=== PATIENT | male | born 1935 | race Caucasian/White ===

== ENCOUNTER 2016-12-28 08:48 | Inpatient (IN) | payer OTHER, BC ==
[~2016-12-28] VITALS: Ht 188 cm; Wt 90.0 kg
[2016-12-28] VITALS (26 sets, daily range): BP systolic 66–132; BP diastolic 42–80; PULSE 50–128; TEMP 36.5–37.8; O2SAT 80–100; Ht 188 cm; Wt 90.0 kg
[~2016-12-28 08:48] MED LIST: ATV/1 PO; LOSA1TAB PO; TRAM-10 PO
[2016-12-28] MEDS ORDERED: SODIUM CHLORIDE 0.9% 1000ML 1,000 ML IV STA (08:55)
[2016-12-28] MEDS ORDERED: SODIUM CHLORIDE 0.9% 500ML 500 ML IV STA (09:03)
[2016-12-28] MEDS ORDERED: DILTIAZEM HCL 5 MG/ML 5 ML VIAL IV STA (09:03)
[2016-12-28] MEDS ORDERED: DILTIAZEM BOLUS / DRIP IV STA (09:03)
[2016-12-28] MEDS ORDERED: DILTIAZEM HCL INJ 125 MG in DEXTROSE 5% 100ML IV PRN ×2 (09:15→15:15)
[2016-12-28 09:18] LABS: BASO % 0.1 %; BASO ABS # 0.01 K/uL (0-0.2); COMPLETE YES; EOS % 0.1 %; HEMATOCRIT 37.1 % (42-52); IG% 0.1 %; LYMPH % 10.5 %; LYMPH ABS # 0.92 K/uL (1.2-3.4); MEAN CELL VOLUME 95.4 fL (80-100); MEAN CORPUSCULAR HEMOGLOBIN 33.2 pg (25-34); MEAN CORPUSCULAR HGB CONC 34.8 g/dl (32-36); MEAN PLATELET VOLUME 9.3 fL (7.4-10.4); MONO % 9.1 %; NEUT % 80.1 %; PLATELET COUNT 207 K/uL (130-400); RED BLOOD COUNT 3.89 M/uL (4.7-6.1); WHITE BLOOD COUNT 8.76 K/uL (4.8-10.8)
[2016-12-28 09:25] LABS: PROTHROMBIN TIME (PATIENT) 10.9 SECONDS (9.0-12.0)
--- NOTE | 2016-12-28 09:26 | DIAGNOSTIC IMAGING REPORT ---
CHEST ONE VIEW PORTABLE CLINICAL HISTORY: EVALUATE WEAKNESS dyspnea COMPARISON STUDY: None FINDINGS: Moderate cardiomegaly. Infiltrate left base. Slight fullness pulmonary vasculature. Prior left shoulder replacement. IMPRESSION: 1. Moderate cardiomegaly. 2. Infiltrate left base. Electronically signed by: Jerome Rodrigez M.D. 12/28/2016 9:25 AM Dictated Date/Time: 12/28/2016 9:24 AM
[2016-12-28 09:30] LABS: ISTAT CREATININE 0.8 mg/dl (0.6-1.3); ISTAT HEMOGLOBIN 12.9 g/dl (14.0-18.0); ISTAT IONIZED CALCIUM 1.14 mmol/l (1.12-1.32)
[2016-12-28 09:36] LABS: BUN/CREATININE RATIO 20.1 (10-20); CALCIUM 8.8 mg/dl (8.5-10.1); CREATININE 0.82 mg/dl (0.60-1.40); MAGNESIUM 1.8 mg/dl (1.8-2.4); POTASSIUM 4.5 mmol/L (3.5-5.1)
[2016-12-28] MEDS ORDERED: LEVAQUIN 750MG / 150ML D5W IV STA (09:39)
[2016-12-28 09:47] LABS: CKMB/CK RATIO 3.5 (0-3.0); THYROID STIMULATING HORMONE 0.13 uIu/ml (0.300-4.500)
[2016-12-28] MEDS ORDERED: CZR50 PO (10:38)
[2016-12-28] MEDS ORDERED: NITROGLYCERIN 0.4 MG SL PER TAB CHARGE SL PRN (10:45)
[2016-12-28] MEDS ORDERED: HEPARIN IV BOLUS 7,000 UNIT in SYRINGE 0 ML IV ONE (14:00)
[2016-12-28] MEDS: HEPARIN 25000 UNIT/ D5W 500 ML (PHARMACY PREPARED) IV PRN ×2 (14:18)
[2016-12-28] MEDS ORDERED: NURSING VERBAL MED ORDER ONE (15:15)
[2016-12-28] MEDS ORDERED: METOPROLOL TARTRATE 25 MG TAB PO ONE (15:30)
--- NOTE | 2016-12-28 15:30 | EMERGENCY ROOM VISIT NOTE ---
History Report prepared by Jonelle: Joe Espinal Under the Supervision of: Dr. Truong Crowder M.D. First contact with patient: 08:52 Stated Complaint: CHEST PAIN/ AFIB History of Present Illness The patient is a 81 year old male who presents to the Emergency Room with complaints of resolving chest pain that started this morning. He rates his pain as a 2/10 in severity currently and states that it was more severe earlier today. The patient states that he woke up in the middle of the night last night and could not move and was weak. He reports that later this morning he started to experience mild dull chest pain with inspiration. The patient was brought into the ED via EMS who report that when they arrived he was pale and diaphoretic. They report that they checked his vitals and he was experiencing atrial fibrillation with a rate of 130-150 and his blood pressure was 103 systolic. EMS states that they gave him Aspirin and Nitroglycerin and liang his blood. The patient reports that he currently feels a relief of symptoms after taking the medication EMS administered. He states that he has a history of atrial fibrillation and experiences shortness of breath upon exertion. The patient states that he went to visit his Tubing Supervisor at [facility] yesterday where they gave him monitoring strips to monitor his atrial fibrillation. He also reports that he has a history of edema, which he wears compression socks for, varicose veins, and venous insufficiency. He denies wearing his socks yesterday and states that his legs started to swell last night. The patient admits that he takes Losartan for his hypertension but denies any medication for his atrial fibrillations. The patient denies any previous heart attack, catheterization, LOC, headache, fevers, chills, visual changes, neck pain, breathing difficulties, nausea, vomiting, abdominal pain, back pain, melena, hematochezia, urinary symptoms, numbness, lymphadenopathy, rash, or other complaints Source of History: patient, EMS Onset: this morning Position: chest Symptom Intensity: 2/10 Quality: dull Timing: other (resolving) Modifying Factors (Worsening): breathing Modifying Factors (Relieving): other (aspirin and nitroglycerin) Associated Symptoms: + diaphoresis, + weakness Review of Systems See HPI for pertinent positives and negatives. A total of ten systems were reviewed and were otherwise negative. Past Medical & Surgical Medical Problems: (1) Atrial fibrillation (2) Chest pain (3) Varicose vein of leg (4) Venous insufficiency Family History Patient reports no known family medical history. Social History Smoking Status: Never Smoker Smokeless Tobacco Use: No Drug Use: none Marital Status: Housing Status: lives with significant other Occupation Status: retired Current/Historical Medications Scheduled Lorazepam (Ativan), 1 MG PO HS Losartan Potassium (Losartan Potassium), 1 TAB PO DAILY Allergies Coded Allergies: No Known Allergies (Unverified , 12/28/16) Physical Exam Vital Signs Date Time Temp Pulse Resp B/P (MAP) Pulse Ox O2 Delivery O2 Flow Rate FiO2 12/28/16 10:24 118 20 107/77 99 Nasal Cannula 2.0 12/28/16 10:16 121 20 111/75 99 Nasal Cannula 2.0 12/28/16 10:13 37.8 109 20 113/80 95 Nasal Cannula 2.0 12/28/16 10:04 112 20 113/68 98 Nasal Cannula 2.0 12/28/16 10:00 118 20 105/71 98 Nasal Cannula 2.0 12/28/16 09:56 107 20 113/80 98 Nasal Cannula 2.0 12/28/16 09:49 122 20 109/79 98 Nasal Cannula 2.0 12/28/16 09:42 106 20 108/80 98 Nasal Cannula 2.0 12/28/16 09:34 112 20 112/75 98 Nasal Cannula 2.0 12/28/16 09:32 110 20 123/78 97 Nasal Cannula 2.0 12/28/16 09:30 110 20 116/84 98 Nasal Cannula 2.0 12/28/16 09:28 105 20 110/80 98 Nasal Cannula 2.0 12/28/16 09:26 109 20 111/81 97 Nasal Cannula 2.0 12/28/16 09:23 105 21 107/76 98 Nasal Cannula 2.0 12/28/16 09:21 106 12/28/16 09:18 116 22 113/81 99 Nasal Cannula 2.0 12/28/16 09:14 110 20 125/77 98 Nasal Cannula 2.0 12/28/16 09:08 136 20 133/77 98 Nasal Cannula 2.0 12/28/16 09:02 98 Nasal Cannula 2.0 12/28/16 09:02 98 Nasal Cannula 2.0 12/28/16 09:02 98 Nasal Cannula 2.0 12/28/16 09:02 37.8 146 20 105/75 98 Nasal Cannula 2.0 12/28/16 08:59 155 Physical Exam GENERAL: Awake, alert, well-appearing, in no acute distress HENT: Normocephalic, atraumatic. Oropharynx unremarkable. EYES: Normal conjunctiva. Sclera non-icteric. NECK: Supple. No nuchal rigidity. FROM. No JVD. RESPIRATORY: Clear to auscultation. CARDIAC: Tachycardic, irregular rhythm. Extremities warm and well perfused. Pulses equal. ABDOMEN: Soft, non-distended. No tenderness to palpation. No rebound or guarding. No masses. RECTAL: Deferred. MUSCULOSKELETAL: Chest examination reveals no tenderness. The back is symmetrical on inspection without obvious abnormality. There is no CVA tenderness to palpation. No joint edema. LOWER EXTREMITIES: Calves are equal size bilaterally and non-tender. 1+ bilateral edema. No discoloration. NEURO: Normal sensorium. No sensory or motor deficits noted. SKIN: No rash or jaundice noted. Medical Decision & Procedures ER Provider Diagnostic Interpretation: X-ray: Per my interpretation, radiologist review. CHEST ONE VIEW PORTABLE CLINICAL HISTORY: EVALUATE WEAKNESS dyspnea COMPARISON STUDY: None FINDINGS: Moderate cardiomegaly. Infiltrate left base. Slight fullness pulmonary vasculature. Prior left shoulder replacement. IMPRESSION: 1. Moderate cardiomegaly. 2. Infiltrate left base. Electronically signed by: Jerome Rodrigez M.D. 12/28/2016 9:25 AM Dictated Date/Time: 12/28/2016 9:24 AM Laboratory Results 12/28/16 08:10 Red Blood Count 3.89, Mean Corpuscular Volume 95.4, Mean Corpuscular Hemoglobin 33.2, Mean Corpuscular Hemoglobin Concent 34.8, Mean Platelet Volume 9.3, Neutrophils (%) (Auto) 80.1, Lymphocytes (%) (Auto) 10.5, Monocytes (%) (Auto) 9.1, Eosinophils (%) (Auto) 0.1, Basophils (%) (Auto) 0.1, Neutrophils # (Auto) 7.01, Lymphocytes # (Auto) 0.92, Monocytes # (Auto) 0.80, Eosinophils # (Auto) 0.01, Basophils # (Auto) 0.01 12/28/16 08:10 Test 12/28/16 08:10 12/28/16 09:03 12/28/16 09:05 White Blood Count 8.76 K/uL (4.8-10.8) Red Blood Count 3.89 M/uL (4.7-6.1) Hemoglobin 12.9 g/dL (14.0-18.0) Hematocrit 37.1 % (42-52) Mean Corpuscular Volume 95.4 fL (80-100) Mean Corpuscular Hemoglobin 33.2 pg (25-34) Mean Corpuscular Hemoglobin Concent 34.8 g/dl (32-36) Platelet Count 207 K/uL (130-400) Mean Platelet Volume 9.3 fL (7.4-10.4) Neutrophils (%) (Auto) 80.1 % Lymphocytes (%) (Auto) 10.5 % Monocytes (%) (Auto) 9.1 % Eosinophils (%) (Auto) 0.1 % Basophils (%) (Auto) 0.1 % Neutrophils # (Auto) 7.01 K/uL (1.4-6.5) Lymphocytes # (Auto) 0.92 K/uL (1.2-3.4) Monocytes # (Auto) 0.80 K/uL (0.11-0.59) Eosinophils # (Auto) 0.01 K/uL (0-0.5) Basophils # (Auto) 0.01 K/uL (0-0.2) RDW Standard Deviation 47.6 fL (36.4-46.3) RDW Coefficient of Variation 13.8 % (11.5-14.5) Immature Granulocyte % (Auto) 0.1 % Immature Granulocyte # (Auto) 0.01 K/uL (0.00-0.02) Prothrombin Time 10.9 SECONDS (9.0-12.0) Prothromb Time International Ratio 1.0 (0.9-1.1) Activated Partial Thromboplast Time 26.6 SECONDS (21.0-31.0) Partial Thromboplastin Ratio 1.0 Est Creatinine Clear Calc Drug Dose 79.7 ml/min Estimated GFR () 96.8 Estimated GFR (Non- 83.5 BUN/Creatinine Ratio 20.1 (10-20) Calcium Level 8.8 mg/dl (8.5-10.1) Magnesium Level 1.8 mg/dl (1.8-2.4) Total Bilirubin 1.4 mg/dl (0.2-1) Direct Bilirubin 0.3 mg/dl (0-0.2) Aspartate Amino Transf (AST/SGOT) 34 U/L (15-37) Alanine Aminotransferase (ALT/SGPT) 54 U/L (12-78) Alkaline Phosphatase 69 U/L (45-117) Total Creatine Kinase 115 U/L (39-308) Total Protein 7.3 gm/dl (6.4-8.2) Albumin 3.6 gm/dl (3.4-5.0) Thyroid Stimulating Hormone (TSH) 0.130 uIu/ml (0.300-4.500) Bedside Troponin I < 0.030 ng/ml (0-0.045) Bedside Hemoglobin 12.9 g/dl (14.0-18.0) Bedside Hematocrit 38 % (42-52) Bedside Sodium 135 mEq/L (135-144) Bedside Potassium 4.7 mEq/L (3.3-5.0) Bedside Chloride 97 mEq/L (101-112) Bedside Total CO2 27 mEq/l (24-31) Anion Gap 17.0 mmol/L (16-25) Bedside Blood Urea Nitrogen 17 mg/dl (7-18) Bedside Creatinine 0.8 mg/dl (0.6-1.3) Bedside Glucose (other) 131 mg/dl (70-99) Bedside Ionized Calcium (Grace) 1.14 mmol/l (1.12-1.32) Laboratory results reviewed by me Medications Administered Medications (Trade) Dose Ordered Sig/Randolph Route Start Time Stop Time Status Last Admin Dose Admin Sodium Chloride 500 ml @ 999 mls/hr Q31M STAT IV 12/28/16 09:03 12/28/16 09:33 DC 12/28/16 09:03 999 MLS/HR Diltiazem HCl (Cardizem Bolus / Drip) 1 ea NOW STAT IV 12/28/16 09:03 12/28/16 09:05 DC 12/28/16 09:22 1 EA Diltiazem HCl (Cardizem Inj) 10 mg NOW STAT IV 12/28/16 09:03 12/28/16 09:05 DC 12/28/16 09:10 10 MG Diltiazem HCl 125 mg/Dextrose 125 ml @ 0 mls/hr Q0M PRN IV 12/28/16 09:15 12/28/16 13:53 DC 12/28/16 09:21 5 MLS/HR Levofloxacin (Levaquin / D5W) 750 mg NOW STAT IV 12/28/16 09:39 12/28/16 09:41 DC 12/28/16 10:25 750 MG ECG Indication: chest pain Rate (beats per minute): 139 Rhythm: atrial fibrillation Findings: no acute ischemic change, other (RVR) Comparison ECG Date: pre hospital Change: Atrial fibrillation with RVR and questionable ST elevation in the lateral leads. ED Course 0850: The patient was evaluated in room A11B. A complete history and physical exam was performed. 0855: Sodium Chloride 1000 ml @ 125 mls/hr IV. 0903: Cardizem Injection 10 mg IV, Diltiazem HCl 1 each IV, Sodium Chloride 500 ml @ 999 mls/hr IV. 0915: diltiazem HCl 125 mg/Dextrose 125 ml @ 0 mls/hr IV. 0939: Levofloxacin 750 mg IV. 0944: I reevaluated the patient and he is resting comfortably I updated him on his results and treatment plan. He agrees to admission. 1014: I discussed the patient's case with [facility] He understands the patient's condition and agrees to accept the patient. The patient will be further evaluated. Medical Decision Medication Reconciliation: I attest that I have personally reviewed the patient' s current medication list Blood pressure screening: Patient was found to have normal blood pressure on screening and does not require follow-up. Triage Nursing notes reviewed. The patient's presentation and history were concerning for weakness, chest pain , and rapid afib. Etiologies such as cardiac dysrhythmia, ACS, electrolyte abnormality, thyroid dysfunction, pulmonary embolism, infection, gastrointestinal, as well as others were entertained. The patient was evaluated. Clinically he is doing better than initially reported by EMS. The patient was placed on a Cardizem drip. He was hydrated. His CBC revealed a mild anemia. His coags, LFTs, chemistries, cardiac markers were unremarkable. TSH was minimally low. Imaging was concerning for left lower lobe pneumonia. The states that he has been coughing. He was given a dose of IV Levaquin. He will need admission to the hospital. Consultation was made with internal medicine. The patient was evaluated in the Emergency Room for further management. Consults Time Called: 1013 Consulting Physician: Harpal Nassar Returned Call: 1014 I discussed the patient's case with Harpal Nassar. He understands the patient's condition and agrees to accept the patient. The patient will be further evaluated. Impression Primary Impression: Rapid atrial fibrillation Additional Impression: Pneumonia Critical Care I have personally spent greater than 30 minutes of critical care time in the direct management of this patient. This includes bedside care, interpretation of diagnostic studies, and testing, discussion with consultants, patient, and family members, and other required patient management activities. This 30 minutes is in excess of all separately billable procedures. Scribe Attestation The scribe's documentation has been prepared under my direction and personally reviewed by me in its entirety. I confirm that the note above accurately reflects all work, treatment, procedures, and medical decision making performed by me. Departure Information Dispostion Being Evaluated By Hospitalist (Dr. Michelle) Referrals Reji Martínez M.D. (PCP) Problem Qualifiers
--- NOTE | 2016-12-28 15:43 | Cardiology Consultation ---
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 The patient's recent history dates back to November 2016 when he underwent endovenous radiofrequency ablation of the bilateral small saphenous veins to treat venous hypertension symptoms. The procedure was performed at [facility]. EKG performed 10/16/16 revealed sinus rhythm with right bundle branch block and PVCs. However on the day of his procedure it was noted that he had an irregular heart rhythm and an EKG documented the presence of newly diagnosed atrial fibrillation with PVCs. A right bundle branch block was still present. Ventricular rate was 95 bpm. On 12/08/16 the patient therefore saw Dr Lux of [facility] at [facility]. At that time he was found to be every controlled atrial fibrillation of 95-100 bpm. He was asymptomatic and was eager to go on a cruise to [place] and [place]. It was recommended that he start metoprolol succinate 25 mg by mouth daily and Xarelto. The patient however was concerned about starting new medications supposed history perhaps at that he did not take these. Yesterday he presented to the [facility] office and had a 24-hour Holter monitor placed as had been previously ordered before he went away. Overnight last night he stated that he slept more soundly than usual but felt unusual when he woke up in the middle the night and then this point. Today he explained to his family that he felt a chest discomfort when he took a deep breath in. He is apparently had a nonproductive cough for 3 weeks without fever. His spouse is at the bedside describes that during the recent trip he had significant decreased exercise tolerance and shortness of breath with minimal exertion such as walking in a museum or trying to walk up stairs. He had to take frequent breaks and this is not his typical active baseline from even comparison to one month ago. Emergency department today EKG revealed atrial fibrillation with rapid ventricular rate of 139 bpm. The patient was seen by the emergency room physician as well as hospitalist and was placed on a diltiazem infusion. When I had seen him on the telemetry floor he was comfortable. His ventricular rate remained elevated in the 125 bpm range despite high dose IV diltiazem 15 mg per hour. The patient has no long-standing past cardiac history. Prior to his recent appointment on 12/08/16 he had not previously followed with cardiology. History Past Medical History: 1. Recently diagnosed atrial fibrillation 2. Chronic right bundle branch block 3. Previous EKG evidence of frequent PVCs 4. Hypertension 5. Insomnia 6. Osteoporosis 7. 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 Varicose veins with recent endovenous radiofrequency ablation 9. History of TIA 10. Mild pulmonary hypertension echocardiogram 2006 11. Obstructive sleep apnea, not tolerating CPAP Past Surgical History: 1. Colonoscopy 2013 2. Meniscus repair the knee 3. Remote tonsillectomy 4. Vein ablation 12/05/16 Social History: Patient is . 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 A total of 10 systems reviewed and were otherwise negative. Allergies Coded Allergies: No Known Allergies (Unverified , 12/28/16) Medications Reported Home Medications Medications Dose Route/Sig Max Daily Dose Days Date Category Losartan Potassium 50 Mg Tab 1 Tab PO DAILY 12/28/16 Reported Ativan (Lorazepam) 1 Mg Tab 1 Mg PO HS 02/01/15 Reported Physical Exam Vital Signs (Last 8hrs): Last 8 Hrs Date Time Temp Pulse Resp B/P (MAP) Pulse Ox O2 Delivery O2 Flow Rate FiO2 12/28/16 13:00 37.0 128 18 112/71 (85) 99 Nasal Cannula 2.0 12/28/16 12:23 126 22 126/77 99 12/28/16 12:06 126 22 126/77 99 Nasal Cannula 2.0 12/28/16 10:24 118 20 107/77 99 Nasal Cannula 2.0 12/28/16 10:16 121 20 111/75 99 Nasal Cannula 2.0 12/28/16 10:13 37.8 109 20 113/80 95 Nasal Cannula 2.0 12/28/16 10:04 112 20 113/68 98 Nasal Cannula 2.0 12/28/16 10:00 118 20 105/71 98 Nasal Cannula 2.0 12/28/16 09:56 107 20 113/80 98 Nasal Cannula 2.0 12/28/16 09:49 122 20 109/79 98 Nasal Cannula 2.0 12/28/16 09:42 106 20 108/80 98 Nasal Cannula 2.0 12/28/16 09:34 112 20 112/75 98 Nasal Cannula 2.0 12/28/16 09:32 110 20 123/78 97 Nasal Cannula 2.0 12/28/16 09:30 110 20 116/84 98 Nasal Cannula 2.0 12/28/16 09:28 105 20 110/80 98 Nasal Cannula 2.0 12/28/16 09:26 109 20 111/81 97 Nasal Cannula 2.0 12/28/16 09:23 105 21 107/76 98 Nasal Cannula 2.0 12/28/16 09:21 106 12/28/16 09:18 116 22 113/81 99 Nasal Cannula 2.0 12/28/16 09:14 110 20 125/77 98 Nasal Cannula 2.0 12/28/16 09:08 136 20 133/77 98 Nasal Cannula 2.0 12/28/16 09:02 98 Nasal Cannula 2.0 12/28/16 09:02 98 Nasal Cannula 2.0 12/28/16 09:02 98 Nasal Cannula 2.0 12/28/16 09:02 37.8 146 20 105/75 98 Nasal Cannula 2.0 12/28/16 08:59 155 General Appearance: Alert and Oriented x3. NAD. Head: Normocephalic Atraumatic. Eyes: PERRLA, EOMI, conjunctiva and sclera clear Neck: Supple. No carotid bruits noted. No JVD. No HJD. Respiratory: Breath sounds clear to auscultation bilaterally. No w/r/r. Cardiovascular: Reg rate and rhythm. S1 and S2 noted. No murmurs, rubs, gallops. PMI non displace. Abdomen: Normal bowel sounds, soft nontender. no abdominal bruits. Extremities: No edema, no clubbing or cyanosis. distal pulses 2/4 bilaterally. Neuro: No focal deficits. Psychiatric: Normal affect. Data Last Resulted 12/28/16 08:10 Red Blood Count 3.89, Mean Corpuscular Volume 95.4, Mean Corpuscular Hemoglobin 33.2, Mean Corpuscular Hemoglobin Concent 34.8, Mean Platelet Volume 9.3, Neutrophils (%) (Auto) 80.1, Lymphocytes (%) (Auto) 10.5, Monocytes (%) (Auto) 9.1, Eosinophils (%) (Auto) 0.1, Basophils (%) (Auto) 0.1, Neutrophils # (Auto) 7.01, Lymphocytes # (Auto) 0.92, Monocytes # (Auto) 0.80, Eosinophils # (Auto) 0.01, Basophils # (Auto) 0.01 Last Resulted 12/28/16 08:10 Past 24 Hours Test 12/28/16 08:10 12/28/16 15:00 12/28/16 15:11 Range/Units Creatine Kinase MB 4.0 H 0.5-3.6 ng/ml Creatine Kinase MB Ratio 3.5 H 0-3.0 Prothromb Time International Ratio 1.0 0.9-1.1 Prothrombin Time 10.9 9.0-12.0 SECONDS Total Creatine Kinase 115 39-308 U/L CXR: Reported as per radiology moderate cardiomegaly, infiltrate left base EKG: As per history of present illness Telemetry reviewed: Atrial fibrillation, right bundle branch block, rapid ventricular rate in the 125 bpm range on telemetry floor Assessment & Plan Impression: 81-year-old male 1. Newly recognized atrial fibrillation with rapid ventricular rate, first diagnosed on 12/05/16 2. Chronic right bundle branch block 3. Frequent PVCs on outpatient EKG tracings 4. History of obstructive sleep apnea, intolerant of CPAP 5. 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 He could be having angina just on the basis of chronic coronary disease with a rate-induced supply demand mismatch however his symptoms describing pleuritic chest discomfort. He has had a cough for about 3 weeks per his spouse no michelle fever. His chest x-ray does suggest possible pneumonia. He received a single dose of levofloxacin in the emergency room thus far. He has no symptoms when he is sitting still and not taking deep breaths. At this point recommend unfractionated heparin for stroke prophylaxis as he did not start the Xarelto was recommended as an outpatient and overall I would speculate that this medicine may be cost prohibitive. Metoprolol tartrate 25 mg every 6 hours will be added to diltiazem for rate control. We'll plan to try to wean his diltiazem tomorrow. I'm going to hold his losartan for now in favor using medications to help with both heart rate and blood pressure in the interim. An echocardiogram has been completed and I will review this when available. Aly Adams DO, FACC, FACOI Associate [employer] [facility] [place], [facility]
[2016-12-28] MEDS ORDERED: COUGH DROP (SUGAR FREE) LOZ 24 LOZ/1 BOX ONE (16:10)
[2016-12-28] MEDS ORDERED: COLCHICINE 0.6 MG TAB PO ONE (16:19)
--- NOTE | 2016-12-28 16:21 | Cardiology Progress Note ---
Cardiology Progress Note Date of Service Dec 28, 2016. Cardiology Progress Note Echo reveals small circumferential pericardial effusion without tamponade. Given symptoms of pleuritic chest pain, this suggests pericarditis. Plan: solumedrol 40 mg IV x 1 now. Colchicine 0.6 mg BID.
--- NOTE | 2016-12-28 16:23 | ECHOCARDIOGRAM REPORT ---
*NOTICE TO RECEIVING REPUBLICAN AGENCY This information is strictly Confidential and protected under [place] law. [place] law prohibits you from making any further disclosure of this information unless further disclosure is expressly permitted by the written consent of the person to whom it pertains or is authorized by law. A general authorization for the release of medical or other information is not sufficient for this purpose. Hospital accepts no responsibility if the information is made available to any other person, INCLUDING THE PATIENT. Interpretation Summary * Name: AISLINN LOPEZ Study Date: 12/28/2016 01:31 PM BP: 71/128 mmHg * Patient Location: [facility] HR: 112 * : 1935 (M/d/yyyy) Gender: Male Height: 74 in * Age: 81 yrs Ethnicity: [place] Weight: 172 lb * Ordering Physician: Yunior Michelle * Referring Physician: Self, Referred * Performed By: Maggie Quinonez RDCS * * Reason For Study: Atrial fibrillation * BSA: 2.0 m2 * The study was technically adequate. * -- Conclusions -- * Atrial fibrillation with rapid ventricular rate was present during the echocardiogram examination. * There is mild concentric left ventricular hypertrophy. * No regional wall motion abnormalities noted. * The LV Ejection Fraction = 55-60%. * The right ventricle is mildly dilated. * The right ventricular systolic function is normal. * The left atrium is mildly dilated. * There is moderate tricuspid regurgitation. * Doppler findings do not suggest pulmonary hypertension. * The inferior vena cava is mildly dilated and collapeses < 50% with inspiration consistent with a right atrial pressure of 8 mm Hg. * There is a small circumferential pericardial effusion. * There are no echocardiographic indications of cardiac tamponade. * Mild aortic root dilatation with diameter of 4 cm. * The proximal ascending thoracic aorta is mildly dilated with diameter of 3.9 cm. Procedure Details * A complete two-dimensional transthoracic echocardiogram was performed (2D, M-mode, Doppler and color flow Doppler). Left Ventricle * The left ventricle is normal in size. * There is mild concentric left ventricular hypertrophy. * Left ventricular systolic function is normal. * Ejection Fraction = 55-60%. * The left ventricular wall motion is normal. * No regional wall motion abnormalities noted. Right Ventricle * The right ventricle is mildly dilated. * The right ventricular systolic function is normal. Atria * The left atrium is mildly dilated. * Right atrial size is normal. * There is no evidence of atrial septal defect, but resolution does not allow assessment for a patent foramen ovale. Mitral Valve * The mitral valve is normal. * Calcified mitral apparatus. * There is no mitral valve stenosis. * Significant mitral regurgitation is absent. Tricuspid Valve * The tricuspid valve is normal. * There is no tricuspid stenosis. * There is moderate tricuspid regurgitation. * Doppler findings do not suggest pulmonary hypertension. Aortic Valve * The aortic valve is trileaflet. * Aortic stenosis is absent. * There is no significant aortic regurgitation. Pulmonic Valve * The pulmonary valve is not well seen, but the Doppler examination is normal without significant regurgitation or stenosis. Great Vessels * Mild aortic root dilatation. * The proximal ascending thoracic aorta is mildly dilated. Pericardium/Pleural * There is a small circumferential pericardial effusion. * There are no echocardiographic indications of cardiac tamponade. Great Vessels * The inferior vena cava is mildly dilated and collapeses < 50% with inspiration consistent with a right atrial pressure of 8 mm Hg. MMode 2D Measurements and Calculations IVSd 1.5 cm LVIDd 2.9 cm LVIDs 2.0 cm LVPWd 1.2 cm IVS/LVPW 1.2 FS 28.7 % EDV(Teich) 31.1 ml ESV(Teich) 13.4 ml EF(Teich) 57.0 % EDV(cubed) 23.3 ml ESV(cubed) 8.5 ml EF(cubed) 63.7 % LV mass(C)d 124.1 grams LV mass(C)dI 60.9 grams/m\S\2 CO(Teich) 1.7 l/min CI(Teich) 0.82 l/min/m\S\2 SV(Teich) 17.7 ml SI(Teich) 8.7 ml/m\S\2 CO(cubed) 1.4 l/min CI(cubed) 0.69 l/min/m\S\2 SV(cubed) 14.9 ml SI(cubed) 7.3 ml/m\S\2 Ao root diam 4.0 cm Ao root area 12.5 cm\S\2 ACS 2.3 cm LA dimension 3.2 cm asc Aorta Diam 3.9 cm LA/Ao 0.79 LVOT diam 2.0 cm LVOT area 3.3 cm\S\2 LVAd ap4 26.9 cm\S\2 LVLd ap4 7.5 cm EDV(MOD-sp4) 81.1 ml LVAs ap4 16.7 cm\S\2 LVLs ap4 6.6 cm ESV(MOD-sp4) 36.7 ml EF(MOD-sp4) 54.7 % LVAd ap2 19.6 cm\S\2 LVLd ap2 6.3 cm EDV(MOD-sp2) 52.7 ml LVAs ap2 12.3 cm\S\2 LVLs ap2 5.3 cm ESV(MOD-sp2) 23.8 ml EF(MOD-sp2) 54.8 % CO(MOD-sp4) 4.2 l/min CI(MOD-sp4) 2.0 l/min/m\S\2 SV(MOD-sp4) 44.4 ml SI(MOD-sp4) 21.8 ml/m\S\2 CO(MOD-sp2) 2.7 l/min CI(MOD-sp2) 1.3 l/min/m\S\2 SV(MOD-sp2) 28.9 ml SI(MOD-sp2) 14.2 ml/m\S\2 Doppler Measurements and Calculations MV E max hema 86.8 cm/sec MV dec time 0.21 sec Ao V2 max 89.5 cm/sec Ao max PG 3.2 mmHg Ao max PG (full) 0.61 mmHg SUSANA(V,A) 3.0 cm\S\2 SUSANA(V,D) 3.0 cm\S\2 LV V1 max PG 2.6 mmHg LV V1 max 80.5 cm/sec PA V2 max 88.0 cm/sec PA max PG 3.1 mmHg PA acc slope 454.6 cm/sec\S\2 PA acc time 0.14 sec PI max hema 132.5 cm/sec PI max PG 7.0 mmHg PI dec slope 180.7 cm/sec\S\2 PI P1/2t 214.8 msec TR max hema 207.9 cm/sec PA pr(Accel) 15.6 mmHg
[2016-12-28] MEDS ORDERED: METOPROLOL TARTRATE 25 MG TAB PO SCH (17:00)
[2016-12-28] MEDS ORDERED: METHYLPREDNISOLONE IV 40 MG in SYRINGE 0 ML IV SCH (17:00)
[2016-12-28] MEDS ORDERED: ATROPINE SULFATE 0.1 MG/ML 5ML SYR ONE (17:47)
[2016-12-28] MEDS ORDERED: DOPamine 400MG / 250ML D5W ONE (18:04)
--- NOTE | 2016-12-28 18:07 | Cardiology Progress Note ---
Cardiology Progress Note Date of Service Dec 28, 2016. Cardiology Progress Note Note recorded via remote connection from my home: I was notified by nursing that a code purple protocol was activated for this patient. He stood up with assistance from his nurse and became lightheaded and confused. Telemetry revealed bradycardia down to 30 bpm range. Diltiazem 15 mg/hr was therefore stopped. Patient had recently received two doses of metoprolol tartrate 25 mg PO at 1553 , 1722. A state EKG was reviewed by remote connection, AF 72 bpm, RBBB (chronic) no significant ST changes. Telemetry was reviewed remotely: after 0.5 mg atropine patient's HR in the 50- 60 bpm with AF. I recommended another dose of atropine 0.5 mg IV x 1. I would suspect the high doses of AV betsy blocking medications diltiazem and metoprolol have taken effect and with holding these medications HR will stablize. I discontinued diltiazem and metoprolol in the computer orders. I discussed case with Dr Michelle by phone, and I agree with tx to SICU for closer monitoring. No indication for temporary transvenous Pacemaker at present. Aletha Adams DO
[2016-12-28] MEDS ORDERED: ONDANSETRON INJ 2 MG/ML 2 ML VIAL ONE (18:14)
[2016-12-28] MEDS ORDERED: GLUCAGON FOR INJ 1 MG VIAL ONE (18:21)
[2016-12-28] MEDS ORDERED: CALCIUM CHLORIDE 10% 10 ML SYR ONE (18:21)
--- NOTE | 2016-12-28 19:03 | Critical Care Consultation ---
Critical Care Consultation Date of Consultation: Dec 28, 2016. Attending Physician: Yunior Michelle M.D. Reason for Consultation: Bradycardia and Hypotension History of Present Illness He was admitted to the hospital with atrial fib and chest pain. Left LL pneumonia also noted. Recent return from cruise and prior to that had vein surgery on the LE. He was noted to have pulmonary HTN and a small pericardial effusion. Evaluation also noted a RBBB. He was treated with a heparin drip and IV Cardizem. I came to the bedside to assist with a code purple secondary to profound bradycardia and hypotension. The drip stopped and appropriate ACLS measures instituted. He was moved to the ICU for additional care. Family History Patient reports no known family medical history. Social History Smoking Status: Never Smoker Smokeless Tobacco Use: No Drug Use: none Marital Status: Housing Status: lives with significant other Occupation Status: retired Allergies Coded Allergies: No Known Allergies (Unverified , 12/28/16) Home Medications Scheduled Lorazepam (Ativan), 1 MG PO HS Losartan Potassium (Losartan Potassium), 1 TAB PO DAILY Current Inpatient Medications Current Inpatient Medications Medications (Trade) Dose Ordered Sig/Randolph Route Start Time Stop Time Status Last Admin Dose Admin Nitroglycerin (Nitrostat Tab) 0.4 mg UD PRN SL 12/28/16 10:45 01/27/17 10:44 Lorazepam (Ativan Tab) 1 mg HS PRN PO 12/28/16 12:30 01/27/17 12:29 Heparin Sodium (Porcine) 57692 unit/Dextrose 500 ml @ 30 mls/hr [id number] PRN IV 12/28/16 14:00 01/27/17 13:59 12/28/16 14:18 30 MLS/HR Colchicine (Colchicine Tab) 0.6 mg BID PO 12/29/16 09:00 01/28/17 08:59 Review of Systems Unresponsive initially. Noted some nausea and some chest discomfort. Both resolved with return to more appropriate HR and B/P. Remaining ROS negative. Physical Exam Date Time Temp Pulse Resp B/P (MAP) Pulse Ox O2 Delivery O2 Flow Rate FiO2 12/28/16 15:53 37.3 98 20 97/65 (76) 98 Nasal Cannula 2.0 12/28/16 13:00 37.0 128 18 112/71 (85) 99 Nasal Cannula 2.0 12/28/16 12:23 126 22 126/77 99 12/28/16 12:06 126 22 126/77 99 Nasal Cannula 2.0 12/28/16 10:24 118 20 107/77 99 Nasal Cannula 2.0 12/28/16 10:16 121 20 111/75 99 Nasal Cannula 2.0 12/28/16 10:13 37.8 109 20 113/80 95 Nasal Cannula 2.0 12/28/16 10:04 112 20 113/68 98 Nasal Cannula 2.0 12/28/16 10:00 118 20 105/71 98 Nasal Cannula 2.0 12/28/16 09:56 107 20 113/80 98 Nasal Cannula 2.0 12/28/16 09:49 122 20 109/79 98 Nasal Cannula 2.0 12/28/16 09:42 106 20 108/80 98 Nasal Cannula 2.0 12/28/16 09:34 112 20 112/75 98 Nasal Cannula 2.0 12/28/16 09:32 110 20 123/78 97 Nasal Cannula 2.0 12/28/16 09:30 110 20 116/84 98 Nasal Cannula 2.0 12/28/16 09:28 105 20 110/80 98 Nasal Cannula 2.0 12/28/16 09:26 109 20 111/81 97 Nasal Cannula 2.0 12/28/16 09:23 105 21 107/76 98 Nasal Cannula 2.0 12/28/16 09:21 106 12/28/16 09:18 116 22 113/81 99 Nasal Cannula 2.0 12/28/16 09:14 110 20 125/77 98 Nasal Cannula 2.0 12/28/16 09:08 136 20 133/77 98 Nasal Cannula 2.0 12/28/16 09:02 98 Nasal Cannula 2.0 12/28/16 09:02 98 Nasal Cannula 2.0 12/28/16 09:02 98 Nasal Cannula 2.0 12/28/16 09:02 37.8 146 20 105/75 98 Nasal Cannula 2.0 12/28/16 08:59 155 Trendelenburg Neck veins distended even with return to normal status HEENT--as noted. No new focal changes. Respiratory--exchange is adequate Cardio--rate slow initially and B/P in the 50-50 Range--responded to Volume, Dopamine,Calcium Chloride, Glucagon. GI--BS ok -negative Musculo--no edema-- Neuro--upon return of B/P LOC returned to baseline Psych--neg Derm--neg Laboratory Results Last 24 Hours Test 12/28/16 08:10 12/28/16 09:03 12/28/16 09:05 12/28/16 15:00 White Blood Count 8.76 K/uL Red Blood Count 3.89 M/uL Hemoglobin 12.9 g/dL Hematocrit 37.1 % Mean Corpuscular Volume 95.4 fL Mean Corpuscular Hemoglobin 33.2 pg Mean Corpuscular Hemoglobin Concent 34.8 g/dl Platelet Count 207 K/uL Mean Platelet Volume 9.3 fL Neutrophils (%) (Auto) 80.1 % Lymphocytes (%) (Auto) 10.5 % Monocytes (%) (Auto) 9.1 % Eosinophils (%) (Auto) 0.1 % Basophils (%) (Auto) 0.1 % Neutrophils # (Auto) 7.01 K/uL Lymphocytes # (Auto) 0.92 K/uL Monocytes # (Auto) 0.80 K/uL Eosinophils # (Auto) 0.01 K/uL Basophils # (Auto) 0.01 K/uL RDW Standard Deviation 47.6 fL RDW Coefficient of Variation 13.8 % Immature Granulocyte % (Auto) 0.1 % Immature Granulocyte # (Auto) 0.01 K/uL Prothrombin Time 10.9 SECONDS Prothromb Time International Ratio 1.0 Activated Partial Thromboplast Time 26.6 SECONDS Partial Thromboplastin Ratio 1.0 Sodium Level 134 mmol/L Potassium Level 4.5 mmol/L Chloride Level 101 mmol/L Carbon Dioxide Level 25 mmol/L Anion Gap 8.0 mmol/L 17.0 mmol/L Blood Urea Nitrogen 17 mg/dl Creatinine 0.82 mg/dl Est Creatinine Clear Calc Drug Dose 79.7 ml/min Estimated GFR () 96.8 Estimated GFR (Non- 83.5 BUN/Creatinine Ratio 20.1 Random Glucose 133 mg/dl Calcium Level 8.8 mg/dl Magnesium Level 1.8 mg/dl Total Bilirubin 1.4 mg/dl Direct Bilirubin 0.3 mg/dl Aspartate Amino Transf (AST/SGOT) 34 U/L Alanine Aminotransferase (ALT/SGPT) 54 U/L Alkaline Phosphatase 69 U/L Total Creatine Kinase 115 U/L Creatine Kinase MB 4.0 ng/ml Creatine Kinase MB Ratio 3.5 Total Protein 7.3 gm/dl Albumin 3.6 gm/dl Thyroid Stimulating Hormone (TSH) 0.130 uIu/ml Bedside Troponin I < 0.030 ng/ml Bedside Hemoglobin 12.9 g/dl Bedside Hematocrit 38 % Bedside Sodium 135 mEq/L Bedside Potassium 4.7 mEq/L Bedside Chloride 97 mEq/L Bedside Total CO2 27 mEq/l Bedside Blood Urea Nitrogen 17 mg/dl Bedside Creatinine 0.8 mg/dl Bedside Glucose (other) 131 mg/dl Bedside Ionized Calcium (Grace) 1.14 mmol/l Test 12/28/16 15:11 12/28/16 17:50 Creatine Kinase MB 2.3 ng/ml Troponin I < 0.015 ng/ml Bedside Glucose 151 mg/dl Assessment & Plan Bradycardia/Hypotension/Atrial Fib/Pulmonary HTN 1. Cardio--Cardiology at bedside to assist. As per recommendations--stopping the Cardizem and continuation of Dopamine with slow wean 2. Pulmonary--antibiotics in place--may require CPAP 3. GI--nausea--probably secondary to episode--will track 4. Neuro--appears at baseline--will track Additional plans pending his clinical response
--- NOTE | 2016-12-28 19:26 | History and Physical ---
History & Physical Date & Time of Service: Dec 28, 2016 at 12:25 Chief Complaint: Chest Pain/ Afib Primary Care Physician: Reji Martínez M.D. History of Present Illness Source: patient, spouse, clinic records, hospital records 81 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 Pt recently had endovenous radiofrequency ablation of B/L small saphenous vein on 12/05/16 at [place]. He was found to be on AFib the day of the procedure. He had an appointment the next day after discharging on 12/06 with his PCP. On 12/[address] Lux that started him on metoprolol and xarelto before patient left for his trip. Pt said that he did not fill the script because he did not want to take the xarelto because of the black box waning and it was very expensive ($400). He wanted to start on coumadin but because he was going away for vacation, Dr. Lux feels the coumadin was not the best option since pt will need to get blood work for the INR. He has at the cardiology yesterday that gave him a 24hr monitor to wear. Pt was brought to the ER with c/o chest pain. Pt said that this morning he was unable to get up. said that he was very confused and did not make sense at all. He then complaint of chest discomfort this morning whenever he takes a deep breath. said that pt was very active about 3 weeks ago. Denies any cardiac history, palpitation, fevers, chills, SOB, Dizziness. In the ER he was found to be in Afib with RVR. He was started on Cardizem drip. Currently pt lying in bed with no distress with his at bedside. Past Medical/Surgical History HTN Venous insufficiency EMIL Afib Family History Patient reports no known family medical history. Social History Smoking Status: Never Smoker Alcohol Use: drink one glass every night to sleep Drug Use: none Marital Status: Occupational Status: retired Allergies Coded Allergies: No Known Allergies (Unverified , 12/28/16) Home Medications Scheduled Lorazepam (Ativan), 1 MG PO HS Losartan Potassium (Losartan Potassium), 1 TAB PO DAILY Review of Systems Constitutional: No fever, No chills Eyes: No redness ENT: No hearing loss, No nasal symptoms, No sore throat Respiratory: No sputum, No wheezing, No shortness of breath Cardiovascular: + chest pain, No palpitations Abdomen: No pain, No nausea Musculoskeletal: No calf pain Genitourinary - Male: No hematuria, No dysuria Neurologic: No paralysis Psychiatric: No anxiety Endocrine: No fatigue Hematologic / Lymphatic: No night sweats Integumentary: No rash, No itch Physical Exam Vital Signs Date Time Temp Pulse Resp B/P (MAP) Pulse Ox O2 Delivery O2 Flow Rate FiO2 12/28/16 10:24 118 20 107/77 99 Nasal Cannula 2.0 12/28/16 10:16 121 20 111/75 99 Nasal Cannula 2.0 12/28/16 10:13 37.8 109 20 113/80 95 Nasal Cannula 2.0 12/28/16 10:04 112 20 113/68 98 Nasal Cannula 2.0 12/28/16 10:00 118 20 105/71 98 Nasal Cannula 2.0 12/28/16 09:56 107 20 113/80 98 Nasal Cannula 2.0 12/28/16 09:49 122 20 109/79 98 Nasal Cannula 2.0 12/28/16 09:42 106 20 108/80 98 Nasal Cannula 2.0 12/28/16 09:34 112 20 112/75 98 Nasal Cannula 2.0 12/28/16 09:32 110 20 123/78 97 Nasal Cannula 2.0 12/28/16 09:30 110 20 116/84 98 Nasal Cannula 2.0 12/28/16 09:28 105 20 110/80 98 Nasal Cannula 2.0 12/28/16 09:26 109 20 111/81 97 Nasal Cannula 2.0 12/28/16 09:23 105 21 107/76 98 Nasal Cannula 2.0 12/28/16 09:21 106 12/28/16 09:18 116 22 113/81 99 Nasal Cannula 2.0 12/28/16 09:14 110 20 125/77 98 Nasal Cannula 2.0 12/28/16 09:08 136 20 133/77 98 Nasal Cannula 2.0 12/28/16 09:02 98 Nasal Cannula 2.0 12/28/16 09:02 98 Nasal Cannula 2.0 12/28/16 09:02 98 Nasal Cannula 2.0 12/28/16 09:02 37.8 146 20 105/75 98 Nasal Cannula 2.0 12/28/16 08:59 155 General Appearance: WD/WN, no apparent distress Head: normocephalic, atraumatic Eyes: PERRL, EOMI ENT: hearing grossly normal Neck: supple, no JVD Respiratory/Chest: normal breath sounds, no respiratory distress, no accessory muscle use Cardiovascular: no JVD, no murmur, + irregularly irregular Abdomen/GI: non tender, soft Back: no CVA tenderness Extremities/Musculoskelatal: no calf tenderness, + swelling Neurologic/Psych: sodium chlorite operator II-XII nml as tested, no motor/sensory deficits, alert, oriented x 3 Skin: normal color, warm/dry Diagnostics Laboratory Results Results Past 24 Hours Test 12/28/16 08:10 12/28/16 09:03 12/28/16 09:05 Range/Units White Blood Count 8.76 4.8-10.8 K/uL Red Blood Count 3.89 4.7-6.1 M/uL Hemoglobin 12.9 14.0-18.0 g/dL Hematocrit 37.1 42-52 % Mean Corpuscular Volume 95.4 80-100 fL Mean Corpuscular Hemoglobin 33.2 25-34 pg Mean Corpuscular Hemoglobin Concent 34.8 32-36 g/dl Platelet Count 207 130-400 K/uL Mean Platelet Volume 9.3 7.4-10.4 fL Neutrophils (%) (Auto) 80.1 % Lymphocytes (%) (Auto) 10.5 % Monocytes (%) (Auto) 9.1 % Eosinophils (%) (Auto) 0.1 % Basophils (%) (Auto) 0.1 % Neutrophils # (Auto) 7.01 1.4-6.5 K/uL Lymphocytes # (Auto) 0.92 1.2-3.4 K/uL Monocytes # (Auto) 0.80 0.11-0.59 K/uL Eosinophils # (Auto) 0.01 0-0.5 K/uL Basophils # (Auto) 0.01 0-0.2 K/uL RDW Standard Deviation 47.6 36.4-46.3 fL RDW Coefficient of Variation 13.8 11.5-14.5 % Immature Granulocyte % (Auto) 0.1 % Immature Granulocyte # (Auto) 0.01 0.00-0.02 K/uL Prothrombin Time 10.9 9.0-12.0 SECONDS Prothromb Time International Ratio 1.0 0.9-1.1 Activated Partial Thromboplast Time 26.6 21.0-31.0 SECONDS Partial Thromboplastin Ratio 1.0 Sodium Level 134 136-145 mmol/L Potassium Level 4.5 3.5-5.1 mmol/L Chloride Level 101 98-107 mmol/L Carbon Dioxide Level 25 21-32 mmol/L Anion Gap 8.0 17.0 16-25 mmol/L Blood Urea Nitrogen 17 7-18 mg/dl Creatinine 0.82 0.60-1.40 mg/dl Est Creatinine Clear Calc Drug Dose 79.7 ml/min Estimated GFR () 96.8 Estimated GFR (Non- 83.5 BUN/Creatinine Ratio 20.1 10-20 Random Glucose 133 70-99 mg/dl Calcium Level 8.8 8.5-10.1 mg/dl Magnesium Level 1.8 1.8-2.4 mg/dl Total Bilirubin 1.4 0.2-1 mg/dl Direct Bilirubin 0.3 0-0.2 mg/dl Aspartate Amino Transf (AST/SGOT) 34 15-37 U/L Alanine Aminotransferase (ALT/SGPT) 54 12-78 U/L Alkaline Phosphatase 69 45-117 U/L Total Creatine Kinase 115 39-308 U/L Creatine Kinase MB 4.0 0.5-3.6 ng/ml Creatine Kinase MB Ratio 3.5 0-3.0 Total Protein 7.3 6.4-8.2 gm/dl Albumin 3.6 3.4-5.0 gm/dl Thyroid Stimulating Hormone (TSH) 0.130 0.300-4.500 uIu/ml Bedside Troponin I < 0.030 0-0.045 ng/ml Bedside Hemoglobin 12.9 14.0-18.0 g/dl Bedside Hematocrit 38 42-52 % Bedside Sodium 135 135-144 mEq/L Bedside Potassium 4.7 3.3-5.0 mEq/L Bedside Chloride 97 101-112 mEq/L Bedside Total CO2 27 24-31 mEq/l Bedside Blood Urea Nitrogen 17 7-18 mg/dl Bedside Creatinine 0.8 0.6-1.3 mg/dl Bedside Glucose (other) 131 70-99 mg/dl Bedside Ionized Calcium (Grace) 1.14 1.12-1.32 mmol/l Microbiology Results 12/28/16 Blood Culture, Received Pending 12/28/16 Blood Culture, Received Pending Diagnostic Radiology CHEST ONE VIEW PORTABLE CLINICAL HISTORY: EVALUATE WEAKNESS dyspnea COMPARISON STUDY: None FINDINGS: Moderate cardiomegaly. Infiltrate left base. Slight fullness pulmonary vasculature. Prior left shoulder replacement. IMPRESSION: 1. Moderate cardiomegaly. 2. Infiltrate left base. Electronically signed by: Jerome Rodrigez M.D. 12/28/2016 9:25 AM Dictated Date/Time: 12/28/2016 9:24 AM Impression Assessment and Plan Afib with RVR Rate uncontrolled between 110 to 130 Started on Cardizem drip in the ER continue Cardizem drip [id number] 5 Initial troponin negative Follow up 2 more sets CM Follow echo will get a doppler of LE since pt just came from a trip Will start on heparin drip will monitor in telemetry Cardiology consult Chest pain complaint of chest pain with deep breathing Seems more like pleuritic Troponin negative follow troponin Pneumonia CXR showed left base infiltrate Received levaquin in the ER Continue levaquin IV check blood cx will monitor cbc Abnormal TSH TSH is low Check free T4 and Total T3 HTN BP stable EMIL Non complaint with CPap DVT px on heparin drip Code Status Full no mech ventilation Level of Care Telemetry Advanced Directives Existing Living Will: Yes Existing Power of Tax Revenue Officer: Yes Resuscitation Status FULL NO MECH VENTILATION VTE Prophylaxis VTE Risk Assessment Done? Y/N: Yes Risk Level: Moderate Given or contraindicated: Unfractionated heparin SQ
--- NOTE | 2016-12-28 19:42 | Progress Note ---
Progress Note Date of Service Dec 28, 2016. Progress Note Code bhavana was called after pt went to the bathroom he became lightheadedness, diaphoresis and lethargy. He became hypoxia in the 80's and HR dropped in the 30 to 40's with BP as low as in the 60's systolic. Significant jugular venous distention. Stat EKG done showed RBBB with no ischemic changes, IVF bolus was administered. Cardizem drip was discontinued Case discussed with Dr. Adams that recommended Atropin 0.5mg; after 0.5 mg atropine patient's HR in the 50-60 bpm with AF. Repeat another dose of atropine 0.5 mg IV x [address] Adams recommendation, HR continue to stay btw 50-60. Discussed the case with Dr. Berg the retort fireman who came at bedside to evaluate pt. Dopamine drip was started and pt was transferred to the ICU. In the ICU calcium chloride and glucagon were given to reverse the diltiazem and metoprolol effect. Dr. Adams did a bedside echo that showed no cardiac tamponade. He vomited a couple times. Now, His vital sign improved with BP 106/61 ahd HR 74 Will continue monitor pt in the ICU. was notified
[2016-12-28] MEDS: SODIUM CHLORIDE 0.9% 1000ML 1,000 ML IV SCH (19:47)
[2016-12-28 21:32] LABS: PARTIAL THROMBOPLASTIN RATIO 2.4
[2016-12-28 22:13] LABS: URINE APPEARANCE CLEAR (CLEAR); URINE BILIRUBIN NEG (NEG); URINE COLOR DK YELLOW; URINE NITRITE NEG (NEG); UROBILINOGEN NEG (NEG)
[2016-12-28 22:14] LABS: MANUAL MICROSCOPIC REQUIRED? NO; REVIEW REQ? YES
[2016-12-28 22:21] LABS: URINE MUCUS PRESENT (NONE PRSENT)
[2016-12-28] MEDS: LORAZEPAM 1 MG TAB PO PRN (22:34)
[2016-12-29] VITALS (17 sets, daily range): BP systolic 95–137; BP diastolic 60–84; PULSE 18–110; TEMP 36.6–36.8; O2SAT 93–97
[2016-12-29] MEDS: SODIUM CHLORIDE 0.9% 1000ML 1,000 ML IV SCH ×2 (05:51→12:00)
[2016-12-29] MEDS: HEPARIN 25000 UNIT/ D5W 500 ML (PHARMACY PREPARED) IV PRN ×4 (05:52→23:08)
[2016-12-29 06:16] LABS: HEMATOCRIT 33.1 % (42-52); MEAN CELL VOLUME 95.7 fL (80-100); MEAN CORPUSCULAR HEMOGLOBIN 33.5 pg (25-34); MEAN PLATELET VOLUME 9.1 fL (7.4-10.4); PLATELET COUNT 196 K/uL (130-400); RED BLOOD COUNT 3.46 M/uL (4.7-6.1); WHITE BLOOD COUNT 7.52 K/uL (4.8-10.8)
[2016-12-29 06:44] LABS: PARTIAL THROMBOPLASTIN RATIO 2.3
[2016-12-29 06:48] LABS: BUN/CREATININE RATIO 25.4 (10-20); CALCIUM 8.6 mg/dl (8.5-10.1); CREATININE 0.97 mg/dl (0.60-1.40); POTASSIUM 5.1 mmol/L (3.5-5.1)
--- NOTE | 2016-12-29 07:30 | DIAGNOSTIC IMAGING REPORT ---
ULTRASOUND VENOUS DOPPLER LWR EXT BILA CLINICAL HISTORY: Leg swelling COMPARISON STUDY: No previous studies for comparison. FINDINGS: Real-time and color flow Doppler imaging were performed. Flow was seen within the femoral, popliteal and calf veins with no intraluminal thrombus demonstrated. The saphenous vein is patent. There is a nonspecific 21 x 16 x 9 mm left inguinal lymph node containing a prominent hypoechoic focus within the hilum. IMPRESSION: 1. No evidence of lower extremity DVT 2. 21 x 16 x 9 mm left inguinal lymph node with a possibly replaced hilum Electronically signed by: aDkota Hines M.D. 12/29/2016 7:29 AM Dictated Date/Time: 12/29/2016 7:27 AM
[2016-12-29] MEDS ORDERED: COLCHICINE 0.6 MG TAB PO SCH (09:00)
[2016-12-29] MEDS ORDERED: LOSARTAN POTASSIUM 50 MG TAB PO SCH (09:00)
[2016-12-29] MEDS: LEVOFLOXACIN / D5W 750 MG in PREMIXED IN D5W 150 ML IV SCH (09:22)
--- NOTE | 2016-12-29 09:26 | Critical Care Progress Note ---
Critical Care Progress Note Date of Service Dec 29, 2016. ICU Day ICU Day Number: [address] Berg Subjective He is feeling better. No dyspnea. No chest pain. No orthostatic symptoms. He is awake and alert. Vitals appropriate. He appears clinically improved and stable for return to stepdown unit. Current SOFA Score SOFA Score Response (Comments) Value PaO2/FiO2 (mmHg) < 300 2 SaO2 / FIO2 221 - 301 1 Platelets (x10) > 150 0 Bilirubin (mg/dL) < 1.2 0 Manuel Coma Score 15 0 Level of Hypotension No Hypotension 0 Creatinine (mg/dL) 1.2 - 1.9 1 Total 4 Assessment & Plan Atrial Fib/Episode of Bradycardia and Hypotension-- 1. Cardio--volume looking good. Rx tolerated. Rate ok. 2. Pulmonary--minimal A-a gradient--? underlying EMIL--evaluation in the future- 3. Anticoagulation--tolerating Heparin--Therapeutic. Dispo--clinically appropriate for transfer out of the ICU. Consults & Procedures Consultants: see orders Procedures: none Data Medications: Current Inpatient Medications Medications (Trade) Dose Ordered Sig/Randolph Route Start Time Stop Time Status Last Admin Dose Admin Nitroglycerin (Nitrostat Tab) 0.4 mg UD PRN SL 12/28/16 10:45 01/27/17 10:44 Lorazepam (Ativan Tab) 1 mg HS PRN PO 12/28/16 12:30 01/27/17 12:29 12/28/16 22:34 1 MG Heparin Sodium (Porcine) 62039 unit/Dextrose 500 ml @ 30 mls/hr [id number] PRN IV 12/28/16 14:00 01/27/17 13:59 12/29/16 05:52 30 MLS/HR Colchicine (Colchicine Tab) 0.6 mg BID PO 12/29/16 09:00 01/28/17 08:59 Sodium Chloride 1,000 ml @ 125 mls/hr Q8H IV 12/28/16 19:30 01/27/17 19:29 12/29/16 05:51 125 MLS/HR Levofloxacin 750 mg/Prmx 150 ml @ 100 mls/hr Q24H IV 12/29/16 09:00 01/05/17 08:59 Vital Signs: Date Time Temp Pulse Resp B/P (MAP) Pulse Ox O2 Delivery O2 Flow Rate FiO2 12/29/16 07:44 36.6 90 18 103/71 (82) 97 Nasal Cannula 2.0 90 12/29/16 07:25 97 Nasal Cannula 2.0 12/29/16 06:00 78 20 120/71 (87) 96 Nasal Cannula 2.0 12/29/16 05:00 82 16 108/74 (85) 95 Nasal Cannula 2.0 12/29/16 04:00 36.7 84 18 95/66 (76) 97 Nasal Cannula 2.0 12/29/16 04:00 Nasal Cannula 2.0 12/29/16 03:00 74 97/63 (74) 94 2.0 12/29/16 02:00 79 16 108/76 (87) 96 Nasal Cannula 2.0 12/29/16 01:00 83 18 97/66 (76) 96 Nasal Cannula 2.0 12/29/16 00:00 95 Nasal Cannula 2.0 12/29/16 00:00 74 18 102/60 (74) 96 Nasal Cannula 2.0 12/28/16 23:00 36.6 85 18 113/65 (81) 91 Room Air 12/28/16 23:00 87 88 12/28/16 22:20 92 Room Air 12/28/16 22:15 83 95 Nasal Cannula 2.0 12/28/16 22:01 76 107/75 (86) 12/28/16 22:00 86 95 Oxymask 4.0 12/28/16 20:15 96 Oxymask 8.0 12/28/16 20:01 36.5 78 105/59 (74) 94 12/28/16 20:00 98 Oxymask 15.0 12/28/16 19:21 71 18 94/53 (67) 97 Oxymask 15.0 12/28/16 19:16 72 18 104/56 (72) 97 12/28/16 19:06 74 16 101/61 (74) 96 12/28/16 19:01 72 18 104/56 (72) 95 12/28/16 18:56 77 16 107/42 (63) 84 Oxymask 15.0 12/28/16 18:46 73 18 105/57 (73) 94 12/28/16 18:41 66 18 106/59 (75) 94 12/28/16 18:31 81 18 127/62 (83) 93 12/28/16 18:27 82 18 132/71 (91) 90 12/28/16 18:18 80 18 95/49 (64) 80 Oxymask 15.0 12/28/16 17:58 52 68/44 (52) 100 Oxymask 6.0 12/28/16 17:57 81/43 (56) 100 Oxymask 6.0 12/28/16 17:53 56 66/49 (55) 100 Oxymask 6.0 12/28/16 17:49 50 78/53 (61) 88 Nasal Cannula 4.0 12/28/16 17:15 112 104/67 (79) 12/28/16 16:00 Nasal Cannula 2.0 12/28/16 15:53 37.3 98 20 97/65 (76) 98 Nasal Cannula 2.0 12/28/16 13:00 37.0 128 18 112/71 (85) 99 Nasal Cannula 2.0 12/28/16 12:23 126 22 126/77 99 12/28/16 12:06 126 22 126/77 99 Nasal Cannula 2.0 12/28/16 10:24 118 20 107/77 99 Nasal Cannula 2.0 12/28/16 10:16 121 20 111/75 99 Nasal Cannula 2.0 12/28/16 10:13 37.8 109 20 113/80 95 Nasal Cannula 2.0 12/28/16 10:04 112 20 113/68 98 Nasal Cannula 2.0 12/28/16 10:00 118 20 105/71 98 Nasal Cannula 2.0 12/28/16 09:56 107 20 113/80 98 Nasal Cannula 2.0 12/28/16 09:49 122 20 109/79 98 Nasal Cannula 2.0 12/28/16 09:42 106 20 108/80 98 Nasal Cannula 2.0 12/28/16 09:34 112 20 112/75 98 Nasal Cannula 2.0 12/28/16 09:32 110 20 123/78 97 Nasal Cannula 2.0 12/28/16 09:30 110 20 116/84 98 Nasal Cannula 2.0 12/28/16 09:28 105 20 110/80 98 Nasal Cannula 2.0 12/28/16 09:26 109 20 111/81 97 Nasal Cannula 2.0 Laboratory Results: Last 24 Hours Test 12/28/16 15:00 12/28/16 15:11 12/28/16 17:50 12/28/16 21:02 Creatine Kinase MB Ratio Creatine Kinase MB 2.3 ng/ml Troponin I < 0.015 ng/ml Bedside Glucose 151 mg/dl 127 mg/dl Test 12/28/16 21:03 12/29/16 05:44 Activated Partial Thromboplast Time 61.2 SECONDS 60.6 SECONDS Partial Thromboplastin Ratio 2.4 2.3 Creatine Kinase MB 1.7 ng/ml Creatine Kinase MB Ratio Troponin I < 0.015 ng/ml White Blood Count 7.52 K/uL Red Blood Count 3.46 M/uL Hemoglobin 11.6 g/dL Hematocrit 33.1 % Mean Corpuscular Volume 95.7 fL Mean Corpuscular Hemoglobin 33.5 pg Mean Corpuscular Hemoglobin Concent 35.0 g/dl RDW Standard Deviation 48.9 fL RDW Coefficient of Variation 14.1 % Platelet Count 196 K/uL Mean Platelet Volume 9.1 fL Sodium Level 135 mmol/L Potassium Level 5.1 mmol/L Chloride Level 104 mmol/L Carbon Dioxide Level 24 mmol/L Anion Gap 7.0 mmol/L Blood Urea Nitrogen 25 mg/dl Creatinine 0.97 mg/dl Est Creatinine Clear Calc Drug Dose 70.6 ml/min Estimated GFR () 85.1 Estimated GFR (Non- 73.4 BUN/Creatinine Ratio 25.4 Random Glucose 143 mg/dl Calcium Level 8.6 mg/dl Magnesium Level 2.0 mg/dl Free Thyroxine 1.43 ng/dl Total Triiodothyronine 0.50 ng/ml
--- NOTE | 2016-12-29 09:37 | Progress Note ---
Internal Med Progress Note Date of Service: Dec 29, 2016. Provider Documentation: SUBJECTIVE: Seen and examined at bedside. Has developed upper body erythema today. Has dry cough. States chest pain resolved. Denies SOB, fever, chills. Family at bedside. Offers no other complaints. OBJECTIVE: Vital Signs-as noted below Physical Exam: General Appearance:Moderately built and nourished, no apparent distress Head: normocephalic, Atraumatic Eyes: normal inspection, EOMI, PERRL Neck: supple, +JVD, Trachea midline Respiratory/Chest: Normal breath sounds, CTA Cardiovascular:Irregularly Irregular, No murmur Abdomen/GI:Soft, Non tender, Bowel sounds present Extremities/Musculoskelatal:normal inspection, no edema Neurologic/Psych:AAOX3, grossly no focal neurological deficits Skin: Erythema upper chest, back and neck. Lab data as noted below. ASSESSMENT & PLAN: Afib with RVR Initially on Cardizem drip which was discontinued secondary to Hypotension, bradycardia Code purple on 12/28: Bradycardia, Hypotension: calcium chloride and glucagon were given to reverse the diltiazem and metoprolol effect. Avoid AV betsy blockers [id number] 5 Troponin negative ECHO: as below Venous Doppler: No DVT on heparin drip Appreciate Cardiology and Berry Picker help Pleuritic Chest pain:Likely pericarditis S/P solumedrol 40 mg IV: one time On Colchicine 0.6 mg BID. Troponin negative Pneumonia CXR showed left base infiltrate Continue Levaquin Blood cultures:pending Erythema: On upper chest, neck Denies pain, itching Unclear etiology Will give a dose of Benadryl Monitor Abnormal TSH TSH is low, Normal free T4 and low T3 Needs repeat thyroid function test as outpatient HTN stable Monitor EMIL Non complaint with CPAP DVT px: on heparin drip Code [facility]: [facility] Disposition: PROCEDURES: ECHO: Atrial fibrillation with rapid ventricular rate was present during the echocardiogram examination. * There is mild concentric left ventricular hypertrophy. * No regional wall motion abnormalities noted. * The LVEjection Fraction = 55-60%. * The right ventricle is mildly dilated. * The right ventricular systolic function is normal. * The left atrium is mildly dilated. * There is moderate tricuspid regurgitation. * Doppler findings do not suggest pulmonary hypertension. * The inferior vena cava is mildly dilated and collapeses < 50% with inspiration consistent with a right atrial pressure of 8 mm Hg. * There is a small circumferential pericardial effusion. * There are no echocardiographic indications of cardiac tamponade. * Mild aortic root dilatation with diameter of 4 cm. * The proximal ascending thoracic aorta is mildly dilated with diameter of 3.9 cm. Vital Signs: Date Time Temp Pulse Resp B/P (MAP) Pulse Ox O2 Delivery O2 Flow Rate FiO2 12/29/16 09:00 85 16 97/70 (79) 97 Nasal Cannula 2.0 85 12/29/16 07:44 36.6 90 18 103/71 (82) 97 Nasal Cannula 2.0 90 12/29/16 07:25 97 Nasal Cannula 2.0 12/29/16 06:00 78 20 120/71 (87) 96 Nasal Cannula 2.0 12/29/16 05:00 82 16 108/74 (85) 95 Nasal Cannula 2.0 12/29/16 04:00 36.7 84 18 95/66 (76) 97 Nasal Cannula 2.0 12/29/16 04:00 Nasal Cannula 2.0 12/29/16 03:00 74 97/63 (74) 94 2.0 12/29/16 02:00 79 16 108/76 (87) 96 Nasal Cannula 2.0 12/29/16 01:00 83 18 97/66 (76) 96 Nasal Cannula 2.0 12/29/16 00:00 95 Nasal Cannula 2.0 12/29/16 00:00 74 18 102/60 (74) 96 Nasal Cannula 2.0 12/28/16 23:00 36.6 85 18 113/65 (81) 91 Room Air 12/28/16 23:00 87 88 12/28/16 22:20 92 Room Air 12/28/16 22:15 83 95 Nasal Cannula 2.0 12/28/16 22:01 76 107/75 (86) 12/28/16 22:00 86 95 Oxymask 4.0 12/28/16 20:15 96 Oxymask 8.0 12/28/16 20:01 36.5 78 105/59 (74) 94 12/28/16 20:00 98 Oxymask 15.0 12/28/16 19:21 71 18 94/53 (67) 97 Oxymask 15.0 12/28/16 19:16 72 18 104/56 (72) 97 12/28/16 19:06 74 16 101/61 (74) 96 12/28/16 19:01 72 18 104/56 (72) 95 12/28/16 18:56 77 16 107/42 (63) 84 Oxymask 15.0 12/28/16 18:46 73 18 105/57 (73) 94 12/28/16 18:41 66 18 106/59 (75) 94 12/28/16 18:31 81 18 127/62 (83) 93 12/28/16 18:27 82 18 132/71 (91) 90 12/28/16 18:18 80 18 95/49 (64) 80 Oxymask 15.0 12/28/16 17:58 52 68/44 (52) 100 Oxymask 6.0 12/28/16 17:57 81/43 (56) 100 Oxymask 6.0 12/28/16 17:53 56 66/49 (55) 100 Oxymask 6.0 12/28/16 17:49 50 78/53 (61) 88 Nasal Cannula 4.0 12/28/16 17:15 112 104/67 (79) 12/28/16 16:00 Nasal Cannula 2.0 12/28/16 15:53 37.3 98 20 97/65 (76) 98 Nasal Cannula 2.0 12/28/16 13:00 37.0 128 18 112/71 (85) 99 Nasal Cannula 2.0 12/28/16 12:23 126 22 126/77 99 12/28/16 12:06 126 22 126/77 99 Nasal Cannula 2.0 12/28/16 10:24 118 20 107/77 99 Nasal Cannula 2.0 12/28/16 10:16 121 20 111/75 99 Nasal Cannula 2.0 12/28/16 10:13 37.8 109 20 113/80 95 Nasal Cannula 2.0 12/28/16 10:04 112 20 113/68 98 Nasal Cannula 2.0 12/28/16 10:00 118 20 105/71 98 Nasal Cannula 2.0 12/28/16 09:56 107 20 113/80 98 Nasal Cannula 2.0 Lab Results: Results Past 24 Hours Test 12/28/16 15:00 12/28/16 15:11 12/28/16 17:50 12/28/16 21:02 Range/Units Creatine Kinase MB Ratio 0-3.0 Creatine Kinase MB 2.3 0.5-3.6 ng/ml Troponin I < 0.015 0-0.045 ng/ml Bedside Glucose 151 127 70-99 mg/dl Test 12/28/16 21:03 12/29/16 05:44 Range/Units Activated Partial Thromboplast Time 61.2 60.6 21.0-31.0 SECONDS Partial Thromboplastin Ratio 2.4 2.3 Creatine Kinase MB 1.7 0.5-3.6 ng/ml Creatine Kinase MB Ratio 0-3.0 Troponin I < 0.015 0-0.045 ng/ml White Blood Count 7.52 4.8-10.8 K/uL Red Blood Count 3.46 4.7-6.1 M/uL Hemoglobin 11.6 14.0-18.0 g/dL Hematocrit 33.1 42-52 % Mean Corpuscular Volume 95.7 80-100 fL Mean Corpuscular Hemoglobin 33.5 25-34 pg Mean Corpuscular Hemoglobin Concent 35.0 32-36 g/dl RDW Standard Deviation 48.9 36.4-46.3 fL RDW Coefficient of Variation 14.1 11.5-14.5 % Platelet Count 196 130-400 K/uL Mean Platelet Volume 9.1 7.4-10.4 fL Sodium Level 135 136-145 mmol/L Potassium Level 5.1 3.5-5.1 mmol/L Chloride Level 104 98-107 mmol/L Carbon Dioxide Level 24 21-32 mmol/L Anion Gap 7.0 3-11 mmol/L Blood Urea Nitrogen 25 7-18 mg/dl Creatinine 0.97 0.60-1.40 mg/dl Est Creatinine Clear Calc Drug Dose 70.6 ml/min Estimated GFR () 85.1 Estimated GFR (Non- 73.4 BUN/Creatinine Ratio 25.4 10-20 Random Glucose 143 70-99 mg/dl Calcium Level 8.6 8.5-10.1 mg/dl Magnesium Level 2.0 1.8-2.4 mg/dl Free Thyroxine 1.43 0.80-1.60 ng/dl Total Triiodothyronine 0.50 0.60-1.81 ng/ml Microbiology Results 12/28/16 Blood Culture, Received Pending 12/28/16 Blood Culture, Received Pending
--- NOTE | 2016-12-29 11:36 | Cardiology Follow-Up ---
Subjective General Date of Service: Dec 29, 2016. Chief Complaint: follow-up AF, RBBB, transient bradycardia, hypotension Pt evaluation today including: conversation w/ patient, conversation w/ family , physical exam, conversation w/ professional benefits sales consultant History of Present Illness The patient is a 81 year old male seen in follow-up. Patient remained in the intensive care unit from 105 over night. His dopamine infusion at 5 mcg/kg/m was weaned to 2.5 mg/kg/m last evening and then discontinued just after 11 PM and his blood pressures remained stable overnight. Currently systolic blood pressure is just over 100 mmHg, and telemetry reveals continued atrial fibrillation in the 70-85 bpm range. Just before I had seen the patient he received his a.m. dose of levofloxacin as well as colchicine and after that he had an erythematous rash on his body without hives. He notes his pleuritic chest pain is slightly improved. He is mentating well. Labs are stable with the exception of mild hyperkalemia at 5.1 mmol per liter. Lower extremity venous duplex excluded the presence of DVT. Mild inguinal adenopathy was noted however the patient did recently have an endovenous radiofrequency ablation of the saphenous veins in his legs which may explain this. Allergies Coded Allergies: No Known Allergies (Unverified , 12/28/16) Social History Smoking Status: Never Smoker Hx Tobacco Use In Past Year?: No Hx Alcohol Use - Type And Amou: Yes (1 a day) Hx Substance Use - Type And Am: No Problem List Medical Problems: (1) Pneumonia Status: Acute (2) Rapid atrial fibrillation Status: Acute Physical Exam Vital Signs Last Vital Signs Documentation Date Time Temp Pulse Resp B/P (MAP) Pulse Ox O2 Delivery O2 Flow Rate FiO2 12/29/16 10:00 82 16 122/72 (89) 97 Nasal Cannula 2.0 82 12/29/16 07:44 36.6 Physical Exam Constitutional: Level of Distress: NAD Head: normocephalic Neck: supple, pertinent finding (jugular venous distention noted at 35.) Lungs: Auscultation: no wheezing, no rales/crackles, no rhonchi Cardiovascular: Heart Auscultation: no murmurs, irregular rate rhythm Abdomen: Inspection & Palpation: non-distended, no tenderness, guarding & rebound Extremities: no edema Neurologic: Gait & Station: pertinent finding (no focal deficits) Additional Comments: Skin: Erythema noted over his trunk, no hives Assessment and Plan Assessment and Plan Impression: 81-year-old male admitted for complaints of generalized weakness shortness of breath with exertion, pleuritic chest discomfort and was therefore treated thus far for atrial fibrillation with rapid ventricular rate, idiopathic versus infection related pericarditis, he required pneumonia 1. Developed transient severe hypotension and last evening bradycardia, evening of 12/28/16 while on high-dose diltiazem infusion and having received 50 milligrams of oral metoprolol just before the event 2. Persistent atrial fibrillation, diagnosed as outpatient on 12/05/16 3. Chronic right bundle branch block 4. Right ventricular dilatation, seemingly chronic, perhaps related to untreated sleep apnea underlying lung disease, is consistent with chronic right bundle branch block 5. Suspected underlying pneumonia 6. Pleuritic chest discomfort, small circumferential pericardial effusion noted on echocardiogram with normal LVEF, at least moderate dilatation of the right ventricle 6. Rash, perhaps colchicine Recommendations: Regarding his bradycardia, I think this was likely the medications catching up with him. He is an 81-year-old male and he was completely mary to these medications. Symptoms resolved after discontinuation of diltiazem and receiving glucagon and calcium chloride for reversible, need to transient support dopamine which was subsequently weaned. He seemingly back to his baseline blood pressure and heart rate noted as an outpatient in late November 2016. At this point proceed without AV betsy blockers. As his hospitalization develops, consider adding metoprolol succinate 25 mg daily if needed for rate control. Regarding the pericarditis, given his age and the potential for complications of voiding nonsteroidal anti-inflammatory medications such as ibuprofen. Given need for anticoagulation with heparin, avoid high-dose aspirin. He has developed a rash shortly after his first and second doses of colchicine for colchicine will be discontinued. Favor low dose long slow taper of prednisone starting at 20 mg daily and working our way down to 2.5 mg daily over a 3 week interval. For stroke prophylaxis, continue unfractionated heparin. Start Coumadin today. Hold losartan given relative low blood pressure and mild high potassium. Moving forward, perhaps he'll do well on single agent of metoprolol for both heart rate control and blood pressure rather than continuing his prior to hospital losartan. Continue levofloxacin for Coumadin required pneumonia. DVT prophylaxis: He is on full dose anticoagulation with heparin infusion and is to start Coumadin for stroke prophylaxis regarding atrial fibrillation. He is stable from my perspective to be transferred back to telemetry. Dr. Proctor will be assuming rounding for us on 12/30/16. Disposition: Patient to follow-up with me as an outpatient. Case discussed with Dr. Berg. Aly Adams, DO, FACC, FACOI Associate Geophysical Prospecting Surveyor [facility], [facility] Laboratory Results Last 24 Hours Test 12/28/16 15:00 12/28/16 15:11 12/28/16 17:50 12/28/16 21:02 Creatine Kinase MB Ratio Creatine Kinase MB 2.3 ng/ml Troponin I < 0.015 ng/ml Bedside Glucose 151 mg/dl 127 mg/dl Test 12/28/16 21:03 12/29/16 05:44 Activated Partial Thromboplast Time 61.2 SECONDS 60.6 SECONDS Partial Thromboplastin Ratio 2.4 2.3 Creatine Kinase MB 1.7 ng/ml Creatine Kinase MB Ratio Troponin I < 0.015 ng/ml White Blood Count 7.52 K/uL Red Blood Count 3.46 M/uL Hemoglobin 11.6 g/dL Hematocrit 33.1 % Mean Corpuscular Volume 95.7 fL Mean Corpuscular Hemoglobin 33.5 pg Mean Corpuscular Hemoglobin Concent 35.0 g/dl RDW Standard Deviation 48.9 fL RDW Coefficient of Variation 14.1 % Platelet Count 196 K/uL Mean Platelet Volume 9.1 fL Sodium Level 135 mmol/L Potassium Level 5.1 mmol/L Chloride Level 104 mmol/L Carbon Dioxide Level 24 mmol/L Anion Gap 7.0 mmol/L Blood Urea Nitrogen 25 mg/dl Creatinine 0.97 mg/dl Est Creatinine Clear Calc Drug Dose 70.6 ml/min Estimated GFR () 85.1 Estimated GFR (Non- 73.4 BUN/Creatinine Ratio 25.4 Random Glucose 143 mg/dl Calcium Level 8.6 mg/dl Magnesium Level 2.0 mg/dl Free Thyroxine 1.43 ng/dl Total Triiodothyronine 0.50 ng/ml
[2016-12-29] MEDS ORDERED: FAMOTIDINE 20 MG TAB PO ONE (11:37)
[2016-12-29] MEDS ORDERED: WARFARIN SOD 5 MG TAB PO ONE (11:45)
[2016-12-29] MEDS: FAMOTIDINE 20 MG TAB PO SCH (20:55)
[2016-12-30] VITALS (9 sets, daily range): BP systolic 113–151; BP diastolic 71–97; PULSE 74–106; TEMP 36.3–36.6; O2SAT 92–95
[2016-12-30] MEDS: LORAZEPAM 1 MG TAB PO PRN ×2 (00:13→20:42)
[2016-12-30 06:53] LABS: HEMATOCRIT 30.7 % (42-52); MEAN CELL VOLUME 95.3 fL (80-100); MEAN CORPUSCULAR HEMOGLOBIN 32.9 pg (25-34); MEAN CORPUSCULAR HGB CONC 34.5 g/dl (32-36); PLATELET COUNT 170 K/uL (130-400); RED BLOOD COUNT 3.22 M/uL (4.7-6.1); WHITE BLOOD COUNT 7.67 K/uL (4.8-10.8)
[2016-12-30 07:15] LABS: INR 1.1 (0.9-1.1); PARTIAL THROMBOPLASTIN RATIO 2.2; PROTHROMBIN TIME (PATIENT) 11.6 SECONDS (9.0-12.0)
[2016-12-30 07:28] LABS: BUN/CREATININE RATIO 20.3 (10-20); CALCIUM 8.1 mg/dl (8.5-10.1); CREATININE 0.73 mg/dl (0.60-1.40)
[2016-12-30] MEDS: FAMOTIDINE 20 MG TAB PO SCH ×2 (09:30→20:40)
[2016-12-30] MEDS: LEVOFLOXACIN / D5W 750 MG in PREMIXED IN D5W 150 ML IV SCH (09:30)
--- NOTE | 2016-12-30 12:17 | Progress Note ---
Internal Med Progress Note Date of Service: Dec 30, 2016. Provider Documentation: SUBJECTIVE: Seen and examined at bedside. erythema resolved. Feels well today Cough is improving. Denies chest pain, SOB, fever, chills. Family at bedside. Offers no other complaints. OBJECTIVE: Vital Signs-as noted below Physical Exam: General Appearance:Moderately built and nourished, no apparent distress Head: normocephalic, Atraumatic Eyes: normal inspection, EOMI, PERRL Neck: supple, +JVD, Trachea midline Respiratory/Chest: Normal breath sounds, CTA Cardiovascular:Irregularly Irregular, No murmur Abdomen/GI:Soft, Non tender, Bowel sounds present Extremities/Musculoskelatal:normal inspection, no edema Neurologic/Psych:AAOX3, grossly no focal neurological deficits Skin: Erythema upper chest, back and neck. Lab data as noted below. ASSESSMENT & PLAN: Afib with RVR Initially on Cardizem drip which was discontinued secondary to Hypotension, bradycardia Code purple on 12/28: Bradycardia, Hypotension: calcium chloride and glucagon were given to reverse the diltiazem and metoprolol effect. [id number] 5 Troponin negative ECHO: as below Venous Doppler: No DVT Continue heparin drip, coumadin Appreciate Cardiology and Child Monitor help Monitor INR:1.1. today Will defer to cardiology for starting on Low dose metoprolol if necessary for rate control Pleuritic Chest pain:Likely pericarditis S/P solumedrol 40 mg IV: one time S/P Colchicine 0.6 mg developed rash, discontinued Continue low dose prednisone taper 20 mg daily and plan to taper down to 2.5 mg daily over a 3 week interval. Pneumonia CXR showed left base infiltrate Continue Levaquin Blood cultures:No growth Abnormal TSH TSH is low, Normal free T4 and low T3 Needs repeat thyroid function test as outpatient HTN stable Monitor No plan to restart losartan given relative low BP EMIL Non complaint with CPAP DVT px: on heparin drip and coumadin Code [facility]: [facility] Disposition: Continue to monitor in Tele PROCEDURES: ECHO: Atrial fibrillation with rapid ventricular rate was present during the echocardiogram examination. * There is mild concentric left ventricular hypertrophy. * No regional wall motion abnormalities noted. * The LVEjection Fraction = 55-60%. * The right ventricle is mildly dilated. * The right ventricular systolic function is normal. * The left atrium is mildly dilated. * There is moderate tricuspid regurgitation. * Doppler findings do not suggest pulmonary hypertension. * The inferior vena cava is mildly dilated and collapeses < 50% with inspiration consistent with a right atrial pressure of 8 mm Hg. * There is a small circumferential pericardial effusion. * There are no echocardiographic indications of cardiac tamponade. * Mild aortic root dilatation with diameter of 4 cm. * The proximal ascending thoracic aorta is mildly dilated with diameter of 3.9 cm. Vital Signs: Date Time Temp Pulse Resp B/P (MAP) Pulse Ox O2 Delivery O2 Flow Rate FiO2 12/30/16 11:20 36.4 89 20 129/86 (100) 95 Room Air 12/30/16 07:25 36.5 83 20 117/78 (91) 94 Room Air 12/30/16 04:00 Nasal Cannula 2.0 12/30/16 03:59 36.4 74 18 113/71 (85) 95 12/30/16 00:01 36.6 100 20 121/81 (94) 93 Room Air 12/30/16 00:01 Nasal Cannula 2.0 12/29/16 20:00 Nasal Cannula 2.0 12/29/16 19:58 36.6 94 20 118/77 (91) 94 Room Air 12/29/16 17:17 36.7 110 20 135/81 (99) 93 Room Air 18 12/29/16 16:00 96 Nasal Cannula 2.0 12/29/16 15:49 36.8 76 20 137/82 (100) 96 12/29/16 13:34 90 18 131/84 (100) 97 Room Air 90 Lab Results: Results Past 24 Hours Test 12/30/16 06:35 Range/Units White Blood Count 7.67 4.8-10.8 K/uL Red Blood Count 3.22 4.7-6.1 M/uL Hemoglobin 10.6 14.0-18.0 g/dL Hematocrit 30.7 42-52 % Mean Corpuscular Volume 95.3 80-100 fL Mean Corpuscular Hemoglobin 32.9 25-34 pg Mean Corpuscular Hemoglobin Concent 34.5 32-36 g/dl RDW Standard Deviation 49.0 36.4-46.3 fL RDW Coefficient of Variation 14.0 11.5-14.5 % Platelet Count 170 130-400 K/uL Mean Platelet Volume 9.0 7.4-10.4 fL Prothrombin Time 11.6 9.0-12.0 SECONDS Prothromb Time International Ratio 1.1 0.9-1.1 Activated Partial Thromboplast Time 58.1 21.0-31.0 SECONDS Partial Thromboplastin Ratio 2.2 Sodium Level 134 136-145 mmol/L Potassium Level 4.0 3.5-5.1 mmol/L Chloride Level 102 98-107 mmol/L Carbon Dioxide Level 27 21-32 mmol/L Anion Gap 5.0 3-11 mmol/L Blood Urea Nitrogen 15 7-18 mg/dl Creatinine 0.73 0.60-1.40 mg/dl Est Creatinine Clear Calc Drug Dose 93.9 ml/min Estimated GFR () 101.5 Estimated GFR (Non- 87.6 BUN/Creatinine Ratio 20.3 10-20 Random Glucose 106 70-99 mg/dl Calcium Level 8.1 8.5-10.1 mg/dl
[2016-12-30] MEDS ORDERED: DOCUSATE SODIUM/SENNA 50/8.6MG TAB PO PRN (13:00)
[2016-12-30] MEDS ORDERED: METOPROLOL TARTRATE 25 MG TAB PO ONE (14:27)
--- NOTE | 2016-12-30 14:35 | Cardiology Follow-Up ---
Subjective General Date of Service: Dec 30, 2016. Chief Complaint: follow-up AF, RBBB, transient bradycardia, hypotension Pt evaluation today including: conversation w/ patient, conversation w/ family , physical exam, chart review, lab review, review of studies, review of inpatient medication list History of Present Illness The patient is a 81 year old male seen in follow-up. Heart rate elevated with minimal exertion. No recurrent bradycardia on telemetry. Denies chest pain or shortness of breath. Offers no other complaints this time. Allergies Coded Allergies: No Known Allergies (Unverified , 12/28/16) Social History Smoking Status: Never Smoker Hx Tobacco Use In Past Year?: No Hx Alcohol Use - Type And Amou: Yes (1 a day) Hx Substance Use - Type And Am: No Problem List Medical Problems: (1) Pneumonia Status: Acute (2) Rapid atrial fibrillation Status: Acute Review of Systems Respiratory: No cough, No sputum, No wheezing, No shortness of breath, No dyspnea at rest, No hemoptysis Cardiac: No chest pain, No orthopnea, No PND, No edema, No palpitations Physical Exam Vital Signs Last Vital Signs Documentation Date Time Temp Pulse Resp B/P (MAP) Pulse Ox O2 Delivery O2 Flow Rate FiO2 12/30/16 11:20 36.4 89 20 129/86 (100) 95 Room Air 12/30/16 04:00 2.0 Physical Exam Constitutional: Level of Distress: NAD Head: normocephalic Neck: supple, pertinent finding (jugular venous distention noted at 35.) Lungs: Auscultation: no wheezing, no rales/crackles, no rhonchi Cardiovascular: Heart Auscultation: no murmurs, irregular rate rhythm Abdomen: Inspection & Palpation: non-distended, no tenderness, guarding & rebound Extremities: no edema Neurologic: Gait & Station: pertinent finding (no focal deficits) Assessment and Plan Assessment and Plan Imp: 1. Persistent atrial fibrillation with borderline rate control at rest and mildly elevated heart rates with minimal exertion. Patient became significantly bradycardic after intravenous Cardizem and high-dose metoprolol on 12/28/16. Dopamine infusion has been discontinued and appears hemodynamically stable. 2. Pericarditis with adverse reaction to colchicine 3. Pneumonia Plan/Recommendations: I long discussion with the patient and significant other regarding his atrial fibrillation and current hospital course including transient symptomatic bradycardia requiring dopamine infusion. Heart rates are trending upward. I will begin low-dose metoprolol 12.5 mg twice daily. He'll receive one dose now. We also had an extensive conversation regarding Coumadin vs. DOAC. Patient prefers Coumadin at this time. He'll receive a dose today. Intravenous heparin infusion will be continued. He will likely require Lovenox bridging at the time of discharge. Plan for taper of prednisone over the next 3 weeks for treatment of pericarditis. Continue to monitor telemetry closely. Repeat INR in the a.m. Laboratory Results Last 24 Hours Test 12/30/16 06:35 White Blood Count 7.67 K/uL Red Blood Count 3.22 M/uL Hemoglobin 10.6 g/dL Hematocrit 30.7 % Mean Corpuscular Volume 95.3 fL Mean Corpuscular Hemoglobin 32.9 pg Mean Corpuscular Hemoglobin Concent 34.5 g/dl RDW Standard Deviation 49.0 fL RDW Coefficient of Variation 14.0 % Platelet Count 170 K/uL Mean Platelet Volume 9.0 fL Prothrombin Time 11.6 SECONDS Prothromb Time International Ratio 1.1 Activated Partial Thromboplast Time 58.1 SECONDS Partial Thromboplastin Ratio 2.2 Sodium Level 134 mmol/L Potassium Level 4.0 mmol/L Chloride Level 102 mmol/L Carbon Dioxide Level 27 mmol/L Anion Gap 5.0 mmol/L Blood Urea Nitrogen 15 mg/dl Creatinine 0.73 mg/dl Est Creatinine Clear Calc Drug Dose 93.9 ml/min Estimated GFR () 101.5 Estimated GFR (Non- 87.6 BUN/Creatinine Ratio 20.3 Random Glucose 106 mg/dl Calcium Level 8.1 mg/dl
[2016-12-30] MEDS: WARFARIN SOD 5 MG TAB PO SCH (15:47)
[2016-12-30] MEDS: HEPARIN 25000 UNIT/ D5W 500 ML (PHARMACY PREPARED) IV PRN ×2 (16:41)
[2016-12-30] MEDS: METOPROLOL TARTRATE 25 MG TAB PO SCH (20:40)
[2016-12-31] VITALS (7 sets, daily range): BP systolic 144–152; BP diastolic 82–91; PULSE 72–92; TEMP 36.6–37.2; O2SAT 93–100
[2016-12-31] MEDS: LEVOFLOXACIN / D5W 750 MG in PREMIXED IN D5W 150 ML IV SCH (08:13)
[2016-12-31] MEDS: FAMOTIDINE 20 MG TAB PO SCH (08:13)
[2016-12-31] MEDS: METOPROLOL TARTRATE 25 MG TAB PO SCH (08:14)
[2016-12-31 08:19] LABS: INR 1.1 (0.9-1.1); PROTHROMBIN TIME (PATIENT) 11.4 SECONDS (9.0-12.0)
[2016-12-31 08:26] LABS: BUN/CREATININE RATIO 13.9 (10-20); CALCIUM 8.7 mg/dl (8.5-10.1); CREATININE 0.82 mg/dl (0.60-1.40); POTASSIUM 4.2 mmol/L (3.5-5.1)
[2016-12-31] MEDS: HEPARIN 25000 UNIT/ D5W 500 ML (PHARMACY PREPARED) IV PRN ×2 (09:22)
--- NOTE | 2016-12-31 09:55 | Progress Note ---
Internal Med Progress Note Date of Service: Dec 31, 2016. Provider Documentation: SUBJECTIVE: Seen and examined at bedside. Doing well today. Denies chest pain, palpitations, SOB, fever, chills. Family at bedside. Offers no other complaints. OBJECTIVE: Vital Signs-as noted below Physical Exam: General Appearance:Moderately built and nourished, no apparent distress Head: normocephalic, Atraumatic Eyes: normal inspection, EOMI, PERRL Neck: supple, +JVD, Trachea midline Respiratory/Chest: Normal breath sounds, CTA Cardiovascular:Irregularly Irregular, No murmur Abdomen/GI:Soft, Non tender, Bowel sounds present Extremities/Musculoskelatal:normal inspection, no edema Neurologic/Psych:AAOX3, grossly no focal neurological deficits Skin: Erythema upper chest, back and neck. Lab data as noted below. ASSESSMENT & PLAN: Afib with RVR Initially on Cardizem drip which was discontinued secondary to Hypotension, bradycardia Code purple on 12/28: Bradycardia, Hypotension: calcium chloride and glucagon were given to reverse the diltiazem and metoprolol effect. [id number] 5 Troponin negative ECHO: as below Venous Doppler: No DVT DC Heparin ggt Will switch to Lovenox Continue coumadin Appreciate Cardiology and Brown Stock Washer help Monitor INR:1.1. today Continue metoprolol for rate control Pleuritic Chest pain:Likely pericarditis S/P solumedrol 40 mg IV: one time S/P Colchicine 0.6 mg developed rash, discontinued Continue low dose prednisone taper 20 mg daily and plan to taper down to 2.5 mg daily over a 3 week interval. Pneumonia CXR showed left base infiltrate Continue Levaquin Blood cultures:No growth Abnormal TSH TSH is low, Normal free T4 and low T3 Needs repeat thyroid function test as outpatient HTN stable Monitor No plan to restart losartan given relative low BP EMIL Non complaint with CPAP DVT px: on Lovenox and coumadin Code Status: Full no mech ventilation Disposition: Plan to discharge home today Follow up with Dr. Martínez on January 03 at 2:15pm Follow up with your leasing sales consultant on January 12 at 11:40AM Complete the antibiotic and prednisone course as advised Continue lovenox and coumadin as advised. Your Target INR is between 2.0 to 3.0 Get PT/INR check tomorrow (01/01/17) and follow up with with results for adjustment of your coumadin dosage. Seek immediate medical attention if your symptoms reoccur or worsen PROCEDURES: ECHO: Atrial fibrillation with rapid ventricular rate was present during the echocardiogram examination. * There is mild concentric left ventricular hypertrophy. * No regional wall motion abnormalities noted. * The LVEjection Fraction = 55-60%. * The right ventricle is mildly dilated. * The right ventricular systolic function is normal. * The left atrium is mildly dilated. * There is moderate tricuspid regurgitation. * Doppler findings do not suggest pulmonary hypertension. * The inferior vena cava is mildly dilated and collapeses < 50% with inspiration consistent with a right atrial pressure of 8 mm Hg. * There is a small circumferential pericardial effusion. * There are no echocardiographic indications of cardiac tamponade. * Mild aortic root dilatation with diameter of 4 cm. * The proximal ascending thoracic aorta is mildly dilated with diameter of 3.9 cm. Vital Signs: Date Time Temp Pulse Resp B/P (MAP) Pulse Ox O2 Delivery O2 Flow Rate FiO2 12/31/16 11:02 36.6 72 16 152/87 (108) 98 Room Air 12/31/16 10:03 92 94 12/31/16 07:49 36.8 89 18 145/82 (103) 93 Room Air 12/31/16 04:00 Room Air 12/31/16 03:55 37.2 85 16 144/91 (108) 93 Room Air 12/30/16 23:59 Room Air 12/30/16 23:05 36.3 89 16 151/84 (106) 92 Room Air 12/30/16 20:00 Room Air 12/30/16 19:17 36.5 106 16 146/97 (113) 94 Room Air 12/30/16 16:00 Room Air 12/30/16 15:29 36.6 100 16 142/84 (103) 93 Room Air Lab Results: Results Past 24 Hours Test 12/31/16 07:26 Range/Units Prothrombin Time 11.4 9.0-12.0 SECONDS Prothromb Time International Ratio 1.1 0.9-1.1 Activated Partial Thromboplast Time 51.3 21.0-31.0 SECONDS Partial Thromboplastin Ratio 2.0 Sodium Level 136 136-145 mmol/L Potassium Level 4.2 3.5-5.1 mmol/L Chloride Level 102 98-107 mmol/L Carbon Dioxide Level 31 21-32 mmol/L Anion Gap 3.0 3-11 mmol/L Blood Urea Nitrogen 11 7-18 mg/dl Creatinine 0.82 0.60-1.40 mg/dl Est Creatinine Clear Calc Drug Dose 83.6 ml/min Estimated GFR () 96.8 Estimated GFR (Non- 83.5 BUN/Creatinine Ratio 13.9 10-20 Random Glucose 102 70-99 mg/dl Calcium Level 8.7 8.5-10.1 mg/dl
--- NOTE | 2016-12-31 10:03 | Cardiology Follow-Up ---
Subjective General Date of Service: Dec 31, 2016. Chief Complaint: follow-up AF, RBBB, transient bradycardia, hypotension Pt evaluation today including: conversation w/ patient, conversation w/ family , physical exam, chart review, lab review, review of studies, conversation w/ sales operations consultant, review of inpatient medication list History of Present Illness The patient is a 81 year old male seen in follow-up. Heart rate is well controlled at rest. Mildly elevated ventricular response with exertion. Patient reports dyspnea on exertion as well. No chest discomfort. No recurrent bradycardia. Tolerating low-dose metoprolol. Allergies Coded Allergies: No Known Allergies (Unverified , 12/28/16) Social History Smoking Status: Never Smoker Hx Tobacco Use In Past Year?: No Hx Alcohol Use - Type And Amou: Yes (1 a day) Hx Substance Use - Type And Am: No Problem List Medical Problems: (1) Pneumonia Status: Acute (2) Rapid atrial fibrillation Status: Acute Review of Systems Respiratory: + dyspnea on exertion, No cough, No sputum, No wheezing, No shortness of breath, No dyspnea at rest, No hemoptysis Cardiac: No chest pain, No orthopnea, No PND, No edema, No claudication, No palpitations Physical Exam Vital Signs Last Vital Signs Documentation Date Time Temp Pulse Resp B/P (MAP) Pulse Ox O2 Delivery O2 Flow Rate FiO2 12/31/16 07:49 36.8 89 18 145/82 (103) 93 Room Air 12/30/16 04:00 2.0 Physical Exam Constitutional: Level of Distress: NAD Head: normocephalic Neck: supple, pertinent finding (jugular venous distention noted at 35.) Lungs: Auscultation: no wheezing, no rales/crackles, no rhonchi Cardiovascular: Heart Auscultation: no murmurs, irregular rate rhythm Abdomen: Inspection & Palpation: non-distended, no tenderness, guarding & rebound Extremities: no edema Neurologic: Gait & Station: pertinent finding (no focal deficits) Assessment and Plan Assessment and Plan Imp: 1. Persistent atrial fibrillation with borderline tachybradycardia syndrome and episode of significant bradycardia after intravenous Cardizem and oral beta marshall during this hospitalization requiring addition of dopamine infusion. Low-dose metoprolol restarted yesterday. Rate controlled at rest and mildly elevated heart rates with exertion. 2. Pericarditis with adverse reaction to colchicine 3. Pneumonia Plan/Recommendations: Again, I had long discussion with the patient and family member regarding his atrial fibrillation and current hospital course including transient symptomatic bradycardia requiring dopamine infusion. Patient tolerating low-dose oral metoprolol and resting heart rate has improved. He will transitioned to Toprol- XL 25 mg daily. He will continue Coumadin for oral anticoagulation. Lovenox bridging recommended. He has declined DOAC. Recommend prednisone taper over the next 3 weeks. We also briefly discussed the potential need for pacemaker in the future given borderline tachybradycardia syndrome during this admission. We'll arrange for cardiology follow-up with Dr. Oreilly. Laboratory Results Last 24 Hours Test 12/31/16 07:26 Prothrombin Time 11.4 SECONDS Prothromb Time International Ratio 1.1 Activated Partial Thromboplast Time 51.3 SECONDS Partial Thromboplastin Ratio 2.0 Sodium Level 136 mmol/L Potassium Level 4.2 mmol/L Chloride Level 102 mmol/L Carbon Dioxide Level 31 mmol/L Anion Gap 3.0 mmol/L Blood Urea Nitrogen 11 mg/dl Creatinine 0.82 mg/dl Est Creatinine Clear Calc Drug Dose 83.6 ml/min Estimated GFR () 96.8 Estimated GFR (Non- 83.5 BUN/Creatinine Ratio 13.9 Random Glucose 102 mg/dl Calcium Level 8.7 mg/dl
[2016-12-31] MEDS ORDERED: ENOXAPARIN 100 MG/1ML SYR SQ SCH ×2 (12:00→14:00)
[2016-12-31] MEDS ORDERED: METOPROLOL SUCC 25MG EXT REL TAB PO SCH (14:00)
[2016-12-31] MEDS ORDERED: PRED10TA PO ×2 (14:53→15:08)
[2016-12-31] MEDS ORDERED: CMD5 PO (14:53)
[2016-12-31] MEDS ORDERED: PRED-301 PO ×2 (14:53→15:07)
[2016-12-31] MEDS ORDERED: CMD25 PO (14:53)
[2016-12-31] MEDS ORDERED: LVQ750 PO (14:53)
[2016-12-31] MEDS ORDERED: LVNIS100 SQ (14:53)
[2016-12-31] MEDS ORDERED: METO1TAB31 PO (14:53)
--- NOTE | 2016-12-31 14:57 | Discharge Summary ---
Discharge Summary Date of Service Dec 31, 2016. Discharge Summary Admission Date: Dec 28, 2016 at 10:46 Discharge Date: Dec 31, 2016 Discharge Disposition: Home Principal Diagnosis: Atrial fibrillation, Pneumonia, Pericarditis Procedures: Venous Doppler: 1. No evidence of lower extremity DVT 2. 21 x 16 x 9 mm left inguinal lymph node with a possibly replaced hilum CXR: 1. Moderate cardiomegaly. 2. Infiltrate left base. ECHO: Atrial fibrillation with rapid ventricular rate was present during the echocardiogram examination. * There is mild concentric left ventricular hypertrophy. * No regional wall motion abnormalities noted. * The LVEjection Fraction = 55-60%. * The right ventricle is mildly dilated. * The right ventricular systolic function is normal. * The left atrium is mildly dilated. * There is moderate tricuspid regurgitation. * Doppler findings do not suggest pulmonary hypertension. * The inferior vena cava is mildly dilated and collapeses < 50% with inspiration consistent with a right atrial pressure of 8 mm Hg. * There is a small circumferential pericardial effusion. * There are no echocardiographic indications of cardiac tamponade. * Mild aortic root dilatation with diameter of 4 cm. * The proximal ascending thoracic aorta is mildly dilated with diameter of 3.9 cm. Consultations: Cardiology, Electronic Systems Security Assessment Pending Studies/Follow-Up: Follow up with Dr. Martínez on January 03 at 2:15pm Follow up with your blocklayer on January 12 at 11:40AM Complete the antibiotic and prednisone course as advised Continue Lovenox and Coumadin as advised. Your Target INR is between 2.0 to 3.0 Get PT/INR check tomorrow (01/01/17) and follow up with with results for adjustment of your coumadin dosage. Seek immediate medical attention if your symptoms reoccur or worsen or if your notice any bleeding Medication Reconciliation New Medications: Levofloxacin (Levofloxacin) 750 Mg Tab 750 MG PO DAILY for 3 Days, #3 Metoprolol Succinate (Toprol Xl) 25 Mg Tab 1 TAB PO DAILY for 30 Days, #30 TAB 1 Refill Prednisone (Prednisone) 5 Mg Tab 5 MG PO UD for 10 Days, #8 TAB Start taking 20mg daily for 2 days then 10mg for 5 days then 5mg for 5 days then 2.5 mg for 5 days and stop Prednisone Tab (Prednisone) 10 Mg Tab 10 MG PO UD for 7 Days, #9 TAB Start taking 20mg daily for 2 days then 10mg for 5 days then 5mg for 5 days then 2.5 mg for 5 days and stop Warfarin Sod (Coumadin) 2.5 Mg Tab 2.5 MG PO UD for 30 Days, #30 EA 1 Refill Enoxaparin (Enoxaparin Sodium) 100 Mg/Ml Inj 90 MG SQ Q12@1000,2200 for 4 Days, #8 EA Stop taking lovenox when your PT/INR reading is between 2.0 and 3.0 on two consecutive days as advised Warfarin Sod (Coumadin) 5 Mg Tab 5 MG PO UD for 30 Days, #30 TAB 1 Refill Continued Medications: Lorazepam (Ativan) 1 Mg Tab 1 MG PO HS, TAB Discontinued Medications: Losartan Potassium (Losartan Potassium) 50 Mg Tab 1 TAB PO DAILY, #30 Admission Information HPI (per Admitting provider): 81 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 Pt recently had endovenous radiofrequency ablation of B/L small saphenous vein on 12/05/16 at [facility]. He was found to be on AFib the day of the procedure. He had an appointment the next day after discharging on 12/06 with his PCP. On 12/[address] Lux that started him on metoprolol and xarelto before patient left for his trip. Pt said that he did not fill the script because he did not want to take the xarelto because of the black box waning and it was very expensive ($400). He wanted to start on coumadin but because he was going away for vacation, Dr. Lux feels the coumadin was not the best option since pt will need to get blood work for the INR. He has at the cardiology yesterday that gave him a 24hr monitor to wear. Pt was brought to the ER with c/o chest pain. Pt said that this morning he was unable to get up. said that he was very confused and did not make sense at all. He then complaint of chest discomfort this morning whenever he takes a deep breath. said that pt was very active about 3 weeks ago. Denies any cardiac history, palpitation, fevers, chills, SOB, Dizziness. In the ER he was found to be in Afib with RVR. He was started on Cardizem drip. Currently pt lying in bed with no distress with his at bedside. Physical Exam (per Admitting): General Appearance: WD/WN, no apparent distress Head: normocephalic, atraumatic Eyes: PERRL, EOMI ENT: hearing grossly normal Neck: supple, no JVD Respiratory/Chest: normal breath sounds, no respiratory distress, no accessory muscle use Cardiovascular: no JVD, no murmur, + irregularly irregular Abdomen/GI: non tender, soft Back: no CVA tenderness Extremities/Musculoskelatal: no calf tenderness, + swelling Neurologic/Psych: pharmacometrician II-XII nml as tested, no motor/sensory deficits, alert , oriented x 3 Skin: normal color, warm/dry Hospital Course Afib with RVR Initially on Cardizem drip which was discontinued secondary to Hypotension, bradycardia Code purple on 12/28: Bradycardia, Hypotension: calcium chloride and glucagon were given to reverse the diltiazem and metoprolol effect. [id number] 5 Troponin negative ECHO: as below Venous Doppler: No DVT DC Heparin ggt Will switch to Lovenox Continue coumadin Appreciate Cardiology and Electronic Systems Security Assessment help Monitor INR:1.1. today Continue metoprolol for rate control Pleuritic Chest pain:Likely pericarditis S/P solumedrol 40 mg IV: one time S/P Colchicine 0.6 mg developed rash, discontinued Continue low dose prednisone taper 20 mg daily and plan to taper down to 2.5 mg daily over a 3 week interval. Pneumonia CXR showed left base infiltrate Continue Levaquin Blood cultures:No growth Abnormal TSH TSH is low, Normal free T4 and low T3 Needs repeat thyroid function test as outpatient HTN stable Monitor No plan to restart losartan given relative low BP EMIL Non complaint with CPAP DVT px: on Lovenox and coumadin Code [facility]: [facility] Disposition: Plan to discharge home today Follow up with Dr. Martínez on January 03 at 2:15pm Follow up with your blocklayer on January 12 at 11:40AM Complete the antibiotic and prednisone course as advised Continue lovenox and coumadin as advised. Your Target INR is between 2.0 to 3.0 Get PT/INR check tomorrow (01/01/17) and follow up with with results for adjustment of your coumadin dosage. Seek immediate medical attention if your symptoms reoccur or worsen PROCEDURES: ECHO: Atrial fibrillation with rapid ventricular rate was present during the echocardiogram examination. * There is mild concentric left ventricular hypertrophy. * No regional wall motion abnormalities noted. * The LVEjection Fraction = 55-60%. * The right ventricle is mildly dilated. * The right ventricular systolic function is normal. * The left atrium is mildly dilated. * There is moderate tricuspid regurgitation. * Doppler findings do not suggest pulmonary hypertension. * The inferior vena cava is mildly dilated and collapeses < 50% with inspiration consistent with a right atrial pressure of 8 mm Hg. * There is a small circumferential pericardial effusion. * There are no echocardiographic indications of cardiac tamponade. * Mild aortic root dilatation with diameter of 4 cm. * The proximal ascending thoracic aorta is mildly dilated with diameter of 3.9 cm. Total time spent on discharge =40 minutes This includes examination of the patient, discharge planning, medication reconciliation, and communication with other providers. Discharge Instructions Discharge Instructions Date of Service Dec 31, 2016. Admission Reason for Admission: Atrial Fibrillation, Chest Pain Discharge Discharge Diagnosis / Problem: Atrial fibrillation, Pneumonia, Pericarditis Discharge Goals Goal(s): Decrease discomfort, Improve function Activity Recommendations Activity Limitations: resume your previous activity Exercise/Sports Limitations: as tolerated . Instructions / Follow-Up Instructions / Follow-Up Follow up with Dr. Martínez on January 03 at 2:15pm Follow up with your blocklayer on January 12 at 11:40AM Complete the antibiotic and prednisone course as advised Continue Lovenox and Coumadin as advised. Your Target INR is between 2.0 to 3.0 Get PT/INR check tomorrow (01/01/17) and follow up with with results for adjustment of your coumadin dosage. Seek immediate medical attention if your symptoms reoccur or worsen or if your notice any bleeding Current Hospital Diet Patient's current hospital diet: AHA Diet (Heart Healthy) Discharge Diet Recommended Diet: AHA Diet (Heart Healthy) Pending Studies Studies pending at discharge: no Medical Emergencies . Who to Call and When: Medical Emergencies: If at any time you feel your situation is an emergency, please call 911 immediately. . Non-Emergent Contact Non-Emergency issues call your: Primary Care Provider, Membership Correspondent Call Non-Emergent contact if: you have a fever, your pain is not controlled, your pain is worsening, your pain is unusual for you, you have any medication questions If your symptoms reoccur or worsen . . "Provider Documentation" section prepared by Tyson Perez. . VTE Core Measure Inpt VTE Proph given/why not?: Unfractionated heparin SQ, Warfarin (Coumadin)
[2016-12-31] MEDS: WARFARIN SOD 5 MG TAB PO SCH (15:19)
[2017-01-01] MEDS ORDERED: METOPROLOL SUCC 25MG EXT REL TAB PO SCH (09:00)
== END 2016-12-31 16:36 | disposition home or self-care (01) | DRG 308 ==
LOC: EDBD 08:48 → C.EDA 08:49 → C.2T 10:46 → ENRESERV 11:03 → C.MSICU 18:11 → EDBEDREQ 12-29 14:20 → ENRESERV 12-29 14:21 → C.2T 12-29 14:46
PROVIDERS: ADMIT Internal Medicine; ATTEND Internal Medicine
DX: I48.1 Persistent atrial fibrillation (principal); J18.9 Pneumonia, unspecified organism; I31.9 Disease of pericardium, unspecified; I83.90 Asymptomatic varicose veins of unspecified lower extremity; T46.1X5A Adverse effect of calcium-channel blockers, initial encounter; G47.33 Obstructive sleep apnea (adult) (pediatric); I10 Essential (primary) hypertension; I95.2 Hypotension due to drugs; I45.10 Unspecified right bundle-branch block; M81.0 Age-related osteoporosis without current pathological fracture; R00.1 Bradycardia, unspecified; I27.2 Other secondary pulmonary hypertension; Z91.19 Patient's noncompliance with other medical treatment and regimen; Z98.890 Other specified postprocedural states; Y92.239 Unspecified place in hospital as the place of occurrence of the external cause

== ENCOUNTER 2017-01-11 15:14 | Emergency (ER) | payer OTHER, BC ==
[~2017-01-11] VITALS: Ht 188 cm; Wt 84.5 kg
[~2017-01-11 15:14] MED LIST changes: +CMD25 PO; +CMD5 PO; -LOSA1TAB PO; +LVNIS100 SQ; +LVQ750 PO; +METO1TAB31 PO; +PRED-301 PO; +PRED10TA PO; -TRAM-10 PO
[2017-01-11 15:18] VITALS: TEMP 36.7; Ht 188 cm; Wt 84.5 kg
[2017-01-11] MEDS ORDERED: SODIUM CHLORIDE 0.9% 1000ML 1,000 ML IV STA (15:55)
[2017-01-11] MEDS ORDERED: METO25TA3 PO (16:26)
--- NOTE | 2017-01-11 16:29 | EMERGENCY ROOM VISIT NOTE ---
History Report prepared by Jonelle: Kaleigh Danielle Under the Supervision of: Dr. Pedro Pablo Ivan M.D. First contact with patient: 15:21 Chief Complaint: RESPIRATORY PROBLEMS Stated Complaint: PNEUMONIA-SENT BY 'S OFFICE History of Present Illness The patient is a 81 year old male who presents to the Emergency Room with complaints of worsening respiratory symptoms beginning BLOCK SORTER. Per , the patient was diagnosed with left-sided pneumonia and pericarditis about 3 weeks ago. He was admitted to the hospital at that time. Last night the patient developed similar symptoms. He felt feverish but states that they do not have a thermometer to check his temperature. He had shortness of breath and was also feeling very tired. He felt that he could not stay awake. The patient states that he suffers from insomnia, "So when I get sleepy I know there is something wrong with me." He states that this is exactly how he felt three weeks ago when he was admitted to the hospital. also notes a rash across his back that was also there with his previous pneumonia and pericarditis. The patient does a lot of work outside and states that it could be bug bites. The patient denies chest pain, cough, abdominal pain, nausea, vomiting, diarrhea, and urinary symptoms. He was diagnosed with atrial fibrillation about 2 months ago and was started on Coumadin when he was in the hospital 3 weeks ago. His INR has not yet reached a therapeutic level - it was 1.3 yesterday. He was getting Lovenox shots, but was told to stop about a week ago after he was bleeding significantly at the injection site. The patient went to his PCP's office today for evaluation of his symptoms. states that his PCP was uncomfortable continuing his care and wanted the patient to come to the ED for further evaluation. Source of History: patient, spouse/significant other Onset: BLOCK SORTER Position: chest (respiratory) Timing: worsening Associated Symptoms: + fevers (subjective), + SOB, + fatigue, + rash, No cough, No chest pain, No nausea, No vomiting, No abdominal pain, No diarrhea, No urinary symptoms Review of Systems See HPI for pertinent positives and negatives. A total of ten systems were reviewed and were otherwise negative. Past Medical & Surgical Medical Problems: (1) Atrial fibrillation (2) Chest pain (3) Varicose vein of leg (4) Venous insufficiency Family History Patient reports no known family medical history. Social History Smoking Status: Never Smoker Drug Use: none Marital Status: Housing Status: lives with significant other Occupation Status: retired Current/Historical Medications Scheduled Lorazepam (Ativan), 1 MG PO HS Metoprolol Succ (Toprol Xl) (Toprol-Xl), 37.5 MG PO DAILY Prednisone (Prednisone), 5 MG PO UD Prednisone Tab (Prednisone), 10 MG PO UD Warfarin Sod (Coumadin), 5 MG PO UD Allergies Coded Allergies: No Known Allergies (Unverified , 01/11/17) Physical Exam Vital Signs Date Time Temp Pulse Resp B/P (MAP) Pulse Ox O2 Delivery O2 Flow Rate FiO2 01/11/17 18:44 100 18 144/94 95 Room Air 01/11/17 17:19 85 18 134/106 92 Room Air 01/11/17 16:16 97 Room Air 01/11/17 15:18 36.7 105 20 125/79 94 Room Air Physical Exam GENERAL: Awake, alert, fatigued-appearing, in no acute distress HENT: Normocephalic, atraumatic. Oropharynx unremarkable. Dry mucous membranes EYES: Normal conjunctiva. Sclera non-icteric. NECK: Supple. No nuchal rigidity. FROM. No JVD. RESPIRATORY: Lung sounds a bit diminished on the right base. . CARDIAC: Regular rate, normal rhythm. Extremities warm and well perfused. Pulses equal. ABDOMEN: Soft, non-distended. No tenderness to palpation. No rebound or guarding. No masses. RECTAL: Deferred. MUSCULOSKELETAL: Chest examination reveals no tenderness. The back is symmetrical on inspection without obvious abnormality. There is no CVA tenderness to palpation. No joint edema. LOWER EXTREMITIES: Calves are equal size bilaterally and non-tender. No edema. No discoloration. NEURO: Normal sensorium. No sensory or motor deficits noted. SKIN: He has scattered half centimeter circular areas of mild erythema that are blanchable. No jaundice noted. Medical Decision & Procedures ER Provider Diagnostic Interpretation: I performed a bedside cardiac ultrasound. He has a very minimal pericardial effusion likely unchanged from prior. No tamponade. Grossly normal RV and LV function. Radiology results as stated below per my review and radiologist interpretation: CHEST 2 VIEWS ROUTINE HISTORY: 81 years-old Male shortness of breath COMPARISON: Chest radiograph 12/28/2016 TECHNIQUE: Frontal and lateral views of the chest FINDINGS: Cardiac silhouette is again enlarged. There has been interval development of a small left and trace right pleural effusions. Subsegmental left basilar consolidation is also noted. Lungs are mildly hyperinflated. There is no pneumothorax. Cardiac silhouette is again mildly enlarged. There is atherosclerosis of the aorta. 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 Upper abdominal structures are within normal limits. IMPRESSION: 1. Interval development of small left and trace right pleural effusions with similar appearance of the subsegmental left basilar consolidation. 2. Moderate cardiomegaly without overt pulmonary edema. The above report was generated using voice recognition software. It may contain grammatical, syntax or spelling errors. Electronically signed by: Augustin Hussein M.D. 01/11/2017 4:45 PM Dictated Date/Time: 01/11/2017 4:43 PM Laboratory Results 01/11/17 16:10 Red Blood Count 3.75, Mean Corpuscular Volume 96.0, Mean Corpuscular Hemoglobin 32.5, Mean Corpuscular Hemoglobin Concent 33.9, Mean Platelet Volume 9.2, Neutrophils (%) (Auto) 76.8, Lymphocytes (%) (Auto) 12.7, Monocytes (%) (Auto) 10.1, Eosinophils (%) (Auto) 0.1, Basophils (%) (Auto) 0.1, Neutrophils # (Auto ) 7.19, Lymphocytes # (Auto) 1.19, Monocytes # (Auto) 0.95, Eosinophils # (Auto ) 0.01, Basophils # (Auto) 0.01 01/11/17 16:10 Test 01/11/17 16:10 White Blood Count 9.37 K/uL (4.8-10.8) Red Blood Count 3.75 M/uL (4.7-6.1) Hemoglobin 12.2 g/dL (14.0-18.0) Hematocrit 36.0 % (42-52) Mean Corpuscular Volume 96.0 fL (80-100) Mean Corpuscular Hemoglobin 32.5 pg (25-34) Mean Corpuscular Hemoglobin Concent 33.9 g/dl (32-36) Platelet Count 222 K/uL (130-400) Mean Platelet Volume 9.2 fL (7.4-10.4) Neutrophils (%) (Auto) 76.8 % Lymphocytes (%) (Auto) 12.7 % Monocytes (%) (Auto) 10.1 % Eosinophils (%) (Auto) 0.1 % Basophils (%) (Auto) 0.1 % Neutrophils # (Auto) 7.19 K/uL (1.4-6.5) Lymphocytes # (Auto) 1.19 K/uL (1.2-3.4) Monocytes # (Auto) 0.95 K/uL (0.11-0.59) Eosinophils # (Auto) 0.01 K/uL (0-0.5) Basophils # (Auto) 0.01 K/uL (0-0.2) RDW Standard Deviation 50.9 fL (36.4-46.3) RDW Coefficient of Variation 14.5 % (11.5-14.5) Immature Granulocyte % (Auto) 0.2 % Immature Granulocyte # (Auto) 0.02 K/uL (0.00-0.02) Prothrombin Time 15.4 SECONDS (9.0-12.0) Prothromb Time International Ratio 1.4 (0.9-1.1) Anion Gap 6.0 mmol/L (3-11) Est Creatinine Clear Calc Drug Dose 89.0 ml/min Estimated GFR () 99.3 Estimated GFR (Non- 85.7 BUN/Creatinine Ratio 20.8 (10-20) Calcium Level 8.8 mg/dl (8.5-10.1) Troponin I < 0.015 ng/ml (0-0.045) Pro-B-Type Natriuretic Peptide 983 pg/ml (0-1800) Laboratory results reviewed by me. Medications Administered Medications (Trade) Dose Ordered Sig/[facility] Route Start Time Stop Time Status Last Admin Dose Admin Sodium Chloride 1,000 ml @ 999 mls/hr Q1H1M STAT IV 01/11/17 15:55 01/11/17 16:55 DC 01/11/17 16:19 999 MLS/HR ECG Indication: SOB/dyspnea Rate (beats per minute): 102 Rhythm: atrial fibrillation (RVR) Findings: RBBB, no acute ischemic change Comparison ECG Date: 12/30/2016 Change: no significant change ED Course 1521: The patient was evaluated in room C8. A complete history and physical exam was performed. 1555: NSS 1000 ml @ 999 mls/hr IV 1641: At this time I performed a bedside cardiac ultrasound. He has a very minimal pericardial effusion likely unchanged from prior. No tamponade. Grossly normal RV and LV function. 1650: The patient is feeling better and resting comfortably. I discussed the results and treatment plan with the patient and his . I answered all pertaining questions that they had. They expressed understanding and verbalized agreement. The patient will be discharged home. He will follow-up with his PCP and likely pulmonology and cardiology if necessary. Medical Decision I reviewed the patient's past medical history, medications, and the nursing notes as described above. Differential diagnoses includes pneumonia, pericarditis, dehydration, electrolyte abnormalities, failure to thrive. Patient is an 81-year-old gentleman with a complicated recent past medical history of A. fib on Coumadin and admission for pericarditis and pneumonia presents to the emergency department with generalized fatigue and shortness of breath per history of present illness. On arrival the patient is afebrile vital signs stable in no acute distress. On exam appears clinically dry. Lungs diminished at the bases bilaterally but otherwise clear. EKG with A. fib and baseline right bundle branch block unchanged from prior. Chest x-ray shows stable left lower lobe infiltrate however appearance of this new small/trace bilateral pleural effusions. WBC is within normal limits. Otherwise patient's troponin is negative. BNP within normal limits. Bedside limited echo demonstrates grossly normal RV and LV function. Small pericardial effusion present with likely unchanged per her previous descriptions. No tympany on physiology present. Findings discussed with patient and options for hospital observation versus discharge with close follow-up with his primary care doctor in arranging for pulmonary follow-up for pleural effusions, as well as follow- up with cardiology as scheduled within upcoming formal echo. Considering patient feeling well at this time preferred plan for outpatient follow-up. Discharged per [facility]. Medication Reconcilliation Current Medication List: was personally reviewed by me Blood Pressure Screening Patient's blood pressure: Elevated blood pressure Blood pressure disposition: Elevated BP felt to be situational Impression Primary Impression: Pleural effusion Scribe Attestation The scribe's documentation has been prepared under my direction and personally reviewed by me in its entirety. I confirm that the note above accurately reflects all work, treatment, procedures, and medical decision making performed by me. Departure Information Dispostion Home / Self-Care Referrals Reji Martínez M.D. (PCP) Patient Instructions ED Effusion Pleural, My [facility] Additional Instructions Please follow up with your primary care physician in the next 1-3 days for follow up and to arrange pulmonology evaluation for your pleural effusions. Your chest xray showed a stable infiltrate from prior with small new pleural effusions. Otherwise, your exam, lab results, and bedside ultrasound did not show signs of an emergent condition. Continue your current medications and make sure to stay hydrated. Return to the emergency department for worsening symptoms as described in the accompanying instructions.
--- NOTE | 2017-01-11 16:47 | DIAGNOSTIC IMAGING REPORT ---
CHEST 2 VIEWS ROUTINE HISTORY: 81 years-old Male shortness of breath COMPARISON: Chest radiograph 12/28/2016 TECHNIQUE: Frontal and lateral views of the chest FINDINGS: Cardiac silhouette is again enlarged. There has been interval development of a small left and trace right pleural effusions. Subsegmental left basilar consolidation is also noted. Lungs are mildly hyperinflated. There is no pneumothorax. Cardiac silhouette is again mildly enlarged. There is atherosclerosis of the aorta. 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 Upper abdominal structures are within normal limits. IMPRESSION: 1. Interval development of small left and trace right pleural effusions with similar appearance of the subsegmental left basilar consolidation. 2. Moderate cardiomegaly without overt pulmonary edema. The above report was generated using voice recognition software. It may contain grammatical, syntax or spelling errors. Electronically signed by: Augustin Hussein M.D. 01/11/2017 4:45 PM Dictated Date/Time: 01/11/2017 4:43 PM
[2017-01-11 16:54] LABS: BLOOD UREA NITROGEN 16 mg/dl (7-18); BUN/CREATININE RATIO 20.8 (10-20); CALCIUM 8.8 mg/dl (8.5-10.1); CARBON DIOXIDE 29 mmol/L (21-32); CHLORIDE 100 mmol/L (98-107); CREATININE 0.77 mg/dl (0.60-1.40); GLUCOSE 110 mg/dl (70-99); POTASSIUM 4.7 mmol/L (3.5-5.1); SODIUM 135 mmol/L (136-145)
[2017-01-11 17:25] LABS: INR 1.4 (0.9-1.1); PROTHROMBIN TIME (PATIENT) 15.4 SECONDS (9.0-12.0)
[2017-01-11 17:26] LABS: BASO % 0.1 %; BASO ABS # 0.01 K/uL (0-0.2); COMPLETE YES; EOS % 0.1 %; IG% 0.2 %; LYMPH % 12.7 %; LYMPH ABS # 1.19 K/uL (1.2-3.4); MEAN CORPUSCULAR HEMOGLOBIN 32.5 pg (25-34); MEAN CORPUSCULAR HGB CONC 33.9 g/dl (32-36); MEAN PLATELET VOLUME 9.2 fL (7.4-10.4); MONO % 10.1 %; NEUT % 76.8 %; PLATELET COUNT 222 K/uL (130-400); RED BLOOD COUNT 3.75 M/uL (4.7-6.1); WHITE BLOOD COUNT 9.37 K/uL (4.8-10.8)
[2017-01-11 18:44] VITALS: BP 144/94; PULSE 100; O2SAT 95
[2017-01-18] MEDS ORDERED: LSX40 PO (13:39)
[2017-01-18] MEDS ORDERED: CMD5 PO (13:39)
[2017-01-18] MEDS ORDERED: TPRSR50 PO (13:39)
[2017-01-18] MEDS ORDERED: DOXY-300 PO (14:26)
[2017-01-18] MEDS ORDERED: LVNIS80 SC (14:28)
== END 2017-01-11 19:24 | disposition home or self-care (01) ==
LOC: C.EDB 15:16 → C.EDC 19:24
DX: J90 Pleural effusion, not elsewhere classified (principal); I48.91 Unspecified atrial fibrillation; Z79.01 Long term (current) use of anticoagulants

== ENCOUNTER 2017-01-13 09:37 | Inpatient (IN) | payer OTHER, BC ==
[~2017-01-13] VITALS: Ht 188 cm; Wt 82.0 kg
[~2017-01-13 09:37] MED LIST changes: -CMD25 PO; -LVNIS100 SQ; -LVQ750 PO; -METO1TAB31 PO; +METO25TA3 PO
[2017-01-13] MEDS ORDERED: SODIUM CHLORIDE 0.9% 1000ML 1,000 ML IV STA (10:12)
[2017-01-13] MEDS ORDERED: WARF5TAB7 PO (10:15)
--- NOTE | 2017-01-13 10:19 | EMERGENCY ROOM VISIT NOTE ---
History Report prepared by Jonelle: Munira Benson Under the Supervision of: Dr. Martha Veras M.D. First contact with patient: 10:09 Chief Complaint: RESPIRATORY PROBLEMS Stated Complaint: PLUERAL EFFUSION,DIFFICULTY BREATHING Nursing Triage Summary: Pt state pt has pleural effusions diagnosed and a fever of 99.7, he hasn't had a fever since but "he can't stay awake". Pt c/o shortness of breath and lack of energy. History of Present Illness The patient is an 81 year old male who presents to the Emergency Room with complaints of worsened respiratory difficulties that began several days ago. The patient states that he was evaluated in the emergency department on December 28 for pneumonia, atrial fibrillation an pericarditis. The patient's states that the patient was additionally evaluated in the emergency department on January 11 for pleural effusions. She states that the patient has been worsening since then. The patient reports a low-grade fever. He states that he has been experiencing shortness of breath, has been weak, and has had a lack of energy. The patient's states that the patient is scheduled for an echocardiogram for . The patient notes that he has difficulty taking a deep breath. He denies any recent travel. The patient's states that the patient had bilateral venous ablations in his lower extremities. She states that the patient had an ultrasound of his lower extremities on the . The patient states that he cannot feel when he is in atrial fibrillation. Source of History: patient, spouse/significant other () Onset: several days ago Position: other (global) Quality: other (respiratory difficulties) Timing: worsening Associated Symptoms: + fevers (low-grade), + SOB, + weakness Note: Associated Symptoms: lack of energy Review of Systems See HPI for pertinent positives & negatives. A total of 10 systems reviewed and were otherwise negative. Past Medical & Surgical Medical Problems: (1) Atrial fibrillation (2) Chest pain (3) SOB (shortness of breath) on exertion (4) Varicose vein of leg (5) Venous insufficiency Family History Patient reports no known family medical history. Social History Smoking Status: Never Smoker Drug Use: none Marital Status: Housing Status: lives with significant other Occupation Status: retired Current/Historical Medications Scheduled Lorazepam (Ativan), 1 MG PO HS Metoprolol Succ (Toprol Xl) (Toprol-Xl), 37.5 MG PO DAILY Prednisone (Prednisone), 5 MG PO UD Warfarin Sod (Jantoven), 5 MG PO UD Allergies Coded Allergies: No Known Allergies (Unverified , 01/11/17) Physical Exam Vital Signs Date Time Temp Pulse Resp B/P (MAP) Pulse Ox O2 Delivery O2 Flow Rate FiO2 01/13/17 14:33 96 Room Air 01/13/17 13:55 74 22 125/61 95 Room Air 01/13/17 12:48 88 01/13/17 11:58 106 15 140/86 100 Room Air 01/13/17 10:38 101 18 125/88 93 Room Air 01/13/17 10:22 106 01/13/17 09:54 95 01/13/17 09:49 36.8 103 20 122/85 95 Room Air Physical Exam Vital signs reviewed. General: Weak, somewhat pale-appearing male, in no significant distress. HEENT: No scleral icterus, PERRLA, neck supple. Atraumatic. Cardiovascular: Regular rate and rhythm, no extra sounds. Pulmonary: Clear to auscultation bilaterally, normal work of breathing. Abdomen: Soft, nontender, nondistended, positive bowel sounds. Musculoskeletal: Atraumatic, no peripheral edema. Neurologic: Patient awake alert and oriented x 3, full strength in all 4 extremities. Cranial nerves 2 through 12 grossly intact. Skin: Warm, dry, no rash Medical Decision & Procedures ER Provider Diagnostic Interpretation: CT results as stated below per my review and radiologist interpretation: CT ANGIOGRAPHY OF THE CHEST, PULMONARY EMBOLUS PROTOCOL CLINICAL HISTORY: Shortness of breath, pleural effusion. Pericardial effusion. COMPARISON STUDY: Chest radiograph January 11, 2017. TECHNIQUE: Following IV administration of 113 mL of Optiray-320, helical axial images of the chest were obtained utilizing the pulmonary embolus protocol. Maximal intensity projections and sagittal and coronal reformats were viewed on an independent 3D workstation. IV contrast was administered without complication. A dose lowering technique was utilized adhering to the principles of ALARA. CT DOSE: 492.31 mGy.cm FINDINGS: No central or lobar pulmonary emboli are identified. The segmental and subsegmental pulmonary arteries are suboptimally assessed due to suboptimal opacification and respiratory motion artifact. The heart is moderately enlarged. There is a small pericardial effusion. There is mild dilatation of the ascending aorta which measures 4.2 cm in caliber. Small to moderate left and small right pleural effusions are present. Associated airspace opacities favor atelectasis. There is left lower lobe volume loss. Interlobular septal thickening indicates pulmonary edema. There are mild groundglass opacities within the lungs. No pneumothorax is present. Bony thorax and upper abdomen are unremarkable. IMPRESSION: 1. No pulmonary emboli identified although segmental and subsegmental pulmonary arteries suboptimally assessed on the exam. 2. Moderate cardiomegaly with small pericardial effusion. 3. Small to moderate left and small right pleural effusions with associated airspace opacities which favor atelectasis. Left lower lobe volume loss. 4. Interlobular septal thickening indicative of mild pulmonary edema. Mild ground glass opacities within lungs also likely reflect pulmonary edema. Electronically signed by: Brandin Brooks M.D. 01/13/2017 12:15 PM Dictated Date/Time: 01/13/2017 12:09 PM Laboratory Results Test 01/13/17 10:45 01/13/17 10:50 01/13/17 10:52 Immature Granulocyte % (Auto) 0.1 % White Blood Count 8.26 K/uL (4.8-10.8) Red Blood Count 3.55 M/uL (4.7-6.1) Hemoglobin 11.5 g/dL (14.0-18.0) Hematocrit 34.0 % (42-52) Mean Corpuscular Volume 95.8 fL (80-100) Mean Corpuscular Hemoglobin 32.4 pg (25-34) Mean Corpuscular Hemoglobin Concent 33.8 g/dl (32-36) Platelet Count 172 K/uL (130-400) Mean Platelet Volume 8.6 fL (7.4-10.4) Neutrophils (%) (Auto) 80.3 % Lymphocytes (%) (Auto) 9.7 % Monocytes (%) (Auto) 9.8 % Eosinophils (%) (Auto) 0.0 % Basophils (%) (Auto) 0.1 % Neutrophils # (Auto) 6.63 K/uL (1.4-6.5) Lymphocytes # (Auto) 0.80 K/uL (1.2-3.4) Monocytes # (Auto) 0.81 K/uL (0.11-0.59) Eosinophils # (Auto) 0.00 K/uL (0-0.5) Basophils # (Auto) 0.01 K/uL (0-0.2) Immature Granulocyte # (Auto) 0.01 K/uL (0.00-0.02) Prothrombin Time 16.8 SECONDS (9.0-12.0) Prothromb Time International Ratio 1.5 (0.9-1.1) Magnesium Level 1.9 mg/dl (1.8-2.4) Total Bilirubin 1.8 mg/dl (0.2-1) Direct Bilirubin 0.4 mg/dl (0-0.2) Aspartate Amino Transf (AST/SGOT) 56 U/L (15-37) Alanine Aminotransferase (ALT/SGPT) 96 U/L (12-78) Alkaline Phosphatase 80 U/L (45-117) Total Protein 6.9 gm/dl (6.4-8.2) Albumin 3.2 gm/dl (3.4-5.0) Bedside Troponin I < 0.030 ng/ml (0-0.045) Bedside Hemoglobin 11.6 g/dl (14.0-18.0) Bedside Hematocrit 34 % (42-52) Bedside Sodium 133 mEq/L (135-144) Bedside Potassium 4.1 mEq/L (3.3-5.0) Bedside Chloride 95 mEq/L (101-112) Bedside Total CO2 26 mEq/l (24-31) Bedside Blood Urea Nitrogen 12 mg/dl (7-18) Bedside Creatinine 0.6 mg/dl (0.6-1.3) Bedside Glucose (other) 124 mg/dl (70-99) Bedside Ionized Calcium (Grace) 1.14 mmol/l (1.12-1.32) Laboratory results per my review. Medications Administered Medications (Trade) Dose Ordered Sig/[facility] Route Start Time Stop Time Status Last Admin Dose Admin Sodium Chloride 1,000 ml @ 125 mls/hr Q8H STAT IV 01/13/17 10:12 01/13/17 16:05 DC 01/13/17 10:45 125 MLS/HR ECG Indication: weakness Rate (beats per minute): 105 Rhythm: atrial fibrillation (with RVR) Findings: RBBB, no acute ischemic change ED Course 1009: Past medical records reviewed. The patient was evaluated in room B4B. A complete history and physical examination was performed. 1012: Ordered Sodium Chloride 1000 ml @ 125 mls/hr IV. 1250: I reevaluated the patient and he is resting comfortably. I discussed the exam findings with him and I discussed the treatment plan. He verbalized complete understanding and agreement. He is going to be evaluated for further treatment. 1254: I discussed the patients case with Harpal Chavez. She is going to evaluate the patient for further treatment. Medical Decision Differential diagnosis: Etiologies such as metabolic, infection, hypo/hyperglycemia, electrolyte abnormalities, cardiac sources, intracerebral event, toxicologic, neurologic, as well as others were entertained. This patient was evaluated and appeared to be in no significant distress. IV access was obtained and laboratory work was drawn. The patient is stable on room air at rest. Patient's records were reviewed. CT scan of the chest was performed to rule out pulmonary embolus. This study reveals small bilateral pleural effusions and a small pericardial effusion. Laboratory work is fairly unrevealing. Enzymes are negative. Patient's INR is 1.5. Vital signs have remained stable. The excessive fatigue and shortness of breath with exertion is of unclear etiology. Patient's states they are due to visit pulmonary medicine at [facility] for thoracentesis. The patient will be reevaluated by the hospitalist service at this time for further management. Medication Reconcilliation Current Medication List: was personally reviewed by me Blood Pressure Screening Patient's blood pressure: Elevated blood pressure Blood pressure disposition: Elevated BP felt to be situational, Did not require urgent referral Consults Time Called: 1240 Consulting Physician: Harpal Chavez Returned Call: 1254 I discussed the patients case with Harpal Chavez. She is going to evaluate the patient for further treatment. Impression Primary Impression: Dyspnea on exertion Additional Impression: Pericardial effusion Scribe Attestation The scribe's documentation has been prepared under my direction and personally reviewed by me in its entirety. I confirm that the note above accurately reflects all work, treatment, procedures, and medical decision making performed by me. Departure Information Dispostion Being Evaluated By Hospitalist Referrals Reji Martínez M.D. (PCP) Problem Qualifiers
[2017-01-13] MEDS ORDERED: OPTIRAY 320 IV PRN (10:30)
[2017-01-13 10:57] LABS: BASO % 0.1 %; BASO ABS # 0.01 K/uL (0-0.2); COMPLETE YES; IG% 0.1 %; LYMPH % 9.7 %; MEAN CELL VOLUME 95.8 fL (80-100); MEAN CORPUSCULAR HEMOGLOBIN 32.4 pg (25-34); MEAN CORPUSCULAR HGB CONC 33.8 g/dl (32-36); MEAN PLATELET VOLUME 8.6 fL (7.4-10.4); MONO % 9.8 %; NEUT % 80.3 %; PLATELET COUNT 172 K/uL (130-400); RED BLOOD COUNT 3.55 M/uL (4.7-6.1); WHITE BLOOD COUNT 8.26 K/uL (4.8-10.8)
[2017-01-13 11:05] LABS: ISTAT CREATININE 0.6 mg/dl (0.6-1.3); ISTAT HEMOGLOBIN 11.6 g/dl (14.0-18.0); ISTAT IONIZED CALCIUM 1.14 mmol/l (1.12-1.32)
[2017-01-13 11:19] LABS: CALCIUM 8.4 mg/dl (8.5-10.1); CREATININE 0.62 mg/dl (0.60-1.40); MAGNESIUM 1.9 mg/dl (1.8-2.4); POTASSIUM 4.2 mmol/L (3.5-5.1)
[2017-01-13 11:24] LABS: CKMB/CK RATIO 2.5 (0-3.0)
[2017-01-13 11:27] LABS: INR 1.5 (0.9-1.1); PARTIAL THROMBOPLASTIN RATIO 1.3; PROTHROMBIN TIME (PATIENT) 16.8 SECONDS (9.0-12.0)
--- NOTE | 2017-01-13 12:16 | DIAGNOSTIC IMAGING REPORT ---
CT ANGIOGRAPHY OF THE CHEST, PULMONARY EMBOLUS PROTOCOL CLINICAL HISTORY: Shortness of breath, pleural effusion. Pericardial effusion. COMPARISON STUDY: Chest radiograph January 11, 2017. TECHNIQUE: Following IV administration of 113 mL of Optiray-320, helical axial images of the chest were obtained utilizing the pulmonary embolus protocol. Maximal intensity projections and sagittal and coronal reformats were viewed on an independent 3D workstation. IV contrast was administered without complication. A dose lowering technique was utilized adhering to the principles of ALARA. CT DOSE: 492.31 mGy.cm FINDINGS: No central or lobar pulmonary emboli are identified. The segmental and subsegmental pulmonary arteries are suboptimally assessed due to suboptimal opacification and respiratory motion artifact. The heart is moderately enlarged. There is a small pericardial effusion. There is mild dilatation of the ascending aorta which measures 4.2 cm in caliber. Small to moderate left and small right pleural effusions are present. Associated airspace opacities favor atelectasis. There is left lower lobe volume loss. Interlobular septal thickening indicates pulmonary edema. There are mild groundglass opacities within the lungs. No pneumothorax is present. Bony thorax and upper abdomen are unremarkable. IMPRESSION: 1. No pulmonary emboli identified although segmental and subsegmental pulmonary arteries suboptimally assessed on the exam. 2. Moderate cardiomegaly with small pericardial effusion. 3. Small to moderate left and small right pleural effusions with associated airspace opacities which favor atelectasis. Left lower lobe volume loss. 4. Interlobular septal thickening indicative of mild pulmonary edema. Mild ground glass opacities within lungs also likely reflect pulmonary edema. Electronically signed by: Brandin Brooks M.D. 01/13/2017 12:15 PM Dictated Date/Time: 01/13/2017 12:09 PM
--- NOTE | 2017-01-13 14:43 | History and Physical ---
History & Physical Date & Time of Service: Jan 13, 2017 at 14:43 Chief Complaint: Plueral Effusion,Difficulty Breathing Primary Care Physician: Reji Martínez M.D. History of Present Illness Source: patient, family ( ) This is a 81 yo Male with hx of newly diagnosed Afib ,pericarditis , persisted pleural effusion , recent Dx of pneumonia LLL had a complicated Hospital Admission at [facility] form December 28 to December 31 pt was discharged home with Beta marshall -Toprol XL , dose recently increased to 37.5 mg daily /Coumadin anticoagulation completed Abx course of Levaquin , on taper dose of PO prednisone for Pericarditis pt continued to have SOB /RONDON , very weak and fatigued , has persisted non productive cough , noted confusion , increased somnolence was sent to ER by the PCP on 01/11/17 , ER work up was essentially negative for pneumonia , significant effusion , pt was sent home mentions -pt continues to have progressive SOB , very lethargic and groggy was very active prior to 4 weeks , no minimally active pt been had a referral to [facility] [place] Valerio and scheduled to have evaluation on 01/18 for possible thoracentesis his Coumadin is asked to keep on hold till then in the ER , pt is awake and alert , able to answer question appropriately HR in remains in Afib with variable rate between 80-110 CT chest negative for PE ; trace amount of pericardial and pleural effusion noted Family History Patient reports no known family medical history. Social History Smoking Status: Never Smoker Drug Use: none Marital Status: Occupational Status: retired Allergies Coded Allergies: No Known Allergies (Unverified , 01/11/17) Home Medications Scheduled Lorazepam (Ativan), 1 MG PO HS Metoprolol Succ (Toprol Xl) (Toprol-Xl), 37.5 MG PO DAILY Prednisone (Prednisone), 5 MG PO UD Warfarin Sod (Jantoven), 5 MG PO UD Review of Systems Constitutional: + fever, + chills, + weight loss, + weakness, + fatigue ENT: + sore throat Respiratory: + cough (no productive ), + shortness of breath, + dyspnea on exertion Cardiovascular: + orthopnea Abdomen: No pain, No nausea, No vomiting, No diarrhea, No constipation, No GI bleeding, No problem reported Genitourinary - Male: No hematuria, No dysuria, No urinary frequency, No urinary urgency, No urinary hesitancy, No urinary retention, No urinary incontinence, No penile discharge, No lesions, No impotence, No problem reported Neurologic: + weakness, + problem reported (confusion ) Psychiatric: + insomnia Physical Exam Vital Signs Date Time Temp Pulse Resp B/P (MAP) Pulse Ox O2 Delivery O2 Flow Rate FiO2 01/13/17 13:55 74 22 125/61 95 Room Air 01/13/17 12:48 88 01/13/17 11:58 106 15 140/86 100 Room Air 01/13/17 10:38 101 18 125/88 93 Room Air 01/13/17 10:22 106 01/13/17 09:54 95 01/13/17 09:49 36.8 103 20 122/85 95 Room Air General Appearance: no apparent distress Head: normocephalic, atraumatic Eyes: sclerae normal Neck: supple, + JVD Respiratory/Chest: chest non-tender, lungs clear, normal breath sounds, no respiratory distress Cardiovascular: + JVD, + irregularly irregular Abdomen/GI: normal bowel sounds, non tender, soft Extremities/Musculoskelatal: no calf tenderness, normal capillary refill, no pedal edema, normal range of motion Neurologic/Psych: alert, normal mood/affect, oriented x 3 Skin: normal color, warm/dry, no rash Diagnostics Laboratory Results Results Past 24 Hours Test 01/13/17 10:45 01/13/17 10:50 01/13/17 10:52 01/13/17 14:39 Range/Units White Blood Count 8.26 4.8-10.8 K/uL Red Blood Count 3.55 4.7-6.1 M/uL Hemoglobin 11.5 14.0-18.0 g/dL Hematocrit 34.0 42-52 % Mean Corpuscular Volume 95.8 80-100 fL Mean Corpuscular Hemoglobin 32.4 25-34 pg Mean Corpuscular Hemoglobin Concent 33.8 32-36 g/dl Platelet Count 172 130-400 K/uL Mean Platelet Volume 8.6 7.4-10.4 fL Neutrophils (%) (Auto) 80.3 % Lymphocytes (%) (Auto) 9.7 % Monocytes (%) (Auto) 9.8 % Eosinophils (%) (Auto) 0.0 % Basophils (%) (Auto) 0.1 % Neutrophils # (Auto) 6.63 1.4-6.5 K/uL Lymphocytes # (Auto) 0.80 1.2-3.4 K/uL Monocytes # (Auto) 0.81 0.11-0.59 K/uL Eosinophils # (Auto) 0.00 0-0.5 K/uL Basophils # (Auto) 0.01 0-0.2 K/uL RDW Standard Deviation 51.6 36.4-46.3 fL RDW Coefficient of Variation 14.5 11.5-14.5 % Immature Granulocyte % (Auto) 0.1 % Immature Granulocyte # (Auto) 0.01 0.00-0.02 K/uL Prothrombin Time 16.8 9.0-12.0 SECONDS Prothromb Time International Ratio 1.5 0.9-1.1 Activated Partial Thromboplast Time 33.4 21.0-31.0 SECONDS Partial Thromboplastin Ratio 1.3 Sodium Level 134 136-145 mmol/L Potassium Level 4.2 3.5-5.1 mmol/L Chloride Level 101 98-107 mmol/L Carbon Dioxide Level 26 21-32 mmol/L Anion Gap 7.0 17.0 16-25 mmol/L Blood Urea Nitrogen 12 7-18 mg/dl Creatinine 0.62 0.60-1.40 mg/dl Est Creatinine Clear Calc Drug Dose 110.5 ml/min Estimated GFR () 108.6 Estimated GFR (Non- 93.7 BUN/Creatinine Ratio 20.0 10-20 Random Glucose 119 70-99 mg/dl Calcium Level 8.4 8.5-10.1 mg/dl Magnesium Level 1.9 1.8-2.4 mg/dl Total Bilirubin 1.8 0.2-1 mg/dl Direct Bilirubin 0.4 0-0.2 mg/dl Aspartate Amino Transf (AST/SGOT) 56 15-37 U/L Alanine Aminotransferase (ALT/SGPT) 96 12-78 U/L Alkaline Phosphatase 80 45-117 U/L Total Creatine Kinase 97 39-308 U/L Creatine Kinase MB 2.4 0.5-3.6 ng/ml Creatine Kinase MB Ratio 2.5 0-3.0 Total Protein 6.9 6.4-8.2 gm/dl Albumin 3.2 3.4-5.0 gm/dl Bedside Troponin I < 0.030 0-0.045 ng/ml Bedside Hemoglobin 11.6 14.0-18.0 g/dl Bedside Hematocrit 34 42-52 % Bedside Sodium 133 135-144 mEq/L Bedside Potassium 4.1 3.3-5.0 mEq/L Bedside Chloride 95 101-112 mEq/L Bedside Total CO2 26 24-31 mEq/l Bedside Blood Urea Nitrogen 12 7-18 mg/dl Bedside Creatinine 0.6 0.6-1.3 mg/dl Bedside Glucose (other) 124 70-99 mg/dl Bedside Ionized Calcium (Grace) 1.14 1.12-1.32 mmol/l Diagnostic Radiology CT CHEST WITH CONTRAST : 1. No pulmonary emboli identified although segmental and subsegmental pulmonary arteries suboptimally assessed on the exam. 2. Moderate cardiomegaly with small pericardial effusion. 3. Small to moderate left and small right pleural effusions with associated airspace opacities which favor atelectasis. Left lower lobe volume loss. 4. Interlobular septal thickening indicative of mild pulmonary edema. Mild ground glass opacities within lungs also likely reflect pulmonary edema. Impression Assessment and Plan SHORTNESS OF BREATH /RONDON : presents with few days of progressive SOB , minimum orthopnea gets SOB while climbing stairs and going up hill denies of any chest heaviness , no complain of palpitation or dizzy spell CT CHEST WITH CONTRAST : 1. No pulmonary emboli identified although segmental and subsegmental pulmonary arteries suboptimally assessed on the exam. 2. Moderate cardiomegaly with small pericardial effusion. 3. Small to moderate left and small right pleural effusions with associated airspace opacities which favor atelectasis. Left lower lobe volume loss. 4. Interlobular septal thickening indicative of mild pulmonary edema. Mild ground glass opacities within lungs also likely reflect pulmonary edema. pt been evaluated by Pulmonology at [place] Dr Valerio for possible thoracentesis Next week ordered for chest USG pt will be observed in Telemetry repeat Cxray ordered in AM incentive spirometry AFIB RVR : recently diagnosed ; last admission at [facility] on Toprol XL 37.5 mg daily HR remains in Afib with 80-100 range possible cause of fatigue /RONDON ? monitor in Tele cardiology eval requested Coumadin been on hold for planned thoracentesis in [place] IV heparin ordered ( pt had significant abdominal bleeding with sub q Lovenox ) PERICARDITIS /SMALL PERICARDIAL EFFUSION : known in past admission thought to be due to pericardial effusion , on PO Prednisone taper dose - continued no evidence of Tamponade in recent ECHO was scheduled to have repeat ECHO on 01/31/17 and out pt CARDIOLOGY follow up : @ 1:[address] Aly Adams, DO Cardiology, [facility] will repeat ECHO this Admission Cardiology eval requested PLEURAL EFFUSION : scheduled for thoracentesis on 01/18/2017 @9:[address] Kaleb Valerio MD Pulmonary Medicine, [place] CT chest and xray does not show significant amount effusion -contributing to pt' s RONDON and SOB pulmonology eval requested Coumadin will be kept on hold , IV heparin bridge ordered for chest USG NON PRODUCTIVE COUGH : completed abx dose ( Levaquin 750 mg daily X 7 days ) no evidence of pneumonia noted possible post pneumonia symptom /viral bronchitis ordered for antitussive monitor HYPONATREMIA : due to poor PO intake IVF with NSS ordered repeat BMP in AM GENERALIZED WEAKNESS /DECONDITIONING : due to Afib RVR ? no evidence of infection noted , UA ordered ( no urinary symptom reported ) recent thyroid function was abnormal 12/28/16 low TSH 0.13 /normal free T4 /Low T3 repeat thyroid panel ordered PT.OT kristina EXCESSIVE SOMNOLENCE /EPISODES OF CONFUSION : pt takes Ativan 1 mg HS /Ambien 10 mg HS for insomnia medication list shows -Flexeril 10 mg daily ( reports pt not been taking it ) mentions dose not take Ambien on daily basis counselled increased sedative effect with combination of above will d/c Ambien , Flexeril pt prefers to keep Ativan on board -has been taking for years , severe insomnia watch for [facility] , excessive sedative Meds on board FULL CODE : DVT PROPHYLAXIS : IV heparin DISPOSITION : expected to be discharged home when medically stable PT/OT eval prior to discharge home Medicine follow up with Dr Sun Level of Care Telemetry Resuscitation Status FULL RESUSCITATION VTE Prophylaxis VTE Risk Assessment Done? Y/N: Yes Risk Level: Moderate Given or contraindicated: Other Anticoagulation (IV heparin ) Additional Copies To Reji Martínez M.D., James J.,D.O.
[2017-01-13] MEDS ORDERED: MAGNESIUM HYDROXIDE SUSP 30 ML UDC PO PRN (14:45)
[2017-01-13] MEDS ORDERED: METOPROLOL TARTRATE 1 MG/ML VIAL IV PRN (14:45)
[2017-01-13] MEDS ORDERED: POLYETHYLENE (MIRALAX) 17 GM PACK PO PRN (14:45)
[2017-01-13] MEDS ORDERED: NITROGLYCERIN 0.4 MG SL PER TAB CHARGE SL PRN (14:45)
[2017-01-13] MEDS ORDERED: ALUMINUM/MAGNESIUM/SIMETH (MAALOX MAX) 30 ML UDC PO PRN (14:45)
[2017-01-13] MEDS ORDERED: ONDANSETRON INJ 2 MG/ML 2 ML VIAL IV PRN (14:45)
[2017-01-13] MEDS ORDERED: HEPARIN IV LOW DOSE NO BOLUS SCH (15:01)
[2017-01-13] MEDS ORDERED: GUAIFENESIN SUGAR FREE 100 MG/5 ML UDC PO PRN (15:15)
[2017-01-13] MEDS ORDERED: IV FLUIDS COMPLETED PRN (15:15)
[2017-01-13] MEDS ORDERED: LEVALBUTEROL/IPRATROPIUM NEB INH PRN (15:15)
[2017-01-13] MEDS ORDERED: COUGH DROP (SUGAR FREE) LOZ 24 LOZ/1 BOX PO PRN (15:15)
[2017-01-13 15:45] VITALS: BP 146/81; PULSE 103; TEMP 36.6; O2SAT 100; Ht 188 cm; Wt 82.0 kg
[2017-01-13 15:50] VITALS: BP 146/81; PULSE 103; TEMP 36.6; O2SAT 100
[2017-01-13] MEDS ORDERED: IPRATROPIUM BROMIDE NEB SOLN 0.02% 2.5 ML VIAL INH PRN (16:15)
[2017-01-13] MEDS ORDERED: LEVALBUTEROL 1.25MG/0.5ML NEB INH PRN (16:15)
[2017-01-13] MEDS ORDERED: SODIUM CHLORIDE 0.9% 1000ML 1,000 ML IV SCH (16:15)
[2017-01-13 16:24] LABS: HEMATOCRIT 34.4 % (42-52); MEAN CELL VOLUME 97.2 fL (80-100); MEAN CORPUSCULAR HEMOGLOBIN 32.8 pg (25-34); MEAN CORPUSCULAR HGB CONC 33.7 g/dl (32-36); MEAN PLATELET VOLUME 9.2 fL (7.4-10.4); PLATELET COUNT 176 K/uL (130-400); RED BLOOD COUNT 3.54 M/uL (4.7-6.1); WHITE BLOOD COUNT 7.11 K/uL (4.8-10.8)
[2017-01-13] MEDS: HEPARIN 25,000 UNIT/500ML D5W 500 ML IV PRN (16:33)
[2017-01-13] MEDS: GUAIFENESIN 600 MG TABCR PO SCH (19:21)
[2017-01-13 19:30] LABS: URINE APPEARANCE CLEAR (CLEAR); URINE BILIRUBIN NEG (NEG); URINE COLOR YELLOW; URINE EPITHELIAL CELL AUTO 0-5 /lpf (0-5); URINE NITRITE NEG (NEG); URINE PH 6.5 (4.5-7.5); URINE SPECIFIC GRAVITY 1.026 (1.000-1.030); UROBILINOGEN NEG (NEG); ZZUR CULT IF INDIC CLEAN CATCH NO
[2017-01-13 19:46] VITALS: BP 141/77; PULSE 111; TEMP 37.7; O2SAT 94
[2017-01-13 19:56] LABS: MANUAL MICROSCOPIC REQUIRED? NO; REVIEW REQ? NO
[2017-01-13 21:03] LABS: CKMB/CK RATIO 1.7 (0-3.0)
--- NOTE | 2017-01-13 21:43 | DIAGNOSTIC IMAGING REPORT ---
BILATERAL CHEST ULTRASOUND TO ASSESS FOR PLEURAL EFFUSIONS CLINICAL HISTORY: Pleural effusion. COMPARISON STUDY: Chest CT performed earlier today. FINDINGS: Sonography of the right hemithorax demonstrated a small right pleural effusion. A suitable window for thoracentesis could not be identified due to underlying lung. Sonography of the left hemithorax revealed a small to moderate left pleural effusion. No suitable window was identified due to underlying lung. IMPRESSION: 1. Small to moderate left pleural effusion. No chest wall natalio placed given insufficient window for thoracentesis due to underlying lung. 2. Small right pleural effusion. No right chest wall natalio placed. Electronically signed by: Brandin Brooks M.D. 01/13/2017 9:42 PM Dictated Date/Time: 01/13/2017 9:39 PM
[2017-01-13] MEDS: LORAZEPAM 1 MG TAB PO PRN (21:52)
[2017-01-13 22:54] LABS: PARTIAL THROMBOPLASTIN RATIO 1.5
[2017-01-13 23:31] VITALS: BP 118/80; PULSE 99; TEMP 37.4; O2SAT 94
[2017-01-14] VITALS (9 sets, daily range): BP systolic 122–149; BP diastolic 75–101; PULSE 98–106; TEMP 36.4–38.3; O2SAT 93–98
[2017-01-14] MEDS ORDERED: HEPARIN IV BOLUS 4,500 UNIT in SYRINGE 0 ML IV ONE (00:30)
[2017-01-14] MEDS: ACETAMINOPHEN 325 MG TAB PO PRN ×2 (03:41→20:12)
[2017-01-14 05:00] LABS: HEMATOCRIT 33.9 % (42-52); MEAN CELL VOLUME 96.9 fL (80-100); MEAN PLATELET VOLUME 9.1 fL (7.4-10.4); PLATELET COUNT 159 K/uL (130-400); WHITE BLOOD COUNT 6.52 K/uL (4.8-10.8)
[2017-01-14 05:14] LABS: PARTIAL THROMBOPLASTIN RATIO 1.9
[2017-01-14 05:23] LABS: BLOOD UREA NITROGEN 12 mg/dl (7-18); BUN/CREATININE RATIO 17.7 (10-20); CARBON DIOXIDE 31 mmol/L (21-32); CHLORIDE 103 mmol/L (98-107); CREATININE 0.69 mg/dl (0.60-1.40); GLUCOSE 117 mg/dl (70-99); POTASSIUM 4.2 mmol/L (3.5-5.1); SODIUM 135 mmol/L (136-145)
[2017-01-14 05:34] LABS: CKMB/CK RATIO 1.7 (0-3.0); THYROID STIMULATING HORMONE 0.127 uIu/ml (0.300-4.500)
--- NOTE | 2017-01-14 06:49 | DIAGNOSTIC IMAGING REPORT ---
CHEST ONE VIEW PORTABLE CLINICAL HISTORY: sob /PLEURAL EFFUSION dyspnea COMPARISON STUDY: 01/11/2017 FINDINGS: Moderate stable cardiomegaly. Small bilateral pleural effusions. Moderate increase in pulmonary vasculature. Stable shoulder arthroplasties. IMPRESSION: Developing congestive failure. The above report was generated using voice recognition software. It may contain grammatical, syntax or spelling errors. Electronically signed by: Jerome Rodrigez M.D. 01/14/2017 6:48 AM Dictated Date/Time: 01/14/2017 6:47 AM
[2017-01-14] MEDS: GUAIFENESIN 600 MG TABCR PO SCH ×2 (08:45→20:12)
[2017-01-14] MEDS: METOPROLOL SUCC 25MG EXT REL TAB PO SCH (08:45)
[2017-01-14] MEDS ORDERED: FUROSEMIDE INJ 40 MG in SYRINGE 0 ML IV ONE (09:00)
[2017-01-14] MEDS: AZITHROMYCIN 250 MG TAB PO SCH (10:34)
[2017-01-14] MEDS: CEFTRIAXONE SOD INJ 1 GM in DEXTROSE 5% ADD-VANTAGE 50ML 50 ML IV SCH (10:34)
--- NOTE | 2017-01-14 10:42 | Procedure Note ---
Procedure Note Date of Service Jan 14, 2017. Procedure Note Procedures: Left sided Thoracentesis Consent: obtained via the patient and placed into the chart Pre-Procedural Dx: Pleural effusion Post-Procedural Dx: Pleural effusion Analgesia: 5cc of 1% Liquid Lidocaine Procedure: The patient was placed in an upright position and thoracic US was used to select a spot for the procedure. A spot along the posterior axillary line was marked in the 7th intercostal space. The patient was then draped and prepped in a sterile fashion. A modified Seldinger technique was then used for catheter placement. Flowing this approximately 800 cc of free-flowing yellow pleural fluid was removed. The patient was then cleaned and placed at a 60 degree angle in the bed were the US was used to evaluate for possible pneumothorax. The US showed good lung sliding and [place] signs. EBL: None Complications: The On the back of the thoracentesis catheter did not self- close after removal of the needle.
--- NOTE | 2017-01-14 10:53 | Pulmonary Consultation ---
History General Date of Service: Jan 14, 2017. Stated Complaint: Bilateral pleural effusions left greater than right HPI The patient is a 81 year old male who presents to [facility] with complaints of Atrial Fibrillation, Sob. The patient's primary care provider is Reji Martínez M.D.. CC: Pleural Effusion HPI: The patient is an 81y/o with recent over decompensation and recent admission to the [facility] from 12/28- for: A-fib with RVR, pneumonia, pericarditis with associated pericardial effusion andpleural effusion. He has been treated with Toprol-XL, Coumadin, prednisone and Levaquin. His notes continued/ progressive fatigue, RONDON, non-productive cough with associated increased somnolence and confusion. The patient notes increasing dyspnea on exertion which started within the last 3 months. Prior to that he was able to perform all his ADLs with no shortness of breath/dyspnea on exertion. He currently denies: Fever, chills, pleurisy, classic cardiac chest pain, palpitations, unintentional weight loss, night sweats or hemoptysis. Current Work-Up EKG: atrial fibrillation, rate: 102, RBBB WBC: 8K7K (elevated Neutro & [place]#) PLT: [id number] PT: 16.8 aPTT: 50.4 INR: 1.9 BUN/Cr: 12/0.62 T Bili: 1.8H D Bili: 0.4H AST: 56H ALT: 96H AO: 80 Troponin: <0.015 ALB: 3.2 TSH: 0.127L Free T4: 1.60 Total T3: 0.50L Anion Gap Correct for albumin: 1.5 Blood Cx: Pending Radiology: CXR: bilateral pleural effusions L>R, hilar fullness, nora-bronchial cuffing CTA Chest: No proximal PEs Moderate cardiomegaly with small nora-cardial effusion Bilateral Pleural effusions L>R Inter-Lobular septal thickening with some GGO Previous Work-Up BNP (01/11/17) 983 CXR (12/28/16) moderate cardiomegaly with left base infiltrate CXR (01/11/17) small bilateral pleural effusions, left basilar consolidation, mod -cardiomegaly Bilateral Lower Ext Venous Doppler (12/28/16) 1. No evidence of lower extremity DVT 2. 21 x 16 x 9 mm left inguinal lymph node with a possibly replaced hilum Cardiac Echo (12/28/16) LV: EF=55-60%, systolic function wnl, LVH RV: mildly dilated, systolic function wnl Atria: Left: mildly dilated Right: wnl, pressure estimated to be 8mmHg (2-6mmHg) Valves: MV: Function WNL, calcification TV: Mod-Regurgitation AV: WNL PV: WNL Vessels: Mild Aortic root dilation IVC: mildly dilated with <50% inspiratory collapse Percardium/Pleura Small circumferential pericardial effusion, no tamponade physiology Medications: 1) Prednisone 5mg QD 2) Cetriaxone 1g QD 3) Azithromycin 500mg 4) Heparin gtt 5) Xopenex/Atrovent Neb Historian: patient, EMS Review of Systems Constitutional: reports: as stated in HPI Eyes: reports: no symptoms ENT: reports: no symptoms Cardiovascular: reports: as stated in HPI Respiratory: reports: as stated in HPI Gastrointestinal: reports: no symptoms Genitourinary - Male: reports: no symptoms Musculoskeletal: reports: no symptoms Integumentary: reports: no symptoms Neurologic: reports: no symptoms Psychiatric: reports: no symptoms Endocrine: no symptoms Hematologic / Lymphatic: no symptoms Allergic / Immunologic: no symptoms Past Medical History Past Medical History: 1) HTN 2) Atrial Fibrillation-RVR Coumadin 3) RBBB 4) Venous HTN Symptoms 5) PVC 6) Hypertension 7) Insomnia 8) Osteoporosis 9) Thoracic aorta aneurysm-4 cm per outpatient chart 11) TIA 12) Mild pulmonary hypertension echocardiogram 2006 13) Obstructive sleep apnea, not tolerating CPAP 14) 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 [employer] Tobacco: former smoker having quit in 1970 Hx Tobacco Use In Past Year?: No Smoking Status: Never Smoker Marital status: Occupational Status: retired Allergies Coded Allergies: Colchicine (Verified Allergy, rash, 7/30/17) Current Medications Reported Home Medications Medications Dose Route/Sig Max Daily Dose Days Date Category Dose Instructions Jantoven (Warfarin Sodium) 5 Mg Tab 5 Mg PO UD 01/13/17 Reported PER MD PT IS TO STOP TAKING THIS MED OF 01/13/17 UNTIL Sunday01/18/17 Toprol-Xl (Metoprolol Succinate) 25 Mg Tabcr 37.5 Mg PO DAILY 01/11/17 Reported Prednisone 5 Mg Tab 5 Mg PO UD 10 12/31/16 Rx Start taking 20mg daily for 2 days then 10mg for 5 days then 5mg for 5 days then 2.5 mg for 5 days and stop Ativan (Lorazepam) 1 Mg Tab 1 Mg PO HS 02/01/15 Reported Physical Physical Exam Vital Signs: Date Time Temp Pulse Resp B/P (MAP) Pulse Ox O2 Delivery O2 Flow Rate FiO2 01/14/17 07:50 37.7 98 20 149/101 (117) 95 Room Air 01/14/17 07:50 149/96 (113) 01/14/17 05:20 37.2 01/14/17 04:00 Room Air 01/14/17 03:47 38.3 101 22 141/88 (105) 96 Room Air 01/14/17 00:09 Room Air 01/13/17 23:31 37.4 99 22 118/80 (93) 94 Room Air 01/13/17 20:00 Room Air 01/13/17 19:46 37.7 111 19 141/77 (98) 94 Room Air 01/13/17 15:50 36.6 103 21 146/81 (102) 100 Room Air 01/13/17 15:45 36.6 103 21 146/81 100 Room Air 01/13/17 15:08 74 22 125/61 96 01/13/17 14:33 96 Room Air 01/13/17 13:55 74 22 125/61 95 Room Air 01/13/17 12:48 88 01/13/17 11:58 106 15 140/86 100 Room Air General Appearance: WELL-APPEARING, NO APPARENT DISTRESS Head: NORMOCEPHALIC, ATRAUMATIC Eyes: PERRLA, NO DISCHARGE, EOMI, SCLERAE NORMAL ENT: NORMAL EAR EXAM, NORMAL NASAL EXAM, NORMAL MOUTH EXAM, NORMAL THROAT EXAM , NORMAL DENTAL EXAM Neck: NORMAL RANGE OF MOTION, NO TENDERNESS, TRACHEA MIDLINE, NO STRIDOR Respiratory: other (decreased breath sounds with dullness to percussion left greater than right/ultrasound evaluation of the hemithorax show B-lines consistent ) Cardiovasular: other (regular rate and rhythm, no murmurs rubs or gallops noted ) Abdomen: NON TENDER, NORMAL BOWEL SOUNDS, NO REBOUND, NO MASSES, NO GUARDING, NO ORGANOMEGALY Genitourinary - Male: EXTERNAL GENITALIA NORMAL Back: NORMAL INSPECTION, NO MIDLINE TENDERNESS, NO CVA TENDERNESS, NO PARAVERTEBRAL TTP Upper Extremities: NO EDEMA, NO DEFORMITY, NORMAL ROM Lower Extremities: NO EDEMA, NO DEFORMITY, NORMAL ROM Pulses: carotid (R) (2+), carotid (L) (2+), posterior tibial (R) (2+), posterior tibial (L) (2+) Neuro: ALERT, ORIENTED x 3, NORMAL MOTOR EXAM, NORMAL SENSATION, NORMAL CEREBELLAR EXAM Reflexes: biceps (R) (2+), bicpes (L) (2+), patellar (R) (2+), patellar (L) (2+ ) Babinski Testing: right (downgoing), left (downgoing) Psychiatric: NORMAL AFFECT, NO SUICIDAL IDEATION, CONTRACTS FOR SAFETY Diagnostics Labs Results Past 24 Hours Test 01/13/17 10:45 01/13/17 10:50 01/13/17 10:52 01/13/17 15:56 Range/Units White Blood Count 8.26 7.11 4.8-10.8 K/uL Red Blood Count 3.55 3.54 4.7-6.1 M/uL Hemoglobin 11.5 11.6 14.0-18.0 g/dL Hematocrit 34.0 34.4 42-52 % Mean Corpuscular Volume 95.8 97.2 80-100 fL Mean Corpuscular Hemoglobin 32.4 32.8 25-34 pg Mean Corpuscular Hemoglobin Concent 33.8 33.7 32-36 g/dl Platelet Count 172 176 130-400 K/uL Mean Platelet Volume 8.6 9.2 7.4-10.4 fL Neutrophils (%) (Auto) 80.3 % Lymphocytes (%) (Auto) 9.7 % Monocytes (%) (Auto) 9.8 % Eosinophils (%) (Auto) 0.0 % Basophils (%) (Auto) 0.1 % Neutrophils # (Auto) 6.63 1.4-6.5 K/uL Lymphocytes # (Auto) 0.80 1.2-3.4 K/uL Monocytes # (Auto) 0.81 0.11-0.59 K/uL Eosinophils # (Auto) 0.00 0-0.5 K/uL Basophils # (Auto) 0.01 0-0.2 K/uL RDW Standard Deviation 51.6 52.7 36.4-46.3 fL RDW Coefficient of Variation 14.5 14.7 11.5-14.5 % Immature Granulocyte % (Auto) 0.1 % Immature Granulocyte # (Auto) 0.01 0.00-0.02 K/uL Prothrombin Time 16.8 9.0-12.0 SECONDS Prothromb Time International Ratio 1.5 0.9-1.1 Activated Partial Thromboplast Time 33.4 21.0-31.0 SECONDS Partial Thromboplastin Ratio 1.3 Sodium Level 134 136-145 mmol/L Potassium Level 4.2 3.5-5.1 mmol/L Chloride Level 101 98-107 mmol/L Carbon Dioxide Level 26 21-32 mmol/L Anion Gap 7.0 17.0 16-25 mmol/L Blood Urea Nitrogen 12 7-18 mg/dl Creatinine 0.62 0.60-1.40 mg/dl Est Creatinine Clear Calc Drug Dose 110.5 ml/min Estimated GFR () 108.6 Estimated GFR (Non- 93.7 BUN/Creatinine Ratio 20.0 10-20 Random Glucose 119 70-99 mg/dl Calcium Level 8.4 8.5-10.1 mg/dl Magnesium Level 1.9 1.8-2.4 mg/dl Total Bilirubin 1.8 0.2-1 mg/dl Direct Bilirubin 0.4 0-0.2 mg/dl Aspartate Amino Transf (AST/SGOT) 56 15-37 U/L Alanine Aminotransferase (ALT/SGPT) 96 12-78 U/L Alkaline Phosphatase 80 45-117 U/L Total Creatine Kinase 97 39-308 U/L Creatine Kinase MB 2.4 0.5-3.6 ng/ml Creatine Kinase MB Ratio 2.5 0-3.0 Total Protein 6.9 6.4-8.2 gm/dl Albumin 3.2 3.4-5.0 gm/dl Bedside Troponin I < 0.030 0-0.045 ng/ml Bedside Hemoglobin 11.6 14.0-18.0 g/dl Bedside Hematocrit 34 42-52 % Bedside Sodium 133 135-144 mEq/L Bedside Potassium 4.1 3.3-5.0 mEq/L Bedside Chloride 95 101-112 mEq/L Bedside Total CO2 26 24-31 mEq/l Bedside Blood Urea Nitrogen 12 7-18 mg/dl Bedside Creatinine 0.6 0.6-1.3 mg/dl Bedside Glucose (other) 124 70-99 mg/dl Bedside Ionized Calcium (Grace) 1.14 1.12-1.32 mmol/l Test 01/13/17 19:05 01/13/17 20:21 01/13/17 22:33 01/14/17 04:46 Range/Units Urine Color YELLOW Urine Appearance CLEAR CLEAR Urine pH 6.5 4.5-7.5 Urine Specific [place] 1.026 1.000-1.030 Urine Protein TRACE NEG Urine Glucose (UA) NEG NEG Urine Ketones NEG NEG Urine Occult Blood 1+ NEG Urine Nitrite NEG NEG Urine Bilirubin NEG NEG Urine Urobilinogen NEG NEG Urine Leukocyte Esterase NEG NEG Urine WBC (Auto) 0 0-5 /hpf Urine RBC (Auto) 5-10 0-4 /hpf Urine Hyaline Casts (Auto) 0 0-5 /lpf Urine Epithelial Cells (Auto) 0-5 0-5 /lpf Urine Bacteria (Auto) NEG NEG Total Creatine Kinase 93 48 39-308 U/L Creatine Kinase MB 1.6 0.8 0.5-3.6 ng/ml Creatine Kinase MB Ratio 1.7 1.7 0-3.0 Troponin I < 0.015 < 0.015 0-0.045 ng/ml Activated Partial Thromboplast Time 39.3 50.4 21.0-31.0 SECONDS Partial Thromboplastin Ratio 1.5 1.9 White Blood Count 6.52 4.8-10.8 K/uL Red Blood Count 3.50 4.7-6.1 M/uL Hemoglobin 11.2 14.0-18.0 g/dL Hematocrit 33.9 42-52 % Mean Corpuscular Volume 96.9 80-100 fL Mean Corpuscular Hemoglobin 32.0 25-34 pg Mean Corpuscular Hemoglobin Concent 33.0 32-36 g/dl RDW Standard Deviation 52.0 36.4-46.3 fL RDW Coefficient of Variation 14.8 11.5-14.5 % Platelet Count 159 130-400 K/uL Mean Platelet Volume 9.1 7.4-10.4 fL Sodium Level 135 136-145 mmol/L Potassium Level 4.2 3.5-5.1 mmol/L Chloride Level 103 98-107 mmol/L Carbon Dioxide Level 31 21-32 mmol/L Anion Gap 1.0 3-11 mmol/L Blood Urea Nitrogen 12 7-18 mg/dl Creatinine 0.69 0.60-1.40 mg/dl Est Creatinine Clear Calc Drug Dose 99.3 ml/min Estimated GFR () 103.9 Estimated GFR (Non- 89.7 BUN/Creatinine Ratio 17.7 10-20 Random Glucose 117 70-99 mg/dl Calcium Level 8.0 8.5-10.1 mg/dl Thyroid Stimulating Hormone (TSH) 0.127 0.300-4.500 uIu/ml Free Thyroxine 1.60 0.80-1.60 ng/dl Free Triiodothyronine 2.66 2.30-4.20 pg/ml Test 01/14/17 10:37 Range/Units Microbiology Results 01/14/17 Blood Culture, Received Pending 01/14/17 Blood Culture, Received Pending Diagnostic Radiology CXR: bilateral pleural effusions L>R, hilar fullness, nora-bronchial cuffing CTA Chest: No proximal PEs Moderate cardiomegaly with small nora-cardial effusion Bilateral Pleural effusions L>R Inter-Lobular septal thickening with some GGO EKG atrial fibrillation, rate: 102, RBBB Impression Assessment and Plan -year-old gentleman with bilateral pleural effusions: #1 Pleural Effusion's: The etiology of her patient's pleural effusion is most likely cardiac in nature/CHF. The patient does have a clinical as well as medical history suggestive of other possible etiologies such as a previous pericardial effusion, relatively sudden onset and signs of chronic pleural effusion on the left side greater than right which appears to have rounded atelectasis. At this time I have spoken to the patient length and we will move forward with a thoracentesis for initial evaluation. After the thoracentesis I will order a repeat noncontrast CT of the lung for further evaluation of the pleura. The patient did have some discomfort as I was reexpanding the lung/ performing the thoracentesis suggestive of possibly trapped versus entrapped lung. As well as do believe that the CT of the thorax performed on this admission shows signs of rounded atelectasis or pleural thickening and notable intralobular septal thickening..
--- NOTE | 2017-01-14 11:13 | DIAGNOSTIC IMAGING REPORT ---
(CHEST) THORAX WITHOUT CT DOSE: 470.35 mGy.cm HISTORY: Dyspnea status post left-sided thoracentesis: Evaluation of pleura TECHNIQUE: Multiaxial CT images of the chest were performed without contrast. A dose lowering technique was utilized adhering to the principles of ALARA. COMPARISON: 01/13/2017 FINDINGS: Interval left-sided thoracentesis. No postprocedural pneumothorax. Atelectatic change left lung base. Stable right effusion. Stable atelectatic change right lung base. Moderate stable cardiomegaly. Small pericardial effusion unchanged. Maximum thickness 5 mm. Pulmonary apices are considered clear with only minimal chronic apical fibrotic change. IMPRESSION: 1. No pneumothorax status post left thoracentesis. 2. Small residual left basilar effusion with left basilar bronchiectasis/atelectasis. 3. Stable right effusion with minimal right basilar consolidative change. 4. Small pericardial effusion unaltered from the prior study. The above report was generated using voice recognition software. It may contain grammatical, syntax or spelling errors. Electronically signed by: Jerome Rodrigez M.D. 01/14/2017 11:11 AM Dictated Date/Time: 01/14/2017 11:06 AM
[2017-01-14 11:25] LABS: PLEURAL FLUID TOTAL PROTEIN 2.9 g/dl
[2017-01-14 11:39] LABS: PLEURAL FLUID APPEARANCE CLEAR; PLEURAL FLUID COLOR YELLOW; PLEURAL FLUID MONONUC RELAT 95.7 %; PLEURAL FLUID POLYNUC 4.3 %; PLEURAL FLUID SOURCE LEFT LUNG; PLEURAL FLUID WBC (A) 310 /uL
--- NOTE | 2017-01-14 12:01 | CARDIOLOGY CONSULTATION ---
DATE OF CONSULTATION: 01/14/2017 CONSULTATION REQUESTED BY: Dr. Jason. REASON FOR CONSULTATION: Atrial fibrillation and shortness of breath. HISTORY OF PRESENT ILLNESS: Mr. Crum is a very pleasant 81-year-old gentleman who was just recently established care with Dr. Adams. He presented to [facility] on 01/13/2017 at the direction of his PCP's office for continued shortness of breath. The patient was originally admitted to [facility] on December 28 with chest discomfort and shortness of breath. At that time, he was seen by Dr. Aadms. He was found to have pericardial effusion and was treated for pericarditis. Unfortunately, he had a rash with colchicine and he has been treating with long slow taper of prednisone. At the same time, he was found to have pneumonia and was started on a course of antibiotics. He was then discharged home. He was seen in followup on the of this month, at which point he was still complaining of dyspnea with exertion; however, overall stated that his shortness of breath had improved. He was able to do yard work and other activities with his spouse, which was his baseline at that point and his metoprolol was up titrated at that point as well. The patient's cardiac history started on December 08 of this year when he presented to [facility] in [place] for elective radiofrequency ablation of saphenous veins with vascular surgery. At that time, he was found to be in atrial fibrillation, rate controlled and he was referred to Dr. Lux of our electrophysiology department. At that point, he was placed on beta marshall and anticoagulation and he then went on an overseas trip with his family. Upon returning that when he came into [facility] in December for the shortness of breath, that hospitalization was complicated due to a bradycardic event. The patient was on significant medications for attempted rate control. He was on Cardizem 15 mg IV per hour as well as significant amounts of p.o. metoprolol. He then stood up and had a bradycardic event, which required him to be transferred to the intensive care unit and a short duration of dopamine for chronotropic support and he responded very favorably and was out of the ICU very shortly. Currently, the patient just underwent left thoracentesis with 800 mL of fluid being removed by Dr. Harper and flu is currently being sent for laboratory studies. Currently, he states he is feeling okay at rest. His only complaint is that when he exerts himself and again he states he has not had any chest pain since being started on the prednisone. PAST SURGICAL HISTORY: 1. Endovascular vein stripping. 2. Arthroscopic knee surgery. 3. Colonoscopy with polypectomy in 2013. 4. Shoulder surgery. 5. Transurethral prostatectomy. 6. Tonsil and adenoidectomy. MEDICAL ILLNESSES: 1. History of reduced RV systolic function dating back to 2006. 2. Obstructive sleep apnea, noncompliant with CPAP. 3. Newly discovered atrial fibrillation with rapid ventricular response with a CHADS-VASc score of 5. 4. History of TIA. 5. Hypertension. FAMILY HISTORY: Noncontributory. SOCIAL HISTORY: The patient has a very remote tobacco use history, quit in 1969. Denies any alcohol or recreational drug use. He is and lives at home with his . 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 REVIEW OF SYSTEMS: As per HPI. All other review of systems reviewed and negative at this time. MEDICATIONS AN OUTPATIENT: 1. Toprol-XL 37.5 mg daily. 2. Prednisone 5 mg daily. 3. Coumadin as directed by the Coumadin clinic. 4. Testosterone gel. 5. Flexeril as needed. 6. Ativan as needed. PHYSICAL EXAMINATION: VITALS: Temperature T-max of 38.3, pulse 112, respiratory rate 12, and blood pressure 149/101. GENERAL: Awake, alert, and oriented x3, in no acute distress, seated in bed. HEENT: Normocephalic and atraumatic. Pupils equal, round, and reactive to light and accommodation. Extraocular muscles intact. Anicteric sclerae. Moist mucous membranes. NECK: No JVD and no bruit. CARDIOVASCULAR: Irregularly irregular, unable to appreciate any murmurs, rubs or gallops. PULMONARY: Poor air movement at the bilateral bases. Otherwise clear. ABDOMEN: Bowel sounds x4, soft. No rebound, guarding, or tenderness. No organomegaly. EXTREMITIES: No clubbing, cyanosis or edema. +2 pedal pulses bilaterally. SKIN: Warm and dry. TEST RESULTS: CTA of the chest was read as no pulmonary emboli identified. Moderate cardiomegaly with small pericardial effusion, small to moderate left and small right pleural effusions with associated airspace opacities, which favor atelectasis, left lower lobe volume loss, interlobular septal thickening indicative of mild pulmonary edema, mild ground-glass opacities within the lungs and also reflective of pulmonary edema. A 2D echocardiogram performed on 12/28/2016 was read as atrial fibrillation with rapid ventricular response, mild concentric LVH, normal LV systolic function, EF 55%-60% without regional wall motion abnormality. The right ventricle is mildly dilated with normal systolic function, mild left atrial enlargement, moderate right atrial enlargement, moderate tricuspid regurgitation, dilated IVC with no pulmonary hypertension. IMPRESSION: 1. Atrial fibrillation with rapid ventricular response. 2. Significant dyspnea with exertion. 3. Bilateral pleural effusion, status post thoracentesis on the left. 4. History of transient ischemic attack. 5. Hypertension. RECOMMENDATIONS: It was my pleasure to see Mr. Crum in consultation today. From a cardiac standpoint, the patient obviously has multiple issues that may be contributing to his shortness of breath. So, first in terms of his atrial fibrillation, we will try to slowly increase his metoprolol for better rate control does not have any significant improvements. Obviously, we will do very cautiously given his previous response to higher doses of rate controlling agents. At the same time, we will proceed with an ischemic evaluation as well and he will undergo a Lexiscan nuclear stress test to evaluate for any significant ischemic burden. Otherwise, he is being followed by pulmonary medicine. His Coumadin was held and he has been restarted on heparin drip, which will be continued. I have also given a dose of Lasix this morning and if he does have any significant output or any improvement of his shortness of breath, this will not be continued. Thank you very much for allowing me to participate in the care of your patient. GILDA
[2017-01-14] MEDS ORDERED: FUROSEMIDE INJ 40 MG in SYRINGE 0 ML IV SCH (14:00)
--- NOTE | 2017-01-14 14:21 | Progress Note ---
Internal Med Progress Note Date of Service: Jan 14, 2017. Provider Documentation: SUBJECTIVE: s/p bedside thoracentesis done by Dr Harper today symptom of Orthopnea /SOB has improved feels much better today had low grade fever this AM , at present afebrile feels no productive cough improved after Thoracentesis OBJECTIVE: Vital Signs-as noted below Exam: General-no sign of distress Eyes-regular ENT-NAD Neck-+ JVD ( mild improvement form yesterday ) Lungs-diminished , no rales or wheeze Heart-regular S1/S2 Abdomen-soft, non tender Extremities-no edema in lower ext Neuro-AAO x3, no focal deficit Lab data as noted below. ASSESSMENT & PLAN: SHORTNESS OF BREATH /RONDON : possible due to plural effusion presents with few days of progressive SOB , minimum orthopnea getting SOB while climbing stairs and going up hill denies of any chest heaviness , no complain of palpitation or dizzy spell CT CHEST WITH CONTRAST : 1. No pulmonary emboli identified although segmental and subsegmental pulmonary arteries suboptimally assessed on the exam. 2. Moderate cardiomegaly with small pericardial effusion. 3. Small to moderate left and small right pleural effusions with associated airspace opacities which favor atelectasis. Left lower lobe volume loss. 4. Interlobular septal thickening indicative of mild pulmonary edema. Mild ground glass opacities within lungs also likely reflect pulmonary edema. appreciate input form Pulmonology s/p bedside thoracenteses with drainage of approx 800 ml of pleural effusion appropriate studies sent repeat CT chest without contrast ordered for AM by Pulmonology will follow AFIB RVR : recently diagnosed ; last admission at [facility] on Toprol XL 37.5 mg daily HR remains in Afib with 80-100 range possible cause of fatigue /RONDON ? monitor in Tele cardiology eval requested -appreciate input Coumadin been on hold for thoracentesis IV heparin ordered ( pt had significant abdominal bleeding with sub q Lovenox ) scheduled for [place] cardiac stress test in AM PERICARDITIS /SMALL PERICARDIAL EFFUSION : known in past admission thought to be due to pericardial effusion , on PO Prednisone taper dose - continued no evidence of Tamponade in recent ECHO Cardiology following NON PRODUCTIVE COUGH /FEVER ; completed recent abx dose ( Levaquin 750 mg daily X 7 days ) ordered for blood culture empiric Abx with Rocephin /Zithromax ordered for antitussive monitor GENERALIZED WEAKNESS /DECONDITIONING : due to SOB /RONDON no evidence of infection noted , UA ordered ( no urinary symptom reported ) recent thyroid function was abnormal 12/28/16 low TSH 0.13 /normal free T4 /Low T3 repeat thyroid panel shows low TSH /normal T3/T4 possible sick euthyroid syndrome no treatment indicated PT.OT eval EXCESSIVE SOMNOLENCE /EPISODES OF CONFUSION : awake and alert today pt takes Ativan 1 mg HS /Ambien 10 mg HS for insomnia medication list shows -Flexeril 10 mg daily ( reports pt not been taking it ) mentions dose not take Ambien on daily basis counselled increased sedative effect with combination of above will d/c Ambien , Flexeril pt prefers to keep Ativan on board -has been taking for years , severe insomnia watch for poly pharmacy , excessive sedative Meds on board FULL CODE : DVT PROPHYLAXIS : IV heparin DISPOSITION : expected to be discharged home when medically stable PT/OT eval prior to discharge home Medicine follow up with Dr Sun Vital Signs: Date Time Temp Pulse Resp B/P (MAP) Pulse Ox O2 Delivery O2 Flow Rate FiO2 01/14/17 16:00 Room Air 01/14/17 15:57 36.5 106 22 147/97 (114) 98 Room Air 01/14/17 15:03 102 96 01/14/17 12:00 Room Air 01/14/17 11:40 36.4 102 18 129/85 (100) 96 Room Air 01/14/17 08:00 Room Air 01/14/17 07:50 37.7 98 20 149/101 (117) 95 Room Air 01/14/17 07:50 149/96 (113) 01/14/17 05:20 37.2 01/14/17 04:00 Room Air 01/14/17 03:47 38.3 101 22 141/88 (105) 96 Room Air 01/14/17 00:09 Room Air 01/13/17 23:31 37.4 99 22 118/80 (93) 94 Room Air 01/13/17 20:00 Room Air 01/13/17 19:46 37.7 111 19 141/77 (98) 94 Room Air Lab Results: Results Past 24 Hours Test 01/13/17 19:05 01/13/17 20:21 01/13/17 22:33 01/14/17 00:00 Range/Units Urine Color YELLOW Urine Appearance CLEAR CLEAR Urine pH 6.5 4.5-7.5 Urine Specific [place] 1.026 1.000-1.030 Urine Protein TRACE NEG Urine Glucose (UA) NEG NEG Urine Ketones NEG NEG Urine Occult Blood 1+ NEG Urine Nitrite NEG NEG Urine Bilirubin NEG NEG Urine Urobilinogen NEG NEG Urine Leukocyte Esterase NEG NEG Urine WBC (Auto) 0 0-5 /hpf Urine RBC (Auto) 5-10 0-4 /hpf Urine Hyaline Casts (Auto) 0 0-5 /lpf Urine Epithelial Cells (Auto) 0-5 0-5 /lpf Urine Bacteria (Auto) NEG NEG Total Creatine Kinase 93 39-308 U/L Creatine Kinase MB 1.6 0.5-3.6 ng/ml Creatine Kinase MB Ratio 1.7 0-3.0 Troponin I < 0.015 0-0.045 ng/ml Activated Partial Thromboplast Time 39.3 21.0-31.0 SECONDS Partial Thromboplastin Ratio 1.5 Pleural Fluid Source LEFT LUNG Pleural Fluid Color YELLOW Pleural Fluid Appearance CLEAR Pleural Fluid WBC 310 /uL Pleural Fluid RBC < 3000 /uL Pleural Fluid pH 7.43 7.3-7.4 Pleural Fluid Polynuclear WBCs % 4.3 % Pleural Fluid Mononuclear WBCs % 95.7 % Pleural Fluid Total Protein 2.9 g/dl Pleural Fluid LDH 78 IU Pleural Fluid Glucose 128 mg/dl Pleural Fluid Amylase 16 U/L Test 01/14/17 04:46 Range/Units White Blood Count 6.52 4.8-10.8 K/uL Red Blood Count 3.50 4.7-6.1 M/uL Hemoglobin 11.2 14.0-18.0 g/dL Hematocrit 33.9 42-52 % Mean Corpuscular Volume 96.9 80-100 fL Mean Corpuscular Hemoglobin 32.0 25-34 pg Mean Corpuscular Hemoglobin Concent 33.0 32-36 g/dl RDW Standard Deviation 52.0 36.4-46.3 fL RDW Coefficient of Variation 14.8 11.5-14.5 % Platelet Count 159 130-400 K/uL Mean Platelet Volume 9.1 7.4-10.4 fL Activated Partial Thromboplast Time 50.4 21.0-31.0 SECONDS Partial Thromboplastin Ratio 1.9 Sodium Level 135 136-145 mmol/L Potassium Level 4.2 3.5-5.1 mmol/L Chloride Level 103 98-107 mmol/L Carbon Dioxide Level 31 21-32 mmol/L Anion Gap 1.0 3-11 mmol/L Blood Urea Nitrogen 12 7-18 mg/dl Creatinine 0.69 0.60-1.40 mg/dl Est Creatinine Clear Calc Drug Dose 99.3 ml/min Estimated GFR () 103.9 Estimated GFR (Non- 89.7 BUN/Creatinine Ratio 17.7 10-20 Random Glucose 117 70-99 mg/dl Calcium Level 8.0 8.5-10.1 mg/dl Total Bilirubin 1.3 0.2-1 mg/dl Lactate Dehydrogenase 192 87-241 U/L Total Creatine Kinase 48 39-308 U/L Creatine Kinase MB 0.8 0.5-3.6 ng/ml Creatine Kinase MB Ratio 1.7 0-3.0 Troponin I < 0.015 0-0.045 ng/ml Albumin 2.9 3.4-5.0 gm/dl Thyroid Stimulating Hormone (TSH) 0.127 0.300-4.500 uIu/ml Free Thyroxine 1.60 0.80-1.60 ng/dl Free Triiodothyronine 2.66 2.30-4.20 pg/ml Microbiology Results 01/14/17 Blood Culture, Received Pending 01/14/17 Blood Culture, Received Pending 01/14/17 Acid Fast Stain, Received Pending 01/14/17 Mycobacterial Culture, Received Pending 01/14/17 Gram Stain - Final, Resulted 01/14/17 Bacterial Culture, Resulted Pending
[2017-01-14] MEDS: HEPARIN 25,000 UNIT/500ML D5W 500 ML IV PRN (15:10)
[2017-01-14] MEDS ORDERED: METOPROLOL SUCC 25MG EXT REL TAB PO STA (16:34)
[2017-01-14] MEDS ORDERED: FUROSEMIDE INJ 40 MG in SYRINGE 0 ML IV STA (16:35)
[2017-01-14] MEDS ORDERED: NURSING VERBAL MED ORDER ONE (16:45)
[2017-01-14] MEDS: LORAZEPAM 1 MG TAB PO PRN (22:01)
[2017-01-15 04:39] VITALS: BP 132/97; PULSE 100; TEMP 36.7; O2SAT 92
[2017-01-15 06:42] LABS: PARTIAL THROMBOPLASTIN RATIO 1.5
[2017-01-15 07:05] LABS: BUN/CREATININE RATIO 14.7 (10-20); CALCIUM 8.6 mg/dl (8.5-10.1); CREATININE 0.76 mg/dl (0.60-1.40); POTASSIUM 3.7 mmol/L (3.5-5.1)
[2017-01-15] MEDS: HEPARIN 25,000 UNIT/500ML D5W 500 ML IV PRN ×2 (07:43→14:04)
[2017-01-15] MEDS ORDERED: HEPARIN IV BOLUS 4,500 UNIT in SYRINGE 0 ML IV SCH (07:45)
[2017-01-15 08:08] VITALS: BP 131/96; PULSE 107; TEMP 37.4; O2SAT 94
[2017-01-15] MEDS: GUAIFENESIN 600 MG TABCR PO SCH ×2 (08:21→20:22)
[2017-01-15] MEDS: CEFTRIAXONE SOD INJ 1 GM in DEXTROSE 5% ADD-VANTAGE 50ML 50 ML IV SCH (08:21)
[2017-01-15] MEDS: AZITHROMYCIN 250 MG TAB PO SCH (08:22)
[2017-01-15] MEDS: METOPROLOL SUCC 25MG EXT REL TAB PO SCH (08:52)
--- NOTE | 2017-01-15 09:18 | Progress Note ---
Subjective Date of Service: Jan 15, 2017. Subjective Pt evaluation today including: conversation w/ patient, physical exam, lab review, review of studies, review of inpatient medication list Saw/examined the patient in room 238-2 He is laying in bed comfortably No chest pain/palpitations Denies shortness of breath today subjective fevers, no other symptoms Problem List Medical Problems: (1) Dyspnea on exertion Status: Acute (2) Pericardial effusion Status: Acute (3) Pleural effusion Status: Acute (4) Pneumonia Status: Acute (5) Rapid atrial fibrillation Status: Acute Review of Systems Constitutional: + fever, No chills Respiratory: No cough, No sputum, No shortness of breath Cardiac: No chest pain, No edema, No palpitations Abdomen: No pain, No nausea, No vomiting, No diarrhea Heme: No abnormal bleeding/bruising Medications Current Inpatient Medications Medications (Trade) Dose Ordered Sig/Randolph Route Start Time Stop Time Status Last Admin Dose Admin Ioversol (Optiray 320) 111 ml UD PRN IV 01/13/17 10:30 01/17/17 10:29 Acetaminophen (Tylenol Tab) 650 mg Q4H PRN PO 01/13/17 14:45 02/12/17 14:44 01/14/17 20:12 650 MG Al Hydrox/Mg Hydrox/Simethicone (Maalox Max Susp) 15 ml Q4H PRN PO 01/13/17 14:45 02/12/17 14:44 Magnesium Hydroxide (Milk Of Magnesia Susp) 30 ml Q12H PRN PO 01/13/17 14:45 02/12/17 14:44 Ondansetron HCl (Zofran Inj) 4 mg Q6H PRN IV 01/13/17 14:45 02/12/17 14:44 Nitroglycerin (Nitrostat Tab) 0.4 mg UD PRN SL 01/13/17 14:45 02/12/17 14:44 Polyethylene (Miralax Powder Packet) 17 gm DAILY PRN PO 01/13/17 14:45 02/12/17 14:44 Lorazepam (Ativan Tab) 1 mg HSZ PRN PO 01/13/17 14:45 02/12/17 14:44 01/14/17 22:01 1 MG Metoprolol Succinate (Toprol Xl Tab) 37.5 mg DAILY PO 01/14/17 09:00 02/13/17 08:59 01/14/17 08:45 37.5 MG Prednisone (PredniSONE TAB) 5 mg DAILY PO 01/14/17 09:00 02/13/17 08:59 01/15/17 08:21 5 MG Metoprolol Tartrate (Lopressor Iv) 5 mg Q6 PRN IV 01/13/17 14:45 02/12/17 14:44 Miscellaneous (Iv Fluids Completed) 1 ea PRN PRN N/A 01/13/17 15:15 01/13/18 15:14 Guaifenesin (Robitussin Sugar Free Syrup) 100 mg Q6H PRN PO 01/13/17 15:15 02/12/17 15:14 Menthol (Nice Brooke) 1 brooke Q2HWA PRN PO 01/13/17 15:15 02/12/17 15:14 Guaifenesin (Mucinex Contr Rel Tab) 600 mg Q12 PO 01/13/17 21:00 02/12/17 20:59 01/15/17 08:21 600 MG Heparin Sodium/ Dextrose 500 ml @ 26 mls/hr [id number] PRN IV 01/13/17 16:15 02/12/17 16:14 01/15/17 07:43 26 MLS/HR Ipratropium [place] (Atrovent 0.02% 0.5MG/2.5ML Neb) 0.5 mg Q6R PRN INH 01/13/17 16:15 02/12/17 16:14 Levalbuterol (Xopenex 1.25MG/ 0.5ML Neb) 1.25 mg Q6R PRN INH 01/13/17 16:15 02/12/17 16:14 Ceftriaxone Sodium 1 gm/ Dextrose 50 ml @ 100 mls/hr Q24H IV 01/14/17 09:00 01/21/17 08:59 01/15/17 08:21 100 MLS/HR Azithromycin (Zithromax Tab) 500 mg QAM PO 01/14/17 09:00 01/21/17 08:59 01/15/17 08:22 500 MG Objective Vital Signs Date Time Temp Pulse Resp B/P (MAP) Pulse Ox O2 Delivery O2 Flow Rate FiO2 01/15/17 08:08 37.4 107 16 131/96 (108) 94 Room Air 01/15/17 04:39 36.7 100 18 132/97 (109) 92 Room Air 01/15/17 04:00 Room Air 01/15/17 00:01 Room Air 01/14/17 23:50 36.6 98 17 122/80 (94) 93 Room Air 01/14/17 21:15 37.0 01/14/17 20:00 Room Air 01/14/17 19:27 38.0 101 22 136/75 (95) 96 Room Air 01/14/17 16:00 Room Air 01/14/17 15:57 36.5 106 22 147/97 (114) 98 Room Air 01/14/17 15:03 102 96 01/14/17 12:00 Room Air 01/14/17 11:40 36.4 102 18 129/85 (100) 96 Room Air Physical Exam General Appearance: no apparent distress, + thin Respiratory/Chest: lungs clear, no respiratory distress, no accessory muscle use, + decreased breath sounds Cardiovascular: no edema, no murmur, + irregularly irregular Abdomen: normal bowel sounds, non tender, soft Extremities: normal inspection, no pedal edema Neurologic/Psychiatric: no motor/sensory deficits, alert, normal mood/affect Laboratory Results Last 24 Hours Test 01/15/17 05:58 Activated Partial Thromboplast Time 38.3 SECONDS Partial Thromboplastin Ratio 1.5 Sodium Level 137 mmol/L Potassium Level 3.7 mmol/L Chloride Level 100 mmol/L Carbon Dioxide Level 32 mmol/L Anion Gap 5.0 mmol/L Blood Urea Nitrogen 11 mg/dl Creatinine 0.76 mg/dl Est Creatinine Clear Calc Drug Dose 90.2 ml/min Estimated GFR () 99.9 Estimated GFR (Non- 86.2 BUN/Creatinine Ratio 14.7 Random Glucose 122 mg/dl Calcium Level 8.6 mg/dl Assessment and Plan This is an 81 year old male with a PMH of atrial fibrillation, HTN, pericarditis /pericardial effusion, recent hospital admission for pneumonia presents with worsening shortness of breath Large L Pleural Effusion 01/14 patient presented with L sided pleural effusion s/p thoracentesis 800 cc removal of fluid possibly secondary to CHF repeat chest CT on 01/14 suggests No pneumothorax status post left thoracentesis with small residual Pericarditis/Small Pericardial Effusion 01/14 known during previous admission had been discharged on PO prednisone no evidence of tamponade on previous echo Cardio following; ischemic work-up pending; plan for nuclear stress today (01/15) Fevers/Cough, Recent LLL Pneumonia currently on empiric Rocephin + Azithro blood cultures and pleural fluid studies pending A. Fib with RVR - improved diagnosed earlier in December, during previous admission started on Toprol, 37.5mg daily HRs are in the upper 90s, lower 100s currently no symptoms for nuclear stress on 01/15 IV heparin - transition to Coumadin when okay with pulm and cardio Deconditioning/Weakness Somnolence/Confusion generalized weakness will need continued PT/OT polypharmacy may be an issue; home meds include Ativan, Ambien, Flexeril monitor for now; he is doing better than during admission Subclinical Hyperthyroidism TSH is low normal Free T3 and Free T4 if HRs remain elevated, may be beneficial to start therapy for now, no treatment necessary DVT ppx IV heparin FULL CODE may need rehab/SNF on discharge
[2017-01-15 09:26] VITALS: BP 131/96; PULSE 107; TEMP 37.4; O2SAT 94
--- NOTE | 2017-01-15 09:42 | ECHOCARDIOGRAM REPORT ---
*NOTICE TO RECEIVING REPUBL[employer] AGENCY This information is strictly Confidential and protected under [place] law. [place] law prohibits you from making any further disclosure of this information unless further disclosure is expressly permitted by the written consent of the person to whom it pertains or is authorized by law. A general authorization for the release of medical or other information is not sufficient for this purpose. Hospital accepts no responsibility if the information is made available to any other person, INCLUDING THE PATIENT. Interpretation Summary * Name: AISLINN LOPEZ Study Date: 01/15/2017 07:33 AM BP: 132/97 mmHg * Patient Location: C.EDB HR: 118 * : 1935 (M/d/yyyy) Gender: Male Height: 74 in * Age: 81 yrs Ethnicity: [place] Weight: 188 lb * Ordering Physician: Rakel Jason * Referring Physician: Self, Referred * Performed By: Mady Perez RCS * * Reason For Study: Dyspnea * BSA: 2.1 m2 * -- Conclusions -- * Compared to previous study of 12/28/16: RV systolic function mildly reduced. * Normal LV chamber size with mild concentric LVH. * Normal LV systolic function, EF 55-60%. * No segmental left ventricular wall motion abnormalities are noted. * The right ventricular cavity size is normal (basal dimension <4.2 cm in right ventricular apical 4-chamber view). * The right ventricular systolic function is borderline reduced. * Mild tricuspid regurgitation. * Mild biatrial enlargement. * Small to medium sized left pleural effusion. * Dilated inferior vena cava with reduced collapsability with sniff indicates an elevated right atrial pressure of 15 mmHg. * Pulmonary hypertension is present. Procedure Details * Left Ventricle The left ventricle is normal in size. There is mild concentric left ventricular hypertrophy. Ejection Fraction = 55-60%. Left ventricular systolic function is normal. No segmental left ventricular wall motion abnormalities are noted. The left ventricular wall motion is normal. * Right Ventricle The right ventricular cavity size is normal (basal dimension <4.2 cm in right ventricular apical 4-chamber view). The right ventricular systolic function is borderline reduced. * Atria The left atrium is mildly dilated. The right atrium is mildly dilated. No ASD detected; PFO is not assessed. * Mitral Valve The mitral valve anatomy is normal. There is no mitral valve stenosis. There is mild mitral regurgitation. * Tricuspid Valve The tricuspid valve anatomy is normal. There is no tricuspid stenosis. There is mild tricuspid regurgitation. * Aortic Valve The aortic valve is normal in structure and function. * Pulmonic Valve The pulmonary valve is not well seen, but the Doppler examination is normal without significant regurgitation or stenosis. * Great Vessels The aortic root is normal size. * Pericardium/Pleural Small pericardial effusion. A circumferential pericardial effusion is noted. Small to medium sized left pleural effusion. * Great Vessels Dilated inferior vena cava with reduced collapsability with sniff indicates an elevated right atrial pressure of 15 mmHg * * MMode 2D Measurements and Calculations * IVSd 1.3 cm * * LVIDd 4.0 cm * LVIDs 3.1 cm * LVPWd 1.3 cm * * IVS/LVPW 1.0 * FS 22.4 % * EDV(Teich) 68.9 ml * ESV(Teich) 37.4 ml * EF(Teich) 45.7 % * * EDV(cubed) 62.8 ml * ESV(cubed) 29.3 ml * EF(cubed) 53.3 % * * LV mass(C)d 181.7 grams * LV mass(C)dI 85.8 grams/m\S\2 * * SV(Teich) 31.5 ml * SI(Teich) 14.9 ml/m\S\2 * SV(cubed) 33.5 ml * SI(cubed) 15.8 ml/m\S\2 * * Ao root diam 3.5 cm * Ao root area 9.6 cm\S\2 * * LVOT diam 2.2 cm * LVOT area 3.8 cm\S\2 * * LVAd ap4 29.8 cm\S\2 * LVLd ap4 8.7 cm * EDV(MOD-sp4) 82.0 ml * EDV(sp4-el) 86.6 ml * LVAs ap4 21.4 cm\S\2 * LVLs ap4 7.7 cm * ESV(MOD-sp4) 50.7 ml * ESV(sp4-el) 51.0 ml * EF(MOD-sp4) 38.2 % * EF(sp4-el) 41.1 % * * LVAd ap2 28.9 cm\S\2 * LVLd ap2 7.5 cm * EDV(MOD-sp2) 92.2 ml * EDV(sp2-el) 94.7 ml * LVAs ap2 16.6 cm\S\2 * LVLs ap2 6.5 cm * ESV(MOD-sp2) 37.2 ml * ESV(sp2-el) 36.4 ml * EF(MOD-sp2) 59.7 % * EF(sp2-el) 61.6 % * * LVLd %diff -16.28 % * EDV(MOD-bp) 92.9 ml * LVLs %diff -18.48 % * ESV(MOD-bp) 46.8 ml * EF(MOD-bp) 49.6 % * * SV(MOD-sp4) 31.3 ml * SI(MOD-sp4) 14.8 ml/m\S\2 * * SV(MOD-sp2) 55.0 ml * SI(MOD-sp2) 26.0 ml/m\S\2 * * SV(MOD-bp) 46.0 ml * SI(MOD-bp) 21.8 ml/m\S\2 * * SV(sp4-el) 35.6 ml * SI(sp4-el) 16.8 ml/m\S\2 * * SV(sp2-el) 58.3 ml * SI(sp2-el) 27.5 ml/m\S\2 * * * Doppler Measurements and Calculations * Ao V2 max 77.7 cm/sec * Ao max PG 2.4 mmHg * Ao max PG (full) 0.78 mmHg * SUSANA(V,A) 3.1 cm\S\2 * SUSANA(V,D) 3.1 cm\S\2 * * LV V1 max PG 1.6 mmHg * * LV V1 max 63.6 cm/sec * * *
[2017-01-15] MEDS ORDERED: REGADENOSON 0.4 MG/5 ML SYR ONE (10:32)
--- NOTE | 2017-01-15 11:57 | Cardiology Follow-Up ---
Subjective Subjective Date of Service: Jan 15, 2017. Pt evaluation today including: conversation w/ patient, physical exam, chart review, lab review, review of studies, review of inpatient medication list Additional Details: Pt seen and examined in nuclear medicine, states that he feels well. Nursing reports that patient has been ambulating much more with no complaints, however, when I asked the patient he states that he's not sure if there's been any improvement since admission. Diuresed well overnight, almost 3L of fluid negative including thoracentesis. Denies cp, sob at rest, palpitations, lightheadedness or dizziness. Tele reviewed: atrial fibrillation in 90's-110's. Problem List Medical Problems: (1) Dyspnea on exertion Status: Acute (2) Pericardial effusion Status: Acute (3) Pleural effusion Status: Acute (4) Pneumonia Status: Acute (5) Rapid atrial fibrillation Status: Acute Review of Systems Constitutional: + fever, No chills Respiratory: + dyspnea on exertion, No see HPI, No cough, No sputum, No wheezing, No shortness of breath, No dyspnea at rest, No hemoptysis, No problem reported Cardiac: No see HPI, No chest pain, No orthopnea, No PND, No edema, No claudication, No palpitations, No problem reported Abdomen: No pain, No nausea, No vomiting, No diarrhea Heme: No abnormal bleeding/bruising Objective Vital Signs Last Vital Signs Documentation Date Time Temp Pulse Resp B/P (MAP) Pulse Ox O2 Delivery O2 Flow Rate FiO2 01/15/17 09:26 37.4 107 16 131/96 94 Room Air Physical Exam: General Appearance: WD/WN, no apparent distress, + thin Eyes: bilateral eyes normal inspection, bilateral eyes PERRL, bilateral eyes EOMI ENT: normal ENT inspection, hearing grossly normal, pharynx normal Neck: supple, no adenopathy, thyroid normal, no JVD Respiratory/Chest: chest non-tender, lungs clear, no respiratory distress, no accessory muscle use, + decreased breath sounds (b/l bases) Cardiovascular: no edema, no murmur, + tachycardia, + irregularly irregular Abdomen: normal bowel sounds, non tender, soft, no organomegaly, no pulsatile mass Extremities: normal inspection, no pedal edema, no calf tenderness Neurologic/Psychiatric: inspector set up and lay out II-XII nml as tested, no motor/sensory deficits, alert, oriented x 3, + pertinent finding (flattened affect) Skin: normal color, warm/dry, no rash Lymphatic: no adenopathy Assessment and Plan 1. dyspnea on exertion unclear etiology multiple possible contributing factors s/p thoracentesis- 800mls further diuresis with lasix of over 2L does not examine as volume overloaded nuclear stress performed, images pending 2. afib rates remain elevated given history of bradycardic event will titrate gingerly may consider attempt at MARY guided cardioversion but doubt that would completely resolve symptoms given pulmonary issues would also be a low likelihood to remain in sinus will follow will cont to increase metoprolol succinate dosage for now heparin until INR therapeutic cont to monitor on tele
[2017-01-15] MEDS ORDERED: NURSING VERBAL MED ORDER ONE ×3 (13:45→16:45)
[2017-01-15] MEDS ORDERED: METOPROLOL TARTRATE 1 MG/ML VIAL IV ONE (13:45)
--- NOTE | 2017-01-15 14:07 | MYOCARDIAL PERFUSION SCAN ---
INDICATION: Dyspnea with exertion. Baseline EKG shows atrial fibrillation at 114 beats per minute. Underwent a right bundle branch block. Stress study showed no ischemic changes. No inducible arrhythmias. No episodes of sinus rhythm. The patient remains in atrial fibrillation. SYMPTOMS: The patient did develop some shortness of breath with injection of Lexiscan and was given a total of 100 mg of aminophylline with resolution of symptoms. TECHNIQUE: For the stress portion of the study 32.4 mCi of Tc-99m Cardiolite IV was injected at 11:40 a.m. on 01/15/2017. Thirty minutes following the injection imaging of the heart was performed in multiple projections. For the resting portion of the study 10.8 mCi of Tc-99m Cardiolite was injected IV at 10:00 a.m. One hour following the injections imaging of the heart was performed in the same projections. FINDINGS: Homogeneous uptake throughout the entire myocardium, normal LV wall motion without regional wall motion abnormalities. EF calculated to be 58%. SUMMARY: Normal Lexiscan Cardiolite nuclear stress test. Normal LV systolic function, EF 58%.
[2017-01-15 14:15] LABS: PARTIAL THROMBOPLASTIN RATIO 1.6
[2017-01-15] MEDS ORDERED: FUROSEMIDE 40 MG TAB PO ONE (14:30)
[2017-01-15] MEDS ORDERED: HEPARIN IV BOLUS 3,000 UNIT in SYRINGE 0 ML IV ONE ×2 (14:45→22:30)
[2017-01-15] MEDS: WARFARIN SOD 5 MG TAB PO SCH (15:14)
[2017-01-15] MEDS: LIDODERM (LIDOCAINE) PATCH 5% TD SCH (15:57)
[2017-01-15 16:00] VITALS: BP 135/89; PULSE 102; TEMP 37.1; O2SAT 93
--- NOTE | 2017-01-15 18:08 | Pulmonology Progress Note ---
Pulmonary Progress Note Date of Service Jan 15, 2017. Attending Dr. Alexis Subjective Patient seen and examined today. He denies any chest pain, shortness of breath , orthopnea, lower extremity swelling or edema. He status post thoracentesis of left pleural effusion on 01/14/2017. Objective Vital signs reviewed Temperature 37.4, blood pressure 131/96 to 146/96, pulse 100-113, respiratory rate 16-22, 92-94% on room air. General Appearance: WD/WN, no apparent distress, + thin Eyes: bilateral eyes normal inspection, bilateral eyes PERRL, bilateral eyes EOMI ENT: normal ENT inspection, hearing grossly normal, pharynx normal Neck: supple, no adenopathy, thyroid normal, no JVD Respiratory/Chest: chest non-tender, lungs clear, no respiratory distress, no accessory muscle use, + decreased breath sounds (b/l bases) Cardiovascular: no edema, no murmur, + tachycardia, + irregularly irregular Abdomen: normal bowel sounds, non tender, soft, no organomegaly, no pulsatile mass Extremities: normal inspection, no pedal edema, no calf tenderness Neurologic/Psychiatric: hourly sign language interpreter II-XII nml as tested, no motor/sensory deficits, alert, oriented x 3, Skin: normal color, warm/dry, no rash, varicose veins bilateral lower extremities Lymphatic: no adenopathy Cytology of pleural fluid from 01/14/2017 PLEURAL FLUID, NOT OTHERWISE SPECIFIED, THORACENTESIS: 1. NO MALIGNANT CELLS SEEN. 2. THE SPECIMEN IS VERY PAUCICELLULAR WITH ONLY VERY RARE MESOTHELIAL CELLS AND HISTIOCYTES NOTED. Microbiology Pleural fluid shows no growth to date Pleural fluid AFB pending Blood cultures 01/14/2017 pending Myocardial perfusion scan 01/15/2017 FINDINGS: Homogeneous uptake throughout the entire myocardium, normal LV wall motion without regional wall motion abnormalities. EF calculated to be 58%. SUMMARY: Normal Lexiscan Cardiolite nuclear stress test. Normal LV systolic function, EF 58%. TTE 01/15/2017 * -- Conclusions -- * Compared to previous study of 12/28/16: RV systolic function mildly reduced. * Normal LV chamber size with mild concentric LVH. * Normal LV systolic function, EF 55-60%. * No segmental left ventricular wall motion abnormalities are noted. * The right ventricular cavity size is normal (basal dimension <4.2 cm in right ventricular apical 4-chamber view). * The right ventricular systolic function is borderline reduced. * Mild tricuspid regurgitation. * Mild biatrial enlargement. * Small to medium sized left pleural effusion. * Dilated inferior vena cava with reduced collapsability with sniff indicates an elevated right atrial pressure of 15 mmHg. * Pulmonary hypertension is present. CT chest 01/14/2017 IMPRESSION: 1. No pneumothorax status post left thoracentesis. 2. Small residual left basilar effusion with left basilar bronchiectasis/atelectasis. 3. Stable right effusion with minimal right basilar consolidative change. 4. Small pericardial effusion unaltered from the prior study. Assessment & Plan Bilateral pleural effusions Diastolic dysfunction Atrial fibrillation Patient is status post left thoracentesis done on 01/14/2017. Pleural fluid studies are suggestive of transudative process which is most likely secondary to underlying CHF or cardiac process. Echo today shows that he does have preserved ejection fraction however he does have diastolic dysfunction as well as decreased right ventricular function. Cytology is negative for malignancy. AFB is also pending however due to the mesothelial cells seen in the cytology tuberculosis like unlikely. Patient is not in any respiratory distress distress at the current time. He is no longer using any oxygen and is ambulating well without assistance. At the present time I would continue with ceftriaxone and azithromycin and continue ipratropium/albuterol nebulizers. Patient appears to be benefiting from diuresis as he is a mostly 3 L negative including thoracentesis. Taper steroids as tolerated as this can also contribute to fluid retention. Continue diuresis as creatinine allows. Continue to optimize cardiac function per cardiology. Would recommend for PFT as outpatient. Data Medications: Current Inpatient Medications Medications (Trade) Dose Ordered Sig/Randolph Route Start Time Stop Time Status Last Admin Dose Admin Ioversol (Optiray 320) 111 ml UD PRN IV 01/13/17 10:30 01/17/17 10:29 Acetaminophen (Tylenol Tab) 650 mg Q4H PRN PO 01/13/17 14:45 02/12/17 14:44 01/14/17 20:12 650 MG Al Hydrox/Mg Hydrox/Simethicone (Maalox Max Susp) 15 ml Q4H PRN PO 01/13/17 14:45 02/12/17 14:44 Magnesium Hydroxide (Milk Of Magnesia Susp) 30 ml Q12H PRN PO 01/13/17 14:45 02/12/17 14:44 Ondansetron HCl (Zofran Inj) 4 mg Q6H PRN IV 01/13/17 14:45 02/12/17 14:44 Nitroglycerin (Nitrostat Tab) 0.4 mg UD PRN SL 01/13/17 14:45 02/12/17 14:44 Polyethylene (Miralax Powder Packet) 17 gm DAILY PRN PO 01/13/17 14:45 02/12/17 14:44 Lorazepam (Ativan Tab) 1 mg HSZ PRN PO 01/13/17 14:45 02/12/17 14:44 01/14/17 22:01 1 MG Prednisone (PredniSONE TAB) 5 mg DAILY PO 01/14/17 09:00 02/13/17 08:59 01/15/17 08:21 5 MG Metoprolol Tartrate (Lopressor Iv) 5 mg Q6 PRN IV 01/13/17 14:45 02/12/17 14:44 Miscellaneous (Iv Fluids Completed) 1 ea PRN PRN N/A 01/13/17 15:15 01/13/18 15:14 Guaifenesin (Robitussin Sugar Free Syrup) 100 mg Q6H PRN PO 01/13/17 15:15 02/12/17 15:14 Menthol (Nice Brooke) 1 brooke Q2HWA PRN PO 01/13/17 15:15 02/12/17 15:14 Guaifenesin (Mucinex Contr Rel Tab) 600 mg Q12 PO 01/13/17 21:00 02/12/17 20:59 01/15/17 08:21 600 MG Heparin Sodium/ Dextrose 500 ml @ 28 mls/hr [id number] PRN IV 01/13/17 16:15 02/12/17 16:14 01/15/17 14:04 26 MLS/HR Ipratropium Conrad (Atrovent 0.02% 0.5MG/2.5ML Neb) 0.5 mg Q6R PRN INH 01/13/17 16:15 02/12/17 16:14 Levalbuterol (Xopenex 1.25MG/ 0.5ML Neb) 1.25 mg Q6R PRN INH 01/13/17 16:15 02/12/17 16:14 Ceftriaxone Sodium 1 gm/ Dextrose 50 ml @ 100 mls/hr Q24H IV 01/14/17 09:00 01/21/17 08:59 01/15/17 08:21 100 MLS/HR Azithromycin (Zithromax Tab) 500 mg QAM PO 01/14/17 09:00 01/21/17 08:59 01/15/17 08:22 500 MG Warfarin Sodium (Coumadin Tab) 5 mg DAILY@16 PO 01/15/17 16:00 02/14/17 15:59 01/15/17 15:14 5 MG Furosemide (Lasix Tab) 40 mg QAM PO 01/16/17 09:00 02/15/17 08:59 Lidocaine (Lidoderm Patch 5%) 1 patch DAILY TD 01/15/17 16:00 02/14/17 15:59 01/15/17 15:57 1 PATCH Miscellaneous (Remove Lidoderm Patch) 1 ea DAILY@21 N/A 01/15/17 21:00 02/14/17 20:59 Metoprolol Succinate (Toprol Xl Tab) 50 mg BID PO 01/15/17 21:00 02/14/17 20:59 Vital Signs: Date Time Temp Pulse Resp B/P (MAP) Pulse Ox O2 Delivery O2 Flow Rate FiO2 01/15/17 16:00 Room Air 01/15/17 16:00 37.1 102 22 135/89 (104) 93 Room Air 01/15/17 13:52 113 146/96 01/15/17 12:40 Room Air 01/15/17 09:26 37.4 107 16 131/96 94 Room Air 01/15/17 08:08 37.4 107 16 131/96 (108) 94 Room Air 01/15/17 08:00 Room Air 01/15/17 04:39 36.7 100 18 132/97 (109) 92 Room Air 01/15/17 04:00 Room Air 01/15/17 00:01 Room Air 01/14/17 23:50 36.6 98 17 122/80 (94) 93 Room Air 01/14/17 21:15 37.0 01/14/17 20:00 Room Air 01/14/17 19:27 38.0 101 22 136/75 (95) 96 Room Air Laboratory Results: Last 24 Hours Test 01/15/17 05:58 01/15/17 13:51 Activated Partial Thromboplast Time 38.3 SECONDS 42.3 SECONDS Partial Thromboplastin Ratio 1.5 1.6 Sodium Level 137 mmol/L Potassium Level 3.7 mmol/L Chloride Level 100 mmol/L Carbon Dioxide Level 32 mmol/L Anion Gap 5.0 mmol/L Blood Urea Nitrogen 11 mg/dl Creatinine 0.76 mg/dl Est Creatinine Clear Calc Drug Dose 90.2 ml/min Estimated GFR () 99.9 Estimated GFR (Non- 86.2 BUN/Creatinine Ratio 14.7 Random Glucose 122 mg/dl Calcium Level 8.6 mg/dl
[2017-01-15 19:25] VITALS: BP 126/85; PULSE 127; TEMP 37.7; O2SAT 93
[2017-01-15] MEDS: METOPROLOL SUCC 50MG EXT REL TAB PO SCH (20:22)
[2017-01-15 22:03] LABS: PARTIAL THROMBOPLASTIN RATIO 1.7
[2017-01-15] MEDS: LORAZEPAM 1 MG TAB PO PRN (22:23)
[2017-01-16] VITALS (7 sets, daily range): BP systolic 109–126; BP diastolic 74–89; PULSE 88–115; TEMP 36.3–38.4; O2SAT 93–98
[2017-01-16] MEDS: ACETAMINOPHEN 325 MG TAB PO PRN (04:09)
[2017-01-16 04:58] LABS: HEMATOCRIT 36.7 % (42-52); MEAN CELL VOLUME 94.8 fL (80-100); MEAN CORPUSCULAR HEMOGLOBIN 32.3 pg (25-34); MEAN CORPUSCULAR HGB CONC 34.1 g/dl (32-36); MEAN PLATELET VOLUME 9.4 fL (7.4-10.4); PLATELET COUNT 177 K/uL (130-400); RED BLOOD COUNT 3.87 M/uL (4.7-6.1); WHITE BLOOD COUNT 7.33 K/uL (4.8-10.8)
[2017-01-16 05:13] LABS: PARTIAL THROMBOPLASTIN RATIO 1.9
[2017-01-16 05:15] LABS: BUN/CREATININE RATIO 14.1 (10-20); CALCIUM 8.5 mg/dl (8.5-10.1); CREATININE 0.78 mg/dl (0.60-1.40); POTASSIUM 4.1 mmol/L (3.5-5.1)
--- NOTE | 2017-01-16 07:01 | Clinical Documentation Query ---
CLINICAL DOCUMENTATION QUERY 81 year old male who presents to the Emergency Room with complaints of worsened respiratory difficulties, fever, & lethargy. Current documentation from pulmonology includes; "Pleural fluid studies are suggestive of transudative process which is most likely secondary to underlying CHF or cardiac process. Echo today shows that he does have preserved ejection fraction however he does have diastolic dysfunction as well as decreased right ventricular function. Patient appears to be benefiting from diuresis as he is a mostly 3 L negative including thoracentesis. Taper steroids as tolerated as this can also contribute to fluid retention. Continue diuresis as creatinine allows." The medical record documentation is now expected to include definitive and explicit description of the patient's heart failure; vague terms such as "heart failure," ventricular dysfunction," and "CHF" may not fully capture the physician's intended level of severity. In your clinical opinion is this patient being managed for: ( ) Acute RV systolic CHF treated with IV Lasix and Thoracentesis. ( X ) Acute diastolic CHF ( ) Other explanation of clinical findings (Please Explain) ( ) Unable to determine (Please Define) ( ) Need to Discuss ( ) Not Agree The medical record reflects the following clinical findings, treatment, and risk factors. Clinical Indicators: As above. Echo shows mildly reduced RV systolic dysfunction, normal LVEF 55-60%, mild tricuspid regurgitation, & pulmonary HTN. Treatment: Thoracentesis, IV Lasix, telemetry, I/O's, daily wieghts Risk Factors: Age, Afib, pneumonia, Please clarify and document your clinical opinion in the progress notes and discharge summary. Terms such as "probable", "suspected", "likely", "questionable", "possible", or "still to be ruled out" are acceptable. IF IN AGREEMENT, YOU MUST DOCUMENT ABOVE DIAGNOSTIC STATEMENT IN DAILY PROGRESS NOTES AND DISCHARGE SUMMARY. This document is not part of the patient's record. Thank You, Bravo Gurrola, GIANNA [phone]
[2017-01-16] MEDS ORDERED: AMINOPHYLLINE 25 MG/ML 20ML VIAL IV ONE (07:21)
[2017-01-16] MEDS: CEFTRIAXONE SOD INJ 1 GM in DEXTROSE 5% ADD-VANTAGE 50ML 50 ML IV SCH (08:01)
[2017-01-16] MEDS: HEPARIN 25,000 UNIT/500ML D5W 500 ML IV PRN (08:02)
[2017-01-16] MEDS: GUAIFENESIN 600 MG TABCR PO SCH ×2 (08:03→21:11)
[2017-01-16] MEDS: METOPROLOL SUCC 50MG EXT REL TAB PO SCH ×2 (08:03→21:12)
[2017-01-16] MEDS: AZITHROMYCIN 250 MG TAB PO SCH (08:03)
[2017-01-16] MEDS: FUROSEMIDE 40 MG TAB PO SCH (08:04)
[2017-01-16] MEDS: LIDODERM (LIDOCAINE) PATCH 5% TD SCH ×2 (08:04→08:11)
--- NOTE | 2017-01-16 10:26 | Progress Note ---
Subjective Date of Service: Jan 16, 2017. Subjective Pt evaluation today including: conversation w/ patient, physical exam, lab review, review of studies, review of inpatient medication list Saw/examined the patient in room 238 No problems/issues to note today, he is seated in a chair and eating breakfast Denies chest pain or shortness of breath Spiked a fever earlier this morning Also c/o weakness Problem List Medical Problems: (1) Dyspnea on exertion Status: Acute (2) Pericardial effusion Status: Acute (3) Pleural effusion Status: Acute (4) Pneumonia Status: Acute (5) Rapid atrial fibrillation Status: Acute Review of Systems Constitutional: + fever, + weakness, No chills Respiratory: No cough, No sputum, No shortness of breath Cardiac: No chest pain Abdomen: No pain, No nausea, No vomiting, No diarrhea Male : No dysuria, No urinary frequency Heme: No abnormal bleeding/bruising Medications Current Inpatient Medications Medications (Trade) Dose Ordered Sig/Randolph Route Start Time Stop Time Status Last Admin Dose Admin Ioversol (Optiray 320) 111 ml UD PRN IV 01/13/17 10:30 01/17/17 10:29 Acetaminophen (Tylenol Tab) 650 mg Q4H PRN PO 01/13/17 14:45 02/12/17 14:44 01/16/17 04:09 650 MG Al Hydrox/Mg Hydrox/Simethicone (Maalox Max Susp) 15 ml Q4H PRN PO 01/13/17 14:45 02/12/17 14:44 Magnesium Hydroxide (Milk Of Magnesia Susp) 30 ml Q12H PRN PO 01/13/17 14:45 02/12/17 14:44 Ondansetron HCl (Zofran Inj) 4 mg Q6H PRN IV 01/13/17 14:45 02/12/17 14:44 Nitroglycerin (Nitrostat Tab) 0.4 mg UD PRN SL 01/13/17 14:45 02/12/17 14:44 Polyethylene (Miralax Powder Packet) 17 gm DAILY PRN PO 01/13/17 14:45 02/12/17 14:44 Lorazepam (Ativan Tab) 1 mg HSZ PRN PO 01/13/17 14:45 02/12/17 14:44 01/15/17 22:23 1 MG Prednisone (PredniSONE TAB) 5 mg DAILY PO 01/14/17 09:00 02/13/17 08:59 01/16/17 08:03 5 MG Metoprolol Tartrate (Lopressor Iv) 5 mg Q6 PRN IV 01/13/17 14:45 02/12/17 14:44 01/15/17 22:21 5 MG Miscellaneous (Iv Fluids Completed) 1 ea PRN PRN N/A 01/13/17 15:15 01/13/18 15:14 Guaifenesin (Robitussin Sugar Free Syrup) 100 mg Q6H PRN PO 01/13/17 15:15 02/12/17 15:14 Menthol (Nice Brooke) 1 brooke Q2HWA PRN PO 01/13/17 15:15 02/12/17 15:14 Guaifenesin (Mucinex Contr Rel Tab) 600 mg Q12 PO 01/13/17 21:00 02/12/17 20:59 01/16/17 08:03 600 MG Heparin Sodium/ Dextrose 500 ml @ 30 mls/hr [id number] PRN IV 01/13/17 16:15 02/12/17 16:14 01/16/17 08:02 30 MLS/HR Ipratropium Vancleave (Atrovent 0.02% 0.5MG/2.5ML Neb) 0.5 mg Q6R PRN INH 01/13/17 16:15 02/12/17 16:14 Levalbuterol (Xopenex 1.25MG/ 0.5ML Neb) 1.25 mg Q6R PRN INH 01/13/17 16:15 02/12/17 16:14 Ceftriaxone Sodium 1 gm/ Dextrose 50 ml @ 100 mls/hr Q24H IV 01/14/17 09:00 01/21/17 08:59 01/16/17 08:01 100 MLS/HR Azithromycin (Zithromax Tab) 500 mg QAM PO 01/14/17 09:00 01/21/17 08:59 01/16/17 08:03 500 MG Warfarin Sodium (Coumadin Tab) 5 mg DAILY@16 PO 01/15/17 16:00 02/14/17 15:59 01/15/17 15:14 5 MG Furosemide (Lasix Tab) 40 mg QAM PO 01/16/17 09:00 8/31/17 08:59 01/16/17 08:04 40 MG Lidocaine (Lidoderm Patch 5%) 1 patch DAILY TD 01/15/17 16:00 02/14/17 15:59 01/15/17 15:57 1 PATCH Miscellaneous (Remove Lidoderm Patch) 1 ea DAILY@21 N/A 01/15/17 21:00 02/14/17 20:59 01/15/17 20:23 1 EA Metoprolol Succinate (Toprol Xl Tab) 50 mg BID PO 01/15/17 21:00 02/14/17 20:59 01/16/17 08:03 50 MG Objective Vital Signs Date Time Temp Pulse Resp B/P (MAP) Pulse Ox O2 Delivery O2 Flow Rate FiO2 01/16/17 07:10 36.7 88 18 119/74 (89) 93 Room Air 01/16/17 04:00 93 Room Air 01/16/17 03:46 38.4 115 21 118/83 (95) 93 01/16/17 00:00 37.3 112 18 115/79 (91) 93 Room Air 01/16/17 00:00 93 Room Air 01/15/17 22:21 136 126/85 01/15/17 20:00 Room Air 01/15/17 19:25 37.7 127 22 126/85 (99) 93 Room Air 01/15/17 16:00 Room Air 01/15/17 16:00 37.1 102 22 135/89 (104) 93 Room Air 01/15/17 13:52 113 146/96 01/15/17 12:40 Room Air Physical Exam General Appearance: no apparent distress, + thin Respiratory/Chest: no respiratory distress, no accessory muscle use, + decreased breath sounds Cardiovascular: regular rate, rhythm, no edema, no murmur Abdomen: normal bowel sounds, non tender, soft Extremities: normal inspection, no pedal edema Neurologic/Psychiatric: no motor/sensory deficits, alert, normal mood/affect Laboratory Results Last 24 Hours Test 01/15/17 13:51 01/15/17 21:29 01/16/17 04:45 01/16/17 04:46 Activated Partial Thromboplast Time 42.3 SECONDS 44.3 SECONDS 50.5 SECONDS Partial Thromboplastin Ratio 1.6 1.7 1.9 White Blood Count 7.33 K/uL Red Blood Count 3.87 M/uL Hemoglobin 12.5 g/dL Hematocrit 36.7 % Mean Corpuscular Volume 94.8 fL Mean Corpuscular Hemoglobin 32.3 pg Mean Corpuscular Hemoglobin Concent 34.1 g/dl RDW Standard Deviation 50.7 fL RDW Coefficient of Variation 14.7 % Platelet Count 177 K/uL Mean Platelet Volume 9.4 fL Sodium Level 135 mmol/L Potassium Level 4.1 mmol/L Chloride Level 99 mmol/L Carbon Dioxide Level 30 mmol/L Anion Gap 6.0 mmol/L Blood Urea Nitrogen 11 mg/dl Creatinine 0.78 mg/dl Est Creatinine Clear Calc Drug Dose 86.0 ml/min Estimated GFR () 98.8 Estimated GFR (Non- 85.3 BUN/Creatinine Ratio 14.1 Random Glucose 120 mg/dl Calcium Level 8.5 mg/dl Assessment and Plan This is an 81 year old male with a PMH of atrial fibrillation, HTN, pericarditis /pericardial effusion, recent hospital admission for pneumonia presents with worsening shortness of breath Large L Pleural Effusion Possibly secondary to Diastolic CHF 01/16 L sided pleural effusion s/p thoracentesis with 800cc removal continue Lasix daily for now 01/14 patient presented with L sided pleural effusion s/p thoracentesis 800 cc removal of fluid possibly secondary to CHF repeat chest CT on 01/14 suggests No pneumothorax status post left thoracentesis with small residual Pericarditis/Small Pericardial Effusion 01/16 continue Lasix as per cardiology nuclear stress test negative low dose prednisone 01/14 known during previous admission had been discharged on PO prednisone no evidence of tamponade on previous echo Cardio following; ischemic work-up pending; plan for nuclear stress today (01/15) Fevers/Cough, Recent LLL Pneumonia currently on empiric Rocephin + Azithro blood cultures and pleural fluid studies pending A. Fib with RVR - improved 01/16 b-marshall dose increased as per cardiology to 50mg BID continue Coumadin, check INR in AM currently on IV heparin until INR therapeutic 01/15 diagnosed earlier in December, during previous admission started on Toprol, 37.5mg daily HRs are in the upper 90s, lower 100s currently no symptoms for nuclear stress on 01/15 IV heparin - transition to Coumadin when okay with pulm and cardio Deconditioning/Weakness Somnolence/Confusion generalized weakness will need continued PT/OT polypharmacy may be an issue; home meds include Ativan, Ambien, Flexeril monitor for now; he is doing better than during admission Subclinical Hyperthyroidism TSH is low normal Free T3 and Free T4 if HRs remain elevated, may be beneficial to start therapy for now, no treatment necessary DVT ppx IV heparin FULL CODE may need rehab/SNF on discharge
--- NOTE | 2017-01-16 13:59 | Cardiology Follow-Up ---
Subjective Subjective Date of Service: Jan 16, 2017. Pt evaluation today including: conversation w/ patient, physical exam, chart review, lab review, review of studies, conversation w/ business analysis consultant, review of inpatient medication list Additional Details: Pt seen and examined, states that his sob has improved if not resolved. Questioning about the cause of fever/abnormal sleep. Denies cp, sob, palpitations, lightheadedness or dizziness. Tele reviewed: afib, rates improved 80's-100's Problem List Medical Problems: (1) Dyspnea on exertion Status: Acute (2) Pericardial effusion Status: Acute (3) Pleural effusion Status: Acute (4) Pneumonia Status: Acute (5) Rapid atrial fibrillation Status: Acute Review of Systems Constitutional: + fever, + weakness, No chills Respiratory: No cough, No sputum, No shortness of breath Cardiac: No chest pain Abdomen: No pain, No nausea, No vomiting, No diarrhea Male : No dysuria, No urinary frequency Heme: No abnormal bleeding/bruising Objective Vital Signs Last Vital Signs Documentation Date Time Temp Pulse Resp B/P (MAP) Pulse Ox O2 Delivery O2 Flow Rate FiO2 01/16/17 12:00 Room Air 01/16/17 11:36 36.3 97 18 115/74 (88) 98 Physical Exam: General Appearance: no apparent distress, + thin Eyes: bilateral eyes normal inspection, bilateral eyes PERRL, bilateral eyes EOMI ENT: normal ENT inspection, hearing grossly normal, pharynx normal Neck: supple, no adenopathy, thyroid normal, no JVD, no carotid bruits, trachea midline Respiratory/Chest: no respiratory distress, no accessory muscle use, + decreased breath sounds Cardiovascular: no edema, no JVD, no murmur, + irregularly irregular Abdomen: normal bowel sounds, non tender, soft Extremities: normal inspection, no pedal edema, no calf tenderness Neurologic/Psychiatric: plant engineer II-XII nml as tested, no motor/sensory deficits, alert, oriented x 3, + depressed affect Skin: normal color, warm/dry, no rash Lymphatic: no adenopathy Assessment and Plan 1. dyspnea on exertion likely secondary to pleural effusions and diastolic dysfunction diuresed very well with symptoms improval will cont daily lasix follow bmp 2. afib rates improved with uptitration of toprol heparin bridge for coumadin, could also use home lovenox given clinical improvement will hold off on burak/cv cont metoprolol succinate 50mg bid coag clinic as outpatient f/u with cardiology as outpatient in 2-4 weeks ok to d/c tele or to home from cardiac standpoint
[2017-01-16 14:17] LABS: INR 1.2 (0.9-1.1); PROTHROMBIN TIME (PATIENT) 12.7 SECONDS (9.0-12.0)
--- NOTE | 2017-01-16 14:57 | Pulmonology Progress Note ---
Pulmonary Progress Note Date of Service Jan 16, 2017. Attending Dr. Alexis Subjective Patient seen and examined at bedside. He denies any shortness of breath, chest pain, palpitations or coughing, abdominal pain or lower extremity swelling or edema. He states that he is almost back at his baseline despite having fever overnight. Objective Vital signs reviewed MAXIMUM TEMPERATURE 38.4, blood pressure between 115/74-119/74, pulse 88 to 115 , respiratory rate between 18-21 and saturating 93-98% on room air. His cumulative balance is approximately 1.9 L negative General Appearance: WD/WN, no apparent distress, + thin Eyes: bilateral eyes normal inspection, bilateral eyes PERRL, bilateral eyes EOMI ENT: normal ENT inspection, hearing grossly normal, pharynx normal Neck: supple, no adenopathy, thyroid normal, no JVD Respiratory/Chest: chest non-tender, lungs clear, no respiratory distress, no accessory muscle use, + decreased breath sounds (b/l bases) Cardiovascular: no edema, no murmur, + tachycardia, + irregularly irregular Abdomen: normal bowel sounds, non tender, soft, no organomegaly, no pulsatile mass Extremities: normal inspection, no pedal edema, no calf tenderness 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 NO MALIGNANT CELLS SEEN. 2. THE SPECIMEN IS VERY PAUCICELLULAR WITH ONLY VERY RARE MESOTHELIAL CELLS AND HISTIOCYTES NOTED. Microbiology Pleural fluid shows no growth to date Pleural fluid AFB pending Blood cultures 01/14/2017 no growth to date Myocardial perfusion scan 01/15/2017 FINDINGS: Homogeneous uptake throughout the entire myocardium, normal LV wall motion without regional wall motion abnormalities. EF calculated to be 58%. SUMMARY: Normal Lexiscan Cardiolite nuclear stress test. Normal LV systolic function, EF 58%. TTE 01/15/2017 * -- Conclusions -- * Compared to previous study of 12/28/16: RV systolic function mildly reduced. * Normal LV chamber size with mild concentric LVH. * Normal LV systolic function, EF 55-60%. * No segmental left ventricular wall motion abnormalities are noted. * The right ventricular cavity size is normal (basal dimension <4.2 cm in right ventricular apical 4-chamber view). * The right ventricular systolic function is borderline reduced. * Mild tricuspid regurgitation. * Mild biatrial enlargement. * Small to medium sized left pleural effusion. * Dilated inferior vena cava with reduced collapsability with sniff indicates an elevated right atrial pressure of 15 mmHg. * Pulmonary hypertension is present. CT chest 01/14/2017 IMPRESSION: 1. No pneumothorax status post left thoracentesis. 2. Small residual left basilar effusion with left basilar bronchiectasis/atelectasis. 3. Stable right effusion with minimal right basilar consolidative change. 4. Small pericardial effusion unaltered from the prior study. Assessment & Plan Bilateral pleural effusions Diastolic dysfunction Atrial fibrillation Pleural effusion is suggestive of transudative process. Cytology is negative for malignancy and AFB is still pending. Mr. Crum is not in any respiratory distress at this time. He is not using oxygen and is ambulating well without assistance. He does have history of sleep apnea is noncompliant with its use at home. He does have some diastolic dysfunction and continue optimize his cardiac function per cardiology's recommendations He does still continue to be febrile overnight. Would continue with empiric antibiotics with ceftriaxone and azithromycin. Continue with bronchodilators and taper steroids as tolerated. Patient appears to be benefiting from diuresis and will continue this as his kidney function tolerates. I have ordered a speech and swallow evaluation as patient may be silently aspirating. I recommend the patient follow pulmonary as an outpatient for full PFT. I will sign off of case at this point. Please feel free to reconsult if you have any other questions or concerns. Data Medications: Current Inpatient Medications Medications (Trade) Dose Ordered Sig/Randolph Route Start Time Stop Time Status Last Admin Dose Admin Ioversol (Optiray 320) 111 ml UD PRN IV 01/13/17 10:30 01/17/17 10:29 Acetaminophen (Tylenol Tab) 650 mg Q4H PRN PO 01/13/17 14:45 02/12/17 14:44 01/16/17 04:09 650 MG Al Hydrox/Mg Hydrox/Simethicone (Maalox Max Susp) 15 ml Q4H PRN PO 01/13/17 14:45 02/12/17 14:44 Magnesium Hydroxide (Milk Of Magnesia Susp) 30 ml Q12H PRN PO 01/13/17 14:45 02/12/17 14:44 Ondansetron HCl (Zofran Inj) 4 mg Q6H PRN IV 01/13/17 14:45 02/12/17 14:44 Nitroglycerin (Nitrostat Tab) 0.4 mg UD PRN SL 01/13/17 14:45 02/12/17 14:44 Polyethylene (Miralax Powder Packet) 17 gm DAILY PRN PO 01/13/17 14:45 02/12/17 14:44 Lorazepam (Ativan Tab) 1 mg HSZ PRN PO 01/13/17 14:45 02/12/17 14:44 01/15/17 22:23 1 MG Prednisone (PredniSONE TAB) 5 mg DAILY PO 01/14/17 09:00 02/13/17 08:59 01/16/17 08:03 5 MG Metoprolol Tartrate (Lopressor Iv) 5 mg Q6 PRN IV 01/13/17 14:45 02/12/17 14:44 01/15/17 22:21 5 MG Miscellaneous (Iv Fluids Completed) 1 ea PRN PRN N/A 01/13/17 15:15 01/13/18 15:14 Guaifenesin (Robitussin Sugar Free Syrup) 100 mg Q6H PRN PO 01/13/17 15:15 02/12/17 15:14 Menthol (Nice Brooke) 1 brooke Q2HWA PRN PO 01/13/17 15:15 02/12/17 15:14 Guaifenesin (Mucinex Contr Rel Tab) 600 mg Q12 PO 01/13/17 21:00 02/12/17 20:59 01/16/17 08:03 600 MG Heparin Sodium/ Dextrose 500 ml @ 30 mls/hr [id number] PRN IV 01/13/17 16:15 02/12/17 16:14 01/16/17 08:02 30 MLS/HR Ipratropium [place] (Atrovent 0.02% 0.5MG/2.5ML Neb) 0.5 mg Q6R PRN INH 01/13/17 16:15 02/12/17 16:14 Levalbuterol (Xopenex 1.25MG/ 0.5ML Neb) 1.25 mg Q6R PRN INH 01/13/17 16:15 02/12/17 16:14 Ceftriaxone Sodium 1 gm/ Dextrose 50 ml @ 100 mls/hr Q24H IV 01/14/17 09:00 01/21/17 08:59 01/16/17 08:01 100 MLS/HR Azithromycin (Zithromax Tab) 500 mg QAM PO 01/14/17 09:00 01/21/17 08:59 01/16/17 08:03 500 MG Warfarin Sodium (Coumadin Tab) 5 mg DAILY@16 PO 01/15/17 16:00 02/14/17 15:59 01/15/17 15:14 5 MG Furosemide (Lasix Tab) 40 mg QAM PO 01/16/17 09:00 02/15/17 08:59 01/16/17 08:04 40 MG Lidocaine (Lidoderm Patch 5%) 1 patch DAILY TD 01/15/17 16:00 02/14/17 15:59 01/15/17 15:57 1 PATCH Miscellaneous (Remove Lidoderm Patch) 1 ea DAILY@21 N/A 01/15/17 21:00 02/14/17 20:59 01/15/17 20:23 1 EA Metoprolol Succinate (Toprol Xl Tab) 50 mg BID PO 01/15/17 21:00 02/14/17 20:59 01/16/17 08:03 50 MG I & O: 24-Hour Column 01/17/17 08:00 Intake Total 738 ml Output Total 300 ml Balance 438 ml Vital Signs: Date Time Temp Pulse Resp B/P (MAP) Pulse Ox O2 Delivery O2 Flow Rate FiO2 01/16/17 12:00 Room Air 01/16/17 11:36 36.3 97 18 115/74 (88) 98 Room Air 01/16/17 08:00 Room Air 01/16/17 07:10 36.7 88 18 119/74 (89) 93 Room Air 01/16/17 04:00 93 Room Air 01/16/17 03:46 38.4 115 21 118/83 (95) 93 01/16/17 00:00 37.3 112 18 115/79 (91) 93 Room Air 01/16/17 00:00 93 Room Air 01/15/17 22:21 136 126/85 01/15/17 20:00 Room Air 01/15/17 19:25 37.7 127 22 126/85 (99) 93 Room Air 01/15/17 16:00 Room Air 01/15/17 16:00 37.1 102 22 135/89 (104) 93 Room Air Laboratory Results: Last 24 Hours Test 01/15/17 21:29 01/16/17 04:45 01/16/17 04:46 01/16/17 14:01 Activated Partial Thromboplast Time 44.3 SECONDS 50.5 SECONDS Partial Thromboplastin Ratio 1.7 1.9 White Blood Count 7.33 K/uL Red Blood Count 3.87 M/uL Hemoglobin 12.5 g/dL Hematocrit 36.7 % Mean Corpuscular Volume 94.8 fL Mean Corpuscular Hemoglobin 32.3 pg Mean Corpuscular Hemoglobin Concent 34.1 g/dl RDW Standard Deviation 50.7 fL RDW Coefficient of Variation 14.7 % Platelet Count 177 K/uL Mean Platelet Volume 9.4 fL Sodium Level 135 mmol/L Potassium Level 4.1 mmol/L Chloride Level 99 mmol/L Carbon Dioxide Level 30 mmol/L Anion Gap 6.0 mmol/L Blood Urea Nitrogen 11 mg/dl Creatinine 0.78 mg/dl Est Creatinine Clear Calc Drug Dose 86.0 ml/min Estimated GFR () 98.8 Estimated GFR (Non- 85.3 BUN/Creatinine Ratio 14.1 Random Glucose 120 mg/dl Calcium Level 8.5 mg/dl Prothrombin Time 12.7 SECONDS Prothromb Time International Ratio 1.2
[2017-01-16] MEDS: WARFARIN SOD 5 MG TAB PO SCH (16:49)
[2017-01-16] MEDS: LORAZEPAM 1 MG TAB PO PRN (21:13)
[2017-01-17] VITALS (8 sets, daily range): BP systolic 114–163; BP diastolic 76–85; PULSE 79–105; TEMP 36.5–37.1; O2SAT 93–98
[2017-01-17] MEDS: HEPARIN 25,000 UNIT/500ML D5W 500 ML IV PRN ×2 (00:42→21:15)
[2017-01-17 07:08] LABS: INR 1.1 (0.9-1.1); PARTIAL THROMBOPLASTIN RATIO 1.9; PROTHROMBIN TIME (PATIENT) 12.1 SECONDS (9.0-12.0)
[2017-01-17 07:25] LABS: BUN/CREATININE RATIO 15.5 (10-20); CALCIUM 8.6 mg/dl (8.5-10.1); CREATININE 0.78 mg/dl (0.60-1.40); POTASSIUM 3.8 mmol/L (3.5-5.1)
[2017-01-17] MEDS: FUROSEMIDE 40 MG TAB PO SCH (08:42)
[2017-01-17] MEDS: CEFTRIAXONE SOD INJ 1 GM in DEXTROSE 5% ADD-VANTAGE 50ML 50 ML IV SCH (08:42)
[2017-01-17] MEDS: AZITHROMYCIN 250 MG TAB PO SCH (08:43)
[2017-01-17] MEDS: LIDODERM (LIDOCAINE) PATCH 5% TD SCH (08:43)
[2017-01-17] MEDS: METOPROLOL SUCC 50MG EXT REL TAB PO SCH ×2 (08:43→20:14)
[2017-01-17] MEDS: GUAIFENESIN 600 MG TABCR PO SCH ×2 (08:43→20:14)
--- NOTE | 2017-01-17 10:37 | DIAGNOSTIC IMAGING REPORT ---
VIDEO SWALLOW STUDY CLINICAL HISTORY: Aspiration. Dyspnea. COMPARISON STUDY: No priors. FLUOROSCOPY TIME: 4.4 minutes. FINDINGS: Fluoroscopic guidance was provided to the Department of Speech Pathology in performing a video swallow study. The patient consumed barium-impregnated pudding, cracker with paste, nectar-thick liquids, and thin barium while the swallowing mechanism was observed in real-time. Pharyngeal penetration and aspiration were seen with thin barium. There was pharyngeal penetration without evidence of michelle aspiration seen on the nectar-thick liquid textures. The pudding and cracker with paste swallows were normal. IMPRESSION: 1. Aspiration was seen with thin barium. 2. Pharyngeal penetration without aspiration was seen with nectar-thick liquid textures. 3. See dedicated speech pathology report for detailed findings and recommendations. Dictated: 01/17/2017 10:25 AM Transcribed: 01/17/2017 10:36 AM [email or web address] Electronically signed by: Enrique Cortes M.D. 01/17/2017 10:48 AM Dictated Date/Time: 01/17/2017 10:25 AM
[2017-01-17 12:06] LABS: LYME DISEASE AB IGG NEG (NEG); LYME DISEASE AB IGM NEG (NEG)
--- NOTE | 2017-01-17 12:38 | Progress Note ---
Subjective Date of Service: Jan 17, 2017. Subjective Pt evaluation today including: conversation w/ patient, physical exam, lab review, review of studies, review of inpatient medication list Saw/examined the patient in room 238 He is seated in a chair, eating lunch at bedside Had swallow evaluation this morning Denies shortness of breath or chest pain c/o weakness Problem List Medical Problems: (1) Dyspnea on exertion Status: Acute (2) Pericardial effusion Status: Acute (3) Pleural effusion Status: Acute (4) Pneumonia Status: Acute (5) Rapid atrial fibrillation Status: Acute Review of Systems Constitutional: + weakness, No fever, No chills Respiratory: No cough, No sputum, No shortness of breath Cardiac: No chest pain Abdomen: No pain, No nausea, No vomiting, No diarrhea Heme: No abnormal bleeding/bruising Medications Current Inpatient Medications Medications (Trade) Dose Ordered Sig/Randolph Route Start Time Stop Time Status Last Admin Dose Admin Acetaminophen (Tylenol Tab) 650 mg Q4H PRN PO 01/13/17 14:45 02/12/17 14:44 01/16/17 04:09 650 MG Al Hydrox/Mg Hydrox/Simethicone (Maalox Max Susp) 15 ml Q4H PRN PO 01/13/17 14:45 02/12/17 14:44 Magnesium Hydroxide (Milk Of Magnesia Susp) 30 ml Q12H PRN PO 01/13/17 14:45 02/12/17 14:44 Ondansetron HCl (Zofran Inj) 4 mg Q6H PRN IV 01/13/17 14:45 02/12/17 14:44 Nitroglycerin (Nitrostat Tab) 0.4 mg UD PRN SL 01/13/17 14:45 02/12/17 14:44 Polyethylene (Miralax Powder Packet) 17 gm DAILY PRN PO 01/13/17 14:45 02/12/17 14:44 Lorazepam (Ativan Tab) 1 mg HSZ PRN PO 01/13/17 14:45 02/12/17 14:44 01/16/17 21:13 1 MG Prednisone (PredniSONE TAB) 5 mg DAILY PO 01/14/17 09:00 02/13/17 08:59 01/17/17 08:43 5 MG Metoprolol Tartrate (Lopressor Iv) 5 mg Q6 PRN IV 01/13/17 14:45 02/12/17 14:44 01/15/17 22:21 5 MG Miscellaneous (Iv Fluids Completed) 1 ea PRN PRN N/A 01/13/17 15:15 01/13/18 15:14 Guaifenesin (Robitussin Sugar Free Syrup) 100 mg Q6H PRN PO 01/13/17 15:15 02/12/17 15:14 Menthol (Nice Brooke) 1 brooke Q2HWA PRN PO 01/13/17 15:15 02/12/17 15:14 Guaifenesin (Mucinex Contr Rel Tab) 600 mg Q12 PO 01/13/17 21:00 02/12/17 20:59 01/17/17 08:43 600 MG Heparin Sodium/ Dextrose 500 ml @ 30 mls/hr [id number] PRN IV 01/13/17 16:15 02/12/17 16:14 01/17/17 00:42 30 MLS/HR Ipratropium [place] (Atrovent 0.02% 0.5MG/2.5ML Neb) 0.5 mg Q6R PRN INH 01/13/17 16:15 02/12/17 16:14 Levalbuterol (Xopenex 1.25MG/ 0.5ML Neb) 1.25 mg Q6R PRN INH 01/13/17 16:15 02/12/17 16:14 Ceftriaxone Sodium 1 gm/ Dextrose 50 ml @ 100 mls/hr Q24H IV 01/14/17 09:00 01/21/17 08:59 01/17/17 08:42 100 MLS/HR Azithromycin (Zithromax Tab) 500 mg QAM PO 01/14/17 09:00 01/21/17 08:59 01/17/17 08:43 500 MG Warfarin Sodium (Coumadin Tab) 5 mg DAILY@16 PO 01/15/17 16:00 02/14/17 15:59 01/16/17 16:49 5 MG Furosemide (Lasix Tab) 40 mg QAM PO 01/16/17 09:00 02/15/17 08:59 01/17/17 08:42 40 MG Lidocaine (Lidoderm Patch 5%) 1 patch DAILY TD 01/15/17 16:00 02/14/17 15:59 01/17/17 08:43 1 PATCH Miscellaneous (Remove Lidoderm Patch) 1 ea DAILY@21 N/A 01/15/17 21:00 02/14/17 20:59 01/15/17 20:23 1 EA Metoprolol Succinate (Toprol Xl Tab) 50 mg BID PO 01/15/17 21:00 02/14/17 20:59 01/17/17 08:43 50 MG Objective Vital Signs Date Time Temp Pulse Resp B/P (MAP) Pulse Ox O2 Delivery O2 Flow Rate FiO2 01/17/17 12:00 Room Air 01/17/17 11:03 36.9 92 18 117/85 (96) 97 Room Air 01/17/17 08:00 Room Air 01/17/17 07:24 36.6 99 18 126/84 (98) 95 Room Air 01/17/17 07:23 36.5 79 18 163/78 (106) 93 Room Air 01/17/17 04:00 Room Air 01/17/17 04:00 37.0 79 17 119/81 (94) 97 Room Air 01/17/17 00:05 Room Air 01/17/17 00:00 37.1 93 17 114/81 (92) 93 Room Air 01/16/17 20:00 Room Air 01/16/17 18:54 37.0 101 20 109/74 (86) 93 Room Air 01/16/17 16:00 Room Air 01/16/17 15:51 36.9 103 20 126/89 (101) 98 Room Air Physical Exam General Appearance: no apparent distress, + cachetic, + thin Respiratory/Chest: chest non-tender, lungs clear, normal breath sounds, no respiratory distress, no accessory muscle use Cardiovascular: no edema, no murmur, + irregularly irregular Abdomen: normal bowel sounds, non tender, soft Extremities: normal inspection, no pedal edema Neurologic/Psychiatric: no motor/sensory deficits, alert, normal mood/affect Skin: normal color Laboratory Results Last 24 Hours Test 01/16/17 14:01 01/17/17 06:17 01/17/17 10:41 Prothrombin Time 12.7 SECONDS 12.1 SECONDS Prothromb Time International Ratio 1.2 1.1 Activated Partial Thromboplast Time 50.2 SECONDS Partial Thromboplastin Ratio 1.9 Sodium Level 131 mmol/L Potassium Level 3.8 mmol/L Chloride Level 96 mmol/L Carbon Dioxide Level 31 mmol/L Anion Gap 4.0 mmol/L Blood Urea Nitrogen 12 mg/dl Creatinine 0.78 mg/dl Est Creatinine Clear Calc Drug Dose 60.8 ml/min Estimated GFR () 98.8 Estimated GFR (Non- 85.3 BUN/Creatinine Ratio 15.5 Random Glucose 109 mg/dl Calcium Level 8.6 mg/dl Lyme Disease IgG Antibody NEG Lyme Disease IgM Antibody NEG Assessment and Plan This is an 81 year old male with a PMH of atrial fibrillation, HTN, pericarditis /pericardial effusion, recent hospital admission for pneumonia presents with worsening shortness of breath Large L Pleural Effusion Possibly secondary to Acute Diastolic CHF 01/17 plan is to continue Lasix daily for now 01/16 L sided pleural effusion s/p thoracentesis with 800cc removal continue Lasix daily for now 01/14 patient presented with L sided pleural effusion s/p thoracentesis 800 cc removal of fluid possibly secondary to CHF repeat chest CT on 01/14 suggests No pneumothorax status post left thoracentesis with small residual Pericarditis/Small Pericardial Effusion 01/17 check Lyme continue Lasix negative nuclear stress taper prednisone 01/16 continue Lasix as per cardiology nuclear stress test negative low dose prednisone 01/14 known during previous admission had been discharged on PO prednisone no evidence of tamponade on previous echo Cardio following; ischemic work-up pending; plan for nuclear stress today (01/15) Fevers/Cough, Recent LLL Pneumonia currently on empiric Rocephin + Azithro blood cultures pending may switch to doxy on discharge Aspiration patient had a video swallow this AM silent aspiration noted plan for nectar thick liquid, dental soft diet - appreciate speech therapy input A. Fib with RVR - improved 01/17 continue b-marshall, rates controlled INR is still 1.1; considering NOAC (Xarelto) 01/16 b-marshall dose increased as per cardiology to 50mg BID continue Coumadin, check INR in AM currently on IV heparin until INR therapeutic 01/15 diagnosed earlier in December, during previous admission started on Toprol, 37.5mg daily HRs are in the upper 90s, lower 100s currently no symptoms for nuclear stress on 01/15 IV heparin - transition to Coumadin when okay with pulm and cardio Deconditioning/Weakness Somnolence/Confusion generalized weakness will need continued PT/OT polypharmacy may be an issue; home meds include Ativan, Ambien, Flexeril monitor for now; he is doing better than during admission Subclinical Hyperthyroidism TSH is low normal Free T3 and Free T4 if HRs remain elevated, may be beneficial to start therapy for now, no treatment necessary DVT ppx IV heparin FULL CODE refusing rehab/SNF discharge - wants to go home, will need home health
[2017-01-17] MEDS: WARFARIN SOD 5 MG TAB PO SCH (16:03)
[2017-01-17] MEDS: LORAZEPAM 1 MG TAB PO PRN (20:14)
[2017-01-18 03:00] VITALS: BP 130/90; PULSE 88; TEMP 37; O2SAT 94
[2017-01-18 06:32] LABS: HEMATOCRIT 33.1 % (42-52); MEAN CELL VOLUME 93.8 fL (80-100); MEAN CORPUSCULAR HEMOGLOBIN 32.6 pg (25-34); MEAN CORPUSCULAR HGB CONC 34.7 g/dl (32-36); MEAN PLATELET VOLUME 9.1 fL (7.4-10.4); PLATELET COUNT 177 K/uL (130-400); RED BLOOD COUNT 3.53 M/uL (4.7-6.1)
[2017-01-18 06:47] LABS: PARTIAL THROMBOPLASTIN RATIO 1.8
[2017-01-18 07:12] LABS: BUN/CREATININE RATIO 12.6 (10-20); CALCIUM 8.4 mg/dl (8.5-10.1); CREATININE 0.83 mg/dl (0.60-1.40); POTASSIUM 3.9 mmol/L (3.5-5.1)
[2017-01-18] MEDS: GUAIFENESIN 600 MG TABCR PO SCH (07:16)
[2017-01-18] MEDS: FUROSEMIDE 40 MG TAB PO SCH (07:16)
[2017-01-18] MEDS: LIDODERM (LIDOCAINE) PATCH 5% TD SCH (07:16)
[2017-01-18] MEDS: AZITHROMYCIN 250 MG TAB PO SCH (07:16)
[2017-01-18] MEDS: METOPROLOL SUCC 50MG EXT REL TAB PO SCH (07:17)
[2017-01-18] MEDS: CEFTRIAXONE SOD INJ 1 GM in DEXTROSE 5% ADD-VANTAGE 50ML 50 ML IV SCH (07:24)
[2017-01-18 07:41] VITALS: BP 129/87; PULSE 92; TEMP 36.4; O2SAT 95
[2017-01-18 08:00] VITALS: O2SAT 95
[2017-01-18 11:06] VITALS: BP 117/84; PULSE 97; TEMP 36.6; O2SAT 97
[2017-01-18] MEDS: HEPARIN 25,000 UNIT/500ML D5W 500 ML IV PRN (11:27)
[2017-01-18 12:00] VITALS: O2SAT 95
[2017-01-18] MEDS ORDERED: CMD5 PO (13:39)
[2017-01-18] MEDS ORDERED: TPRSR50 PO (13:39)
[2017-01-18] MEDS ORDERED: LSX40 PO (13:39)
--- NOTE | 2017-01-18 13:41 | Discharge Instructions ---
Discharge Instructions Date of Service Jan 18, 2017. Admission Reason for Admission: Atrial Fibrillation, Sob Discharge Discharge Diagnosis / Problem: PLEURAL EFFUSION /ACUTE DIASTOLIC CHF /AFIB Discharge Goals Goal(s): Decrease discomfort, Improve function, Improve disease control, Diagnostic testing, Therapeutic intervention Activity Recommendations Activity Limitations: as noted below ( TOLERATED ) . Instructions / Follow-Up Instructions / Follow-Up HOSPITAL FOLLOW UP : 01/22/2017 10:00 AM Kirby Pfeiffer III, MD [facility] ANTICOAGULATION CLINIC FOLLOW UP : 01/23/2017 2:00 [facility] DI[facility] /ASPIRATION PRECAUTION : 1. Dental soft diet, nectar-thick liquids. 2. Aspiration precautions: patient should be seated fully upright during meals. NO straws. Small bites and small sips. 3. Aggressive oral care to include brushing of the teeth and all surfaces of the tongue prior to and after meals, as well as before bed. This will minimize oral bacteria that can be aspirated in saliva. 3. Will require continued SPEECH /SWALLOWING THERAPY services upon discharge for dysphagia/DIFFICULTY IN SWALLOWING PULMONOLOGY FOLLOW UP WITH DR GONZALEZ , WILL NEED PULMONARY FUNCTION TEST CARDIOLOGY FOLLOW UP WITH DR POLANCO IN 2-3 WEEKS , PLEASE CALL OFFICE FOR APPOINTMENT Call your Primary Care doctor if any of the following symptoms or problems start or get worse: * Shortness of breath or difficulty breathing * Wake up at night short of breath * Chest pain * Cough * Swelling of your hands, feet, or legs * More fatigued or tired with your normal activity * Palpitations - sudden fast heart beats WEIGHT * Weigh yourself every morning after using the bathroom. * Use the same scale. * Wear the same amount of clothing. * Write your weight down on a chart. * Call your Primary Care doctor if you gain more than 2-3 pounds in 1-2 days. MEDICATIONS * Use this discharge instruction sheet for medication instructions. * Take your medications at the time your doctor ordered. * Do not skip a dose of your medicines. * If you miss a dose of medicine, take it as soon as possible, but DO NOT DOUBLE A DOSE. * Read your medicine information when you get home. * Know all of the side effects of your medicine. If in doubt, ask your pharmacist * Call your Primary Care doctor's office if you have any side effects. * Be sure all of your doctors know what medicine and herbs you take (including cold, flu, and herbal medicine). Take the following with you to your follow-up doctor appointments: * Weight Chart * Medication List * List of questions Do not drink excessive alcohol, beer or wine. Current Hospital Diet Patient's current hospital diet: AHA Diet (Heart Healthy) Discharge Diet Recommended Diet: AHA Diet (Heart Healthy) Diet Texture: Dental Soft (bite-sized) Pending Studies Studies pending at discharge: no Medical Emergencies . Who to Call and When: Call 911 or go to the Emergency Room if: * If at any time you feel your situation is an emergency * You have tightness or pain in your chest that does not go away with rest or Nitroglycerin * You are very short of breath even with rest . Non-Emergent Contact Non-Emergency issues call your: Primary Care Provider . . "Provider Documentation" section prepared by Rakel Jason. . VTE Core Measure Inpt VTE Proph given/why not?: Other Anticoagulation (IV heparin )
[2017-01-18] MEDS ORDERED: DOXY-300 PO (14:26)
[2017-01-18] MEDS ORDERED: LVNIS80 SC (14:28)
[2017-01-18 14:30] VITALS: BP 117/84; PULSE 97; TEMP 36.6; O2SAT 95
--- NOTE | 2017-01-18 14:32 | Progress Note ---
Internal Med Progress Note Date of Service: Jan 18, 2017. Provider Documentation: SUBJECTIVE: feels much better , no complain of SOB , minimum cough no R[place]ON , or orthopnea afebrile present at bedside stable to be discharged home today OBJECTIVE: Vital Signs-as noted below Exam: General-no sign of distress Eyes-regular ENT-NAD Neck-no JVD Lungs-faint crackles on rt base , no wheeze Heart-regular S1/S2 Abdomen-soft, non tender Extremities-no edema in lower ext Neuro-AAO x3, no focal deficit Lab data as noted below. ASSESSMENT & PLAN: Large L Pleural Effusion Possibly secondary to Acute Diastolic CHF s/p thoracentesis 800 cc removal of fluid pleural fluid analysis -transudative appreciate input form pulmonology and Cardiology plan is to continue Lasix daily for now pt breathing continues to improve , no SOB or orthopnea stable to be discharged home today out pt follow up with Pulmonology follow up with Cardiology in 2-3 weeks Pericarditis/Small Pericardial Effusion lyme titer negative continue Lasix negative nuclear stress completed taper prednisone dose ASPIRATION PNEUMONIA : appreciate speech eval patient had a video swallow -silent aspiration noted recommend nectar thick liquid, dental soft diet - out pt speech follow up complete ABx course with Doxycycline Fib with RVR - b-marshall dose increased as per cardiology to 50mg BID HR improved on iV heparin /Coumadin NOAC can be not be started as Co pay is too expensive pt will be discharged home with Coumadin and Lovenox bridge ( INR sub therapeutic ) out pt follow up with [facility] cardiac stress test non ischemic DVT ppx IV heparin./Coumadin FULL CODE DISCHARGE HOME TODAY Pt and not interested in home health visiting nurse Vital Signs: Date Time Temp Pulse Resp B/P (MAP) Pulse Ox O2 Delivery O2 Flow Rate FiO2 01/18/17 12:00 95 Room Air 01/18/17 11:06 36.6 97 18 117/84 (95) 97 Room Air 01/18/17 08:00 95 Room Air 01/18/17 07:41 36.4 92 18 129/87 (101) 95 Room Air 01/18/17 04:00 Room Air 01/18/17 03:00 37.0 88 18 130/90 (103) 94 Room Air 01/18/17 00:00 Room Air 01/17/17 23:00 36.6 88 18 116/81 (93) 95 Room Air 01/17/17 20:00 Room Air 01/17/17 19:27 37.0 105 22 119/77 (91) 94 Room Air 01/17/17 16:00 Room Air 01/17/17 15:13 37.0 93 20 125/76 (92) 98 Room Air Lab Results: Results Past 24 Hours Test 01/18/17 06:00 01/18/17 14:26 Range/Units White Blood Count 4.60 4.8-10.8 K/uL Red Blood Count 3.53 4.7-6.1 M/uL Hemoglobin 11.5 14.0-18.0 g/dL Hematocrit 33.1 42-52 % Mean Corpuscular Volume 93.8 80-100 fL Mean Corpuscular Hemoglobin 32.6 25-34 pg Mean Corpuscular Hemoglobin Concent 34.7 32-36 g/dl RDW Standard Deviation 50.3 36.4-46.3 fL RDW Coefficient of Variation 14.7 11.5-14.5 % Platelet Count 177 130-400 K/uL Mean Platelet Volume 9.1 7.4-10.4 fL Activated Partial Thromboplast Time 47.3 21.0-31.0 SECONDS Partial Thromboplastin Ratio 1.8 Sodium Level 132 136-145 mmol/L Potassium Level 3.9 3.5-5.1 mmol/L Chloride Level 97 98-107 mmol/L Carbon Dioxide Level 31 21-32 mmol/L Anion Gap 4.0 3-11 mmol/L Blood Urea Nitrogen 10 7-18 mg/dl Creatinine 0.83 0.60-1.40 mg/dl Est Creatinine Clear Calc Drug Dose 82.3 ml/min Estimated GFR () 96.3 Estimated GFR (Non- 83.1 BUN/Creatinine Ratio 12.6 10-20 Random Glucose 109 70-99 mg/dl Calcium Level 8.4 8.5-10.1 mg/dl
--- NOTE | 2017-01-18 14:43 | Discharge Summary ---
Discharge Summary Date of Service Jan 18, 2017. Discharge Summary Admission Date: Jan 14, 2017 at 14:16 Discharge Date: Jan 18, 2017 Discharge Disposition: Home Principal Diagnosis: PLEURAL EFFUSION /ACUTE DIASTOLIC CHF /AFIB Procedures: Myocardial perfusion scan 01/15/2017 FINDINGS: Homogeneous uptake throughout the entire myocardium, normal LV wall motion without regional wall motion abnormalities. EF calculated to be 58%. SUMMARY: Normal Lexiscan Cardiolite nuclear stress test. Normal LV systolic function, EF 58%. TTE 01/15/2017 * -- Conclusions -- * Compared to previous study of 12/28/16: RV systolic function mildly reduced. * Normal LV chamber size with mild concentric LVH. * Normal LV systolic function, EF 55-60%. * No segmental left ventricular wall motion abnormalities are noted. * The right ventricular cavity size is normal (basal dimension <4.2 cm in right ventricular apical 4-chamber view). * The right ventricular systolic function is borderline reduced. * Mild tricuspid regurgitation. * Mild biatrial enlargement. * Small to medium sized left pleural effusion. * Dilated inferior vena cava with reduced collapsability with sniff indicates an elevated right atrial pressure of 15 mmHg. * Pulmonary hypertension is present. CT chest 01/14/2017 IMPRESSION: 1. No pneumothorax status post left thoracentesis. 2. Small residual left basilar effusion with left basilar bronchiectasis/atelectasis. 3. Stable right effusion with minimal right basilar consolidative change. 4. Small pericardial effusion unaltered from the prior study. Consultations: [facility] PULMONOLOGY SPEECH THERAPY Medication Reconciliation New Medications: Doxycycline (Monohydrate) (Doxycycline) 100 Mg Cap 1 CAP PO BID for 5 Days, #10 CAP Enoxaparin (Lovenox) 80 Mg/0.8 Ml Inj 80 MG SC BID for 5 Days, #10 EA Furosemide (Furosemide) 40 Mg Tab 40 MG PO QAM for 30 Days, #30 TAB 3 Refills Metoprolol Succinate (Metoprolol Succinate ER) 50 Mg Tabcr 50 MG PO BID for 30 Days, #60 TABS 3 Refills Warfarin Sod (Coumadin) 5 Mg Tab 5 MG PO DAILY@16 for 30 Days, #30 TAB 3 Refills Continued Medications: Lorazepam (Ativan) 1 Mg Tab 1 MG PO HS, TAB Discontinued Medications: Metoprolol Succ (Toprol Xl) (Toprol-Xl) 25 Mg Tabcr 37.5 MG PO DAILY, #30 TAB Prednisone (Prednisone) 5 Mg Tab 5 MG PO UD for 10 Days, #8 TAB Start taking 20mg daily for 2 days then 10mg for 5 days then 5mg for 5 days then 2.5 mg for 5 days and stop Warfarin Sod (Jantoven) 5 Mg Tab 5 MG PO UD, TAB PER PT IS TO STOP TAKING THIS MED OF 01/13/17 UNTIL Sunday01/18/17 Admission Information HPI (per Admitting provider): This is a 81 yo Male with hx of newly diagnosed Afib ,pericarditis , persisted pleural effusion , recent Dx of pneumonia LLL had a complicated Hospital Admission at [facility] form December 28 to December 31 pt was discharged home with Beta marshall -Toprol XL , dose recently increased to 37.5 mg daily /Coumadin anticoagulation completed Abx course of Levaquin , on taper dose of PO prednisone for Pericarditis pt continued to have SOB /RONDON , very weak and fatigued , has persisted non productive cough , noted confusion , increased somnolence was sent to ER by the PCP on 01/11/17 , ER work up was essentially negative for pneumonia , significant effusion , pt was sent home mentions -pt continues to have progressive SOB , very lethargic and groggy was very active prior to 4 weeks , no minimally active pt been had a referral to [facility] Pulmonology Dr Valerio and scheduled to have evaluation on 01/18 for possible thoracentesis his Coumadin is asked to keep on hold till then in the ER , pt is awake and alert , able to answer question appropriately HR in remains in Afib with variable rate between 80-110 CT chest negative for PE ; trace amount of pericardial and pleural effusion noted Physical Exam (per Admitting): General Appearance: no apparent distress Head: normocephalic, atraumatic Eyes: sclerae normal Neck: supple, + JVD Respiratory/Chest: chest non-tender, lungs clear, normal breath sounds, no respiratory distress Cardiovascular: + JVD, + irregularly irregular Abdomen/GI: normal bowel sounds, non tender, soft Extremities/Musculoskelatal: no calf tenderness, normal capillary refill, no pedal edema, normal range of motion Neurologic/Psych: alert, normal mood/affect, oriented x 3 Skin: normal color, warm/dry, no rash Hospital Course Large L Pleural Effusion Possibly secondary to Acute Diastolic CHF s/p thoracentesis 800 cc removal of fluid pleural fluid analysis -transudative appreciate input form pulmonology and Cardiology plan is to continue Lasix daily for now pt breathing continues to improve , no SOB or orthopnea stable to be discharged home today out pt follow up with Pulmonology follow up with Cardiology in 2-3 weeks Pericarditis/Small Pericardial Effusion lyme titer negative continue Lasix negative nuclear stress completed taper prednisone dose ASPIRATION PNEUMONIA : appreciate speech eval patient had a video swallow -silent aspiration noted recommend nectar thick liquid, dental soft diet - out pt speech follow up complete ABx course with Doxycycline Fib with RVR - b-marshlal dose increased as per cardiology to 50mg BID HR improved on iV heparin /Coumadin NOAC can be not be started as Co pay is too expensive pt will be discharged home with Coumadin and Lovenox bridge ( INR sub therapeutic ) out pt follow up with [facility] cardiac stress test non ischemic DVT ppx IV heparin./Coumadin FULL CODE DISCHARGE HOME TODAY Pt and not interested in home health visiting nurse Total time spent on discharge = 40 MINS This includes examination of the patient, discharge planning, medication reconciliation, and communication with other providers. Discharge Instructions DI: CHF v4 Discharge Instructions Date of Service Jan 18, 2017. Admission Reason for Admission: Atrial Fibrillation, Sob Discharge Discharge Diagnosis / Problem: PLEURAL EFFUSION /ACUTE DIASTOLIC CHF /AFIB Discharge Goals Goal(s): Decrease discomfort, Improve function, Improve disease control, Diagnostic testing, Therapeutic intervention Activity Recommendations Activity Limitations: as noted below ( TOLERATED ) . Instructions / Follow-Up Instructions / Follow-Up HOSPITAL FOLLOW UP : 01/22/2017 10:00 AM Kirby Pfeiffer III, MD [facility] ANTICOAGULATION CLINIC FOLLOW UP : 01/23/2017 2:00 PM [facility] [place] FOLLOW UP WITH DR GONZALEZ , WILL NEED PULMONARY FUNCTION TEST CARDIOLOGY FOLLOW UP WITH DR POLANCO IN 2-3 WEEKS , PLEASE CALL OFFICE FOR APPOINTMENT DIET /ASPIRATION PRECAUTION : 1. Dental soft diet, nectar-thick liquids. 2. Aspiration precautions: patient should be seated fully upright during meals. NO straws. Small bites and small sips. 3. Aggressive oral care to include brushing of the teeth and all surfaces of the tongue prior to and after meals, as well as before bed. This will minimize oral bacteria that can be aspirated in saliva. 3. Will require continued SPEECH /SWALLOWING THERAPY services upon discharge for dysphagia/DIFFICULTY IN SWALLOWING Call your Primary Care doctor if any of the following symptoms or problems start or get worse: * Shortness of breath or difficulty breathing * Wake up at night short of breath * Chest pain * Cough * Swelling of your hands, feet, or legs * More fatigued or tired with your normal activity * Palpitations - sudden fast heart beats WEIGHT * Weigh yourself every morning after using the bathroom. * Use the same scale. * Wear the same amount of clothing. * Write your weight down on a chart. * Call your Primary Care doctor if you gain more than 2-3 pounds in 1-2 days. MEDICATIONS * Use this discharge instruction sheet for medication instructions. * Take your medications at the time your doctor ordered. * Do not skip a dose of your medicines. * If you miss a dose of medicine, take it as soon as possible, but DO NOT DOUBLE A DOSE. * Read your medicine information when you get home. * Know all of the side effects of your medicine. If in doubt, ask your pharmacist * Call your Primary Care doctor's office if you have any side effects. * Be sure all of your doctors know what medicine and herbs you take (including cold, flu, and herbal medicine). Take the following with you to your follow-up doctor appointments: * Weight Chart * Medication List * List of questions Do not drink excessive alcohol, beer or wine. Current Hospital Diet Patient's current hospital diet: AHA Diet (Heart Healthy) Discharge Diet Recommended Diet: AHA Diet (Heart Healthy) Diet Texture: Dental Soft (bite-sized) Pending Studies Studies pending at discharge: no Medical Emergencies . Who to Call and When: Call 911 or go to the Emergency Room if: * If at any time you feel your situation is an emergency * You have tightness or pain in your chest that does not go away with rest or Nitroglycerin * You are very short of breath even with rest . Non-Emergent Contact Non-Emergency issues call your: Primary Care Provider . . "Provider Documentation" section prepared by Rakel Jason. . VTE Core Measure Inpt VTE Proph given/why not?: Other Anticoagulation (IV heparin ) Additional Copies To Bakari Sinder James J., D.O.
[2017-01-18 15:16] LABS: INR 1.1 (0.9-1.1); PROTHROMBIN TIME (PATIENT) 11.4 SECONDS (9.0-12.0)
== END 2017-01-18 15:38 | disposition home or self-care (01) | DRG 291 ==
LOC: C.EDB 09:40 → C.2T 14:33 → ENRESERV 15:00 → OBSVTOIN 01-14 14:16
PROVIDERS: ADMIT Hospitalist; ATTEND Hospitalist
PROC: 0W9B3ZZ Drainage of Left Pleural Cavity, Percutaneous Approach (ICD-10-PCS; principal; 2017-01-14)
DX: I11.0 Hypertensive heart disease with heart failure (principal); J69.0 Pneumonitis due to inhalation of food and vomit; E87.1 Hypo-osmolality and hyponatremia; J91.8 Pleural effusion in other conditions classified elsewhere; I31.3 Pericardial effusion (noninflammatory); I50.31 Acute diastolic (congestive) heart failure; I48.91 Unspecified atrial fibrillation; R94.6 Abnormal results of thyroid function studies; R53.1 Weakness; R53.81 Other malaise; R40.0 Somnolence; R41.0 Disorientation, unspecified; G47.33 Obstructive sleep apnea (adult) (pediatric); Z91.19 Patient's noncompliance with other medical treatment and regimen; Z96.659 Presence of unspecified artificial knee joint; Z86.73 Personal history of transient ischemic attack (TIA), and cerebral infarction without residual deficits; Z87.891 Personal history of nicotine dependence; Z79.01 Long term (current) use of anticoagulants; Z79.52 Long term (current) use of systemic steroids; Z79.899 Other long term (current) drug therapy

== ENCOUNTER → 2017-02-13 | Outpatient (CLI) | payer OTHER, BC ==
[~2017-02-13] MED LIST changes: +DOXY-300 PO; +LSX40 PO; +LVNIS80 SC; -METO25TA3 PO; -PRED-301 PO; -PRED10TA PO; +TPRSR50 PO
--- NOTE | 2017-02-15 08:09 | PULMONARY FUNCTION TEST ---
These readings are based off ATS criteria. SPIROMETRY: Mild obstructive ventilatory disease. BRONCHODILATOR: No significant reversibility, does not rule out bronchodilator challenge. LUNG VOLUMES: Within normal limits. DIFFUSION CAPACITY: Within normal limits. INTERPRETATION: This is a normal spirometry.
== END | disposition home or self-care (01) ==
LOC: C.RC 14:11
PROVIDERS: ATTEND Internal Medicine Critical Care Medicine
DX: J90 Pleural effusion, not elsewhere classified (principal); R06.09 Other forms of dyspnea

== ENCOUNTER 2021-09-12 16:24 | Inpatient (IN) ==
[2021-09-12 17:02] LABS: Basophils % (auto) 0.2 %; Eosinophils # (auto) 0.08 K/uL (0-0.5); Eosinophils % (auto) 0.7 %; Hematocrit (blood only) 30.6 % (42-52); Hemoglobin 10.7 g/dL (14.0-18.0); Immature Granulocytes % (auto) 0.5 %; Lymphocytes # (auto) 1.29 K/uL (1.2-3.4); Lymphocytes % (auto) 11.2 %; Mean Corpuscular Hemoglobin 32.7 pg (25-34); Mean Corpuscular Volume 93.6 fL (80-100); Monocytes # (auto) 0.84 K/uL (0.11-0.59); Monocytes % (auto) 7.3 %; Neutrophils % (auto) 80.1 %; Platelet Count 157 K/uL (130-400); RDW Coefficient of Variation 15.4 % (11.5-14.5); RDW Standard Deviation 52.8 fL (36.4-46.3); Red Blood Count 3.27 M/uL (4.7-6.1); White Blood Count 11.49 K/uL (4.8-10.8)
[2021-09-12 17:03] LABS: Basophils # (auto) 0.02 K/uL (0-0.2); Immature Granulocytes # (auto) 0.06 K/uL (0.00-0.02)
[2021-09-12] MEDS ORDERED: MoRPHine SULFATE 4 MG/ML 1 ML CARP\\VIAL IV PRN ×2 (17:03→20:28)
[2021-09-12] MEDS ORDERED: MoRPHine SULFATE 2 MG/ML CARP IV PRN ×2 (17:03→20:28)
[2021-09-12 17:12] LABS: INR 1.8 (0.9-1.1); Partial Thromboplastin Ratio 1.1; Partial Thromboplastin Time 31.6 Seconds (21.0-31.0); Prothrombin Time 18.8 Seconds (9.0-12.0)
--- NOTE | 2021-09-12 17:20 | CT Scan Report ---
CT SCAN OF THE BRAIN WITHOUT IV CONTRAST CLINICAL HISTORY: Fall. COMPARISON STUDY: CT of the brain dated 01/13/2021. TECHNIQUE: Unenhanced axial CT scan of the brain is performed from the vertex to the skull base. A do se lowering technique was utilized adhering to the principles of ALARA. FINDINGS: Brain parenchyma: There are age-related involutional changes noting moderate subcortical and periven tricular microangiopathic change. There is no hemorrhage, mass effect, or evidence of acute territori al ischemia by CT criteria. Coates-white matter differentiation is preserved. No extra-axial fluid viridiana ection is seen. Ventricles, sulci, cisterns: Prominent secondary to involutional change. Intracranial vasculature: There is atherosclerotic calcification of the cavernous carotid arteries. Calvarium: The skeletal structures are osteopenic. No depressed calvarial fracture is identified. The re is chronic deformity of the nasal bones. Sinuses and mastoids: The paranasal sinuses are clear. The mastoid air cells are well pneumatized. Orbits: The bony orbits are grossly intact. There are bilateral ocular lens implants. IMPRESSION: There is no hemorrhage, mass effect, or evidence of acute territorial ischemia by CT bella sanchez. ACT 112: Negative or not required by law. Electronically signed by: Enrique Cortes M.D. 09/12/2021 5:18 PM
--- NOTE | 2021-09-12 17:21 | CT Scan Report ---
CT cervical spine wo con CLINICAL HISTORY: fall on blood thinners TECHNIQUE: Multidetector row helical CT of the cervical spine was performed without administration of intravenous contrast. Coronal and sagittal reformations were obtained. Automated dose lowering techn iques and/or adjustment according to patient size were utilized for this exam. Comparison: Comparison is made to CT neck 12/20/2020 FINDINGS: No acute fractures or subluxations are identified. Degenerative changes are seen in the visualized sp ine. The alignment is normal. Biapical scarring is seen. IMPRESSION: Degenerative changes without evidence of acute bony injury. ACT 112: Negative or not required by law. Electronically signed by: Sotero Méndez M.D. 09/12/2021 5:20 PM
[2021-09-12 17:24] LABS: Albumin Globulin Ratio 1.6 (0.9-2); Albumin Level 4.2 gm/dl (3.4-5.0); BUN Creatinine Ratio 24.1 (10-20); Bilirubin,Total 1.6 mg/dl (0.2-1.0); Calcium 9.1 mg/dl (8.5-10.1); Creatinine Clr Calc Pharmacy 81.7 ml/min; Est GFR (African American) 94.9 ml/min; Est GFR (Non-African American) 81.9 ml/min; Globulin 2.7 gm/dl (2.5-4.0); Potassium 4.6 mmol/L (3.5-5.1); Total Protein 6.9 gm/dl (6.0-8.3)
--- NOTE | 2021-09-12 17:42 | XRay Report ---
SINGLE VIEW PELVIS; 2 VIEWS RIGHT HIP CLINICAL HISTORY: Right hip injury. FINDINGS: An AP supine view of the pelvis with AP and crosstable lateral views of the right hip are c ompared to study dated 12/20/2020. The skeletal structures are osteopenic. There is a comminuted and an gulated intertrochanteric/subtrochanteric fracture of the right femur with medial displacement of the lesser trochanter and overlying soft tissue edema. No additional acute fracture seen involving the l eft hip or the bony pelvis. There is chronic posttraumatic deformity of the right pubic ring. Mild de generative joint space narrowing is noted in the hips. Lumbosacral spondylosis is partially visualize d. Sclerotic change is noted in the sacroiliac joints. IMPRESSION: 1. Intertrochanteric/subtrochanteric fracture of the right proximal femur as above with overlying sof t tissue edema. 2. No additional acute fracture is identified. Electronically signed by: Enrique Cortes M.D. 09/12/2021 5:41 PM
--- NOTE | 2021-09-12 17:44 | XRay Report ---
SINGLE VIEW CHEST CLINICAL HISTORY: Fall. Hip fracture. FINDINGS: An AP, portable, supine chest radiograph is compared to study dated 12/20/2020 and correlated with chest CT dated 01/14/2017. The examination is degraded by portable technique and patient rotatio n. The heart is enlarged noting atherosclerotic calcification of the thoracic aorta. The pulmonary va sculature is noncongested. There is bibasilar scarring/atelectasis. No airspace consolidation or larg e pleural effusion is identified. No pneumothorax is seen. The skeletal structures are osteopenic. Th e bony thorax is grossly intact. 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 IMPRESSION: Cardiomegaly with no acute cardiopulmonary abnormality. ACT 112: Negative or not required by law. Electronically signed by: Enrique Cortes M.D. 09/12/2021 5:43 PM
--- NOTE | 2021-09-12 17:54 | Emergency Department Note ---
Impression & Plan Closed hip fracture, Anemia, Hypoxia ED Provider Note NAME: AISLINN LOPEZ AGE: 86 SEX: M : 1935 ARRIVES VIA: Ambulance INFORMANT: Patient ED PROVIDER(S): Chad Ratliff DO CHIEF COMPLAINT: fall HPI: Patient is an 86-year-old male who presents ER following mechanical fall. He was outside and got distracted by the mailman and believes he slipped on mayb e a small patch of ice and fell onto his right hip. He does take blood thinners. Pain is sharp and stabbing with any movement. If he lays still it is not as bad. Currently a 3 out of 10. Denies any tingling or numbness. Patient also has a history of previous brain bleeds. Pain is focal in the right proximal hip. ROS: See above HPI for pertinent positives & negatives. A total of 10 systems reviewed and were otherwise negative. PAST MEDICAL HISTORY:See Below PAST SURGICAL HISTORY:See Below FAMILY HISTORY:See Below SOCIAL HISTORY:See Below HOME MEDICATIONS:See Below ALLERGIES:See Below VITALS:See Below PHYSICAL EXAMINATION: GENERAL: Sitting up in bed, alert, well appearing, well nourished, no distress, non-toxic EYE EXAM: normal conjunctiva. HEAD: Small abrasion to the right temporal region with dried blood OROPHARYNX: no exudate, no erythema, lips, buccal mucosa, and tongue normal and mucous membranes are moist NECK: supple, no nuchal rigidity, no adenopathy, non-tender LUNGS: Clear to auscultation. Normal chest wall mechanics HEART: no murmurs, S1 normal and S2 normal ABDOMEN: abdomen soft, non-tender, normo-active bowel sounds, no masses, no rebound or guarding. BACK: Back is symmetrical on inspection and there is no deformity, no midline tenderness, no CVA tenderness. SKIN: no rashes and no bruising UPPER EXTREMITIES: upper extremities are grossly normal. LOWER EXTREMITIES: No tenderness throughout palpation of the entire left lower extremity. Right leg is shortened and externally rotated and tender on palpation of the hip. No tenderness of the ankle distal mid or proximal tib- fib. No tenderness over the knee or distal or proximal femur. DPs and PTs are 2 out of 4 on the right. NEURO EXAM: Normal sensorium, cranial nerves II-XII grossly intact, normal speech, no gross weakness of arms. MEDICAL DECISION MAKING: Patient is an 86-year-old male who presents ER following a mechanical fall. He did not pass out. IV was established blood was obtained. Labs show mild leukocytosis 11,000. Mild anemia 10. INR slightly subtherapeutic at 1.8. BMP along with LFTs was unremarkable. Bilirubin slightly up at 1.6. CT of the head and neck was negative. X-rays of the hip and pelvis show right inner-troch fracture. Patient would prefer to go to [facility] orthopedics. Discussed with Dr. Carver. Patient was admitted to Dr. Hardin service. He was given IV morphine as needed for pain. Triage Nursing notes reviewed. Limited review of prior medical records performed Vital Signs: reviewed and remarkable for no significant abnormalities Differential diagnosis: Differential diagnoses include major intracranial, cervical, spinal, thoracic, abdominal, pelvic and neurologic injury. Fracture, contusion, sprain, strain, laceration, abrasions included as well. ER treatment provided: See below Diagnostics interpreted by me: ECG: A. fib rate of 94 Right bundle branch block QTC 520 Inferior Q waves Cardiac Monitoring: An order was placed for continuous cardiac monitoring. The monitor shows a rate of 91 with A. fib rhythm. Laboratory studies: As stated above and show below. Imaging studies: CT head and cervical spine were unremarkable X-rays of the pelvis show right hip fracture Consultation(s): Discussed with David Carver from [facility] any orthopedics Discussed with Alejandro Hardin from [facility] Procedures: none Critical Care: None Past Med/Surg History Medical History (Updated 09/12/21 @ 19:25 by Chad Ratliff DO) Anemia Atrial fibrillation BPH w urinary obs/LUTS HTN (hypertension) Osteoarthritis Osteoporosis Pleural effusion Sleep apnea Thoracic aortic aneurysm Vertebral fracture, osteoporotic Surgical History H/O total shoulder replacement S/P tonsillectomy and adenoidectomy S/P total knee arthroplasty S/P TURP (transurethral resection of prostate) Social History Smoking Status: Never smoker Preferred Language: Pashto marital status: Current Living Situation: Family current occupational status: retired Feels Safe at Home: Yes Allergies Allergies Allergy/AdvReac Type Severity Reaction Status Date / Time colchicine Allergy Unknown rash Verified 09/12/21 18:28 diltiazem AdvReac Severe CARDIAC Verified 09/12/21 18:28 ARREST CONTRAST MEDIA FOR MYOGRAM AdvReac Severe SEVERE PORRAS/ Uncoded 09/12/21 18:28 CHEMICAL INDUCED MENINGITIS Home Meds Home Medications Medication Instructions Recorded Confirmed lorazepam 1 mg tablet (Ativan) 1 mg PO HS PRN 07/16/18 09/12/21 metoprolol tartrate 50 mg tablet 75 mg PO BID 07/16/18 09/12/21 (Lopressor) warfarin 5 mg tablet 10 mg PO DAILY 12/20/20 09/12/21 pantoprazole 40 mg tablet,delayed 40 mg PO QAM 09/12/21 09/12/21 release Results & Data (ED) Vital Signs Vital Signs - 24 hr 09/12/21 16:08 09/12/21 16:33 09/12/21 16:45 Temperature 36.7 C Temperature Source Oral Pulse Rate 97 H 98 H 89 Respiratory Rate 21 16 15 Respiratory Effort / Characteristics Non-Labored Respiratory Depth Normal Respiratory Pattern Regular Blood Pressure 140/91 Blood Pressure Mean 107 Pulse Oximetry 93 100 Oxygen Delivery Method Nasal Cannula Nasal Cannula Oxygen Flow Rate 2 2 Sepsis Recent Fever Within 48 Hours No Sepsis New/Unexplained Change in Mental Status No Sepsis Action Taken by Nursing No Action Required 09/12/21 17:00 09/12/21 17:01 Temperature Temperature Source Pulse Rate 84 Respiratory Rate 19 Respiratory Effort / Characteristics Respiratory Depth Respiratory Pattern Blood Pressure 133/82 Blood Pressure Mean 99 Pulse Oximetry 98 Oxygen Delivery Method Nasal Cannula Oxygen Flow Rate 2 Sepsis Recent Fever Within 48 Hours Sepsis New/Unexplained Change in Mental Status Sepsis Action Taken by Nursing Laboratory Data Result diagrams: 09/12/21 16:40 09/12/21 16:40 Lab Results 09/12/21 09/12/21 09/12/21 Range/Units 16:40 16:40 16:40 WBC 11.49 H (4.8-10.8) K/uL RBC 3.27 L (4.7-6.1) M/uL Hgb 10.7 L (14.0-18.0) g/dL Hct 30.6 L (42-52) % MCV 93.6 (80-100) fL MCH 32.7 (25-34) pg MCHC 35.0 (32-36) g/dL RDW Std Deviation 52.8 H (36.4-46.3) fL RDW Coeff of Pa 15.4 H (11.5-14.5) % Plt Count 157 (130-400) K/uL MPV 9.0 (7.4-10.4) fL Immature Gran % (Auto) 0.5 % Neut % (Auto) 80.1 % Lymph % (Auto) 11.2 % [place] % (Auto) 7.3 % Eos % (Auto) 0.7 % Baso % (Auto) 0.2 % Neut # (Auto) 9.20 H (1.4-6.5) K/uL Lymph # (Auto) 1.29 (1.2-3.4) K/uL [place] # (Auto) 0.84 H (0.11-0.59) K/uL Eos # (Auto) 0.08 (0-0.5) K/uL Baso # (Auto) 0.02 (0-0.2) K/uL Immature Gran # (Auto) 0.06 H (0.00-0.02) K/uL PT 18.8 H (9.0-12.0) Seconds INR 1.8 H (0.9-1.1) APTT 31.6 H (21.0-31.0) Seconds PTT Ratio 1.1 Sodium 133 L (136-145) mmol/L Potassium 4.6 (3.5-5.1) mmol/L Chloride 99 (98-107) mmol/L Carbon Dioxide 30 (21-32) mmol/L Anion Gap 4 (3-11) BUN 19 (6-23) mg/dl Creatinine 0.79 (0.6-1.4) mg/dl Est Cr Clr Drug Dosing 81.7 ml/min Est GFR ( Amer) 94.9 ml/min Est GFR (Non-Af Amer) 81.9 ml/min BUN/Creatinine Ratio 24.1 H (10-20) Glucose 120 H (70-99(Fasting)) mg/dl Calcium 9.1 (8.5-10.1) mg/dl Total Bilirubin 1.6 H (0.2-1.0) mg/dl AST 28 (13-39) U/L ALT 18 (7-52) U/L Alkaline Phosphatase 71 (34-104) U/L Total Protein 6.9 (6.0-8.3) gm/dl Albumin 4.2 (3.4-5.0) gm/dl Globulin 2.7 (2.5-4.0) gm/dl Albumin/Globulin Ratio 1.6 (0.9-2) Imaging Data Radiologist's Impression: Head CT 09/12/21 16:51 CT SCAN OF THE BRAIN WITHOUT IV CONTRAST CLINICAL HISTORY: Fall. COMPARISON STUDY: CT of the brain dated 01/13/2021. TECHNIQUE: Unenhanced axial CT scan of the brain is performed from the vertex to the skull base. A dose lowering technique was utilized adhering to the principles of ALARA. FINDINGS: Brain parenchyma: There are age-related involutional changes noting moderate s ubcortical and periventricular microangiopathic change. There is no hemorrhage, mass effect, or evidence of acute territorial ischemia by CT criteria. Coates- white matter differentiation is preserved. No extra-axial fluid collection is seen. Ventricles, sulci, cisterns: Prominent secondary to involutional change. Intracranial vasculature: There is atherosclerotic calcification of the cavernous carotid arteries. Calvarium: The skeletal structures are osteopenic. No depressed calvarial fracture is identified. There is chronic deformity of the nasal bones. Sinuses and mastoids: The paranasal sinuses are clear. The mastoid air cells are well pneumatized. Orbits: The bony orbits are grossly intact. There are bilateral ocular lens implants. IMPRESSION: There is no hemorrhage, mass effect, or evidence of acute territorial ischemia by CT criteria. ACT 112: Negative or not required by law. Electronically signed by: Enrique Cortes M.D. 09/12/2021 5:[address] 09/12/21 16:54 CT cervical spine wo con CLINICAL HISTORY: fall on blood thinners TECHNIQUE: Multidetector row helical CT of the cervical spine was performed without administration of intravenous contrast. Coronal and sagittal reformations were obtained. Automated dose lowering techniques and/or adjustment according to patient size were utilized for this exam. Comparison: Comparison is made to CT neck 12/20/2020 FINDINGS: No acute fractures or subluxations are identified. Degenerative changes are seen in the visualized spine. The alignment is normal. Biapical scarring is seen. IMPRESSION: Degenerative changes without evidence of acute bony injury. ACT 112: Negative or not required by law. Electronically signed by: Sotero Méndez M.D. 09/12/2021 5:20 PM Hip/Pelvis X-Ray 09/12/21 16:55 SINGLE VIEW PELVIS; 2 VIEWS RIGHT HIP CLINICAL HISTORY: Right hip injury. FINDINGS: An AP supine view of the pelvis with AP and crosstable lateral views of the right hip are compared to study dated 12/20/2020. The skeletal structures are osteopenic. There is a comminuted and angulated intertrochanter ic/subtrochanteric fracture of the right femur with medial displacement of the lesser trochanter and overlying soft tissue edema. No additional acute fracture seen involving the left hip or the bony pelvis. There is chronic posttraumatic deformity of the right pubic ring. Mild degenerative joint space narrowing is noted in the hips. Lumbosacral spondylosis is partially visualized. Sclerotic change is noted in the sacroiliac joints. IMPRESSION: 1. Intertrochanteric/subtrochanteric fracture of the right proximal femur as above with overlying soft tissue edema. 2. No additional acute fracture is identified. Electronically signed by: Enrique Cortes M.D. 09/12/2021 5:41 PM Chest X-Ray 09/12/21 17:24 SINGLE VIEW CHEST CLINICAL HISTORY: Fall. Hip fracture. FINDINGS: An AP, portable, supine chest radiograph is compared to study dated 12/20/2020 and correlated with chest CT dated 01/14/2017. The examination is degraded by portable technique and patient rotation. The heart is enlarged noting atherosclerotic calcification of the thoracic aorta. The pulmonary vasculature is noncongested. There is bibasilar scarring/atelectasis. No airspace consolidation or large pleural effusion is identified. No pneumothorax is seen. The skeletal structures are osteopenic. The bony thorax is grossly intact. 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 IMPRESSION: Cardiomegaly with no acute cardiopulmonary abnormality. ACT 112: Negative or not required by law. Electronically signed by: Enrique Cortes M.D. 09/12/2021 5:43 PM Discharge Plan Visit Data Chief Complaint: Hip Pain ED Provider: Chad Ratliff Discharge Problem: Closed hip fracture, Anemia, Hypoxia Forms Stand Alone [facility]: [facility] Prescriptions Prescriptions: No Action metoprolol tartrate [Lopressor] 50 mg tablet 75 mg PO BID RF: 0 lorazepam [Ativan] 1 mg tablet 1 mg PO HS PRN (Reason: Anxiety) RF: 0 warfarin 5 mg tablet 10 mg PO DAILY RF: 0 pantoprazole 40 mg tablet,delayed release (DR/EC) 40 mg PO QAM RF: 0 Referrals Referrals: Jonathan Rosenthal PA-C [Primary Care Provider] - Discharge Problem: Closed hip fracture Qualifiers: Encounter type: initial encounter Laterality: right Qualified Code(s): S72.001A - Fracture of unspecified part of neck of right femur, initial encounter for closed fracture Anemia Qualifiers: Anemia type: unspecified type Qualified Code(s): D64.9 - Anemia, unspecified
--- NOTE | 2021-09-12 18:54 | History & Physical Report ---
Date of Service September 12, 2021 Assessment & Plan (1) Closed right hip fracture: Plan: -Comminuted and angulated intertrochanteric/subtrochanteric fracture of the right femur with medial displacement of the lesser trochanter and overlying soft tissue edema. -Orthopedics consulted, appreciate recommendations. -Patient takes warfarin daily for A. fib, INR today is 1.8. Will give 1 dose of vitamin K 2.5 mg tonight. -N.p.o. at midnight. -RCRI 0, 3.9% 30-day risk of , MO, cardiac arrest. (2) Atrial fibrillation: Plan: -Permanent, on metoprolol and warfarin. -Currently rate controlled, HR <100. -Hold warfarin pending possible surgical intervention. -On telemetry. (3) GERD (gastroesophageal reflux disease): Plan: -Chronic, stable. -Continue PPI. (4) Insomnia: Plan: -Takes Ativan 1 mg every evening, will continue this with continuous pulse oximetry while patient is also receiving narcotics for pain management. (5) Sleep apnea: Plan: -Wears 2L NC at night. Plan: -Admit to med/telemetry. -SCDs for DVT prophylaxis. -DNR/DNI. History of Present Illness Chief Complaint: High fracture Primary Care Provider: Jonathan Rosenthal PA-C Mr. Crum is a 86-year-old male with a past medical history of permanent A. fib on warfarin, GERD, insomnia, sleep apnea, and a fall in December 2020 resulting in a subdural hematoma who presents today after a mechanical fall. Patient was walking out to his mailbox to grab the mail when he slipped on a sheet of ice and fell on his right side. Mailman who is at the home witnessed the event and called EMS. Patient is currently reporting throbbing/aching pain at the right hip that radiates down to his knee, however denies numbness/tingling, loss of bowel/bladder control, head or back pain. Denies loss of consciousness prior to or after fall, no weakness, dizziness, chest pain, palpitations, shortness of breath, nausea, vomiting prior to or after fall. In ED, vital signs are within normal limits, stable. Head and C-spine CT unremarkable, hip and pelvic x-ray revealed intertrochanteric/subtrochanteric fracture of the right proximal femur with overlying soft tissue edema. Routine labs significant for mild leukocytosis, suspect an inflammatory reaction. PT 18.8, INR 1.8, PTT 31.6. In ED, patient received morphine, Alexis catheter was placed. Hospitalist service was consulted for further evaluation and admission. Allergies Allergy/AdvReac Type Severity Reaction Status Date / Time colchicine Allergy Unknown rash Verified 09/12/21 18:28 diltiazem AdvReac Severe CARDIAC Verified 09/12/21 18:28 ARREST CONTRAST MEDIA FOR MYOGRAM AdvReac Severe SEVERE PORRAS/ Uncoded 09/12/21 18:28 CHEMICAL INDUCED MENINGITIS Home Medications Medication Instructions Recorded Confirmed Type lorazepam 1 mg tablet (Ativan) 1 mg PO HS PRN 07/16/18 09/12/21 History metoprolol tartrate 50 mg tablet 75 mg PO BID 07/16/18 09/12/21 History (Lopressor) warfarin 5 mg tablet 10 mg PO DAILY 12/20/20 09/12/21 History pantoprazole 40 mg tablet,delayed 40 mg PO QAM 09/12/21 09/12/21 History release Past Med/Surg History Medical History (Updated 09/12/21 @ 19:55 by Brandy Moya PA-C) Anemia Atrial fibrillation BPH w urinary obs/LUTS HTN (hypertension) Osteoarthritis Osteoporosis Pleural effusion Sleep apnea Thoracic aortic aneurysm Vertebral fracture, osteoporotic Surgical History H/O total shoulder replacement S/P tonsillectomy and adenoidectomy S/P total knee arthroplasty S/P TURP (transurethral resection of prostate) Social History Smoking Status: Never smoker Preferred Language: Kyrgyz marital status: Current Living Situation: Family current occupational status: retired Feels Safe at Home: Yes Review of Systems Review of Systems: Constitutional: No fever, night sweats or chills Eyes: No diplopia, no worsening or blurred vision ENT: normal hearing, no trouble swallowing Respiratory: No cough, sputum, dyspnea at rest or on exertion Cardiovascular: No chest pain, tightness or palpitations Abdomen: No pain, nausea, vomiting, diarrhea or constipation Musculoskeletal: Throbbing right hip pain with radiation to right knee, some swelling; otherwise no joint pain, calf pain, swelling Neurologic: No weakness, numbness/tingling, or balance problems Psychiatric: No anxiety or depression Skin: No rash or itch Physical Exam Physical Exam: General: awake, alert, no apparent distress Head: Mild ecchymosis around the right temporal/orbital region with shallow laceration, otherwise normocephalic and atraumatic. ENT: PERRL, EOMI, no pharyngeal exudate, mucous membranes moist Chest: Clear to auscultation, on room air, no adventitious breath sounds, on 2L NC Cardiac: Regular rate, irregularly irregular rhythm, no murmur, no JVD, normal peripheral pulses, good capillary refill Abdominal: NABS x 4 quadrants, soft, nontender to palpation, no rebound, guarding or tenderness Extremities: Right lower extremity externally rotated, right knee flexed, with mild ecchymosis of the right hip. Pulses and sensation intact. Ecchymosis of the dorsal aspect of the right hand Psych: Normal mood and affect Neuro: AAO x 3, right hip ROM limited due to pain, otherwise strength intact bilaterally and rated 5/5, no motor deficits, speech is clear, no peripheral sensory deficits Skin: Bilateral lower extremity skin changes consistent with peripheral venous insufficiency Results & Data Results & Data ([facility]) Vital Signs (Past 12 Hours) Vital Signs Temp Pulse Resp BP Pulse Ox 09/12/21 17:01 133/82 09/12/21 17:00 84 19 98 09/12/21 16:45 89 15 100 09/12/21 16:33 98 H 16 09/12/21 16:08 36.7 C 97 H 21 140/91 93 Laboratory Results Abnormal lab results 09/12/21 09/12/21 09/12/21 Range/Units 16:40 16:40 16:40 WBC 11.49 H (4.8-10.8) K/uL RBC 3.27 L (4.7-6.1) M/uL Hgb 10.7 L (14.0-18.0) g/dL Hct 30.6 L (42-52) % RDW Std Deviation 52.8 H (36.4-46.3) fL RDW Coeff of Pa 15.4 H (11.5-14.5) % Neut # (Auto) 9.20 H (1.4-6.5) K/uL [place] # (Auto) 0.84 H (0.11-0.59) K/uL Immature Gran # (Auto) 0.06 H (0.00-0.02) K/uL PT 18.8 H (9.0-12.0) Seconds INR 1.8 H (0.9-1.1) APTT 31.6 H (21.0-31.0) Seconds Sodium 133 L (136-145) mmol/L BUN/Creatinine Ratio 24.1 H (10-20) Glucose 120 H (70-99(Fasting)) mg/dl Total Bilirubin 1.6 H (0.2-1.0) mg/dl Diagnostic Findings Head CT 09/12/21 16:51 CT SCAN OF THE BRAIN WITHOUT IV CONTRAST CLINICAL HISTORY: Fall. COMPARISON STUDY: CT of the brain dated 01/13/2021. TECHNIQUE: Unenhanced axial CT scan of the brain is performed from the vertex to the skull base. A dose lowering technique was utilized adhering to the principles of ALARA. FINDINGS: Brain parenchyma: There are age-related involutional changes noting moderate subcortical and periventricular microangiopathic change. There is no hemorrhage, mass effect, or evidence of acute territorial ischemia by CT criteria. Coates- white matter differentiation is preserved. No extra-axial fluid collection is seen. Ventricles, sulci, cisterns: Prominent secondary to involutional change. Intracranial vasculature: There is atherosclerotic calcification of the cavernous carotid arteries. Calvarium: The skeletal structures are osteopenic. No depressed calvarial fracture is identified. There is chronic deformity of the nasal bones. Sinuses and mastoids: The paranasal sinuses are clear. The mastoid air cells are well pneumatized. Orbits: The bony orbits are grossly intact. There are bilateral ocular lens implants. IMPRESSION: There is no hemorrhage, mass effect, or evidence of acute territorial ischemia by CT criteria. ACT 112: Negative or not required by law. Electronically signed by: Enrique Cortes M.D. 09/12/2021 5:[address] 09/12/21 16:54 CT cervical spine wo con CLINICAL HISTORY: fall on blood thinners TECHNIQUE: Multidetector row helical CT of the cervical spine was performed without administration of intravenous contrast. Coronal and sagittal ref ormations were obtained. Automated dose lowering techniques and/or adjustment according to patient size were utilized for this exam. Comparison: Comparison is made to CT neck 12/20/2020 FINDINGS: No acute fractures or subluxations are identified. Degenerative changes are seen in the visualized spine. The alignment is normal. Biapical scarring is seen. IMPRESSION: Degenerative changes without evidence of acute bony injury. ACT 112: Negative or not required by law. Electronically signed by: Sotero Méndez M.D. 09/12/2021 5:20 PM Hip/Pelvis X-Ray 09/12/21 16:55 SINGLE VIEW PELVIS; 2 VIEWS RIGHT HIP CLINICAL HISTORY: Right hip injury. FINDINGS: An AP supine view of the pelvis with AP and crosstable lateral views of the right hip are compared to study dated 12/20/2020. The skeletal structures are osteopenic. There is a comminuted and angulated intertrochanteric/subtrochanteric fracture of the right femur with medial displacement of the lesser trochanter and overlying soft tissue edema. No additional acute fracture seen involving the left hip or the bony pelvis. There is chronic posttraumatic deformity of the right pubic ring. Mild degenerative joint space narrowing is noted in the hips. Lumbosacral spondylosis is partially visualized. Sclerotic change is noted in the sacroiliac joints. IMPRESSION: 1. Intertrochanteric/subtrochanteric fracture of the right proximal femur as above with overlying soft tissue edema. 2. No additional acute fracture is identified. Electronically signed by: Enrique Cortes M.D. 09/12/2021 5:41 PM Chest X-Ray 09/12/21 17:24 SINGLE VIEW CHEST CLINICAL HISTORY: Fall. Hip fracture. FINDINGS: An AP, portable, supine chest radiograph is compared to study dated 12/20/2020 and correlated with chest CT dated 01/14/2017. The examination is degraded by portable technique and patient rotation. The heart is enlarged noting atherosclerotic calcification of the thoracic aorta. The pulmonary vasculature is noncongested. There is bibasilar scarring/atelectasis. No airspace consolidation or large pleural effusion is identified. No pneumothorax is seen. The skeletal structures are osteopenic. The bony thorax is grossly intact. 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 IMPRESSION: Cardiomegaly with no acute cardiopulmonary abnormality. ACT 112: Negative or not required by law. Electronically signed by: Enrique Cortes M.D. 09/12/2021 5:43 PM ECG Additional Comments: Undetermined rhythm Right bundle branch block Abnormal ECG When compared with ECG of 20-DEC-2020 07:10, Current undetermined rhythm precludes rhythm comparison, needs review Questionable change in QRS axis QT has lengthened Code Status & VTE Plan Code Status DNR/DNI. Supervising Physician Co-Signing Physician Notes Patient was seen and examined independently I discussed the case with Brandy Moya PAC I reviewed pertinent past medical social family history and also the plan of care and agree with the plan of care. Patient with a ground-level fall sustaining a right hip fracture has externally rotated and shortened right leg is a history of atrial fibrillation chronically anticoagulated with warfarin with an INR one-point and presentation give small dose of vitamin K likely get this INR down to appropriate range for surgical intervention by 09/13/2021. Prior to the fall the patient denies having any chest pain or palpitations. 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 The emergency department he is awake alert appropriate he does have appropriate hip pain his cardiac exam sounds to be irregular but rate controlled his lungs were clear he has no JVD Likely optimized as best he can be for 86 years of age to proceed to repair of hip fracture Underlying EKG looks to be atrial flutter with intraventricular conduction delay possibly right bundle branch block but rate controlled he will be maintained on metoprolol 75 twice daily Chest x-ray without acute changes caution with fluid load in this patient Any exceptions will be noted below PG Care Time/CCT Total # of Minutes Spent Total Time Spent with Patient: Total time spent is greater than 50% in coordination of care (as documented) at patient's floor/unit and/or counseling patient: Coding Level of Care Code 44039 Initial Inpt Care Lvl 3 Diagnoses Closed right hip fracture S72.001A Encounter type: initial encounter Atrial fibrillation I48.21 Atrial fibrillation type: permanent GERD (gastroesophageal reflux disease) K21.9 Esophagitis presence: esophagitis presence not specified Insomnia G47.00 Insomnia type: unspecified Sleep apnea G47.30 Sleep apnea type: unspecified type (1) Insomnia Insomnia type: unspecified Qualified Code(s): G47.00 - Insomnia, unspecified (2) Sleep apnea Sleep apnea type: unspecified type Qualified Code(s): G47.30 - Sleep apnea, unspecified (3) Atrial fibrillation Atrial fibrillation type: permanent Qualified Code(s): I48.21 - Permanent atrial fibrillation (4) GERD (gastroesophageal reflux disease) Esophagitis presence: esophagitis presence not specified Qualified Code(s): K21.9 - Gastro-esophageal reflux disease without esophagitis (5) Closed right hip fracture Encounter type: initial encounter Qualified Code(s): S72.001A - Fracture of unspecified part of neck of right femur, initial encounter for closed fracture
[2021-09-12] MEDS ORDERED: POLYETHYLENE (MIRALAX) 17 GM PACK PO PRN (20:28)
[2021-09-12] MEDS ORDERED: NALOXONE HCL 0.4 MG/1 ML VIAL/CARP IV PRN (20:28)
[2021-09-12] MEDS ORDERED: ACETAMINOPHEN 500 MG TAB PO PRN (20:28)
[2021-09-12] MEDS ORDERED: KETOROLAC TROMETHAMINE 15 MG/ML VIAL IV PRN (20:28)
[2021-09-12] MEDS ORDERED: ONDANSETRON INJ 2 MG/ML 2 ML VIAL IV PRN (20:28)
[2021-09-12] MEDS ORDERED: PHYTONADIONE 2.5 MG in DEXTROSE 5% 50 ML IV ONE (20:45)
[2021-09-12] MEDS: METOPROLOL TARTRATE 25 MG TAB PO SCH (21:19)
[2021-09-12 22:16] LABS: Appearance Urine Clear (Clear); Bacteria Urine Automated Negative (Negative); Bilirubin Urine Negative (Negative); Blood Urine 2+ (Negative); Cast Urine Automated 0 /lpf (0-5); Color Urine Yellow; Glucose Urine UA Negative (Negative); Ketones Urine Negative (Negative); Leukocyte Esterase Urine Negative (Negative); Nitrite Urine Negative (Negative); Protein Urine Trace (Negative); Specific Gravity Urine 1.016 (1.000-1.030); Urobilinogen Urine Negative (Negative); WBC Urine Automated 0 /hpf (0-5)
[2021-09-13] MEDS: LACTATED RINGER'S 1,000 ML IV SCH ×2 (00:10→12:58)
[2021-09-13 07:05] LABS: Hematocrit (blood only) 28.2 % (42-52); Hemoglobin 9.8 g/dL (14.0-18.0); Mean Corpuscular Hemoglobin 32.6 pg (25-34); Mean Corpuscular Hgb Conc 34.8 g/dL (32-36); Mean Corpuscular Volume 93.7 fL (80-100); Mean Platelet Volume 8.7 fL (7.4-10.4); Platelet Count 146 K/uL (130-400); RDW Coefficient of Variation 15.2 % (11.5-14.5); RDW Standard Deviation 52.3 fL (36.4-46.3); Red Blood Count 3.01 M/uL (4.7-6.1); White Blood Count 9.01 K/uL (4.8-10.8)
--- NOTE | 2021-09-13 07:10 | Orthopedic Consultation ---
Date of Service September 13, 2021 Assessment & Plan (1) Closed intertrochanteric fracture of right femur: Unstable right hip intertrochanteric fracture will require surgical stabilization. We discussed the diagnosis, prognosis and treatment recommendation at the bedside. Risks and benefits of surgical stabilization with a long trochanteric fixation nail was discussed. Patient demonstrated good understanding and wanted to proceed. The risks were discussed include but not limited to infection, bleeding, need for transfusion, neurovascular injury, leg length discrepancy, nonunion, malunion, need for repeat revision surgery, implant complications requiring secondary surgery, pain syndromes and complications related to anesthesia. Informed consent was documented and witnessed. Plan proceed to the operating room on 09/13/2021, pending medical clearance and response on his INR to the vitamin K. History of Present Illness Reason for Consultation: Right hip fracture Requesting Physician: . Attending Physician: Alejandro Emerson MD Mr. Crum is a 86-year-old male with a past medical history of permanent A. fib on warfarin, GERD, insomnia, sleep apnea, and a fall in December 2020 resulting in a subdural hematoma admitted to the hospital after a fall on ice today at home. He immediate pain and inability to bear weight. EMS was called by his mailman. ED work-up revealed a comminuted intertrochanteric hip fracture on the right side. Reported tolerable pain in the hospital. No previous significant injuries to the right hip. Previous right total knee arthroplasty performed elsewhere. Allergies Allergy/AdvReac Type Severity Reaction Status Date / Time colchicine Allergy Unknown rash Verified 09/12/21 18:28 diltiazem AdvReac Severe CARDIAC Verified 09/12/21 18:28 ARREST CONTRAST MEDIA FOR MYOGRAM AdvReac Severe SEVERE PORRAS/ Uncoded 09/12/21 18:28 CHEMICAL INDUCED MENINGITIS Home Medications Medication Instructions Recorded Confirmed Type lorazepam 1 mg tablet (Ativan) 1 mg PO HS PRN 07/16/18 09/12/21 History metoprolol tartrate 50 mg tablet 75 mg PO BID 07/16/18 09/12/21 History (Lopressor) warfarin 5 mg tablet 10 mg PO DAILY 12/20/20 09/12/21 History pantoprazole 40 mg tablet,delayed 40 mg PO QAM 09/12/21 09/12/21 History release Past Med/Surg History Medical History (Updated 09/13/21 @ 07:10 by David Carver MD) Anemia Atrial fibrillation BPH w urinary obs/LUTS Closed intertrochanteric fracture of right femur HTN (hypertension) Osteoarthritis Osteoporosis Pleural effusion Sleep apnea Thoracic aortic aneurysm Vertebral fracture, osteoporotic Surgical History H/O total shoulder replacement S/P tonsillectomy and adenoidectomy S/P total knee arthroplasty S/P TURP (transurethral resection of prostate) Social History Smoking Status: Never smoker Hx Alcohol Use: Yes Hx Substance Use: No Preferred Language: Greenlandic Communication Ability: Effective Conveyor Weigher Operator Required: No Beliefs That Will Affect Care: None marital status: Current Living Situation: Spouse current occupational status: retired Other Information That Helps Us Care for You: No Feels Safe at Home: Yes Assistive Devices: Glasses Review of Systems All systems reviewed & are unremarkable except as noted in HPI & below. Physical Exam Right lower extremity: Lying supine in his hospital bed with the limb shortened and externally rotated. Positive DF/PF/EHL. Sensation grossly intact to light touch in all dermatomes. 2+ DP and PT pulses. The skin overlying the hip is without compromise and no significant ecchymosis. Constitutional well developed and well nourished; no acute distress and not intoxicated appearing ENMT external ear and nose normal, oropharynx normal Respiratory normal respiratory effort; no respiratory distress Cardiovascular Extremities: normal capillary refill; no edema Skin no rashes, warm and dry Psychiatric A+Ox3, euthymic affect Results & Data Results & Data Laboratory Results H & H 09/12/21 09/13/21 Range/Units 16:40 06:27 Hgb 10.7 L 9.8 L (14.0-18.0) g/dL Hct 30.6 L 28.2 L (42-52) % Coagulation 09/12/21 Range/Units 16:40 INR 1.8 H (0.9-1.1) Diagnostic Findings Right hip and pelvic x-rays demonstrate a comminuted and displaced intratrochanteric fracture of the right proximal femur with subtrochanteric extension and lesser tuberosity displacement. There is an ipsilateral total knee arthroplasty that seems undisturbed. PG Care Time/CCT Total # of Minutes Spent Total Time Spent with Patient: Total time spent is greater than 50% in coordination of care (as documented) at patient's floor/unit and/or counseling patient: Coding Level of Care Code 28814 Inpt Consult Level 4 (57 - DECISION FOR SURGERY) Diagnoses Closed intertrochanteric fracture of right femur S72.141A
[2021-09-13 07:19] LABS: INR 1.5 (0.9-1.1); Prothrombin Time 16.1 Seconds (9.0-12.0)
[2021-09-13] MEDS ORDERED: TRANEXAMIC ACID IV STA (07:26)
[2021-09-13] MEDS ORDERED: SODIUM CHLORIDE 0.9% IV STA (07:26)
[2021-09-13 07:30] LABS: BUN Creatinine Ratio 18.1 (10-20); Calcium 8.8 mg/dl (8.5-10.1); Creatinine Clr Calc Pharmacy 77.8 ml/min; Est GFR (Non-African American) 80.2 ml/min; Potassium 4.7 mmol/L (3.5-5.1)
[2021-09-13] MEDS: PANTOprazole 40 MG TAB PO SCH (07:33)
[2021-09-13] MEDS: METOPROLOL TARTRATE 25 MG TAB PO SCH ×2 (07:33→20:02)
--- NOTE | 2021-09-13 08:20 | Anesthesiology Consultation ---
Date of Service September 13, 2021 Assessment & Plan (1) Encounter for pre-operative examination: Chart Review Chart Review: entry level buyer initiated History Surgery Operation Date: 09/13/21 08:00 Proposed Procedures p Right Long Trochanteric Femoral Nail Hip - David Carver MD Height/Weight Height: 6 ft 3 in Weight: 90.4 kg Allergies Allergy/AdvReac Type Severity Reaction Status Date / Time colchicine Allergy Unknown rash Verified 09/12/21 18:28 diltiazem AdvReac Severe CARDIAC Verified 09/12/21 18:28 ARREST CONTRAST MEDIA FOR MYOGRAM AdvReac Severe SEVERE PORRAS/ Uncoded 09/12/21 18:28 CHEMICAL INDUCED MENINGITIS Medications Home Medications Medication Instructions Recorded Confirmed Last Taken lorazepam 1 mg tablet (Ativan) 1 mg PO HS PRN 07/16/18 09/12/21 12/19/20 metoprolol tartrate 50 mg tablet 75 mg PO BID 07/16/18 09/12/21 12/19/20 (Lopressor) warfarin 5 mg tablet 10 mg PO DAILY 12/20/20 09/12/21 12/19/20 pantoprazole 40 mg tablet,delayed 40 mg PO QAM 09/12/21 09/12/21 Unknown release Active Medications Generic Name Dose Route Start Last Admin Trade Name Freq PRN Reason Stop Dose Admin Lactated Ringer's 1,000 mls @ 80 mls/hr 09/13/21 00:01 09/13/21 00:10 Lr IV 10/13/21 00:00 80 mls/hr .[id number] JAH Administration Metoprolol Tartrate 75 mg 09/12/21 21:00 09/13/21 07:33 Metoprolol Tartrate 25 Mg Tab PO 10/12/21 20:59 75 mg BID JAH Administration Morphine Sulfate 2 mg 09/12/21 20:28 09/12/21 21:01 Morphine Sulfate 2 Mg/Ml Carp IV 09/26/21 20:27 2 mg Q3H PRN Administration Pain (1,2,3,4,5) & Pre PT Pantoprazole Sodium 40 mg 09/13/21 09:00 09/13/21 07:33 Pantoprazole 40 Mg Tab PO 10/13/21 08:59 40 mg QAM JAH Administration Past Medical History Medical History Anemia Atrial fibrillation BPH w urinary obs/LUTS Closed intertrochanteric fracture of right femur HTN (hypertension) Osteoarthritis Osteoporosis Pleural effusion Sleep apnea Thoracic aortic aneurysm Vertebral fracture, osteoporotic Past Surgical History Surgical History H/O total shoulder replacement S/P tonsillectomy and adenoidectomy S/P total knee arthroplasty S/P TURP (transurethral resection of prostate) Social History Smoking Status: Never smoker Hx Alcohol Use: Yes alcohol intake frequency: a few times a month Hx Substance Use: No Physical Exam Vital Signs Last Vital Signs Temp 99.5 F 09/13/21 07:01 Pulse 78 09/13/21 07:01 Resp 18 09/13/21 07:01 BP 114/75 09/13/21 07:01 Pulse Ox 99 09/13/21 07:01 Testing Laboratory Results 09/13/21 06:27 09/13/21 06:27 PT 16.1 Seconds (9.0-12.0) H 09/13/21 06:27 INR 1.5 (0.9-1.1) H 09/13/21 06:27 APTT 31.6 Seconds (21.0-31.0) H 09/12/21 16:40 Urine Color Yellow 09/12/21 22:03 Urine Appearance Clear (Clear) 09/12/21 22:03 Urine pH 7.0 (4.5-7.5) 09/12/21 22:03 Ur Specific [place] 1.016 (1.000-1.030) 09/12/21 22:03 Urine Protein Trace (Negative) H 09/12/21 22:03 Urine Glucose (UA) Negative (Negative) 09/12/21 22:03 Urine Ketones Negative (Negative) 09/12/21 22:03 Urine Nitrite Negative (Negative) 09/12/21 22:03 Ur Leukocyte Esterase Negative (Negative) 09/12/21 22:03 Urine WBC (Auto) 0 /hpf (0-5) 09/12/21 22:03 Urine RBC (Auto) 10-30 /hpf (0-4) H 09/12/21 22:03 U Hyaline Cast (Auto) 0 /lpf (0-5) 09/12/21 22:03 U Epithel Cells (Auto) 5-10 /lpf (0-5) H 09/12/21 22:03 Urine Bacteria (Auto) Negative (Negative) 09/12/21 22:03 Blood Type A Positive 09/12/21 21:57 Antibody Screen NEGATIVE 09/12/21 21:57 Electrocardiogram Date: 09/12/21 Undetermined rhythm, 94 bpm Right bundle branch block Abnormal ECG When compared with ECG of 20-DEC-2020 07:10, Current undetermined rhythm precludes rhythm comparison, needs review Questionable change in QRS axis QT has lengthened Chest X-Ray Date: 09/12/21 IMPRESSION: Cardiomegaly with no acute cardiopulmonary abnormality.
--- NOTE | 2021-09-13 10:51 | Electrocardiogram Report ---
Test Reason : Blood Pressure : / mmHG Vent. Rate : 094 BPM Atrial Rate : 097 BPM P-R Int : 000 ms QRS Dur : 146 ms QT Int : 416 ms P-R-T Axes : 000 -17 -08 degrees QTc Int : 520 ms Atrial fibrillation Right bundle branch block Abnormal ECG When compared with ECG of 20-DEC-2020 07:10, Questionable change in QRS axis QT has lengthened Confirmed by Dax Lainez ([id number]) on 09/13/2021 10:50:48 AM Referred By: REFERRED SELF Confirmed By:Dax Lainez
[2021-09-13] MEDS ORDERED: BUPIVACAINE 0.5 % 5 MG/1 ML MPF 30ML VIAL ONE (13:54)
[2021-09-13] MEDS ORDERED: EPINEPHrine INJ 1 MG/ML AMP ONE (13:54)
[2021-09-13] MEDS ORDERED: fentaNYL citrate 100 MCG/2 ML VIAL ONE (14:09)
[2021-09-13] MEDS ORDERED: ceFAZolin 2000MG 2,000 MG/15 ML SYR IV ONE (14:22)
[2021-09-13] MEDS ORDERED: ceFAZolin 2,000 MG/15 ML IV PUSH IV ONE (14:24)
[2021-09-13] MEDS ORDERED: fentaNYL citrate 100 MCG/2 ML VIAL IV PRN (14:28)
[2021-09-13] MEDS ORDERED: ePHEDrine sulfate 50 MG/ML AMP IV PRN (14:28)
[2021-09-13] MEDS ORDERED: HYDROmorphone INJ 1 MG/ML SYRINGE IV PRN (14:28)
[2021-09-13] MEDS ORDERED: ONDANSETRON INJ 2 MG/ML 2 ML VIAL IV PRN (14:28)
[2021-09-13] MEDS ORDERED: PROMETHAZINE HCL 12.5 MG in SODIUM CHLORIDE 0.9% 50 ML IV PRN (14:28)
[2021-09-13] MEDS ORDERED: ATROPINE SULFATE 0.1 MG/ML 10ML SYR IV PRN (14:28)
--- NOTE | 2021-09-13 14:28 | History & Physical Bridge Note ---
Date of Service September 13, 2021 History & Physical Bridge Note I have examined the patient, reviewed the History & Physical and in the interval since the performance of the History & Physical I have noted the following changes of clinical significance: no changes noted. Patient is aware of COVID-19 risks. Patient is asymptomatic for COVID-19. Patient has been tested for COVID-19 - [NEGATIVE].
[2021-09-13] MEDS ORDERED: TRANEXAMIC ACID / 0.7% NACL 1000MG/100ML BAG IV ONE (14:29)
[2021-09-13] MEDS ORDERED: SUCCINYLCHOLINE CHLORIDE 20 MG/ML 10 ML VIAL IV ONE (14:54)
[2021-09-13] MEDS ORDERED: PROPOFOL IV EMULSION 10 MG/ML 20 ML VIAL IV ONE (14:54)
[2021-09-13] MEDS ORDERED: LIDOCAINE 2% 2 ML VIAL/AMP(20MG/ML) INFIL ONE (14:54)
[2021-09-13] MEDS ORDERED: ONDANSETRON INJ 2 MG/ML 2 ML VIAL ONE (14:54)
[2021-09-13] MEDS ORDERED: PHENYLEPHRINE HCL 10 MG/ML VIAL ONE (14:55)
[2021-09-13] MEDS ORDERED: ePHEDrine sulfate 50 MG/ML SYR ONE (15:06)
[2021-09-13] MEDS ORDERED: ACETAMINOPHEN 1000 MG/100 ML IV IV ONE (15:39)
--- NOTE | 2021-09-13 17:05 | Post Operative Brief Note ---
PG Immediate Post Op with CF Date of Surgery September 13, 2021 Pre & Post Diagnosis Operation Date: 09/13/21 08:00 Pre-Op Diagnosis: Closed intertrochanteric fracture of right femur. Post-Op Diagnosis: Closed intertrochanteric fracture of right femur. I identified the patient and participated in the time-out.: Yes Procedure Operation Date: 09/13/21 08:00 Actual Procedures p Right proximal femur fracture closed reduction and long cephalomedullary nail fixation (Right) - David Carver MD Surgeon David Carver MD Fence Making Machine Operator Michael Olson PA-C Estimated Blood Loss 100 Findings See Below Drains Alexis Catheter Anesthesia Type MAC Spinal Regional Complications none Disposition Accompanied Patient To Recovery: No Disposition: Surgical ICU
--- NOTE | 2021-09-13 17:16 | Operative Report ---
PG Post Operative Report Pre & Post Diagnosis Operation Date: 09/13/21 08:00 Pre-Op Diagnosis: Closed intertrochanteric fracture of right femur. Post-Op Diagnosis: Closed intertrochanteric fracture of right femur. I identified the patient and participated in the time-out.: Yes Procedure Operation Date: 09/13/21 08:00 Actual Procedures p Right proximal femur fracture closed reduction and long cephalomedullary nail fixation (Right) - David Carver MD Surgeon David Carver MD Immigration Attorney Michael Olson PA-C Estimated Blood Loss 100 Findings See Below All Synthes implants: 11mm/130 degree titanium cannulated trochanteric fixation nail of 440 mm length. 11.0 mm titanium helical blade of 110 mm length. Distal interlock screw measuring 60 mm. Specimens none Anesthesia Type General Complications none Disposition Accompanied Patient To Recovery: No Disposition: Recovery Room Indications 86-year-old male sustained fall onto her right hip yesterday resulting in intertrochanteric displaced fracture. He was admitted to the hospital team and medically optimized. Vitamin K was provided due to his anticoagulation. I explained to him the diagnosis of my recommendation for surgical stabilization so that he can return to ambulation expeditiously. Discussed the risks and benefits of the intervention of a long trochanteric fixation nail. The risk and benefits are outlined in the preoperative consult note. Informed consent was obtained in the hospital. He was agreeable to spend a DO NOT RESUSCITATE/DO NOT INTUBATE designation for the surgery. He was also agreeable to use blood products if necessary. Description of Procedure On the day of surgery should be was greeted in the preoperative holding area and the informed consent was reviewed and confirmed. The surgical site was then identified by the patient and signed by myself. The patient was taken to the operating placed by the OR table and anesthesia was induced. TXA had been administered. The patient is then positioned on the fracture table. All honorio prominences were well padded. The operative foot was placed in the fracture boot with abundant padding. The well leg was secured. We then positioned the lower extremities in a scissor fashion with a non-op leg flexed down to allow visualization with fluoroscopy which was confirmed before we prepped and draped. Surgical timeout was called and verified by all present. Antibiotics were infused, and equipment was available and functional. The procedure was initiated with a closed reduction maneuvers. Gentle in-line traction pulled the fracture out to length. The limb was then internally rotated to reduce the proximal femur. Flexion and adduction were used to adjust the reduction and allow access to the greater trochanter. We had adequate reduction prior to prepping and draping. The leg was then prepped and draped in usual sterile fashion. Surgical timeout was reconfirmed. We initiated the surgical internal fixation portion with finding the start point with the tip of the greater trochanter. Fluoroscopic guidance was used and a small poke hole was established. The start point was confirmed on fluoroscopy in AP and lateral planes and the pin was advanced using a mallet. An incision was made about the pin to allow access for the reamers. The pin was then advanced past the lesser trochanter, and its position was confirmed using AP and lateral fluoroscopy. Using the protective sleeve, the opening reamer was advanced under power with fluoroscopic guidance over the guidepin. It was advanced slowly and we did ream out some lateral bone of the trochanter. The reduction wire was then advanced down the distal femur to the level of the superior pole of the patella. Measurement was taken from the tip of the trochanter down to the end of the guidewire, and the 440 mm was selected. We then began sequential reaming. We started with 12.5 and used fluoroscopy to guide our reaming. There was minimal chatter.. An 11 mm nail was loaded onto the jig and advanced manually down the canal, while ensuring maintenance of the reduction on fluoroscopy. We then tapped it down into place until we achieve the good position for our cephalo-medullary screw. The cannula was placed on the jig to allow positioning of the cephalo-medullary screw. The skin incision was made in the appropriate spot. The jig cannulas were then placed against the lateral cortex. The cephalo-medullary screw guidepin was advanced towards the femoral head. The center-center position was confirmed on fluoroscopy in AP and lateral planes. The length of the screw was measured off the guide. The helical blade screw was then opened on the back table and prepared on the screwdriver. The lateral cortical opening drill, followed by the triple drill reamer for the helical blade was advanced under fluoroscopic guidance. The helical blade was advanced over the guidepin to appropriate position. The helical blade was locked in rotation and then the traction was taken off. Fluoroscopy confirmed maintenance of reduction and adequate position of the implant. The compression sleeve was then advanced against the lateral femur to improve the trochanteric-shaft reduction and compress the intertrochanteric region fracture. Attention was then directed distally to perform the interlock screws in using perfect king salmon technique. 1 interlock screw was placed with a 5 mm diameter. The length was measured using a depth gauge, with fluoroscopic guidance. This completed the fixation. This completed the fixation of the fracture. Fluoroscopy was used in both AP and lateral planes to evaluate the entirety of the fracture and implant. Reduction and implant positions were acceptable. The wounds were then thoroughly irrigated with bulb syringe and normal saline. The deep fascial layer was approximated with 0 Vicryl suture. The dermal layer was approximated using 2-0 Vicryl suture. The final skin closure was completed with daniel. Wounds were dressed with sterile Xeroform, sterile gauze, and Tegaderms over ABDs. The patient tolerated procedure well, awoke from anesthesia without complication, was extubated in the operating room, and transferred to the PACU in stable condition. Disposition: The patient be weightbearing as tolerated with crutches or a walker used until at least 6 weeks. I recommended routine DVT prophylaxis consisting of low molecular weight heparin until he can become therapeutic once again on his usual Coumadin. 24 hours of antibiotic prophylaxis should be continued. Expect to remain inpatient for 3-5 days until he is medically stabilized, next level of care is determined, and his blood counts are stable. Repeat INR and H/H tomorr ow. Physician zoning assistant attestation: Michael Olson PA-C was present and scrubbed for the duration of the case. He was essential to prepping/draping, patient positioning, retraction, and assistance with wound closure. I attest to the content of the Intraoperative Record and any orders documented therein. Any exceptions are noted below.
--- NOTE | 2021-09-13 17:18 | Anesthesiology Progress Note ---
Date of Service September 13, 2021 Anesthesia Post Procedure Vital Signs Vital Signs: Temp Pulse Pulse Pulse Resp BP Pulse Ox 09/13/21 17:05 91 H 15 125/72 99 09/13/21 16:55 96 H 29 H 125/66 99 09/13/21 16:45 36.8 C 100 H 18 137/84 100 09/13/21 13:57 37.7 C H 86 18 112/72 92 09/13/21 11:55 37.3 C 85 18 104/60 93 09/13/21 07:01 37.5 C 78 18 114/75 99 09/13/21 07:00 69 09/13/21 03:53 36.9 C 78 18 117/74 99 09/12/21 22:50 37.2 C 90 18 129/84 99 09/12/21 22:37 37 C 99 H 18 168/93 H 100 09/12/21 22:19 105 H 09/12/21 20:28 103 H 09/12/21 20:25 37.0 C 99 H 18 168/93 H 100 Pulse Ox 09/13/21 17:05 09/13/21 16:55 09/13/21 16:45 09/13/21 13:57 09/13/21 11:55 09/13/21 07:01 09/13/21 07:00 09/13/21 03:53 09/12/21 22:50 09/12/21 22:37 09/12/21 22:19 09/12/21 20:28 100 09/12/21 20:25 Pain Intensity Right Hip: Pain Intensity: 0 Transfer of Care Handoff Completed per policy Notes Mental Status: alert / awake / arousable and participated in evaluation Patient Amnestic to Procedure: Yes Nausea / Vomiting: adequately controlled Pain: adequately controlled Airway Patency, RR, SpO2: stable & adequate BP & HR: stable & adequate Hydration State: stable & adequate Anesthetic Complications: no major complications apparent
[2021-09-13] MEDS ORDERED: HYDROmorphone INJ 0.5 MG/0.5 ML SYR IV PRN (17:25)
[2021-09-13] MEDS ORDERED: NALOXONE HCL 0.4 MG/1 ML VIAL/CARP IV PRN (17:25)
[2021-09-13] MEDS ORDERED: oxyCODONE HCL IR 5 MG TAB (IMMEDIATE RELEASE) PO PRN (17:25)
[2021-09-13] MEDS ORDERED: bisacodyL 10 MG SUPP PR PRN (17:25)
[2021-09-13] MEDS ORDERED: MAGNESIUM HYDROXIDE SUSP 30 ML UDC PO PRN (17:25)
--- NOTE | 2021-09-13 17:44 | Fluoroscopy Report ---
FL femur RT 2V CLINICAL HISTORY: RT TROCH FEMORAL NAIL COMPARISON STUDY: 09/12/2021 FLUOROSCOPY TIME: 120 seconds. FLUOROSCOPIC IMAGES: 4 FINDINGS: The patient is status post placement of an intratrochanteric nail and a long stem luciana withi n the femoral shaft transfixing a previously identified intratrochanteric fracture. The fracture frag ments are now in anatomic alignment. IMPRESSION: Status post internal fixation of right femoral neck fracture. ACT 112: Negative or not required by law. Electronically signed by: Sagar Michel M.D. 09/13/2021 5:43 PM
--- NOTE | 2021-09-13 18:19 | XRay Report ---
XR femur RT 2V routine CLINICAL HISTORY: Post op. Status post internal fixation COMPARISON STUDY: 09/12/2021 TECHNIQUE: AP and lateral right femur views FINDINGS: The patient is status post internal fixation with an intertrochanteric nail and long stem r od within the femoral shaft transfixed by screw distally. Previously identified comminuted intratroch anteric fracture of the right femoral neck has been reduced to near-anatomic alignment. IMPRESSION: 1. Status post internal fixation. ACT 112: Negative or not required by law. Electronically signed by: Sagar Michel M.D. 09/13/2021 6:17 PM
[2021-09-13] MEDS: DOCUSATE SODIUM 100 MG CAP PO SCH (20:02)
[2021-09-13] MEDS: SENNA 8.6 MG TAB PO SCH (20:02)
--- NOTE | 2021-09-13 21:10 | Hospitalist Progress Note ---
Date of Service September 13, 2021 Assessment & Plan (1) Closed right hip fracture: Plan: -Comminuted and angulated intertrochanteric/subtrochanteric fracture of the right femur with medial displacement of the lesser trochanter and overlying soft tissue edema. -Orthopedics consulted, appreciate recommendations. -Patient takes warfarin daily for A. fib, INR today is 1.8. Will give 1 dose of vitamin K 2.5 mg tonight. -N.p.o. at midnight. -RCRI 0, 3.9% 30-day risk of , [place], cardiac arrest. On 09/13 p Right proximal femur fracture closed reduction and long cephalomedullary nail fixation (Right) awaiting input. (2) Atrial fibrillation: Plan: -Permanent, on metoprolol and warfarin. -Currently rate controlled, HR <100. -Hold warfarin pending possible surgical intervention. -On telemetry. (3) GERD (gastroesophageal reflux disease): Plan: -Chronic, stable. -Continue PPI. (4) Insomnia: Plan: -Takes Ativan 1 mg every evening, will continue this with continuous pulse oximetry while patient is also receiving narcotics for pain management. (5) Sleep apnea: Plan: -Wears 2L NC at night. Plan: -Admit to med/telemetry. -SCDs for DVT prophylaxis. -DNR/DNI. Admission and Anticipated Discharge Date Admission Date: September 12, 2021 Subjective Patient resting after surgery. Review of Systems Review of Systems: All systems reviewed & are unremarkable except as noted in HPI & below Physical Exam Physical Exam: General: awake, alert, no apparent distress Head: Mild ecchymosis around the right temporal/orbital region with shallow laceration, otherwise normocephalic and atraumatic. ENT: PERRL, EOMI, no pharyngeal exudate, mucous membranes moist Chest: Clear to auscultation, on room air, no adventitious breath sounds, on 2L NC Cardiac: Regular rate, irregularly irregular rhythm, no murmur, no JVD, normal peripheral pulses, good capillary refill Abdominal: NABS x 4 quadrants, soft, nontender to palpation, no rebound, guarding or tenderness Extremities: Pulses and sensation intact. Ecchymosis of the dorsal aspect of the right hand Psych: Normal mood and affect Neuro: AAO x 3, right hip ROM limited due to pain, otherwise strength intact bilaterally and rated 5/5, no motor deficits, speech is clear, no peripheral sensory deficits Skin: Bilateral lower extremity skin changes consistent with peripheral venous insufficiency Results & Data Results & Data ([facility]) Vital Signs (Past 12 Hours) Vital Signs Temp Pulse Pulse Resp BP BP Pulse Ox 09/13/21 20:28 09/13/21 19:55 36.8 C 94 H 18 104/64 100 09/13/21 18:55 36.8 C 92 H 18 109/64 100 09/13/21 18:35 36.1 C L 93 H 18 106/74 100 09/13/21 18:10 76 14 106/60 100 09/13/21 17:55 95 H 14 108/68 95 09/13/21 17:35 92 H 14 104/66 92 09/13/21 17:05 91 H 15 125/72 99 09/13/21 16:55 96 H 29 H 125/66 99 09/13/21 16:45 36.8 C 100 H 18 137/84 100 09/13/21 13:57 37.7 C H 86 18 112/72 92 09/13/21 11:55 37.3 C 85 18 104/60 93 Pulse Ox 09/13/21 20:28 100 09/13/21 19:55 09/13/21 18:55 09/13/21 18:35 09/13/21 18:10 09/13/21 17:55 09/13/21 17:35 09/13/21 17:05 09/13/21 16:55 09/13/21 16:45 09/13/21 13:57 09/13/21 11:55 PG Care Time/CCT Total # of Minutes Spent Total Time Spent with Patient: Total time spent is greater than 50% in coordination of care (as documented) at patient's floor/unit and/or counseling patient: Coding Level of Care Code 73404 Subseq Hosp Care Lvl 2 Diagnoses Closed right hip fracture S72.001A Encounter type: initial encounter Atrial fibrillation I48.21 Atrial fibrillation type: permanent GERD (gastroesophageal reflux disease) K21.9 Esophagitis presence: esophagitis presence not specified Insomnia G47.00 Insomnia type: unspecified Sleep apnea G47.30 Sleep apnea type: unspecified type (1) Insomnia Insomnia type: unspecified Qualified Code(s): G47.00 - Insomnia, unspecified (2) Sleep apnea Sleep apnea type: unspecified type Qualified Code(s): G47.30 - Sleep apnea, unspecified (3) Atrial fibrillation Atrial fibrillation type: permanent Qualified Code(s): I48.21 - Permanent atrial fibrillation (4) GERD (gastroesophageal reflux disease) Esophagitis presence: esophagitis presence not specified Qualified Code(s): K21.9 - Gastro-esophageal reflux disease without esophagitis (5) Closed right hip fracture Encounter type: initial encounter Qualified Code(s): S72.001A - Fracture of unspecified part of neck of right femur, initial encounter for closed fracture
[2021-09-13] MEDS: ceFAZolin 2000MG 2,000 MG/15 ML SYR IV SCH (22:32)
[2021-09-13] MEDS: LORazepam 1 MG TAB PO PRN (22:44)
[2021-09-13] MEDS ORDERED: TRANEXAMIC ACID / 0.7% NACL 1,000 MG/100 ML BAG IV ONE (23:30)
[2021-09-14] MEDS: ceFAZolin 2000MG 2,000 MG/15 ML SYR IV SCH (06:02)
[2021-09-14 07:50] LABS: Hematocrit (blood only) 23.1 % (42-52); Hemoglobin 8.3 g/dL (14.0-18.0); Mean Corpuscular Hemoglobin 33.2 pg (25-34); Mean Corpuscular Hgb Conc 35.9 g/dL (32-36); Mean Corpuscular Volume 92.4 fL (80-100); Mean Platelet Volume 8.7 fL (7.4-10.4); Platelet Count 112 K/uL (130-400); RDW Coefficient of Variation 15.2 % (11.5-14.5); RDW Standard Deviation 52.2 fL (36.4-46.3); White Blood Count 8.64 K/uL (4.8-10.8)
[2021-09-14] MEDS ORDERED: METOPROLOL TARTRATE 1 MG/ML VIAL IV STA (07:59)
[2021-09-14 08:01] LABS: INR 1.2 (0.9-1.1)
[2021-09-14] MEDS: METOPROLOL TARTRATE 25 MG TAB PO SCH ×2 (08:07→20:43)
[2021-09-14 08:17] LABS: BUN Creatinine Ratio 17.9 (10-20); Calcium 8.4 mg/dl (8.5-10.1); Creatinine Clr Calc Pharmacy 76.8 ml/min; Est GFR (African American) 92.5 ml/min; Est GFR (Non-African American) 79.8 ml/min; Potassium 4.4 mmol/L (3.5-5.1)
[2021-09-14] MEDS: PANTOprazole 40 MG TAB PO SCH (08:37)
[2021-09-14] MEDS: MULTIVITAMIN TAB PO SCH (08:38)
[2021-09-14] MEDS: DOCUSATE SODIUM 100 MG CAP PO SCH ×2 (08:38→20:43)
--- NOTE | 2021-09-14 09:14 | Orthopedic Progress Note ---
Date of Service September 14, 2021 Assessment & Plan (1) Closed intertrochanteric fracture of right femur: S/p Right long trochanteric femoral nail hip (DOS 09/13/2021; Dr. 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 Needs evaluation from PT/OT for placement, anticipate inpatient rehab. Discussed w/ Dr. Carver Subjective Feels okay today, a little lethargic but better compared to yesterday. No pain at rest, has not gotten OOB yet. VSS. Review of Systems All systems reviewed & are unremarkable except as noted in HPI & below. Physical Exam General: Pleasant 86 y/o/m resting in bed. A little somnolent but interacting appropriately. RLE: Dressings C/D/I. Minimal tenderness over the incisions. No significant swelling/ecchymosis. Leg lengths equal. Knee and hip ROM guarded 2/2 pain. Distally N/V/I. Results & Data Results & Data Laboratory Results Laboratory Tests 09/14/21 09/14/21 09/14/21 07:24 07:24 07:24 WBC 8.64 Hgb 8.3 L Hct 23.1 L Plt Count 112 L PT 13.0 H INR 1.2 H Sodium 132 L Potassium 4.4 Chloride 96 L BUN 15 Creatinine 0.84 Glucose 123 H . Diagnostic Findings Post op femur XRs reviewed. Hardware stable. Expected post operative findings. PG Care Time/CCT Total # of Minutes Spent Total Time Spent with Patient: Total time spent is greater than 50% in coordination of care (as documented) at patient's floor/unit and/or counseling patient: Coding Level of Care Code 70098 Post Operative Follow-Up Diagnoses Closed intertrochanteric fracture of right femur S72.141A
[2021-09-14] MEDS: ENOXAPARIN INJ 40 MG/0.4 ML SYR SQ SCH (10:21)
[2021-09-14 12:26] LABS: Hematocrit (blood only) 24.3 % (42-52); Hemoglobin 8.6 g/dL (14.0-18.0); Mean Corpuscular Hemoglobin 33.1 pg (25-34); Mean Corpuscular Volume 93.5 fL (80-100); Mean Platelet Volume 8.6 fL (7.4-10.4); Platelet Count 140 K/uL (130-400); RDW Coefficient of Variation 15.4 % (11.5-14.5); RDW Standard Deviation 52.2 fL (36.4-46.3); White Blood Count 12.74 K/uL (4.8-10.8)
[2021-09-14 12:42] LABS: Mean Corpuscular Hgb Conc 35.4 g/dL (32-36)
--- NOTE | 2021-09-14 20:18 | Hospitalist Progress Note ---
Date of Service September 14, 2021 Assessment & Plan (1) Closed right hip fracture: Plan: -Comminuted and angulated intertrochanteric/subtrochanteric fracture of the right femur with medial displacement of the lesser trochanter and overlying soft tissue edema. -Orthopedics consulted, appreciate recommendations. -Patient takes warfarin daily for A. fib, INR today is 1.8. Will give 1 dose of vitamin K 2.5 mg tonight. -N.p.o. at midnight. -RCRI 0, 3.9% 30-day risk of , [place], cardiac arrest. On 09/13 p Right proximal femur fracture closed reduction and long cephalomedullary nail fixation (Right) On 09/14 patient is found to be in afib RVR. (2) Atrial fibrillation: Plan: Acute RVR, Atrial fibrillation -Permanent, on metoprolol and warfarin. -Currently a fib RVR -Will order IV metoprolol, will continue home regimen -will restart warfarin in AM. -On telemetry. (3) GERD (gastroesophageal reflux disease): Plan: -Chronic, stable. -Continue PPI. (4) Insomnia: Plan: -Takes Ativan 1 mg every evening, will continue this with continuous pulse oximetry while patient is also receiving narcotics for pain management. (5) Sleep apnea: Plan: -Wears 2L NC at night. (6) Acute blood loss anemia: Plan: hemoglobin dropped to below 9. will monitor likely secondary to iatrogenic blood loss Plan: -Admit to med/telemetry. -SCDs for DVT prophylaxis. -DNR/DNI. Admission and Anticipated Discharge Date Admission Date: September 12, 2021 Subjective Patient reports no new symptoms. His HR was elevated this AM. Review of Systems Review of Systems: All systems reviewed & are unremarkable except as noted in HPI & below Physical Exam Physical Exam: General: awake, alert, no apparent distress Head: Mild ecchymosis around the right temporal/orbital region with shallow laceration, otherwise normocephalic and atraumatic. ENT: PERRL, EOMI, no pharyngeal exudate, mucous membranes moist Chest: Clear to auscultation, on room air, no adventitious breath sounds, on 2L NC Cardiac: tachycardic, irregularly irregular rhythm, no murmur, no JVD, normal peripheral pulses, good capillary refill Abdominal: NABS x 4 quadrants, soft, nontender to palpation, no rebound, guarding or tenderness Extremities: Pulses and sensation intact. Ecchymosis of the dorsal aspect of the right hand Psych: Normal mood and affect Neuro: AAO x 3, right hip ROM limited due to pain, otherwise strength intact bilaterally and rated 5/5, no motor deficits, speech is clear, no peripheral sensory deficits Skin: Bilateral lower extremity skin changes consistent with peripheral venous insufficiency Results & Data Results & Data ([facility]) Vital Signs (Past 12 Hours) Vital Signs Temp Pulse Pulse Resp BP Pulse Ox 09/14/21 19:09 36.9 C 98 H 18 109/73 99 09/14/21 15:13 36.5 C 103 H 16 105/65 99 09/14/21 15:01 96 H 09/14/21 11:16 36.4 C L 103 H 16 102/54 L 92 PG Care Time/CCT Total # of Minutes Spent Total Time Spent with Patient: Total time spent is greater than 50% in coordination of care (as documented) at patient's floor/unit and/or counseling patient: Coding Level of Care Code 15041 Subseq Hosp Care Lvl 3 Diagnoses Closed right hip fracture S72.001A Encounter type: initial encounter Atrial fibrillation I48.21 Atrial fibrillation type: permanent GERD (gastroesophageal reflux disease) K21.9 Esophagitis presence: esophagitis presence not specified Insomnia G47.00 Insomnia type: unspecified Sleep apnea G47.30 Sleep apnea type: unspecified type Acute blood loss anemia D62 Time Spent (min) 35 (1) Insomnia Insomnia type: unspecified Qualified Code(s): G47.00 - Insomnia, unspecified (2) Sleep apnea Sleep apnea type: unspecified type Qualified Code(s): G47.30 - Sleep apnea, unspecified (3) Atrial fibrillation Atrial fibrillation type: permanent Qualified Code(s): I48.21 - Permanent atrial fibrillation (4) GERD (gastroesophageal reflux disease) Esophagitis presence: esophagitis presence not specified Qualified Code(s): K21.9 - Gastro-esophageal reflux disease without esophagitis (5) Closed right hip fracture Encounter type: initial encounter Qualified Code(s): S72.001A - Fracture of unspecified part of neck of right femur, initial encounter for closed fracture
[2021-09-14] MEDS: SENNA 8.6 MG TAB PO SCH (20:43)
[2021-09-14] MEDS: LORazepam 1 MG TAB PO PRN (22:01)
[2021-09-15] MEDS ORDERED: LOPERAMIDE HCL 2 MG CAP PO STA (00:56)
[2021-09-15 08:40] LABS: Hematocrit (blood only) 22.9 % (42-52); Hemoglobin 8.1 g/dL (14.0-18.0); Mean Corpuscular Hemoglobin 32.5 pg (25-34); Mean Corpuscular Hgb Conc 35.4 g/dL (32-36); Mean Platelet Volume 8.8 fL (7.4-10.4); Platelet Count 118 K/uL (130-400); RDW Coefficient of Variation 15.4 % (11.5-14.5); RDW Standard Deviation 52.5 fL (36.4-46.3); Red Blood Count 2.49 M/uL (4.7-6.1); White Blood Count 8.43 K/uL (4.8-10.8)
[2021-09-15 08:49] LABS: INR 1.2 (0.9-1.1); Prothrombin Time 12.2 Seconds (9.0-12.0)
[2021-09-15] MEDS: DOCUSATE SODIUM 100 MG CAP PO SCH ×2 (09:01→21:15)
[2021-09-15] MEDS: METOPROLOL TARTRATE 25 MG TAB PO SCH ×3 (09:04→21:15)
[2021-09-15] MEDS: MULTIVITAMIN TAB PO SCH (09:05)
[2021-09-15] MEDS: PANTOprazole 40 MG TAB PO SCH (09:06)
[2021-09-15] MEDS: ENOXAPARIN INJ 40 MG/0.4 ML SYR SQ SCH (09:07)
--- NOTE | 2021-09-15 10:17 | Orthopedic Progress Note ---
Date of Service September 15, 2021 Assessment & Plan (1) Closed intertrochanteric fracture of right femur: S/p Right long trochanteric femoral nail hip (DOS 09/13/2021; Dr. Carver) -Confusion presenting on POD2: Hospitalists evaluating. H/H and vitals stable. H&H expected to reach amos postop day 23. Continue to monitor -Hip abduction pillow found on the patient today. Removed. He has no posterior hip precautions and does not need the abduction pillow. -Pain control: Tylenol, oxycodone/dilaudid prn -PT/OT ordered; ok for OOB w/ assistance, WBAT to RLE w/ crutches or walker -VTE: Bridged with Lovenox. Warfarin restarted. Goal per hospitalist team. Disposition: Remain inpatient for monitoring and until confusion is resolved. Needs evaluation from PT/OT for placement, anticipate inpatient rehab. Call with questions. Subjective at the bedside this morning reports she received several confused text messages, so she came in. Nurse report has been relatively calm. There is been disorientation. He has not been out of bed. Review of Systems All systems reviewed & are unremarkable except as noted in HPI & below. Physical Exam Resting calmly. Arousable. Does answer simple questions. Right lower extremity: The dressings are clean dry and intact with minimal drainage visible. His thigh is soft and compressible. He does demonstrate motor to dorsiflexion/plantarflexion/EHL. Constitutional WD/WN, vitals as above no acute distress and not intoxicated appearing Respiratory normal respiratory effort; no labored breathing Cardiovascular Extremities: normal capillary refill Results & Data Results & Data Laboratory Results . Diagnostic Findings Postop radiographs show no implant complications PG Care Time/CCT Total # of Minutes Spent Total Time Spent with Patient: Total time spent is greater than 50% in coordination of care (as documented) at patient's floor/unit and/or counseling patient: Coding Level of Care Code 54145 Post Operative Follow-Up Diagnoses Closed intertrochanteric fracture of right femur S72.141A
[2021-09-15] MEDS: WARFARIN SOD 10 MG TAB PO SCH (11:35)
--- NOTE | 2021-09-15 20:21 | CT Scan Report ---
CT head/brain wo con CLINICAL HISTORY: 86 years-old Male with lethargy/ headache. Acute headache TECHNIQUE: Multiple axial CT images of the head were obtained without contrast. A dose lowering tech nique was utilized adhering to the principles of ALARA. CT DOSE: 614.27 mGy.cm COMPARISON: Head CT 09/12/2021 FINDINGS: No acute intracranial hemorrhage, midline shift, intracranial mass, hydrocephalus, territorial ischem ia or abnormal extra-axial collection. Age-related involutional changes. White matter hypodensities s uggest chronic microvascular ischemic disease. Cerebral vascular calcifications. The calvarium is intact. Prior bilateral lens repair. The paranasal sinuses, mastoid air cells, and m iddle ear cavities are clear. IMPRESSION: No acute intracranial abnormality. ACT 112: Negative or not required by law. The above report was generated using voice recognition software. It may contain grammatical, syntax o r spelling errors. Electronically signed by: Hank Hussein M.D. 09/15/2021 8:20 PM
--- NOTE | 2021-09-15 20:44 | Hospitalist Progress Note ---
Date of Service September 15, 2021 Assessment & Plan (1) Closed right hip fracture: Plan: -Comminuted and angulated intertrochanteric/subtrochanteric fracture of the right femur with medial displacement of the lesser trochanter and overlying soft tissue edema. -Orthopedics consulted, appreciate recommendations. -Patient takes warfarin daily for A. fib, INR today is 1.8. Will give 1 dose of vitamin K 2.5 mg tonight. -N.p.o. at midnight. -RCRI 0, 3.9% 30-day risk of , [place], cardiac arrest. On 09/13 p Right proximal femur fracture closed reduction and long cephalomedullary nail fixation (Right) On 09/14 patient is found to be in afib RVR. On 09/15 Patient is having hospital acquired delirium. family requested head ct A fib is rate controlled. will limit lorazepam as much as possible. (2) Atrial fibrillation: Plan: Acute RVR, Atrial fibrillation -Permanent, on metoprolol and warfarin. -Currently a fib RVR -Will order IV metoprolol, will continue home regimen -restarted warfarin in AM. -On telemetry. (3) GERD (gastroesophageal reflux disease): Plan: -Chronic, stable. -Continue PPI. (4) Insomnia: Plan: -Takes Ativan 1 mg every evening at home, hoewer due to his delirium, will try to limit his ativan. (5) Sleep apnea: Plan: -Wears 2L NC at night. (6) Acute blood loss anemia: Plan: hemoglobin dropped to below 9. will monitor likely secondary to iatrogenic blood loss Plan: -Admit to med/telemetry. -SCDs for DVT prophylaxis. -DNR/DNI. Admission and Anticipated Discharge Date Admission Date: September 12, 2021 Subjective 86 yo male is confused and sending "weird texts" to his . is at bedside. Review of Systems Review of Systems: All systems reviewed & are unremarkable except as noted in HPI & below Physical Exam Physical Exam: General: awake, alert, no apparent distress Head: Mild ecchymosis around the right temporal/orbital region with shallow laceration, otherwise normocephalic and atraumatic. ENT: PERRL, EOMI, no pharyngeal exudate, mucous membranes moist Chest: Clear to auscultation, on room air, no adventitious breath sounds, on 2L NC Cardiac: tachycardic, irregularly irregular rhythm, no murmur, no JVD, normal peripheral pulses, good capillary refill Abdominal: NABS x 4 quadrants, soft, nontender to palpation, no rebound, guarding or tenderness Extremities: Pulses and sensation intact. Ecchymosis of the dorsal aspect of the right hand Psych: Normal mood and affect Neuro: AAO x 3, right hip ROM limited due to pain, otherwise strength intact bilaterally and rated 5/5, no motor deficits, speech is clear, no peripheral sensory deficits Skin: Bilateral lower extremity skin changes consistent with peripheral venous insufficiency Results & Data Results & Data ([facility]) Vital Signs (Past 12 Hours) Vital Signs Temp Pulse Pulse Resp BP Pulse Ox 09/15/21 19:21 36.7 C 108 H 18 103/60 93 09/15/21 15:54 102 H 09/15/21 15:00 36.6 C 99 H 20 110/69 100 09/15/21 11:02 36.8 C 106 H 16 120/71 100 09/15/21 10:23 63 100/66 PG Care Time/CCT Total # of Minutes Spent Total Time Spent with Patient: Total time spent is greater than 50% in coordination of care (as documented) at patient's floor/unit and/or counseling patient: Coding Level of Care Code 91740 Subseq Hosp Care Lvl 3 Diagnoses Closed right hip fracture S72.001A Encounter type: initial encounter Atrial fibrillation I48.21 Atrial fibrillation type: permanent GERD (gastroesophageal reflux disease) K21.9 Esophagitis presence: esophagitis presence not specified Insomnia G47.00 Insomnia type: unspecified Sleep apnea G47.30 Sleep apnea type: unspecified type Acute blood loss anemia D62 Time Spent (min) 35 (1) Insomnia Insomnia type: unspecified Qualified Code(s): G47.00 - Insomnia, unspecified (2) Sleep apnea Sleep apnea type: unspecified type Qualified Code(s): G47.30 - Sleep apnea, unspecified (3) Atrial fibrillation Atrial fibrillation type: permanent Qualified Code(s): I48.21 - Permanent atrial fibrillation (4) GERD (gastroesophageal reflux disease) Esophagitis presence: esophagitis presence not specified Qualified Code(s): K21.9 - Gastro-esophageal reflux disease without esophagitis (5) Closed right hip fracture Encounter type: initial encounter Qualified Code(s): S72.001A - Fracture of unspecified part of neck of right femur, initial encounter for closed fracture
[2021-09-15] MEDS: SENNA 8.6 MG TAB PO SCH (21:16)
[2021-09-15] MEDS: LORazepam 1 MG TAB PO PRN (23:58)
[2021-09-16] MEDS: LORazepam 1 MG TAB PO PRN ×2 (00:26→21:55)
[2021-09-16 07:42] LABS: INR 1.2 (0.9-1.1); Prothrombin Time 12.2 Seconds (9.0-12.0)
[2021-09-16 07:46] LABS: Hematocrit (blood only) 22.4 % (42-52); Mean Corpuscular Hemoglobin 33.1 pg (25-34); Mean Corpuscular Hgb Conc 35.7 g/dL (32-36); Mean Corpuscular Volume 92.6 fL (80-100); Mean Platelet Volume 8.9 fL (7.4-10.4); Platelet Count 129 K/uL (130-400); RDW Coefficient of Variation 15.2 % (11.5-14.5); RDW Standard Deviation 51.9 fL (36.4-46.3); Red Blood Count 2.42 M/uL (4.7-6.1)
[2021-09-16] MEDS: DOCUSATE SODIUM 100 MG CAP PO SCH ×2 (08:43→20:55)
[2021-09-16] MEDS: MULTIVITAMIN TAB PO SCH (08:43)
[2021-09-16] MEDS: PANTOprazole 40 MG TAB PO SCH (08:43)
[2021-09-16] MEDS: METOPROLOL TARTRATE 25 MG TAB PO SCH ×2 (08:43→20:55)
[2021-09-16] MEDS ORDERED: oxyCODONE HCL IR 5 MG TAB (IMMEDIATE RELEASE) PO PRN (08:56)
[2021-09-16 10:01] LABS: Base Excess VBG 4.2 mEq/L; HCO3 VBG 30 mmol/L; PCO2 VBG 50 mmHg (38-50); PO2 VBG 25 mmHg; pH VBG 7.39 (7.36-7.41)
[2021-09-16 10:02] LABS: Oxygen Saturation VBG < 60.0 %
[2021-09-16] MEDS: ENOXAPARIN INJ 40 MG/0.4 ML SYR SQ SCH (10:11)
[2021-09-16] MEDS: ACETAMINOPHEN 500 MG TAB PO SCH ×3 (10:12→20:55)
[2021-09-16 10:23] LABS: BUN Creatinine Ratio 28.9 (10-20); Calcium 8.4 mg/dl (8.5-10.1); Creatinine Clr Calc Pharmacy 77.8 ml/min; Est GFR (Non-African American) 80.2 ml/min; Magnesium 1.6 mg/dl (1.7-2.4); Potassium 3.3 mmol/L (3.5-5.1)
[2021-09-16] MEDS ORDERED: POTASSIUM CHLORIDE CRTAB 20 MEQ TABCR PO STA (10:34)
[2021-09-16] MEDS ORDERED: MAGNESIUM SULFATE / D5W 1 GM/100 ML BAG IV ONE (10:45)
--- NOTE | 2021-09-16 15:02 | XRay Report ---
XR chest 1V portable CLINICAL HISTORY: Left basilar rales. COMPARISON STUDY: 09/12/2021 TECHNIQUE: 1 view of the chest FINDINGS: Single frontal view of the chest demonstrates the heart to again be enlarged. Hazy increased density is seen at the left lung base on this portable chest radiograph. Pleural fluid layering in the sorting livestock worker ior gutter could have this appearance. Early infiltrate cannot be excluded. Follow-up PA and lateral radiographs would be the study of choice for further evaluation. The right hemithorax is clear. There is no evidence for right pleural effusion. There is no evidence for vascular congestion. There is no acute osseous pathology. IMPRESSION: 1. Hazy increased density is now seen at the left lung base as described above. Follow-up PA and late ral radiographs are recommended for further evaluation. ACT 112: Negative or not required by law. Electronically signed by: Sagar Michel M.D. 09/16/2021 3:01 PM
--- NOTE | 2021-09-16 15:08 | XRay Report ---
KUB HISTORY: Acute generalized abdominal pain with possible fecal impaction abdominal distension; impact ion? COMPARISON: Chest radiograph 09/12/2021 FINDINGS: Moderate to extensive fecal retention. Nonobstructive bowel gas pattern. Renal shadows are obscured by bowel gas. No renal calculi. No ureteral calculi. No pneumoperitoneum or pneumatosis. De generative changes of the spine, pelvis and hips. ORIF hardware of the right proximal femur. No fract ure. IMPRESSION: 1. Nonobstructive bowel gas pattern. 2. Moderate to extensive fecal retention. ACT 112: Negative or not required by law. The above report was generated using voice recognition software. It may contain grammatical, syntax o r spelling errors. Electronically signed by: Hank Hussein M.D. 09/16/2021 3:07 PM
[2021-09-16] MEDS ORDERED: bisacodyL 5 MG TABEC PO ONE (15:44)
[2021-09-16] MEDS: WARFARIN SOD 10 MG TAB PO SCH (15:54)
--- NOTE | 2021-09-16 19:19 | Hospitalist Progress Note ---
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 Appreciate ortho assistance. Doing well from orthopedic standpoint. DVT proph - coumadin with lovenox bridge. Post-op course complicated by #2, rapid a.fib, and acute blood loss anemia. 25-OH vit D level = 49. Cont PT/OT. Needs rehab post-d/c. (2) Toxic encephalopathy: Plan: 2nd anesthesia, pain meds, etc. Resolved. CT head x 2 this admission negative. I can't rule out a component of post-concussive state as he struck his head the day of his R hip fracture. (3) Acute blood loss anemia: Plan: Hb at admission = 10.7. Hb today = 8. Check ferritin, B12, folate in am to be complete. Plan for IV venofer in am. If Hb drops to 7.5 or less then Tx PRBCs. CBC am. (4) GERD (gastroesophageal reflux disease): Plan: Cont PPI. (5) Atrial fibrillation: Plan: Rates controlled with metoprolol BID. Coumadin resumed 09/15 at 10mg/day. INR am. Lovenox 40mg daily while awaiting INR to become therapeutic. (6) HTN (hypertension): Plan: Controlled with monotherapy (metoprolol BID). (7) BPH w urinary obs/LUTS: Plan: Lauren in place. Patient is not on alpha marshall at baseline. Attempt to remove lauren tomorrow. (8) Sleep apnea: (9) Hypokalemia: Plan: Replace with PO KCL. Repeat BMP am. Replace low mag. (10) Hypomagnesemia: Plan: Replace with IV mag. Repeat level am. Replace low K. (11) Hyponatremia: Plan: Na 133 at admission. Today = 132. Reset osmostat ? other? Consider serum osm, urine osm, urine Na. (12) Thrombocytopenia: Plan: Check b12/folate in am. Could also be due to consumption in setting of bleeding from hip fracture. CBC in am. (13) DVT prophylaxis: Plan: lovenox 40mg daily while awaiting INR to become therapeutic; INR goal 2-3. daily INR. cont coumadin - 10mg daily. (14) History of subdural hematoma: Plan: 12/2021. 2nd to fall with head trauma. no surgical intervention needed. if patient continues to have head injuries (did strike the head with the fall that led to his R hip Fx) I mentioned to his that we should strongly look at risks/benefits of ongoing coumadin usage (15) Constipation: Plan: distended on exam today. KUB x-ray obtained - COPIOUS stool. dulcolax x 1. then cont senna + miralax for bowel maintenance. suspect watery stool overnight was "overflow" stooling due to constipation. (16) Chronic cough: Plan: GERD vs bronchitis vs postnasal drip syndrome are the top 3 etiologies for chronic cough. he is not on LORI inhibitor. already treating GERD with PPI. thus, etiology? obtained cxr today due to LLL rales - there is a developing infiltrate in that region. will use incentive samantha for now and re-eval in am to ensure no developing pneumonia. Plan: rehab needed post-d/c extensively updated by phone this evening complex care coordination today - bedside visit, interpretation of x-rays, changes in pain meds, call to , etc- 65 minutes Admission and Anticipated Discharge Date Admission Date: September 12, 2021 Subjective patient very awake & alert during my visit today wasn't sure on the day of the week, but knew it was September 2021 and that he was at [facility] he denied any hip pain at rest, but has considerable pain with activity he has a chronic cough - thinks he has seen specialists for it (pulmonary vs ENT) usually productive - white or yellow sputum denies dyspnea today, however had 2-3 loose, watery BMs overnight but none since he feels bloated but denies nausea appetite is fair tele - a.fib, rates acceptable Review of Systems Review of Systems: gen - no fever cv - no cp, no orthopnea pulm - no dyspnea or [place] GI - no abd pain but feels bloated Physical Exam Physical Exam: gen - awake, alert, pleasant; NAD neck - no JVD mouth - MMM heart - irregularly irregular, s1 s2, no murmur lungs - L basilar rales, o/w CTA b/l abd - distended, BS+, NT, no HSM ext - right thigh edema, pulses b/l feet 2+ musculo - right thigh dressings intact skin - bruise R oriental orthodox of head Results & Data Results & Data ([facility]) Vital Signs (Past 12 Hours) Vital Signs Temp Pulse Pulse Resp BP Pulse Ox 09/16/21 15:00 36.6 C 87 20 92/60 L 95 09/16/21 14:53 81 09/16/21 11:16 36.5 C 87 16 99/65 L 99 09/16/21 08:17 36.8 C 79 18 100/66 97 09/16/21 07:30 94 H Laboratory Results Laboratory Results - last 24 hr 09/16/21 09/16/21 09/16/21 07:19 07:19 09:47 WBC 7.50 RBC 2.42 L Hgb 8.0 L Hct 22.4 L MCV 92.6 MCH 33.1 MCHC 35.7 RDW Std Deviation 51.9 H RDW Coeff of Pa 15.2 H Plt Count 129 L MPV 8.9 PT 12.2 H INR 1.2 H VBG pH VBG pCO2 VBG pO2 VBG HCO3 VBG O2 Saturation VBG Base Excess Barometric Pressure Sodium 132 L Potassium 3.3 L Chloride 96 L Carbon Dioxide 30 Anion Gap 6 BUN 24 H Creatinine 0.83 Est Cr Clr Drug Dosing 77.8 Est GFR ( Amer) 93.0 Est GFR (Non-Af Amer) 80.2 BUN/Creatinine Ratio 28.9 H Glucose 137 H Calcium 8.4 L Magnesium 1.6 L TSH 09/16/21 09/16/21 09:47 09:47 WBC RBC Hgb Hct MCV MCH MCHC RDW Std Deviation RDW Coeff of Pa Plt Count MPV PT INR VBG pH 7.39 VBG pCO2 50 VBG pO2 25 VBG HCO3 30 VBG O2 Saturation < 60.0 VBG Base Excess 4.2 Barometric Pressure 723.4 Sodium Potassium Chloride Carbon Dioxide Anion Gap BUN Creatinine Est Cr Clr Drug Dosing Est GFR ( Amer) Est GFR (Non-Af Amer) BUN/Creatinine Ratio Glucose Calcium Magnesium TSH 0.941 PG Care Time/CCT Total # of Minutes Spent Total Time Spent with Patient: Total time spent is greater than 50% in coordination of care (as documented) at patient's floor/unit and/or counseling patient: Prolonged Care Time Prolonged Care Time: Yes 65 Coding Level of Care Code 44958 Subseq Hosp Care Lvl 3 (25 - SIGNIFICANT, SEPARATELY IDENTIFIABLE ) Diagnoses 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 M80.059A Acute blood loss anemia D62 GERD (gastroesophageal reflux disease) K21.9 Esophagitis presence: esophagitis presence not specified Atrial fibrillation I48.21 Atrial fibrillation type: permanent HTN (hypertension) I10 BPH w urinary obs/LUTS N40.1; N13.8 Sleep apnea G47.30 Sleep apnea type: unspecified type Toxic encephalopathy G92.9 Hypokalemia E87.6 Hypomagnesemia E83.42 DVT prophylaxis Z29.9 Hyponatremia E87.1 Thrombocytopenia D69.6 History of subdural hematoma Z86.79 Constipation K59.00 Chronic cough R05.3 Additional Codes Prolonged Care Time - Prolonged Care Time: Yes ([id number]) Time Spent (min) 65 (1) GERD (gastroesophageal reflux disease) Esophagitis presence: esophagitis presence not specified Qualified Code(s): K21.9 - Gastro-esophageal reflux disease without esophagitis (2) Atrial fibrillation Atrial fibrillation type: permanent Qualified Code(s): I48.21 - Permanent atrial fibrillation (3) Sleep apnea Sleep apnea type: unspecified type Qualified Code(s): G47.30 - Sleep apnea, unspecified
[2021-09-16] MEDS: SENNA 8.6 MG TAB PO SCH (20:54)
[2021-09-17 06:45] LABS: INR 1.3 (0.9-1.1); Prothrombin Time 13.7 Seconds (9.0-12.0)
[2021-09-17 07:04] LABS: BUN Creatinine Ratio 32.8 (10-20); Calcium 8.1 mg/dl (8.5-10.1); Creatinine Clr Calc Pharmacy 96.3 ml/min; Est GFR (African American) 101.5 ml/min; Est GFR (Non-African American) 87.6 ml/min; Magnesium 1.7 mg/dl (1.7-2.4); Potassium 3.5 mmol/L (3.5-5.1)
[2021-09-17 07:21] LABS: Ferritin 272.1 ng/ml (8-388)
[2021-09-17 07:26] LABS: Folate (Folic Acid) 8.48 ng/ml (>5.38)
[2021-09-17 07:51] LABS: Hemoglobin 7.3 g/dL (14.0-18.0); Mean Corpuscular Hemoglobin 33.3 pg (25-34); Mean Corpuscular Hgb Conc 36.5 g/dL (32-36); Mean Corpuscular Volume 91.3 fL (80-100); Mean Platelet Volume 9.2 fL (7.4-10.4); Platelet Count 147 K/uL (130-400); RDW Coefficient of Variation 15.4 % (11.5-14.5); RDW Standard Deviation 51.7 fL (36.4-46.3); Red Blood Count 2.19 M/uL (4.7-6.1); White Blood Count 6.06 K/uL (4.8-10.8)
[2021-09-17] MEDS: CYANOCOBALAMIN 1000 MCG/ML VIAL IM SCH (08:51)
[2021-09-17] MEDS: ACETAMINOPHEN 500 MG TAB PO SCH ×3 (08:51→20:26)
[2021-09-17] MEDS: DOCUSATE SODIUM 100 MG CAP PO SCH ×2 (08:51→20:25)
[2021-09-17] MEDS: METOPROLOL TARTRATE 25 MG TAB PO SCH ×2 (08:52→20:25)
[2021-09-17] MEDS: POTASSIUM CHLORIDE CRTAB 20 MEQ TABCR PO SCH (08:52)
[2021-09-17] MEDS: MULTIVITAMIN TAB PO SCH (08:52)
[2021-09-17] MEDS: PANTOprazole 40 MG TAB PO SCH (08:52)
[2021-09-17] MEDS ORDERED: IRON SUCROSE 300 MG in SODIUM CHLORIDE 0.9% 250 ML IV ONE (09:00)
[2021-09-17] MEDS ORDERED: MAGNESIUM SULFATE / D5W 1 GM/100 ML BAG IV ONE (09:00)
[2021-09-17] MEDS ORDERED: SODIUM CHLORIDE 0.9% 250 ML IV PRN (10:01)
[2021-09-17] MEDS: ENOXAPARIN INJ 40 MG/0.4 ML SYR SQ SCH (12:17)
--- NOTE | 2021-09-17 12:54 | Hospitalist Progress Note ---
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 Appreciate ortho assistance. Doing well from orthopedic standpoint although from therapy standpoint his progress has been limited because of pain issues. DVT proph - coumadin with lovenox bridge. Post-op course complicated by #2, rapid a.fib, and acute blood loss anemia. 25-OH vit D level = 49. Cont PT/OT. Needs rehab post-d/c. Good candidate for rehab - is motivated, has complex medical issues that require frequent physician intervention, etc (2) Toxic encephalopathy: Plan: 2nd anesthesia, pain meds, etc. Resolved. CT head x 2 this admission negative. I can't rule out a component of post-concussive state as he struck his head the day of his R hip fracture. (3) Acute blood loss anemia: Plan: Hb at admission = 10.7. Hb today = 7.3. B12 def - see below. Folate wnl. IV venofer 300mg x 1 today. Also plan for 1 unit PRBCs today over 3 hours. Check fecal occult to ensure the downtrending H/H is not from GI blood loss. Replace low B12. CBC am. Probably will give IV venofer again tomorrow. (4) GERD (gastroesophageal reflux disease): Plan: Cont PPI. (5) Atrial fibrillation: Plan: Rates with fair control with metoprolol BID. Anemia likely making a.fib rates worse. If he needs additional rate control would use digoxin. Coumadin resumed 09/15 at 10mg/day. INR 1.3 today; repeat AM. Lovenox 40mg daily while awaiting INR to become therapeutic. (6) HTN (hypertension): Plan: Controlled with monotherapy (metoprolol BID). (7) BPH w urinary obs/LUTS: Plan: Lauren in place. Patient is not on alpha marshall at baseline. Attempt to remove lauren soon; high risk of CAUTI. (8) Sleep apnea: (9) Hypokalemia: Plan: Replaced and resolved. Mag wnl. BMP in am. (10) Hypomagnesemia: Plan: Replaced and resolved. (11) Hyponatremia: Plan: Na 133 at admission. Today = 131. Reset osmostat ? other? Check serum osm, urine osm, urine Na. (12) Thrombocytopenia: Plan: Pt has b12 def - this could be contributing. folate wnl. Could also be due to consumption in setting of bleeding from hip fracture. CBC in am for stability. (13) DVT prophylaxis: Plan: lovenox 40mg daily while awaiting INR to become therapeutic; INR goal 2-3. daily INR. cont coumadin - 10mg daily. (14) History of subdural hematoma: Plan: 12/2021. 2nd to fall with head trauma. no surgical intervention needed. if patient continues to have head injuries (did strike the head with the fall that led to his R hip Fx) I mentioned to his that we should strongly look at risks/benefits of ongoing coumadin usage (15) Constipation: Plan: continues to remain distended on exam today. KUB x-ray obtained 09/16/21 - COPIOUS stool. cont senna. add fiber daily. miralax prn. suspect watery stool was "overflow" stooling due to constipation. c diff negative. checking fecal occult. (16) Chronic cough: Plan: GERD vs bronchitis vs postnasal drip syndrome are the top 3 etiologies for chr onic cough. he is not on LORI inhibitor. already treating GERD with PPI. thus, etiology? still with LLL rales - no signs of pneumonia clinically. cont to follow carefully. incengive samantha. flutter. (17) Vitamin B12 deficiency: Plan: replace IM B12 1000mcg daily x 5 days then PO replacement thereafter Plan: rehab needed post-d/c extensively updated by phone 09/16/21 Admission and Anticipated Discharge Date Admission Date: September 12, 2021 Subjective patient was working with PT when I attempted to see him therapist reported that he really cannot weight bear on the RLE due to pain I came back after the PT session - patient stated he had another bowel movement in the bed he blamed this on the inability to "get up" to go to the bathroom he still has lauren in place appetite fair chronic cough unchanged; no worse than prior does get a little short of breath w/ activity - states he has this at home and today is no different than baseline we discussed the blood transfusion, iron infusion, etc Review of Systems Review of Systems: gen - weak, fatigue; no fever cv - no cp, no orthopnea pulm - no dyspnea at rest GI - no N/V; bloating remains; having liquid stools; c diff neg musculo - significant right hip/thigh pain w/ any movement Physical Exam Physical Exam: gen - awake, alert, pleasant; NAD neck - no JVD mouth - MMM, ulceration posterior throat heart - irregularly irregular, s1 s2, borderline tachy, no murmur lungs - L basilar rales unchanged, o/w CTA b/l abd - distended - unchanged from 09/16/21, BS+, NT, no HSM ext - right thigh edema, pulses b/l feet 2+ musculo - right thigh dressings intact skin - bruise R rastafarian of head Results & Data Results & Data ([facility]) Vital Signs (Past 12 Hours) Vital Signs Temp Pulse Pulse Resp BP BP BP 09/17/21 12:45 36.6 C 84 18 109/73 09/17/21 12:21 37 C 123 H 16 117/58 L 09/17/21 11:18 36.7 C 82 18 111/69 09/17/21 07:16 36.5 C 81 16 119/70 09/17/21 02:25 36.9 C 73 18 116/73 Pulse Ox 09/17/21 12:45 98 09/17/21 12:21 09/17/21 11:18 99 09/17/21 07:16 100 09/17/21 02:25 100 Laboratory Results Laboratory Results - last 24 hr 09/17/21 09/17/21 09/17/21 02:50 05:51 05:51 WBC 6.06 RBC 2.19 L Hgb 7.3 L Hct 20.0 L* MCV 91.3 MCH 33.3 MCHC 36.5 H RDW Std Deviation 51.7 H RDW Coeff of Pa 15.4 H Plt Count 147 MPV 9.2 PT 13.7 H INR 1.3 H Sodium Potassium Chloride Carbon Dioxide Anion Gap BUN Creatinine Est Cr Clr Drug Dosing Est GFR ( Amer) Est GFR (Non-Af Amer) BUN/Creatinine Ratio Glucose Calcium Magnesium Ferritin Vitamin B12 Folate Stl C. diff Tox B Gene Negative Cdiff Gene Blood Type Antibody Screen Crossmatch 09/17/21 09/17/21 09/17/21 05:51 05:51 10:06 WBC RBC Hgb Hct MCV MCH MCHC RDW Std Deviation RDW Coeff of Pa Plt Count MPV PT INR Sodium 131 L Potassium 3.5 Chloride 96 L Carbon Dioxide 30 Anion Gap 5 BUN 22 Creatinine 0.67 Est Cr Clr Drug Dosing 96.3 Est GFR ( Amer) 101.5 Est GFR (Non-Af Amer) 87.6 BUN/Creatinine Ratio 32.8 H Glucose 114 H Calcium 8.1 L Magnesium 1.7 Ferritin 272.1 Vitamin B12 176 L Folate 8.48 Stl C. 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 (1) GERD (gastroesophageal reflux disease) Esophagitis presence: esophagitis presence not specified Qualified Code(s): K21.9 - Gastro-esophageal reflux disease without esophagitis (2) Atrial fibrillation Atrial fibrillation type: permanent Qualified Code(s): I48.21 - Permanent atrial fibrillation (3) Sleep apnea Sleep apnea type: unspecified type Qualified Code(s): G47.30 - Sleep apnea, unspecified
[2021-09-17] MEDS: WARFARIN SOD 10 MG TAB PO SCH (15:32)
[2021-09-17] MEDS: SENNA 8.6 MG TAB PO SCH (20:25)
[2021-09-17] MEDS: LORazepam 1 MG TAB PO PRN (21:41)
[2021-09-18 05:56] LABS: Hematocrit (blood only) 24.6 % (42-52); Hemoglobin 8.6 g/dL (14.0-18.0); Mean Corpuscular Hemoglobin 32.5 pg (25-34); Mean Corpuscular Volume 92.8 fL (80-100); Mean Platelet Volume 8.9 fL (7.4-10.4); Platelet Count 150 K/uL (130-400); RDW Coefficient of Variation 15.2 % (11.5-14.5); Red Blood Count 2.65 M/uL (4.7-6.1); White Blood Count 5.79 K/uL (4.8-10.8)
[2021-09-18 06:10] LABS: INR 1.6 (0.9-1.1); Prothrombin Time 16.6 Seconds (9.0-12.0)
[2021-09-18 06:20] LABS: BUN Creatinine Ratio 23.5 (10-20); Calcium 8.1 mg/dl (8.5-10.1); Creatinine Clr Calc Pharmacy 94.9 ml/min; Est GFR (African American) 100.9 ml/min; Est GFR (Non-African American) 87.1 ml/min; Potassium 3.7 mmol/L (3.5-5.1)
[2021-09-18] MEDS ORDERED: IRON SUCROSE 300 MG in SODIUM CHLORIDE 0.9% 250 ML IV ONE (08:15)
[2021-09-18] MEDS: METOPROLOL TARTRATE 25 MG TAB PO SCH ×2 (09:05→21:38)
[2021-09-18] MEDS: ACETAMINOPHEN 500 MG TAB PO SCH ×3 (09:05→21:37)
[2021-09-18] MEDS: SODIUM CHLORIDE 1 GM TABLET PO SCH (09:05)
[2021-09-18] MEDS: MULTIVITAMIN TAB PO SCH (09:05)
[2021-09-18] MEDS: DOCUSATE SODIUM 100 MG CAP PO SCH ×2 (09:05→21:38)
[2021-09-18] MEDS: POTASSIUM CHLORIDE CRTAB 20 MEQ TABCR PO SCH (09:06)
[2021-09-18] MEDS: CALCIUM POLYCARBOPHIL 625MG TAB PO SCH (09:06)
[2021-09-18] MEDS: ENOXAPARIN INJ 40 MG/0.4 ML SYR SQ SCH (09:06)
[2021-09-18] MEDS: CYANOCOBALAMIN 1000 MCG/ML VIAL IM SCH (09:06)
[2021-09-18] MEDS: PANTOprazole 40 MG TAB PO SCH (09:06)
--- NOTE | 2021-09-18 15:03 | XRay Report ---
XR chest 1V portable CLINICAL HISTORY: LLL infiltrate, interval change COMPARISON STUDY: Chest radiograph September 16, 2021. 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 There is mild cardiomegaly withou t evidence for pulmonary edema. No pneumothorax or pleural effusion is present. Minimal left basilar opacity has improved. IMPRESSION: 1. Interval improvement in left basilar opacity. 2. Cardiomegaly. No evidence for pulmonary edema. ACT 112: Negative or not required by law. Electronically signed by: Brandin Brooks M.D. 09/18/2021 3:00 PM
[2021-09-18] MEDS: WARFARIN SOD 10 MG TAB PO SCH (15:15)
--- NOTE | 2021-09-18 19:33 | Hospitalist Progress Note ---
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 Appreciate ortho assistance. Doing better overall and mobility is improving. Pain relatively controlled especially at rest. DVT proph - coumadin with lovenox bridge. INR 1.6 today. Post-op course complicated by #2, rapid a.fib, and acute blood loss anemia. 25-OH vit D level = 49. Cont PT/OT. Accepted at [facility] - can d/c there tomorrow if all issues are stable. d/c lauren today. (2) Toxic encephalopathy: Plan: 2nd anesthesia, pain meds, etc. Resolved. CT head x 2 this admission negative. I can't rule out a component of post-concussive state as he struck his head the day of his R hip fracture. (3) Acute blood loss anemia: Plan: Hb at admission = 10.7. Lowest Hb was 7.3 on 09/17/21. s/p 1unit PRBCs on 09/17/21. Tolerated such. Hb today = 8.6. B12 def - see below. Folate wnl. IV venofer 300mg x 1 on 09/17/21. IV venofer 300mg again today. Plan for 3rd dose of same tomorrow. Fecal occult is negative. repeat H/H in am. (4) GERD (gastroesophageal reflux disease): Plan: Cont PPI. (5) Atrial fibrillation: Plan: Rates controlled on metoprolol BID. Anemia likely made his a.fib rates worse earlier in the stay. Coumadin resumed 09/15 at 10mg/day. INR 1.6 today; repeat AM. Lovenox 40mg daily while awaiting INR to become therapeutic. (6) HTN (hypertension): Plan: Controlled with monotherapy (metoprolol BID). (7) BPH w urinary obs/LUTS: Plan: Remove lauren today. Patient is not on alpha marshall at baseline. If any LUTs post-removal then add flomax. (8) Sleep apnea: (9) Hypokalemia: Plan: Replaced and resolved. Mag wnl. (10) Hypomagnesemia: Plan: Replaced and resolved. (11) Hyponatremia: Plan: Na 133 at admission. Today = 132. Urine osm 399, serum osm 279, and urine Na 11. He appears euvolemic today. Since urine Na is borderline low add NaCl tab 1gm daily and repeat BMP am. (12) Thrombocytopenia: Plan: Pt has b12 def - this could be contributing. folate wnl. Could have also been due to consumption in setting of bleeding from hip fracture. platelets now nl at 150. (13) DVT prophylaxis: Plan: lovenox 40mg daily while awaiting INR to become therapeutic; INR goal 2-3. daily INR. cont coumadin - 10mg daily. (14) History of subdural hematoma: Plan: 12/2021. 2nd to fall with head trauma. no surgical intervention needed. if patient continues to have head injuries (did strike the head with the fall that led to his R hip Fx) I mentioned to his that we should strongly look at risks/benefits of ongoing coumadin usage (15) Constipation: Plan: continue senna. continue fiber. miralax prn. suspect watery stool was "overflow" stooling due to constipation. c diff negative. fecal occult negative. (16) Chronic cough: Plan: GERD vs bronchitis vs postnasal drip syndrome are the top 3 etiologies for chronic cough. he is not on LORI inhibitor. already treating GERD with PPI. thus, etiology? still with LLL rales - no signs of pneumonia clinically. repeat cxr today with improved LLL infiltrate thus this was likely atelectasis. cont flutter valve. (17) Vitamin B12 deficiency: Plan: replace IM B12 1000mcg daily x 5 days then PO replacement thereafter Plan: rehab needed post-d/c -- likely can d/c to [facility] on 09/19/21 extensively updated by phone 09/16/21 and again today Admission and Anticipated Discharge Date Admission Date: September 12, 2021 Subjective patient reports poor-fair appetite "I'm just not hungry" he blames this on the food being different at home vs the hospital denies any changes in his chronic cough no dyspnea continues with RLE pain with movement but nothing at rest moving his bowels tele overnight - a.fib, most times rates are 80s/90s; highest 110-115 Review of Systems Review of Systems: gen - no fevers, chills cv - no chest pain, no orthopnea pulm - no dyspnea GI - no pain or nausea or emesis Physical Exam Physical Exam: gen - awake, alert, pleasant; NAD neck - no JVD mouth - MMM, ulceration posterior throat well-healed heart - irregularly irregular, s1 s2, regular rate, no murmur lungs - L basilar rales slightly improved, o/w CTA b/l; no increased work of breathing abd - soft, BS+, NT, no distension today, no HSM ext - right thigh edema and mild right ankle edema; no edema LLE; pulses b/l feet 2+ musculo - right thigh dressings intact skin - bruise R zoroastrian of head unchanged Results & Data Results & Data ([facility]) Vital Signs (Past 12 Hours) Vital Signs Temp Pulse Pulse Resp BP Pulse Ox 09/18/21 15:46 90 09/18/21 15:31 36.7 C 88 20 120/71 93 09/18/21 11:20 36.9 C 65 20 101/66 100 09/18/21 09:46 36.8 C 85 18 110/68 99 09/18/21 07:44 36.8 C 88 20 112/72 98 09/18/21 07:24 85 Laboratory Results Laboratory Results - last 24 hr 09/17/21 09/17/21 09/17/21 10:06 22:05 22:05 WBC RBC Hgb Hct MCV MCH MCHC RDW Std Deviation RDW Coeff of Pa Plt Count MPV PT INR Sodium Potassium Chloride Carbon Dioxide Anion Gap BUN Creatinine Est Cr Clr Drug Dosing Est GFR ( Amer) Est GFR (Non-Af Amer) BUN/Creatinine Ratio Glucose Osmolality Calcium Urine Osmolality 399 L Ur Random Sodium 11 Crossmatch See Detail 09/18/21 09/18/21 09/18/21 05:29 05:29 05:29 WBC 5.79 RBC 2.65 L Hgb 8.6 L Hct 24.6 L MCV 92.8 MCH 32.5 MCHC 35.0 RDW Std Deviation 52.0 H RDW Coeff of Pa 15.2 H Plt Count 150 MPV 8.9 PT 16.6 H INR 1.6 H Sodium 132 L Potassium 3.7 Chloride 97 L Carbon Dioxide 30 Anion Gap 5 BUN 16 Creatinine 0.68 Est Cr Clr Drug Dosing 94.9 Est GFR ( Amer) 100.9 Est GFR (Non-Af Amer) 87.1 BUN/Creatinine Ratio 23.5 H Glucose 111 H Osmolality Calcium 8.1 L Urine Osmolality Ur Random Sodium Crossmatch 09/18/21 05:29 WBC RBC Hgb Hct MCV MCH MCHC RDW Std Deviation RDW Coeff of Pa Plt Count MPV PT INR Sodium Potassium Chloride Carbon Dioxide Anion Gap BUN Creatinine Est Cr Clr Drug Dosing Est GFR ( Amer) Est GFR (Non-Af Amer) BUN/Creatinine Ratio Glucose Osmolality 279 L Calcium Urine Osmolality Ur Random Sodium Crossmatch Diagnostic Findings Chest X-Ray 09/18/21 13:42 XR chest 1V portable CLINICAL HISTORY: LLL infiltrate, interval change COMPARISON STUDY: Chest radiograph September 16, 2021. 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 There is mild cardiomegaly without evidence for pulmonary edema. No pneumothorax or pleural effusion is present. Minimal left basilar opacity has improved. IMPRESSION: 1. Interval improvement in left basilar opacity. 2. Cardiomegaly. No evidence for pulmonary edema. ACT 112: Negative or not required by law. Electronically signed by: Brandin Brooks M.D. 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 (1) GERD (gastroesophageal reflux disease) Esophagitis presence: esophagitis presence not specified Qualified Code(s): K21.9 - Gastro-esophageal reflux disease without esophagitis (2) Atrial fibrillation Atrial fibrillation type: permanent Qualified Code(s): I48.21 - Permanent atrial fibrillation (3) Sleep apnea Sleep apnea type: unspecified type Qualified Code(s): G47.30 - Sleep apnea, unspecified
[2021-09-18] MEDS: SENNA 8.6 MG TAB PO SCH (21:38)
[2021-09-18] MEDS: LORazepam 1 MG TAB PO PRN (22:31)
[2021-09-19 07:32] LABS: Hematocrit (blood only) 24.8 % (42-52); Hemoglobin 8.8 g/dL (14.0-18.0)
[2021-09-19 07:38] LABS: INR 1.9 (0.9-1.1); Prothrombin Time 19.2 Seconds (9.0-12.0)
[2021-09-19 07:52] LABS: BUN Creatinine Ratio 20.3 (10-20); Calcium 8.4 mg/dl (8.5-10.1); Creatinine Clr Calc Pharmacy 93.5 ml/min; Est GFR (African American) 100.3 ml/min; Est GFR (Non-African American) 86.6 ml/min; Potassium 3.9 mmol/L (3.5-5.1)
[2021-09-19] MEDS ORDERED: IRON SUCROSE 300 MG in SODIUM CHLORIDE 0.9% 250 ML IV ONE (08:00)
[2021-09-19] MEDS: MULTIVITAMIN TAB PO SCH (08:53)
[2021-09-19] MEDS: PANTOprazole 40 MG TAB PO SCH (08:54)
[2021-09-19] MEDS: CYANOCOBALAMIN 1000 MCG/ML VIAL IM SCH (08:54)
[2021-09-19] MEDS: METOPROLOL TARTRATE 25 MG TAB PO SCH (08:54)
[2021-09-19] MEDS: SODIUM CHLORIDE 1 GM TABLET PO SCH (08:54)
[2021-09-19] MEDS: CALCIUM POLYCARBOPHIL 625MG TAB PO SCH (08:54)
[2021-09-19] MEDS: DOCUSATE SODIUM 100 MG CAP PO SCH (09:05)
[2021-09-19] MEDS: ENOXAPARIN INJ 40 MG/0.4 ML SYR SQ SCH (09:11)
[2021-09-19] MEDS: POTASSIUM CHLORIDE CRTAB 20 MEQ TABCR PO SCH (09:15)
[2021-09-19] MEDS: ACETAMINOPHEN 500 MG TAB PO SCH (09:44)
--- NOTE | 2021-09-19 13:13 | Discharge Summary ---
Date of Service September 19, 2021 Admission HPI Per Admitting Provider Mr. Crum is a 86-year-old male with a past medical history of permanent A. fib on warfarin, GERD, insomnia, sleep apnea, and a fall in December 2020 resulting in a subdural hematoma who presents today after a mechanical fall. Patient was walking out to his mailbox to grab the mail when he slipped on a sheet of ice and fell on his right side. Mailman who is at the home witnessed the event and called EMS. Patient is currently reporting throbbing/aching pain at the right hip that radiates down to his knee, however denies numbness/tingling, loss of bowel/bladder control, head or back pain. Denies loss of consciousness prior to or after fall, no weakness, dizziness, chest pain, palpitations, shortness of breath, nausea, vomiting prior to or after fall. In ED, vital signs are within normal limits, stable. Head and C-spine CT unremarkable, hip and pelvic x-ray revealed intertrochanteric/subtrochanteric fracture of the right proximal femur with overlying soft tissue edema. Routine labs significant for mild leukocytosis, suspect an inflammatory reaction. PT 18.8, INR 1.8, PTT 31.6. In ED, patient received morphine, Lauren catheter was placed. Hospitalist service was consulted for further evaluation and admission. Discharge Exam gen - awake, alert, pleasant; NAD neck - no JVD mouth - MMM, ulceration posterior throat well-healed heart - irregularly irregular, s1 s2, regular rate, no murmur lungs - L basilar rales slightly improved, o/w CTA b/l; no increased work of breathing abd - soft, BS+, NT, no distension today, no HSM ext - right thigh edema and mild right ankle edema; no edema LLE; pulses b/l feet 2+ musculo - right thigh dressings intact skin - bruise R rastafari of head unchanged Discharge Data Allergies Allergy/AdvReac Type Severity Reaction Status Date / Time colchicine Allergy Unknown rash Verified 09/12/21 18:28 diltiazem AdvReac Severe CARDIAC Verified 09/12/21 18:28 ARREST CONTRAST MEDIA FOR MYOGRAM AdvReac Severe SEVERE PORRAS/ Uncoded 09/12/21 18:28 CHEMICAL INDUCED MENINGITIS Consultations 09/12/21 17:59 ED Decision to Admit Stat 09/12/21 20:28 Consult Orthopedic Surgery Routine Procedures Performed Operation Date: 09/13/21 08:00 Actual Procedures p Right long trochanteric femoral nail hip(Right) - David Carver MD Ordered Studies 09/12/21 16:[address] [CT head/brain wo con] Stat 09/12/21 16:54 CT cervical spine wo con Stat 09/13/21 12:00 FL femur RT 2V Routine 09/15/21 15:33 CT head/brain wo con Routine Hospital Course (1) 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 Appreciate ortho assistance. Doing better overall and mobility is improving. Pain relatively controlled especially at rest. DVT proph - coumadin with lovenox bridge. INR 1.6 today. Post-op course complicated by #2, rapid a.fib, and acute blood loss anemia. 25-OH vit D level = 49. Cont PT/OT. Accepted at [facility] - can d/c there tomorrow if all issues are stable. d/c lauren today. (2) Toxic encephalopathy: 2nd anesthesia, pain meds, etc. Resolved. CT head x 2 this admission negative. I can't rule out a component of post-concussive state as he struck his head the day of his R hip fracture. (3) Acute blood loss anemia: Hb at admission = 10.7. Lowest Hb was 7.3 on 09/17/21. s/p 1unit PRBCs on 09/17/21. Tolerated such. Hb today = 8.6. B12 def - see below. Folate wnl. IV venofer 300mg x 1 on 09/17/21. IV venofer 300mg again today. Plan for 3rd dose of same tomorrow. Fecal occult is negative. repeat H/H in am. (4) GERD (gastroesophageal reflux disease): Cont PPI. (5) Atrial fibrillation: Rates controlled on metoprolol BID. Anemia likely made his a.fib rates worse earlier in the stay. Coumadin resumed 09/15 at 10mg/day. INR 1.6 today; repeat AM. Lovenox 40mg daily while awaiting INR to become therapeutic. (6) HTN (hypertension): Controlled with monotherapy (metoprolol BID). (7) BPH w urinary obs/LUTS: Remove lauren today. Patient is not on alpha marshall at baseline. If any LUTs post-removal then add flomax. (8) Sleep apnea: (9) Hypokalemia: Replaced and resolved. Mag wnl. (10) Hypomagnesemia: Replaced and resolved. (11) Hyponatremia: Na 133 at admission. Today = 132. Urine osm 399, serum osm 279, and urine Na 11. He appears euvolemic today. Since urine Na is borderline low add NaCl tab 1gm daily and repeat BMP am. (12) Thrombocytopenia: Pt has b12 def - this could be contributing. folate wnl. Could have also been due to consumption in setting of bleeding from hip fracture. platelets now nl at 150. (13) DVT prophylaxis: lovenox 40mg daily while awaiting INR to become therapeutic; INR goal 2-3. daily INR. cont coumadin - 10mg daily. (14) History of subdural hematoma: 12/2021. 2nd to fall with head trauma. no surgical intervention needed. if patient continues to have head injuries (did strike the head with the fall that led to his R hip Fx) I mentioned to his that we should strongly look at risks/benefits of ongoing coumadin usage (15) Constipation: continue senna. continue fiber. miralax prn. suspect watery stool was "overflow" stooling due to constipation. c diff negative. fecal occult negative. (16) Chronic cough: GERD vs bronchitis vs postnasal drip syndrome are the top 3 etiologies for chronic cough. he is not on LORI inhibitor. already treating GERD with PPI. thus, etiology? still with LLL rales - no signs of pneumonia clinically. repeat cxr today with improved LLL infiltrate thus this was likely atelectasis. cont flutter valve. (17) Vitamin B12 deficiency: replace IM B12 1000mcg daily x 5 days then PO replacement thereafter rehab needed post-d/c -- likely can d/c to [facility] on 09/19/21 extensively updated by phone 09/16/21 and again today Discharge Plan Discharge Items Reason For Visit: RIGHT HIP FRACTURE Follow-up/Referrals: Jonathan Rosenthal PASuzannaC [Primary Care Provider] - Medications and DC Order Prescriptions: No Action metoprolol tartrate [Lopressor] 50 mg tablet 75 mg PO BID RF: 0 lorazepam [Ativan] 1 mg tablet 1 mg PO HS PRN (Reason: Anxiety) RF: 0 warfarin 5 mg tablet 10 mg PO DAILY RF: 0 pantoprazole 40 mg tablet,delayed release (DR/EC) 40 mg PO QAM RF: 0 Admission Data Admit Date/Time: 09/12/21 19:41 Attending Provider: Abhishek Gregory Admit Provider: Alejandro Emerson Primary Care Provider: Jonathan Rosenthal Other Providers: Alejandro Emerson ; David Carver ; [facility] ; [facility] Coding Diagnoses 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
== END 2021-09-19 15:19 | DRG 480 ==
LOC: ED 16:24 → SUATTDRO 19:41 → 2N 19:41